=== PATIENT | male | born 1935 | race Caucasian/White ===

== ENCOUNTER 2018-02-18 14:34 | Inpatient (IN) | payer MEDICARE, MEDICAID ==
[~2018-02-18] VITALS: Ht 177.8 cm; Wt 64.0 kg
[2018-02-18] MEDS ORDERED: ARICEPT10 MG ORAL (14:36)
[2018-02-18] MEDS ORDERED: ACETAMINOPHEN325 M1 ORAL (14:39)
[2018-02-18] MEDS ORDERED: SYNTHROID50 MCG ORAL (14:39)
[2018-02-18] MEDS ORDERED: CULTURELLE1 EAC1 PO (14:39)
[2018-02-18] MEDS ORDERED: DIGOXIN250 MCG ORAL (14:39)
[2018-02-18] MEDS ORDERED: BISACODYL10 M1 RC (14:39)
[2018-02-18] MEDS ORDERED: DOCUSATE SODIU100 MG ORAL (14:39)
[2018-02-18] MEDS ORDERED: Ampicillin/Sulbactam Sod 3 GM in NS 110 ML IV SCH (14:45)
[2018-02-18] MEDS ORDERED: Vancomycin 1.5gm/D5W 250ml 250 ML IVPB ONE (14:45)
--- NOTE | 2018-02-18 14:49 | Emergency Room Report ---
History of Present Illness General Chief Complaint: Altered Level of Consciousness Source: Patient, Medical Record Present Illness HPI Patient is an 82-year-old male who presented after increased altered mental status. Patient was brought in by EMS from [facility]. The patient was noted to have increased altered mental status for approximately one hour. Patient had been noted to be warm to the touch. The patient was noted to be he isn't usual. The EMS the patient was normally somewhat confused Allergies: Coded Allergies: No Known Allergies (Unverified , 02/18/18) Patient History Reviewed Nursing Documentation: PMH: Agreed; PSxH: Agreed Nursing Documentation-PM Past Medical History: No History, Except For Hx Cardiac Problems: Yes - Atherosclerotic heart disease Hx COPD: Yes - PNA Review of Systems All Other Systems: negative except mentioned in HPI Physical Exam Vital Signs Date Time Temp Pulse Resp B/P (MAP) Pulse Ox O2 Delivery O2 Flow Rate FiO2 02/18/18 14:31 93 20 154/98 94 Nasal Cannula 2.0 Sp02 EP Interpretation: reviewed, normal General Appearance: Chronically Ill Head: atraumatic ENT: dry mucus membranes Neck: no bony tend, limited range of motion Respiratory: no retraction, rales Cardiovascular #1: regular rate, rhythm, no edema Gastrointestinal: normal inspection, normal bowel sounds, non tender, soft, no guarding, no hernia Genitourinary: no CVA tenderness Musculoskeletal: normal inspection, back normal, normal range of motion Neurologic: responsive, motor weakness Psychiatric: normal inspection, depressed affect Skin: normal inspection, normal color, no rash Procedures Critical Care Time Critical Care Time Patient had a critical medical condition which untreated could potentially result in life or limb threatening injury. Total critical care time excluding procedures approximately 45 minutes. Medical Decision Making Diagnostic Impression: Primary Impression: Altered level of consciousness Additional Impressions: Severe sepsis Myocardial injury ER Course presented for for altered mental status. Ifferential diagnosis included but was not limited to ischemic stroke, subarachnoid hemorrhage, hypoglycemia, spinal cord injury, neurodegenerative disorder, urinary tract infection, hypoxemia.Because of complexity of patient's case laboratory testing and imaging studies were ordered. Patient was noted to have EKG with normal sinus rhythm with bifascicular block T wave was noted to be somewhat inverted. Patient's initial troponin was noted to be markedly elevated consistent with myocardial injury. Urinalysis showed evidence of urinary infection. The patient was started on IV antibiotics. He was given rectal aspirin. Patient will be admitted to the hospital for further evaluation and treatment of sepsis. Patient was noted to have some improvement in his mental status after IV hydration showed improved perfusion. Patient will likely require cardiology consult. Dr. Sibley was contacted for inpatient management due to complexity of medical condition and covering physician for Dr. Sutton. The patient's repeat troponin showed no acute change.Dr. Sherwood contacted by Dr. Sibley for cardiology consult Labs Test 02/18/18 14:55 02/18/18 15:16 White Blood Count 16.2 K/UL (4.8-10.8) Red Blood Count 4.54 M/UL (4.70-6.10) Hemoglobin 13.2 G/DL (14.2-18.0) Hematocrit 41.1 % (42.0-52.0) Mean Corpuscular Volume 91 FL (80-99) Mean Corpuscular Hemoglobin 29.1 PG (27.0-31.0) Mean Corpuscular Hemoglobin Concent 32.2 G/DL (32.0-36.0) Red Cell Distribution Width 12.5 % (11.6-14.8) Platelet Count 121 K/UL (150-450) Mean Platelet Volume 7.7 FL (6.5-10.1) Neutrophils (%) (Auto) 86.5 % (45.0-75.0) Lymphocytes (%) (Auto) 5.8 % (20.0-45.0) Monocytes (%) (Auto) 5.1 % (1.0-10.0) Eosinophils (%) (Auto) 1.7 % (0.0-3.0) Basophils (%) (Auto) 1.0 % (0.0-2.0) Prothrombin Time 12.6 SEC (9.30-11.50) Prothromb Time International Ratio 1.2 (0.9-1.1) Activated Partial Thromboplast Time 29 SEC (23-33) Sodium Level 144 MMOL/L (136-145) Potassium Level 5.0 MMOL/L (3.5-5.1) Chloride Level 106 MMOL/L (98-107) Carbon Dioxide Level 30 MMOL/L (21-32) Anion Gap 8 mmol/L (5-15) Blood Urea Nitrogen 36 mg/dL (7-18) Creatinine 1.4 MG/DL (0.55-1.30) Estimat Glomerular Filtration Rate mL/min (>60) Glucose Level 112 MG/DL (74-106) Lactic Acid Level 2.00 mmol/L (0.4-2.0) Calcium Level 8.7 MG/DL (8.5-10.1) Total Bilirubin 0.5 MG/DL (0.2-1.0) Aspartate Amino Transf (AST/SGOT) 54 U/L (15-37) Alanine Aminotransferase (ALT/SGPT) 22 U/L (12-78) Alkaline Phosphatase 99 U/L (46-116) Total Creatine Kinase 179 U/L (26-308) Creatine Kinase MB 12.6 NG/ML (0.0-3.6) Creatine Kinase MB Relative Index 7.0 Troponin I 6.867 ng/mL (0.000-0.056) Pro-B-Type Natriuretic Peptide 3815 pg/mL (0-125) Total Protein 8.3 G/DL (6.4-8.2) Albumin 3.1 G/DL (3.4-5.0) Globulin 5.2 g/dL Albumin/Globulin Ratio 0.6 (1.0-2.7) Lipase 356 U/L (73-393) Urine Color Pale yellow Urine Appearance Turbid Urine pH 5 (4.5-8.0) Urine Specific [place] 1.015 (1.005-1.035) Urine Protein 4+ (NEGATIVE) Urine Glucose (UA) Negative (NEGATIVE) Urine Ketones Negative (NEGATIVE) Urine Blood 5+ (NEGATIVE) Urine Nitrite Negative (NEGATIVE) Urine Bilirubin Negative (NEGATIVE) Urine Urobilinogen Normal MG/DL (0.0-1.0) Urine Leukocyte Esterase 3+ (NEGATIVE) Urine RBC 0-2 /HPF (0 - 0) Urine WBC Tntc /HPF (0 - 0) Urine Squamous Epithelial Cells Occasional /LPF Urine Bacteria Many /HPF (NONE) EKG Diagnostic Results Rate: normal - 89 Rhythm: NSR ASA given to the pt in ED: Yes Rhythm Strip Diag. Results EP Interpretation: yes Rhythm: NSR, other - occasional pvcs Last Vital Signs Date Time Temp Pulse Resp B/P (MAP) Pulse Ox O2 Delivery O2 Flow Rate FiO2 02/18/18 14:31 93 20 154/98 94 Nasal Cannula 2.0 Status: unchanged Disposition: ADMITTED INPATIENT Condition: Serious Garry Rob MD Feb 18, 2018 14:48
[2018-02-18 15:10] VITALS: BP 123/83
[2018-02-18 15:19] LABS: HEMATOCRIT 41.1 % (42.0-52.0); HEMOGLOBIN 13.2 G/DL (14.2-18.0); MEAN CORPUSCULAR VOLUME 91 FL (80-99); PLATELET COUNT 121 K/UL (150-450); RED BLOOD COUNT 4.54 M/UL (4.70-6.10); RED CELL DISTRIBUTION WIDTH 12.5 % (11.6-14.8); WHITE BLOOD COUNT 16.2 K/UL (4.8-10.8)
[2018-02-18 15:20] LABS: EOSINOPHILS % (AUTO) 1.7 % (0.0-3.0); LYMPHOCYTES % (AUTO) 5.8 % (20.0-45.0); MONOCYTES % (AUTO) 5.1 % (1.0-10.0); NEUTROPHILS % (AUTO) 86.5 % (45.0-75.0)
[2018-02-18 15:23] LABS: INR 1.2 (0.9-1.1)
[2018-02-18 15:28] LABS: ANION GAP 8 mmol/L (5-15); BLOOD UREA NITROGEN 36 mg/dL (7-18); CALCIUM 8.7 MG/DL (8.5-10.1); CARBON DIOXIDE 30 MMOL/L (21-32); CHLORIDE 106 MMOL/L (98-107); CREATININE 1.4 MG/DL (0.55-1.30); SODIUM 144 MMOL/L (136-145)
[2018-02-18 15:31] LABS: APPEARANCE,URINE TURBID; BILIRUBIN, URINE NEGATIVE (NEGATIVE); COLOR,URINE PALE YELLOW; GLUCOSE, URINE (UA) NEGATIVE (NEGATIVE); KETONES,URINE NEGATIVE (NEGATIVE); LEUKOCYTE ESTERASE ,URINE 3+ (NEGATIVE); NITRITE,URINE NEGATIVE (NEGATIVE); PH,URINE 5 (4.5-8.0); PROTEIN,URINE 4+ (NEGATIVE); UROBILINOGEN,URINE NORMAL MG/DL (0.0-1.0)
[2018-02-18 15:41] LABS: ALANINE AMINOTRANSFERASE 22 U/L (12-78); ALBUMIN 3.1 G/DL (3.4-5.0); ALBUMIN/GLOBULIN RATIO 0.6 (1.0-2.7); ALKALINE PHOSPHATASE 99 U/L (46-116); ASPARTATE AMINO TRANSFERASE 54 U/L (15-37); BILIRUBIN,TOTAL 0.5 MG/DL (0.2-1.0); CKMB 12.6 NG/ML (0.0-3.6); CREATINE KINASE 179 U/L (26-308)
--- NOTE | 2018-02-18 16:16 | Diagnostic Imaging Report ---
Indications: Altered mental status Technique: Spiral acquisitions obtained through the brain. Angled axial and coronal 5 x 5 mm slices were reconstructed. Total dose length product 1467.58 mGycm. CTDI vol(s) 70.38 mGy. Dose reduction achieved using automated exposure control Comparison: None. Findings: There is marked age-related enlargement of the ventricles and extra axial CSF spaces. There is extensive periventricular deep white matter low-attenuation, consistent with chronic ischemic change. No acute intercranial hemorrhage or edema. No mass effect nor midline shift. 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 The sinuses are clear otherwise. Visualized orbits are unremarkable. The mastoids are clear. The calvarium is intact Impression: Extensive senescent changes, as described Negative for acute intracranial bleed or mass effect. The CT scanner at [facility] is accredited by the [employer] and the scans are performed using protocols designed to limit radiation exposure to as low as reasonably achievable to attain images of sufficient resolution adequate for diagnostic evaluation.
--- NOTE | 2018-02-18 16:23 | Diagnostic Imaging Report ---
Indication: Shortness of breath Technique: One view of the chest Comparison: none Findings: An usual linear calcified opacity parallels the left mid chest wall. Central to this are linear opacities suggestive of scarring. There a numerous calcified left hilar lymph nodes. There is some lucency at the left lung apex. There is slight blunting of the left costophrenic sulcus. No definite infiltrates. The right lung and pleural space are clear. The heart size is normal Impression: Left midlung and calcified parenchymal scarring. Numerous calcified hilar nodes suggest old granulomatous disease Left apical lucency could reflect compensatory hyperinflation or COPD changes. No definite acute process No definite acute process. Other findings as noted
--- NOTE | 2018-02-18 16:37 | NUR ---
ED Nurse Note: Patient is non-verbalizing, responding to verbal stimuli, productive coughing, mild fever, restless, crackles sound from all lobes in lungs.
--- NOTE | 2018-02-18 16:38 | NUR ---
NURSE NOTES: RECEIVED PATIENT FROM ER VIA [facility]. REPORT GIVEN BY MARCIO VIA PHONE. PATIENT IS LYING IN BED, HOOKED TO CARDIAC TO MONITOR. VITALS TAKEN AND RECORDED. ON O2 AT2L NC. ON NPO. IV ON R FA G20, PATENT AND INTACT. THOROUGH SKIN ASSESSMENT DONE. NOTED SACRAL REDNESS. SKIN CARE DONE. HEALTH TEACHINGS DONE. ORIENTED TO ROOM. CALL LIGHT WITHIN REACH. SIDE RAILS UP. BED AT LOWEST POSITION. WILL CONTINUE TO MONITOR.
[2018-02-18] MEDS ORDERED: VANCOMYCIN IVPB ONE (16:45)
[2018-02-18] MEDS ORDERED: NS IVPB SCH (16:45)
[2018-02-18] MEDS ORDERED: VANCOMYCIN IVPB SCH (16:45)
[2018-02-18] MEDS ORDERED: [UNRECOGNIZED DRUG - OTHER] IVPB ONE (16:45)
[2018-02-18] MEDS ORDERED: Miralax 17gm pkt ORAL PRN (16:45)
[2018-02-18] MEDS ORDERED: Promethazine/Codeine 5ml UD ORAL PRN (16:46)
[2018-02-18] MEDS ORDERED: Albuterol/Ipratropium 3ml neb HHN PRN (16:46)
[2018-02-18] MEDS ORDERED: Mylanta II UD 30ml ORAL PRN (16:46)
[2018-02-18] MEDS ORDERED: Nitroglycerin Subl 0.4mg tab SL PRN (16:46)
[2018-02-18 17:10] VITALS: BP 151/98
[2018-02-18] MEDS ORDERED: Cefepime HCl 1 GM in D5W 55 ML IV SCH (18:00)
--- NOTE | 2018-02-18 19:06 | NUR ---
HAND-OFF: Report given to Coco Sow RN.
--- NOTE | 2018-02-18 19:08 | NUR ---
NURSE NOTES: Received patient from JUAN FRANCISCO Dacosta. Patient is asleep on nasal cannula of 2L and saturating at 98%. NPO. Bed alarm is activated, bed on lowest position, will continue plan of care.
--- NOTE | 2018-02-18 19:29 | Cardiology Progress Note ---
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 hs of paf need to exclude cva nor a candidate for any invasive cardaic intervention at this time per report has baseline dementia unt been able to contact siter for info consider ngt echo repeat ekg and trop [id number] Objective Last 24 Hour Vital Signs Date Time Temp Pulse Resp B/P (MAP) Pulse Ox O2 Delivery O2 Flow Rate FiO2 02/18/18 18:46 99.9 79 22 144/87 100 Nasal Cannula 2.0 93 02/18/18 17:10 Nasal Cannula 2.0 02/18/18 17:10 97.0 79 22 151/98 (115) 100 02/18/18 15:10 99.9 97 30 123/83 93 Nasal Cannula 2.0 02/18/18 15:10 97 30 Nasal Cannula 2.0 93 02/18/18 14:31 93 20 154/98 94 Nasal Cannula 2.0 Laboratory Tests Test 02/18/18 14:55 02/18/18 15:16 02/18/18 16:15 White Blood Count 16.2 K/UL (4.8-10.8) H Red Blood Count 4.54 M/UL (4.70-6.10) L Hemoglobin 13.2 G/DL (14.2-18.0) L Hematocrit 41.1 % (42.0-52.0) L Mean Corpuscular Volume 91 FL (80-99) Mean Corpuscular Hemoglobin 29.1 PG (27.0-31.0) Mean Corpuscular Hemoglobin Concent 32.2 G/DL (32.0-36.0) Red Cell Distribution Width 12.5 % (11.6-14.8) Platelet Count 121 K/UL (150-450) L Mean Platelet Volume 7.7 FL (6.5-10.1) Neutrophils (%) (Auto) 86.5 % (45.0-75.0) H Lymphocytes (%) (Auto) 5.8 % (20.0-45.0) L Monocytes (%) (Auto) 5.1 % (1.0-10.0) Eosinophils (%) (Auto) 1.7 % (0.0-3.0) Basophils (%) (Auto) 1.0 % (0.0-2.0) Prothrombin Time 12.6 SEC (9.30-11.50) H Prothromb Time International Ratio 1.2 (0.9-1.1) H Activated Partial Thromboplast Time 29 SEC (23-33) Sodium Level 144 MMOL/L (136-145) Potassium Level 5.0 MMOL/L (3.5-5.1) Chloride Level 106 MMOL/L (98-107) Carbon Dioxide Level 30 MMOL/L (21-32) Anion Gap 8 mmol/L (5-15) Blood Urea Nitrogen 36 mg/dL (7-18) H Creatinine 1.4 MG/DL (0.55-1.30) H Estimat Glomerular Filtration Rate mL/min (>60) Glucose Level 112 MG/DL (74-106) H Lactic Acid Level 2.00 mmol/L (0.4-2.0) 0.90 mmol/L (0.66-2.22) Calcium Level 8.7 MG/DL (8.5-10.1) Total Bilirubin 0.5 MG/DL (0.2-1.0) Aspartate Amino Transf (AST/SGOT) 54 U/L (15-37) H Alanine Aminotransferase (ALT/SGPT) 22 U/L (12-78) Alkaline Phosphatase 99 U/L (46-116) Total Creatine Kinase 179 U/L (26-308) Creatine Kinase MB 12.6 NG/ML (0.0-3.6) H Creatine Kinase MB Relative Index 7.0 Troponin I 6.867 ng/mL (0.000-0.056) 6.731 ng/mL (0.000-0.056) Pro-B-Type Natriuretic Peptide 3815 pg/mL (0-125) H Total Protein 8.3 G/DL (6.4-8.2) H Albumin 3.1 G/DL (3.4-5.0) L Globulin 5.2 g/dL Albumin/Globulin Ratio 0.6 (1.0-2.7) L Lipase 356 U/L (73-393) Urine Color Pale yellow Urine Appearance Turbid Urine pH 5 (4.5-8.0) Urine Specific [place] 1.015 (1.005-1.035) Urine Protein 4+ (NEGATIVE) H Urine Glucose (UA) Negative (NEGATIVE) Urine Ketones Negative (NEGATIVE) Urine Blood 5+ (NEGATIVE) H Urine Nitrite Negative (NEGATIVE) Urine Bilirubin Negative (NEGATIVE) Urine Urobilinogen Normal MG/DL (0.0-1.0) Urine Leukocyte Esterase 3+ (NEGATIVE) H Urine RBC 0-2 /HPF (0 - 0) H Urine WBC Tntc /HPF (0 - 0) H Urine Squamous Epithelial Cells Occasional /LPF Urine Bacteria Many /HPF (NONE) H Microbiology Date/Time Source Procedure Growth Status 02/18/18 16:50 Nasal Nares Influenza Types A,B Antigen (RUBEN) - Final Complete Geovanny Sherwood MD Feb 18, 2018 19:29
[2018-02-18 20:00] VITALS: BP 143/74
[2018-02-18] MEDS: Heparin 5000 units/ml inj SUBQ SCH (21:14)
[2018-02-19] VITALS: BP 162/85
--- NOTE | 2018-02-19 01:30 | Consultation ---
DATE OF CONSULTATION: 02/18/2018 CARDIOLOGY CONSULTATION CONSULTING PHYSICIAN: Geovanny Sherwood M.D. REASON FOR REFERRAL: Abnormal cardiac enzymes. HISTORY OF PRESENT ILLNESS: This is an elderly gentleman who is a resident of [facility]. The patient has a history of dementia who is transferred from [facility] facility because of worsening than usual altered mental status and is not able to provide any meaningful history whatsoever. The patient apparently according to the allied health professional run sheet who transferred the patient, paramedics were summoned because of altered level of consciousness for 1 hour prior to arrival. Usually, the patient follows commands, but today is only localizing to pain. History of dementia, COPD, and AFib. The patient's vitals were normal limits. Skin was warm. Some rhonchi. They thought that he had sepsis. The patient apparently was noted to move all 4 extremities with good muscle tone and no facial droop and was transferred to the emergency room at [facility]. An electrocardiogram showed poor quality right bundle-branch conduction with secondary ST-segment changes. In the emergency room, he was admitted and was noted to have cardiac enzyme of 6 and no further information is really available from the patient. No history of chest pains or shortness of breath is available. PAST MEDICAL HISTORY: According to the chart has a history of dysphagia, chronic obstructive pulmonary disease, wheezing, essential hypertension, hypothyroidism, iron deficiency anemia, protein-calorie malnutrition, malignant neoplasm of the lung, history of dementia, encephalopathy, coronary artery disease, atrial fibrillation, chronic kidney disease, and long-term use of anticoagulation and antibiotics. ALLERGIES: He is not known to be allergic to any medications based on the data that is available from the [facility] facility. MEDICATIONS: His medications at the facility include Aricept 10 mg daily, Dulcolax suppository, Culturelle, digoxin 0.25 mg daily, Colace, Fleet Enema, iron liquid, milk of magnesia, multivitamin, Synthroid 50 mcg, Tylenol, and vitamin C is also recorded. I do not see any Coumadin although the history indicated that the patient is on anticoagulation. SOCIAL HISTORY: Really unknown. The patient is a [facility] resident. REVIEW OF SYSTEMS: Unable to be obtained. PHYSICAL EXAMINATION: GENERAL: Shows to be an elderly gentleman who is not responsive, noncommunicative. NECK: Supple. No jugular distention. LUNGS: Appear to be clear to auscultation and percussion. CARDIAC: Regular rate and rhythm. No heaves, thrills, or gallops noted. ABDOMEN: Soft and nontender. Positive bowel sounds. EXTREMITIES: There is no edema. No clubbing or cyanosis. NEUROLOGICAL: He is really not responsive at all to any stimuli through me. LABORATORY VALUES: An electrocardiogram shows what appears to be sinus rhythm with a right bundle-branch conduction defect secondary to ST-segment changes. Really, no other ST or T-wave abnormality except related to the right bundle-branch conduction defect. The patient's labs - sodium 144, potassium 5.0, chloride 106, bicarb 30, BUN 32, creatinine 1.14, and glucose 112. Lactic acid 2 and subsequently 0.9. AST and ALT within normal limits. CK of 179. Troponin 6.87 subsequent to 6.73. ProBNP was 3800. Total protein 8.3. Albumin of 3.1. Lipase of 356. INR is 1.0 and PTT of 29. Urinalysis 3+ leukocyte esterase, too numerous to count wbcs. A chest x-ray performed in the emergency room shows left mid lung calcified parenchymal scarring, numerous calcified hilar nodes suggestive of old granulomatous disease, left apical lucency, could represent compensated hyperinflation of COPD, otherwise no acute definite processes noted on the chest x-ray. He did have a CT scan of his head. The CT scan had extensive senescent changes. Negative for intracranial bleed or mass effect is noted. ASSESSMENT AND PLAN: 1. Alteration of mental status. Questionable toxic metabolic encephalopathy. 2. Acute myocardial infarction non ST-elevation. 3. Right bundle-branch block conduction defect, chronicity unknown. 4. Reported history of lung cancer. 5. Reported history of paroxysmal atrial fibrillation. 6. Reported history of coagulopathy secondary to anticoagulation. 7. History of coronary artery disease. 8. History of chronic obstructive pulmonary disease. 9. History of chronic kidney disease. 10. History of hypertension. Dr. Sibley, this patient was seen in cardiac consultation. In light of the fact that he is such a poor historian, no information is available and no electrocardiographic changes, I think he should be treated medically with aspirin and statins, possibly anticoagulants at least for the time being until more information becomes available. [facility] There is no information about him there. There is the patient's sister's phone number on the face sheet and on the senior care sheets, which I have tried, #[phone], and I am unable to contact her for further information and further direction. There was a POLST form that indicates he wants to be attempted resuscitation and full treatment and long-term artificial nutrition to be continued as well. It appears that he usually is able to take oral medications, although at this point with his mentation being so abnormal, I doubt that this could be done. He did receive rectally some aspirin prior to admission. He will have a digoxin level checked and he will have a thyroid-stimulating hormone as well as other testing done. An echocardiogram will be ordered and serial enzymes will be followed. At this time, he is not a candidate for any intervention. Geovanny Sherwood M.D. DR: TAL JOB#: [id number] CC:
[2018-02-19 04:00] VITALS: BP 162/75
[2018-02-19 05:30] LABS: EOSINOPHILS % (AUTO) 5.4 % (0.0-3.0); HEMATOCRIT 36.3 % (42.0-52.0); HEMOGLOBIN 11.6 G/DL (14.2-18.0); LYMPHOCYTES % (AUTO) 7.4 % (20.0-45.0); MEAN CORPUSCULAR VOLUME 90 FL (80-99); MONOCYTES % (AUTO) 6.3 % (1.0-10.0); NEUTROPHILS % (AUTO) 79.9 % (45.0-75.0); PLATELET COUNT 106 K/UL (150-450); RED BLOOD COUNT 4.03 M/UL (4.70-6.10); RED CELL DISTRIBUTION WIDTH 12.3 % (11.6-14.8); WHITE BLOOD COUNT 11.7 K/UL (4.8-10.8)
[2018-02-19 06:14] LABS: ALBUMIN 2.5 G/DL (3.4-5.0); ANION GAP 7 mmol/L (5-15); BLOOD UREA NITROGEN 33 mg/dL (7-18); CALCIUM 8.2 MG/DL (8.5-10.1); CARBON DIOXIDE 27 MMOL/L (21-32); CHLORIDE 110 MMOL/L (98-107); CHOLESTEROL 187 MG/DL (< 200); CREATININE 1.1 MG/DL (0.55-1.30); HDL CHOLESTEROL 47 MG/DL (40-60); PHOSPHORUS 3.9 MG/DL (2.5-4.9); POTASSIUM 4.7 MMOL/L (3.5-5.1); SODIUM 144 MMOL/L (136-145); TRIGLYCERIDES 95 MG/DL (30-150)
--- NOTE | 2018-02-19 07:01 | NUR ---
NURSE NOTES: Call Dr. Sherwood's urgent line but no answer so left a non-urgent message regarding patient's troponin levels this morning that increased from 6.731 to 7.171. Awaiting call back.
--- NOTE | 2018-02-19 07:15 | NUR ---
HAND-OFF: Report given to JUAN FRANCISCO Dacosta.
--- NOTE | 2018-02-19 07:16 | NUR ---
NURSE NOTES: RECEIVED PATIENT FROM Coco KO RN. PATIENT IS LYING IN BED, AWAKE BUT NONVERBAL. HOOKED TO CARDIAC TO MONITOR. O2 AT 2L NC. NO SIGNS OF DISTRESS. ON NPO. FOR ST EVAL TODAY. IV ON R FA G20, PATENT AND INTACT. CALL LIGHT WITHIN REACH. SIDE RAILS UP. BED AT LOWEST POSITION. WILL CONTINUE TO MONITOR.
[2018-02-19 08:00] VITALS: BP 154/79
[2018-02-19] MEDS: Heparin 5000 units/ml inj SUBQ SCH ×2 (08:10→21:00)
[2018-02-19] MEDS ORDERED: Vancomycin 500mg/D5W 110ml IVPB SCH ×2 (09:00)
--- NOTE | 2018-02-19 10:09 | History and Physical ---
History of Present Illness General Date patient seen: Feb 19, 2018 Reason for Hospitalization: Altered Level of Consciousness Present Illness HPI 82-year-old male with hx of lung cancer, CAD, atrial fibrillation on Digoxin, residential resident, unknown baseline mental status was brought to [facility] by paramedics with CC of JIMMY. Pt had low grade temperature and altered mental status for approximately one hour. The EMS the patient was normally somewhat confused. This is his first admission to [facility] and we don't have any information about him or about his DPOA. He had leucocytosis and increased troponin level, without any hx of chest pain. Pt is awake, looks comfortable but doesn't answer to any simple question. Allergies: Coded Allergies: No Known Allergies (Unverified , 02/18/18) Medication History Scheduled Bisacodyl (Bisacodyl), 10 MG RC PRN, (Reported) Digoxin* (Digoxin*), 0.25 MG ORAL DAILY, (Reported) Docusate Sodium* (Docusate Sodium*), 100 MG ORAL TWICE A DAY, (Reported) Donepezil Hcl* (Aricept*), 10 MG ORAL DAILY, (Reported) Levothyroxine Sodium (Synthroid), 50 MCG ORAL DAILY, (Reported) Scheduled PRN Acetaminophen* (Acetaminophen 325MG Tablet*), 325 MG ORAL Q6H PRN for For Pain, (Reported) Miscellaneous Medications Lactobacillus Rhamnosus Gg (Culturelle), 1 EACH PO, (Reported) Patient History Healthcare decision maker N Resuscitation status Full Code Advanced Directive on File Past Medical/Surgical History Past Medical/Surgical History: (1) Lung cancer (2) COPD (chronic obstructive pulmonary disease) (3) Paroxysmal atrial fibrillation Review of Systems All Other Systems: negative except mentioned in HPI Physical Exam General Appearance: WD/WN Lines, tubes and drains: peripheral HEENT: normocephalic, atraumatic Neck: non-tender, normal alignment Respiratory/Chest: chest wall non-tender, lungs clear Cardiovascular/Chest: normal peripheral pulses, regularly irregular Abdomen: normal bowel sounds Genitourinary/Rectal: normal genital exam Extremities: normal range of motion Last 24 Hour Vital Signs Date Time Temp Pulse Resp B/P (MAP) Pulse Ox O2 Delivery O2 Flow Rate FiO2 02/19/18 08:00 97.7 77 18 154/79 (104) 100 02/19/18 08:00 Nasal Cannula 2.0 12/20/18 07:36 77 02/19/18 04:00 97.7 71 24 162/75 (104) 97 02/19/18 04:00 Nasal Cannula 2.0 02/19/18 03:29 58 02/19/18 00:00 97.9 76 24 162/85 (110) 96 02/19/18 00:00 Nasal Cannula 2.0 02/18/18 23:27 73 02/18/18 23:22 Nasal Cannula 2.0 28 02/18/18 20:00 98.0 72 20 143/74 (97) 98 02/18/18 20:00 Nasal Cannula 2.0 02/18/18 19:11 76 02/18/18 18:46 99.9 79 22 144/87 100 Nasal Cannula 2.0 93 02/18/18 18:01 70 02/18/18 17:10 Nasal Cannula 2.0 02/18/18 17:10 97.0 79 22 151/98 (115) 100 02/18/18 15:10 99.9 97 30 123/83 93 Nasal Cannula 2.0 02/18/18 15:10 97 30 Nasal Cannula 2.0 93 02/18/18 14:31 93 20 154/98 94 Nasal Cannula 2.0 Intake and Output 02/18/18 02/19/18 19:00 07:00 Intake Total 1210 ml 55 ml Output Total 200 ml 300 ml Balance 1010 ml -245 ml Intake IV Total 1210 ml 55 ml Output Urine Total 200 ml 300 ml # Voids 1 Laboratory Tests Test 02/18/18 14:55 02/18/18 15:16 02/18/18 16:15 02/19/18 04:00 White Blood Count 16.2 K/UL (4.8-10.8) H 11.7 K/UL (4.8-10.8) H Red Blood Count 4.54 M/UL (4.70-6.10) L 4.03 M/UL (4.70-6.10) L Hemoglobin 13.2 G/DL (14.2-18.0) L 11.6 G/DL (14.2-18.0) L Hematocrit 41.1 % (42.0-52.0) L 36.3 % (42.0-52.0) L Mean Corpuscular Volume 91 FL (80-99) 90 FL (80-99) Mean Corpuscular Hemoglobin 29.1 PG (27.0-31.0) 28.8 PG (27.0-31.0) Mean Corpuscular Hemoglobin Concent 32.2 G/DL (32.0-36.0) 32.0 G/DL (32.0-36.0) Red Cell Distribution Width 12.5 % (11.6-14.8) 12.3 % (11.6-14.8) Platelet Count 121 K/UL (150-450) L 106 K/UL (150-450) L Mean Platelet Volume 7.7 FL (6.5-10.1) 8.0 FL (6.5-10.1) Neutrophils (%) (Auto) 86.5 % (45.0-75.0) H 79.9 % (45.0-75.0) H Lymphocytes (%) (Auto) 5.8 % (20.0-45.0) L 7.4 % (20.0-45.0) L Monocytes (%) (Auto) 5.1 % (1.0-10.0) 6.3 % (1.0-10.0) Eosinophils (%) (Auto) 1.7 % (0.0-3.0) 5.4 % (0.0-3.0) H Basophils (%) (Auto) 1.0 % (0.0-2.0) 1.0 % (0.0-2.0) Prothrombin Time 12.6 SEC (9.30-11.50) H Prothromb Time International Ratio 1.2 (0.9-1.1) H Activated Partial Thromboplast Time 29 SEC (23-33) Sodium Level 144 MMOL/L (136-145) 144 MMOL/L (136-145) Potassium Level 5.0 MMOL/L (3.5-5.1) 4.7 MMOL/L (3.5-5.1) Chloride Level 106 MMOL/L (98-107) 110 MMOL/L (98-107) H Carbon Dioxide Level 30 MMOL/L (21-32) 27 MMOL/L (21-32) Anion Gap 8 mmol/L (5-15) 7 mmol/L (5-15) Blood Urea Nitrogen 36 mg/dL (7-18) H 33 mg/dL (7-18) H Creatinine 1.4 MG/DL (0.55-1.30) H 1.1 MG/DL (0.55-1.30) Estimat Glomerular Filtration Rate mL/min (>60) mL/min (>60) Glucose Level 112 MG/DL (74-106) H 85 MG/DL (74-106) Lactic Acid Level 2.00 mmol/L (0.4-2.0) 0.90 mmol/L (0.66-2.22) Calcium Level 8.7 MG/DL (8.5-10.1) 8.2 MG/DL (8.5-10.1) L Total Bilirubin 0.5 MG/DL (0.2-1.0) Aspartate Amino Transf (AST/SGOT) 54 U/L (15-37) H Alanine Aminotransferase (ALT/SGPT) 22 U/L (12-78) Alkaline Phosphatase 99 U/L (46-116) Total Creatine Kinase 179 U/L (26-308) Creatine Kinase MB 12.6 NG/ML (0.0-3.6) H Creatine Kinase MB Relative Index 7.0 Troponin I 6.867 ng/mL (0.000-0.056) 6.731 ng/mL (0.000-0.056) 7.171 ng/mL (0.000-0.056) Pro-B-Type Natriuretic Peptide 3815 pg/mL (0-125) H Total Protein 8.3 G/DL (6.4-8.2) H Albumin 3.1 G/DL (3.4-5.0) L 2.5 G/DL (3.4-5.0) L Globulin 5.2 g/dL Albumin/Globulin Ratio 0.6 (1.0-2.7) L Lipase 356 U/L (73-393) Urine Color Pale yellow Urine Appearance Turbid Urine pH 5 (4.5-8.0) Urine Specific [place] 1.015 (1.005-1.035) Urine Protein 4+ (NEGATIVE) H Urine Glucose (UA) Negative (NEGATIVE) Urine Ketones Negative (NEGATIVE) Urine Blood 5+ (NEGATIVE) H Urine Nitrite Negative (NEGATIVE) Urine Bilirubin Negative (NEGATIVE) Urine Urobilinogen Normal MG/DL (0.0-1.0) Urine Leukocyte Esterase 3+ (NEGATIVE) H Urine RBC 0-2 /HPF (0 - 0) H Urine WBC Tntc /HPF (0 - 0) H Urine Squamous Epithelial Cells Occasional /LPF Urine Bacteria Many /HPF (NONE) H Phosphorus Level 3.9 MG/DL (2.5-4.9) Triglycerides Level 95 MG/DL (30-150) Cholesterol Level 187 MG/DL (< 200) LDL Cholesterol 130 mg/dL (<100) H HDL Cholesterol 47 MG/DL (40-60) Cholesterol/HDL Ratio 4.0 (3.3-4.4) Thyroid Stimulating Hormone (TSH) 3.498 uiU/mL (0.358-3.740) Digoxin Level 2.1 NG/ML (0.5-2.0) H Microbiology Date/Time Source Procedure Growth Status 02/18/18 16:50 Nasal Nares Influenza Types A,B Antigen (RUBEN) - Final Complete 02/18/18 15:16 Urine,Clean Catch Urine Culture - Preliminary Gram Negative Wild Resulted Height (Feet): 5 Height (Inches): 10.00 Weight (Pounds): 170 Medications Current Medications Medications (Trade) Dose Ordered Sig/Delvin Route PRN Reason Start Time Stop Time Status Last Admin Dose Admin Acetaminophen (Tylenol) 650 mg Q4H PRN ORAL fever 02/18/18 16:45 03/20/18 16:44 Al Hydroxide/Mg Hydroxide (Mylanta II) 30 ml Q6H PRN ORAL dyspepsia 02/18/18 16:46 03/20/18 16:45 Albuterol/ Ipratropium (Albuterol/ Ipratropium) 3 ml Q4H PRN HHN Shortness of Breath 02/18/18 16:46 02/23/18 16:45 Cefepime HCl 1 gm/ Dextrose 55 ml @ 110 mls/hr Q24H IV 02/18/18 18:00 02/25/18 17:59 02/18/18 18:45 Heparin Sodium (Porcine) (Heparin 5000 units/ml) 5,000 units EVERY 12 HOURS SUBQ 02/18/18 21:00 03/20/18 20:59 02/18/18 21:14 Nitroglycerin (Ntg) 0.4 mg Q5M PRN SL Prn Chest Pain 02/18/18 16:46 03/20/18 16:45 Ondansetron HCl (Zofran) 4 mg Q6H PRN IVP Nausea & Vomiting 02/18/18 16:46 03/20/18 16:45 Polyethylene Glycol (Miralax) 17 gm DAILYPRN PRN ORAL Constipation 02/18/18 16:45 03/20/18 16:44 Promethazine HCl/ Codeine (Phenergan with Codeine) 5 ml Q4H PRN ORAL For Cough 02/18/18 16:46 03/20/18 16:45 Temazepam (Restoril) 15 mg HSPRN PRN ORAL Insomnia 02/18/18 21:00 02/25/18 20:59 Vancomycin HCl (Vanco rx to dose) 1 ea DAILY PRN MISC Per rx protocol 02/18/18 16:30 03/20/18 16:29 Vancomycin HCl 500 mg/Dextrose 110 ml @ 110 mls/hr Q12HR IVPB 02/19/18 09:00 02/24/18 08:59 02/19/18 08:10 Vancomycin HCl 1500 mg/Sodium Chloride 275 ml @ 137.5 mls/ hr ONCE IVPB 02/18/18 16:45 02/23/18 16:44 02/18/18 17:03 Assessment/Plan Problem List: (1) Severe sepsis ICD Codes: A41.9 - Sepsis, unspecified organism; R65.20 - Severe sepsis without septic shock SNOMED: 04184476 (2) Altered level of consciousness ICD Codes: R40.4 - Transient alteration of awareness SNOMED: 0331203 (3) Myocardial injury ICD Codes: S26.90XA - Unspecified injury of heart, unspecified with or without hemopericardium, initial encounter SNOMED: 38405566 (4) Paroxysmal atrial fibrillation ICD Codes: I48.0 - Paroxysmal atrial fibrillation SNOMED: 306500095 (5) COPD (chronic obstructive pulmonary disease) ICD Codes: J44.9 - Chronic obstructive pulmonary disease, unspecified SNOMED: 07647566 (6) Lung cancer ICD Codes: C34.90 - Malignant neoplasm of unspecified part of unspecified bronchus or lung SNOMED: 707152056 Assessment/Plan RODERICK monitoring cardiology consult appreciated broad spectrum abx suero cultures f/u on WBC echo cardiogram check electrolytes director of social work to find DPOA dvt prophylaxis. Gila Sibley MD Feb 19, 2018 10:09
--- NOTE | 2018-02-19 10:25 | NUR ---
ST NOTE: BEDSIDE SWALLOW EVAL RECEIVED BEDSIDE SWALLOW EVAL ORDER CHART REVIEWED PRIOR THE EVALUATION PT IS A 82-YEAR-OLD MALE WHO WAS ADMITTED DUE TO AMS, PNA AND SEPSIS. DYSPHAGIA RISK FACTORS: H/O LUNG CA, H/O DEMENTIA, H/O DYSPHAGIA, A-FIB, COPD, HTN, PROTEIN-CALORIE MALNUTRITION PER CXR: Left midlung and calcified parenchymal scarring. Numerous calcified hilar nodes suggest old granulomatous disease Left apical lucency could reflect compensatory hyperinflation or COPD changes. No definite acute process. PLOF: PT RESIDES AT SNF. PER CHART, PT IS ON PUREE WITH THIN LIQUIDS. PER PT'S POLST: FULL TREATMENT AND OKAY FOR LONG-TERM ARTIFICIAL NUTRITION, INCLUDING FEEDING TUBES. CURRENT STATUS: PT SEEN AT BEDSIDE IN AM. REQUIRED MAX CUES TO MAINTAIN ALERTNESS. ABLE TO PRODUCE SOME VOICE BUT NOT INTELLIGIBLE, WITH NC(2L), DID NOT FOLLOW DIRECTIONS OR ANSWERED ANY SIMPLE QUESTIONS. GIVEN PO TRIALS: NECTAR THICK LIQUIDS (TSP ONLY) INITIAL IMPRESSION: PROBABLE MILD TO MODERATE OROPHARYNGEAL DYSPHAGIA INCREASED ORAL TRANSIT TIME AND OROPHARYNGEAL TRANSIT TIME, FAIR LARYNGEAL ELEVATION, QUESTIONABLE THROAT CLEARING WAS NOTED. DUE TO PT HAS H/O DEMENTIA,AND CURRENT PNA, PT HAS HIGH RISK FOR (SILENT) ASPIRATION. RECOMMENDATIONS: 1. CONSERVATIVELY, KEEP PT ON NPO UNTIL VIDEOSWALLOW STUDY OR MORE ALERT. 2, IF PO IS GIVEN FOR QUALITY, CONSIDER LIQUIFIED PUREED, LIKE NECTAR THICK SOUP CONSISTENCY WITH NECTAR THICK LIQUIDS WITH STRICT ASPIRATION PRECAUTIONS WITH 1TO1 FEEDING. 3. VIDEOSWALLOW STUDY D/W , DR. DEBORA MD APPROVED FOR VIDEOSWALLOW STUDY. D/W RAQUEL CHICAS AND IN-CHARGE NURSE, DUE TO PT'S TROPONIN IS HIGH, NOT STABLE TO GO DOWN FOR VIDEOSWALLOW STUDY AT THIS TIME. POSTED NPO SIGN.
[2018-02-19 12:00] VITALS: BP 139/75
--- NOTE | 2018-02-19 12:08 | Consultation ---
History of Present Illness General Chief Complaint: Altered Level of Consciousness Present Illness HPI The pt is an 82 yo male with history of dementia who is transferred from convalescent facility because of worsening than usual altered mental status and is not able to provide any meaningful history whatsoever. the pt has waxing and waning of consciousness and is agitated at times. the pt is unable to provide hx. Allergies: Coded Allergies: No Known Allergies (Unverified , 02/18/18) Medication History Scheduled Bisacodyl (Bisacodyl), 10 MG RC PRN, (Reported) Digoxin* (Digoxin*), 0.25 MG ORAL DAILY, (Reported) Docusate Sodium* (Docusate Sodium*), 100 MG ORAL TWICE A DAY, (Reported) Donepezil Hcl* (Aricept*), 10 MG ORAL DAILY, (Reported) Levothyroxine Sodium (Synthroid), 50 MCG ORAL DAILY, (Reported) Scheduled PRN Acetaminophen* (Acetaminophen 325MG Tablet*), 325 MG ORAL Q6H PRN for For Pain, (Reported) Miscellaneous Medications Lactobacillus Rhamnosus Gg (Culturelle), 1 EACH PO, (Reported) Patient History Limited by: medical condition History Provided By: Patient, Medical Record Healthcare decision maker N Resuscitation status Full Code Advanced Directive on File Past Medical/Surgical History Past Medical/Surgical History: (1) COPD (chronic obstructive pulmonary disease) (2) Paroxysmal atrial fibrillation (3) Lung cancer (4) Myocardial injury (5) Altered level of consciousness (6) Severe sepsis Review of Systems Psychiatric: Reports: anxiety, depressed feelings Physical Exam General Appearance: alert, confused, agitated Neurologic: depressed affect Last 24 Hour Vital Signs Date Time Temp Pulse Resp B/P (MAP) Pulse Ox O2 Delivery O2 Flow Rate FiO2 02/19/18 08:00 97.7 77 18 154/79 (104) 100 02/19/18 08:00 Nasal Cannula 2.0 02/19/18 07:36 77 02/19/18 04:00 97.7 71 24 162/75 (104) 97 02/19/18 04:00 Nasal Cannula 2.0 02/19/18 03:29 58 02/19/18 00:00 97.9 76 24 162/85 (110) 96 02/19/18 00:00 Nasal Cannula 2.0 02/18/18 23:27 73 02/18/18 23:22 Nasal Cannula 2.0 28 02/18/18 20:00 98.0 72 20 143/74 (97) 98 02/18/18 20:00 Nasal Cannula 2.0 02/18/18 19:11 76 02/18/18 18:46 99.9 79 22 144/87 100 Nasal Cannula 2.0 93 02/18/18 18:01 70 02/18/18 17:10 Nasal Cannula 2.0 02/18/18 17:10 97.0 79 22 151/98 (115) 100 02/18/18 15:10 99.9 97 30 123/83 93 Nasal Cannula 2.0 02/18/18 15:10 97 30 Nasal Cannula 2.0 93 02/18/18 14:31 93 20 154/98 94 Nasal Cannula 2.0 Intake and Output 02/18/18 02/19/18 19:00 07:00 Intake Total 1210 ml 55 ml Output Total 200 ml 300 ml Balance 1010 ml -245 ml Intake IV Total 1210 ml 55 ml Output Urine Total 200 ml 300 ml # Voids 1 Laboratory Tests Test 02/18/18 14:55 02/18/18 15:16 02/18/18 16:15 02/19/18 04:00 White Blood Count 16.2 K/UL (4.8-10.8) H 11.7 K/UL (4.8-10.8) H Red Blood Count 4.54 M/UL (4.70-6.10) L 4.03 M/UL (4.70-6.10) L Hemoglobin 13.2 G/DL (14.2-18.0) L 11.6 G/DL (14.2-18.0) L Hematocrit 41.1 % (42.0-52.0) L 36.3 % (42.0-52.0) L Mean Corpuscular Volume 91 FL (80-99) 90 FL (80-99) Mean Corpuscular Hemoglobin 29.1 PG (27.0-31.0) 28.8 PG (27.0-31.0) Mean Corpuscular Hemoglobin Concent 32.2 G/DL (32.0-36.0) 32.0 G/DL (32.0-36.0) Red Cell Distribution Width 12.5 % (11.6-14.8) 12.3 % (11.6-14.8) Platelet Count 121 K/UL (150-450) L 106 K/UL (150-450) L Mean Platelet Volume 7.7 FL (6.5-10.1) 8.0 FL (6.5-10.1) Neutrophils (%) (Auto) 86.5 % (45.0-75.0) H 79.9 % (45.0-75.0) H Lymphocytes (%) (Auto) 5.8 % (20.0-45.0) L 7.4 % (20.0-45.0) L Monocytes (%) (Auto) 5.1 % (1.0-10.0) 6.3 % (1.0-10.0) Eosinophils (%) (Auto) 1.7 % (0.0-3.0) 5.4 % (0.0-3.0) H Basophils (%) (Auto) 1.0 % (0.0-2.0) 1.0 % (0.0-2.0) Prothrombin Time 12.6 SEC (9.30-11.50) H Prothromb Time International Ratio 1.2 (0.9-1.1) H Activated Partial Thromboplast Time 29 SEC (23-33) Sodium Level 144 MMOL/L (136-145) 144 MMOL/L (136-145) Potassium Level 5.0 MMOL/L (3.5-5.1) 4.7 MMOL/L (3.5-5.1) Chloride Level 106 MMOL/L (98-107) 110 MMOL/L (98-107) H Carbon Dioxide Level 30 MMOL/L (21-32) 27 MMOL/L (21-32) Anion Gap 8 mmol/L (5-15) 7 mmol/L (5-15) Blood Urea Nitrogen 36 mg/dL (7-18) H 33 mg/dL (7-18) H Creatinine 1.4 MG/DL (0.55-1.30) H 1.1 MG/DL (0.55-1.30) Estimat Glomerular Filtration Rate mL/min (>60) mL/min (>60) Glucose Level 112 MG/DL (74-106) H 85 MG/DL (74-106) Lactic Acid Level 2.00 mmol/L (0.4-2.0) 0.90 mmol/L (0.66-2.22) Calcium Level 8.7 MG/DL (8.5-10.1) 8.2 MG/DL (8.5-10.1) L Total Bilirubin 0.5 MG/DL (0.2-1.0) Aspartate Amino Transf (AST/SGOT) 54 U/L (15-37) H Alanine Aminotransferase (ALT/SGPT) 22 U/L (12-78) Alkaline Phosphatase 99 U/L (46-116) Total Creatine Kinase 179 U/L (26-308) Creatine Kinase MB 12.6 NG/ML (0.0-3.6) H Creatine Kinase MB Relative Index 7.0 Troponin I 6.867 ng/mL (0.000-0.056) 6.731 ng/mL (0.000-0.056) 7.171 ng/mL (0.000-0.056) Pro-B-Type Natriuretic Peptide 3815 pg/mL (0-125) H Total Protein 8.3 G/DL (6.4-8.2) H Albumin 3.1 G/DL (3.4-5.0) L 2.5 G/DL (3.4-5.0) L Globulin 5.2 g/dL Albumin/Globulin Ratio 0.6 (1.0-2.7) L Lipase 356 U/L (73-393) Urine Color Pale yellow Urine Appearance Turbid Urine pH 5 (4.5-8.0) Urine Specific [place] 1.015 (1.005-1.035) Urine Protein 4+ (NEGATIVE) H Urine Glucose (UA) Negative (NEGATIVE) Urine Ketones Negative (NEGATIVE) Urine Blood 5+ (NEGATIVE) H Urine Nitrite Negative (NEGATIVE) Urine Bilirubin Negative (NEGATIVE) Urine Urobilinogen Normal MG/DL (0.0-1.0) Urine Leukocyte Esterase 3+ (NEGATIVE) H Urine RBC 0-2 /HPF (0 - 0) H Urine WBC Tntc /HPF (0 - 0) H Urine Squamous Epithelial Cells Occasional /LPF Urine Bacteria Many /HPF (NONE) H Phosphorus Level 3.9 MG/DL (2.5-4.9) Triglycerides Level 95 MG/DL (30-150) Cholesterol Level 187 MG/DL (< 200) LDL Cholesterol 130 mg/dL (<100) H HDL Cholesterol 47 MG/DL (40-60) Cholesterol/HDL Ratio 4.0 (3.3-4.4) Thyroid Stimulating Hormone (TSH) 3.498 uiU/mL (0.358-3.740) Digoxin Level 2.1 NG/ML (0.5-2.0) H Microbiology Date/Time Source Procedure Growth Status 02/18/18 16:50 Nasal Nares Influenza Types A,B Antigen (RUBEN) - Final Complete 02/18/18 15:16 Urine,Clean Catch Urine Culture - Preliminary Gram Negative Wild Resulted Height (Feet): 5 Height (Inches): 10.00 Weight (Pounds): 170 Medications Current Medications Medications (Trade) Dose Ordered Sig/Delvin Route PRN Reason Start Time Stop Time Status Last Admin Dose Admin Acetaminophen (Tylenol) 650 mg Q4H PRN ORAL fever 02/18/18 16:45 03/20/18 16:44 Al Hydroxide/Mg Hydroxide (Mylanta II) 30 ml Q6H PRN ORAL dyspepsia 02/18/18 16:46 03/20/18 16:45 Albuterol/ Ipratropium (Albuterol/ Ipratropium) 3 ml Q4H PRN HHN Shortness of Breath 02/18/18 16:46 02/23/18 16:45 Cefepime HCl 1 gm/ Dextrose 55 ml @ 110 mls/hr Q12HR IV 02/19/18 13:00 02/25/18 12:59 Heparin Sodium (Porcine) (Heparin 5000 units/ml) 5,000 units EVERY 12 HOURS SUBQ 02/18/18 21:00 03/20/18 20:59 02/18/18 21:14 Nitroglycerin (Ntg) 0.4 mg Q5M PRN SL Prn Chest Pain 02/18/18 16:46 03/20/18 16:45 Ondansetron HCl (Zofran) 4 mg Q6H PRN IVP Nausea & Vomiting 02/18/18 16:46 03/20/18 16:45 Polyethylene Glycol (Miralax) 17 gm DAILYPRN PRN ORAL Constipation 02/18/18 16:45 03/20/18 16:44 Promethazine HCl/ Codeine (Phenergan with Codeine) 5 ml Q4H PRN ORAL For Cough 02/18/18 16:46 03/20/18 16:45 Temazepam (Restoril) 15 mg HSPRN PRN ORAL Insomnia 02/18/18 21:00 02/25/18 20:59 Vancomycin HCl (Vanco rx to dose) 1 ea DAILY PRN MISC Per rx protocol 02/18/18 16:30 03/20/18 16:29 Vancomycin HCl 500 mg/Dextrose 110 ml @ 110 mls/hr Q12HR IVPB 02/19/18 09:00 02/24/18 08:59 02/19/18 08:10 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 (2) Dementia ICD Codes: F03.90 - Unspecified dementia without behavioral disturbance SNOMED: 78191029 Status: stable, progressing Assessment/Plan zyprexa prn the pt lacks capacity provided Arsen Moreno MD Feb 19, 2018 12:08
[2018-02-19] MEDS ORDERED: OLANZapine 2.5mg tab ORAL PRN (12:15)
--- NOTE | 2018-02-19 12:29 | History & Physical ---
History and Physical History & Physicial Dictated for Int Med-Dr Jc no. [id number] Ricky Baker MD Feb 19, 2018 12:29
[2018-02-19] MEDS: Cefepime HCl 1 GM in D5W 55 ML IV SCH ×2 (13:50→21:29)
--- NOTE | 2018-02-19 13:52 | Consultation ---
History of Present Illness General Date patient seen: Feb 19, 2018 Chief Complaint: Altered Level of Consciousness Present Illness HPI 82 y/o M with hx of Dementia, dysphagia, HTN, lung CA, CAD, CKD, COPD, Afib, NH resident presented to ED on 02/18 with worsening AMS. Upon admission noted to have low grade temperatures and elevated trops. Allergies: Coded Allergies: No Known Allergies (Unverified , 02/18/18) Medication History Scheduled Bisacodyl (Bisacodyl), 10 MG RC PRN, (Reported) Digoxin* (Digoxin*), 0.25 MG ORAL DAILY, (Reported) Docusate Sodium* (Docusate Sodium*), 100 MG ORAL TWICE A DAY, (Reported) Donepezil Hcl* (Aricept*), 10 MG ORAL DAILY, (Reported) Levothyroxine Sodium (Synthroid), 50 MCG ORAL DAILY, (Reported) Scheduled PRN Acetaminophen* (Acetaminophen 325MG Tablet*), 325 MG ORAL Q6H PRN for For Pain, (Reported) Miscellaneous Medications Lactobacillus Rhamnosus Gg (Culturelle), 1 EACH PO, (Reported) Patient History Healthcare decision maker N Resuscitation status Full Code Advanced Directive on File Patient History Narrative . Pmhx: as above Shx: Really unknown. The patient is a convalescent facility resident. Fhx: non contributory Review of Systems All Other Systems: negative except mentioned in HPI Physical Exam Physical Exam Narrative GENERAL: Shows to be an elderly gentleman who is not responsive, noncommunicative. NECK: Supple. No jugular distention. LUNGS: Appear to be clear to auscultation and percussion. CARDIAC: Regular rate and rhythm. No heaves, thrills, or gallops noted. ABDOMEN: Soft and nontender. Positive bowel sounds. EXTREMITIES: There is no edema. No clubbing or cyanosis. NEUROLOGICAL: He is really not responsive at all to any stimuli through me. Last 24 Hour Vital Signs Date Time Temp Pulse Resp B/P (MAP) Pulse Ox O2 Delivery O2 Flow Rate FiO2 02/19/18 08:00 97.7 77 18 154/79 (104) 100 02/19/18 08:00 Nasal Cannula 2.0 02/19/18 07:36 77 02/19/18 04:00 97.7 71 24 162/75 (104) 97 02/19/18 04:00 Nasal Cannula 2.0 02/19/18 03:29 58 02/19/18 00:00 97.9 76 24 162/85 (110) 96 02/19/18 00:00 Nasal Cannula 2.0 02/18/18 23:27 73 02/18/18 23:22 Nasal Cannula 2.0 28 02/18/18 20:00 98.0 72 20 143/74 (97) 98 02/18/18 20:00 Nasal Cannula 2.0 02/18/18 19:11 76 02/18/18 18:46 99.9 79 22 144/87 100 Nasal Cannula 2.0 93 02/18/18 18:01 70 02/18/18 17:10 Nasal Cannula 2.0 02/18/18 17:10 97.0 79 22 151/98 (115) 100 02/18/18 15:10 99.9 97 30 123/83 93 Nasal Cannula 2.0 02/18/18 15:10 97 30 Nasal Cannula 2.0 93 02/18/18 14:31 93 20 154/98 94 Nasal Cannula 2.0 Intake and Output 02/18/18 02/19/18 19:00 07:00 Intake Total 1210 ml 55 ml Output Total 200 ml 300 ml Balance 1010 ml -245 ml Intake IV Total 1210 ml 55 ml Output Urine Total 200 ml 300 ml # Voids 1 Laboratory Tests Test 02/18/18 14:55 02/18/18 15:16 02/18/18 16:15 02/19/18 04:00 White Blood Count 16.2 K/UL (4.8-10.8) H 11.7 K/UL (4.8-10.8) H Red Blood Count 4.54 M/UL (4.70-6.10) L 4.03 M/UL (4.70-6.10) L Hemoglobin 13.2 G/DL (14.2-18.0) L 11.6 G/DL (14.2-18.0) L Hematocrit 41.1 % (42.0-52.0) L 36.3 % (42.0-52.0) L Mean Corpuscular Volume 91 FL (80-99) 90 FL (80-99) Mean Corpuscular Hemoglobin 29.1 PG (27.0-31.0) 28.8 PG (27.0-31.0) Mean Corpuscular Hemoglobin Concent 32.2 G/DL (32.0-36.0) 32.0 G/DL (32.0-36.0) Red Cell Distribution Width 12.5 % (11.6-14.8) 12.3 % (11.6-14.8) Platelet Count 121 K/UL (150-450) L 106 K/UL (150-450) L Mean Platelet Volume 7.7 FL (6.5-10.1) 8.0 FL (6.5-10.1) Neutrophils (%) (Auto) 86.5 % (45.0-75.0) H 79.9 % (45.0-75.0) H Lymphocytes (%) (Auto) 5.8 % (20.0-45.0) L 7.4 % (20.0-45.0) L Monocytes (%) (Auto) 5.1 % (1.0-10.0) 6.3 % (1.0-10.0) Eosinophils (%) (Auto) 1.7 % (0.0-3.0) 5.4 % (0.0-3.0) H Basophils (%) (Auto) 1.0 % (0.0-2.0) 1.0 % (0.0-2.0) Prothrombin Time 12.6 SEC (9.30-11.50) H Prothromb Time International Ratio 1.2 (0.9-1.1) H Activated Partial Thromboplast Time 29 SEC (23-33) Sodium Level 144 MMOL/L (136-145) 144 MMOL/L (136-145) Potassium Level 5.0 MMOL/L (3.5-5.1) 4.7 MMOL/L (3.5-5.1) Chloride Level 106 MMOL/L (98-107) 110 MMOL/L (98-107) H Carbon Dioxide Level 30 MMOL/L (21-32) 27 MMOL/L (21-32) Anion Gap 8 mmol/L (5-15) 7 mmol/L (5-15) Blood Urea Nitrogen 36 mg/dL (7-18) H 33 mg/dL (7-18) H Creatinine 1.4 MG/DL (0.55-1.30) H 1.1 MG/DL (0.55-1.30) Estimat Glomerular Filtration Rate mL/min (>60) mL/min (>60) Glucose Level 112 MG/DL (74-106) H 85 MG/DL (74-106) Lactic Acid Level 2.00 mmol/L (0.4-2.0) 0.90 mmol/L (0.66-2.22) Calcium Level 8.7 MG/DL (8.5-10.1) 8.2 MG/DL (8.5-10.1) L Total Bilirubin 0.5 MG/DL (0.2-1.0) Aspartate Amino Transf (AST/SGOT) 54 U/L (15-37) H Alanine Aminotransferase (ALT/SGPT) 22 U/L (12-78) Alkaline Phosphatase 99 U/L (46-116) Total Creatine Kinase 179 U/L (26-308) Creatine Kinase MB 12.6 NG/ML (0.0-3.6) H Creatine Kinase MB Relative Index 7.0 Troponin I 6.867 ng/mL (0.000-0.056) 6.731 ng/mL (0.000-0.056) 7.171 ng/mL (0.000-0.056) Pro-B-Type Natriuretic Peptide 3815 pg/mL (0-125) H Total Protein 8.3 G/DL (6.4-8.2) H Albumin 3.1 G/DL (3.4-5.0) L 2.5 G/DL (3.4-5.0) L Globulin 5.2 g/dL Albumin/Globulin Ratio 0.6 (1.0-2.7) L Lipase 356 U/L (73-393) Urine Color Pale yellow Urine Appearance Turbid Urine pH 5 (4.5-8.0) Urine Specific [place] 1.015 (1.005-1.035) Urine Protein 4+ (NEGATIVE) H Urine Glucose (UA) Negative (NEGATIVE) Urine Ketones Negative (NEGATIVE) Urine Blood 5+ (NEGATIVE) H Urine Nitrite Negative (NEGATIVE) Urine Bilirubin Negative (NEGATIVE) Urine Urobilinogen Normal MG/DL (0.0-1.0) Urine Leukocyte Esterase 3+ (NEGATIVE) H Urine RBC 0-2 /HPF (0 - 0) H Urine WBC Tntc /HPF (0 - 0) H Urine Squamous Epithelial Cells Occasional /LPF Urine Bacteria Many /HPF (NONE) H Phosphorus Level 3.9 MG/DL (2.5-4.9) Triglycerides Level 95 MG/DL (30-150) Cholesterol Level 187 MG/DL (< 200) LDL Cholesterol 130 mg/dL (<100) H HDL Cholesterol 47 MG/DL (40-60) Cholesterol/HDL Ratio 4.0 (3.3-4.4) Thyroid Stimulating Hormone (TSH) 3.498 uiU/mL (0.358-3.740) Digoxin Level 2.1 NG/ML (0.5-2.0) H Microbiology Date/Time Source Procedure Growth Status 02/18/18 16:50 Nasal Nares Influenza Types A,B Antigen (RUBEN) - Final Complete 02/18/18 15:16 Urine,Clean Catch Urine Culture - Preliminary Gram Negative Wild Resulted Height (Feet): 5 Height (Inches): 10.00 Weight (Pounds): 170 Medications Current Medications Medications (Trade) Dose Ordered Sig/Delvin Route PRN Reason Start Time Stop Time Status Last Admin Dose Admin Acetaminophen (Tylenol) 650 mg Q4H PRN ORAL fever 02/18/18 16:45 03/20/18 16:44 Al Hydroxide/Mg Hydroxide (Mylanta II) 30 ml Q6H PRN ORAL dyspepsia 02/18/18 16:46 03/20/18 16:45 Albuterol/ Ipratropium (Albuterol/ Ipratropium) 3 ml Q4H PRN HHN Shortness of Breath 02/18/18 16:46 02/23/18 16:45 Cefepime HCl 1 gm/ Dextrose 55 ml @ 110 mls/hr Q12HR IV 02/19/18 13:00 02/25/18 12:59 Heparin Sodium (Porcine) (Heparin 5000 units/ml) 5,000 units EVERY 12 HOURS SUBQ 02/18/18 21:00 03/20/18 20:59 02/18/18 21:14 Nitroglycerin (Ntg) 0.4 mg Q5M PRN SL Prn Chest Pain 02/18/18 16:46 03/20/18 16:45 Olanzapine (ZyPREXA) 2.5 mg Q6H PRN ORAL agitation 02/19/18 12:15 03/21/18 12:14 Ondansetron HCl (Zofran) 4 mg Q6H PRN IVP Nausea & Vomiting 02/18/18 16:46 03/20/18 16:45 Polyethylene Glycol (Miralax) 17 gm DAILYPRN PRN ORAL Constipation 02/18/18 16:45 03/20/18 16:44 Promethazine HCl/ Codeine (Phenergan with Codeine) 5 ml Q4H PRN ORAL For Cough 02/18/18 16:46 03/20/18 16:45 Temazepam (Restoril) 15 mg HSPRN PRN ORAL Insomnia 02/18/18 21:00 02/25/18 20:59 Vancomycin HCl (Vanco rx to dose) 1 ea DAILY PRN MISC Per rx protocol 02/18/18 16:30 03/20/18 16:29 Vancomycin HCl 500 mg/Dextrose 110 ml @ 110 mls/hr Q12HR IVPB 02/19/18 09:00 02/24/18 08:59 02/19/18 08:10 Assessment/Plan Assessment/Plan Abx: IV Unasyn x1 02/18 IV Vancomycin 02/18- Cefepime 02/18- Assessment: Sepsis 2ry to UTI -u.a wbc tntc, nit -, leuk +3; u cx >100k GNR -CXR: Left midlung and calcified parenchymal scarring. Numerous calcified hilar nodes suggest old granulomatous disease. Left apical lucency could reflect compensatory hyperinflation or COPD changes. No definite acute process Afebrile Leukocytosis, improving Acute encephalopathy -CT head: no acute findings Dementia dysphagia HTN lung CA CAD CKD COPD Afib NH resident Plan: -Continue empiric Cefepime # 2 pending urine culture - D/c empiric IV Vancomycin #2 -f/u cx -Monitor CBC/CMP, temperatures -aspiration precautions Thank you for this consultation. Will continue to follow along with you. Discussed with Anne-Marie Couch M.D. Feb 19, 2018 13:52
--- NOTE | 2018-02-19 15:50 | NUR ---
CASE MANAGEMENT: REVIEW 82/M MARY FROM [facility] CC: ALOC SI: PNA . SEPSIS T 99.9 HR 97 RR 30 BP 154/98 SAT 93% NC/2L WBC 16.2 H/H 13.2/41.1 IS: ASA RECTAL X1 NS IVF BOLUS X1 VANCO IV X1 INTERQUAL CRITERIA MET: PATIENT ADMITTED TO STEP DOWN UNIT 02/18/2018 DCP: PATIENT IS FROM [facility]
[2018-02-19 16:00] VITALS: BP 148/76
--- NOTE | 2018-02-19 16:21 | NUR ---
NURSE NOTES: STILL ON O2 AT 2L VIA NC. NO SIGNS OF DISTRESS. KEPT PATIENT CLEAN AND DRY. WILL CONTINUE TO MONITOR.
--- NOTE | 2018-02-19 17:00 | History and Physical Report ---
DATE OF ADMISSION: 02/18/2018 CHIEF COMPLAINT: The patient is an 82-year-old white male, who presents with chief complaint of altered mental status. HISTORY OF PRESENT ILLNESS: The patient is a resident of [facility]. The patient became acutely altered yesterday. EMS was called. The patient was transferred to [facility] for evaluation. An initial chest x-ray showed left upper lobe pneumonia. The patient was admitted for left upper lobe pneumonia and altered mental status. REVIEW OF SYSTEMS: Unable to assess secondary to the patient's mental status. PAST MEDICAL HISTORY: Significant for: 1. Chronic obstructive pulmonary disease. 2. Hypertension. 3. Hypothyroidism. 4. Iron deficiency anemia. 5. History of lung cancer. 6. Coronary artery disease. 7. Alzheimer's dementia. 8. Atrial fibrillation. 9. Chronic renal failure. PAST SURGICAL HISTORY: Unknown. CURRENT MEDICATIONS: 1. Aricept 10 mg p.o. daily. 2. Digoxin 0.25 mg p.o. daily. 3. Iron sulfate 330 mg p.o. daily. 4. Multivitamin p.o. daily. 5. Synthroid 50 mcg p.o. daily. 6. Tylenol 650 mg p.o. q.4 h. p.r.n. 7. Vitamin C 500 mg p.o. daily. ALLERGIES: No known drug allergies. SOCIAL HISTORY: The patient is single and lives at [facility] as above. The patient denies tobacco or alcohol use. PHYSICAL EXAMINATION: VITAL SIGNS: Temperature 99.9, respirations 30, pulse 97, and blood pressure 123/83. Oxygen saturation is 100% on 2 L nasal cannula. GENERAL: The patient is a thin-appearing white male, in no apparent distress. HEENT: Eyes, pupils are equal and responsive to light and accommodation. Extraocular movements are intact. NECK: Supple without lymphadenopathy. CHEST: Lungs with decreased breath sounds bilateral bases with wheezes, otherwise without crackles. CARDIOVASCULAR: Regular rhythm and rate. S1, S2 normal without murmurs, rubs, or gallops. ABDOMEN: Soft, nontender, and nondistended. Positive bowel sounds. No evidence of hepatosplenomegaly. Currently, no rebound or guarding noted. EXTREMITIES: Negative for clubbing, cyanosis, or edema. RECTAL/GENITAL: Refused. NEUROLOGIC: Cranial nerves II through XII are grossly intact without focal deficits. Motor strength is 5/5 bilaterally. Deep tendon reflexes are 2+ plantar. LABORATORY STUDIES: WBC 16.2, hemoglobin 13.2, hematocrit 41.1, and platelets 121,000. Sodium 144, potassium 5.0, chloride 106, CO2 30, BUN 36, and creatinine 1.4. Glucose 112. Troponin elevated at 6.867. BNP elevated at 3815. CT scan of the brain was reported as no acute infarct or hemorrhage. A chest x-ray revealed left upper lung opacity. ASSESSMENT: This is an 82-year-old white male with: 1. Altered mental status. 2. Left upper lobe pneumonia. 3. Elevated troponin. 4. Congestive heart failure. 5. Chronic obstructive pulmonary disease. 6. Hypertension. 7. Hypothyroidism. 8. Iron deficiency anemia. 9. History of lung cancer. 10. Coronary artery disease. 11. Atrial fibrillation. 12. Chronic renal failure. TREATMENT: 1. Altered mental status is probably secondary to pneumonia. The patient is currently receiving intravenous antibiotics. The patient is currently nonverbal. 2. Left upper lobe pneumonia. The patient has been started empirically on intravenous cefepime and vancomycin. An Infectious Disease consultation has been obtained with Dr. Carranza. We will follow recommendations of Infectious Disease. A Pulmonary consultation has been obtained with Dr. Gila Sibley. 3. Elevated troponin. Cardiology consultation has been obtained with Dr. Geovanny Sherwood. 4. Chronic obstructive pulmonary disease. As above, a Pulmonary consultation has been obtained with Dr. Gila Sibley. 5. Congestive heart failure. As above, a Cardiology consultation has been obtained with Dr. Geovanny Sherwood. 6. Hypertension. The patient is currently hypotensive. 7. Hypothyroidism. Continue Synthroid as above. 8. Iron deficiency anemia. Continue iron as above. 9. History of lung cancer. 10. Coronary artery disease. 11. Atrial fibrillation. 12. Chronic renal failure. Ricky Baker M.D. DR: NEVA JOB#: [id number] CC:
--- NOTE | 2018-02-19 18:56 | Cardiology Progress Note ---
Assessment/Plan Assessment/Plan 1. Alteration of mental status. Questionable toxic metabolic encephalopathy. 2. Acute myocardial infarction non ST-elevation. 3. Right bundle-branch block conduction defect, chronicity unknown. 4. Reported history of lung cancer. 5. Reported history of paroxysmal atrial fibrillation. 6. Reported history of coagulopathy secondary to anticoagulation. 7. History of coronary artery disease. 8. History of chronic obstructive pulmonary disease. 9. History of chronic kidney disease. 10. History of hypertension. trop still upward trending will need to have feeding mechanism for meds await echo i have nto been able to download study to review ecotrien statin when able to take pos repeat trop consider neuro evla he seems sonwaht tremulous tele reviewed ekg reviewed cxr noted need asa and statin and bb and depending on lv fucntion other meds remains at this time a poor candidate for any invasive cardiac treatment Subjective ROS Limited/Unobtainable: Yes Subjective mildly tremulous Objective Last 24 Hour Vital Signs Date Time Temp Pulse Resp B/P (MAP) Pulse Ox O2 Delivery O2 Flow Rate FiO2 02/19/18 16:00 98.6 69 20 148/76 (100) 100 02/19/18 16:00 Nasal Cannula 2.0 02/19/18 15:47 74 02/19/18 13:55 Nasal Cannula 2.0 28 02/19/18 12:00 Nasal Cannula 2.0 02/19/18 12:00 98.4 108 19 139/75 (96) 99 02/19/18 11:41 75 02/19/18 08:00 97.7 77 18 154/79 (104) 100 02/19/18 08:00 Nasal Cannula 2.0 02/19/18 07:36 77 02/19/18 04:00 97.7 71 24 162/75 (104) 97 02/19/18 04:00 Nasal Cannula 2.0 02/19/18 03:29 58 02/19/18 00:00 97.9 76 24 162/85 (110) 96 02/19/18 00:00 Nasal Cannula 2.0 02/18/18 23:27 73 02/18/18 23:22 Nasal Cannula 2.0 28 02/18/18 20:00 98.0 72 20 143/74 (97) 98 02/18/18 20:00 Nasal Cannula 2.0 02/18/18 19:11 76 General Appearance: no apparent distress Cardiovascular: normal rate, regular rhythm Respiratory/Chest: lungs clear, normal breath sounds Abdomen: normal bowel sounds, non tender, soft Extremities: no swelling Intake and Output 02/18/18 02/19/18 19:00 07:00 Intake Total 1210 ml 55 ml Output Total 200 ml 300 ml Balance 1010 ml -245 ml Intake IV Total 1210 ml 55 ml Output Urine Total 200 ml 300 ml # Voids 1 Laboratory Tests Test 02/19/18 04:00 White Blood Count 11.7 K/UL (4.8-10.8) H Red Blood Count 4.03 M/UL (4.70-6.10) L Hemoglobin 11.6 G/DL (14.2-18.0) L Hematocrit 36.3 % (42.0-52.0) L Mean Corpuscular Volume 90 FL (80-99) Mean Corpuscular Hemoglobin 28.8 PG (27.0-31.0) Mean Corpuscular Hemoglobin Concent 32.0 G/DL (32.0-36.0) Red Cell Distribution Width 12.3 % (11.6-14.8) Platelet Count 106 K/UL (150-450) L Mean Platelet Volume 8.0 FL (6.5-10.1) Neutrophils (%) (Auto) 79.9 % (45.0-75.0) H Lymphocytes (%) (Auto) 7.4 % (20.0-45.0) L Monocytes (%) (Auto) 6.3 % (1.0-10.0) Eosinophils (%) (Auto) 5.4 % (0.0-3.0) H Basophils (%) (Auto) 1.0 % (0.0-2.0) Sodium Level 144 MMOL/L (136-145) Potassium Level 4.7 MMOL/L (3.5-5.1) Chloride Level 110 MMOL/L (98-107) H Carbon Dioxide Level 27 MMOL/L (21-32) Anion Gap 7 mmol/L (5-15) Blood Urea Nitrogen 33 mg/dL (7-18) H Creatinine 1.1 MG/DL (0.55-1.30) Estimat Glomerular Filtration Rate mL/min (>60) Glucose Level 85 MG/DL (74-106) Calcium Level 8.2 MG/DL (8.5-10.1) L Phosphorus Level 3.9 MG/DL (2.5-4.9) Troponin I 7.171 ng/mL (0.000-0.056) Albumin 2.5 G/DL (3.4-5.0) L Triglycerides Level 95 MG/DL (30-150) Cholesterol Level 187 MG/DL (< 200) LDL Cholesterol 130 mg/dL (<100) H HDL Cholesterol 47 MG/DL (40-60) Cholesterol/HDL Ratio 4.0 (3.3-4.4) Thyroid Stimulating Hormone (TSH) 3.498 uiU/mL (0.358-3.740) Digoxin Level 2.1 NG/ML (0.5-2.0) H Microbiology Date/Time Source Procedure Growth Status 02/18/18 16:50 Nasal Nares Influenza Types A,B Antigen (RUBEN) - Final Complete 02/18/18 15:16 Urine,Clean Catch Urine Culture - Preliminary Gram Negative Wild Resulted Geovanny Sherwood MD Feb 19, 2018 18:56
--- NOTE | 2018-02-19 19:12 | NUR ---
HAND-OFF: Report given to Karen Strong RN. aware of Troponin level.
--- NOTE | 2018-02-19 19:13 | NUR ---
NURSE NOTES: Report received from JUAN FRANCISCO Dacosta. Pt able to open eyes, non-verbal. air sampling and monitoring shows SR. Pt currently on 2L NC. Shows no signs of cardiac or respiratory distress. Pt currently NPO until video swallow test tomorrow. Condom catheter in place and draining well. Some saccral redness is present. Covered in optifoam. Pt has a RFA [address]s aware of elevated troponin. Bed in lowest position, call light within reach. Bed alarms have been placed. Will continue to monitor and with patients plan of care
[2018-02-19 20:00] VITALS: BP 150/88
[2018-02-20] VITALS: BP 153/90
[2018-02-20 04:00] VITALS: BP 164/80
[2018-02-20 05:47] LABS: BASOPHILS % (AUTO) 1.1 % (0.0-2.0); EOSINOPHILS % (AUTO) 6.5 % (0.0-3.0); HEMATOCRIT 36.2 % (42.0-52.0); HEMOGLOBIN 11.7 G/DL (14.2-18.0); LYMPHOCYTES % (AUTO) 7.2 % (20.0-45.0); MEAN CORPUSCULAR VOLUME 90 FL (80-99); MONOCYTES % (AUTO) 6.5 % (1.0-10.0); NEUTROPHILS % (AUTO) 78.7 % (45.0-75.0); PLATELET COUNT 115 K/UL (150-450); RED BLOOD COUNT 4.02 M/UL (4.70-6.10); RED CELL DISTRIBUTION WIDTH 12.6 % (11.6-14.8); WHITE BLOOD COUNT 10.4 K/UL (4.8-10.8)
[2018-02-20 06:37] LABS: ANION GAP 7 mmol/L (5-15); BLOOD UREA NITROGEN 28 mg/dL (7-18); CALCIUM 8.7 MG/DL (8.5-10.1); CARBON DIOXIDE 27 MMOL/L (21-32); CHLORIDE 111 MMOL/L (98-107); CREATININE 1.2 MG/DL (0.55-1.30); POTASSIUM 4.7 MMOL/L (3.5-5.1); SODIUM 145 MMOL/L (136-145)
--- NOTE | 2018-02-20 07:15 | NUR ---
NURSE NOTES: Report received from JUAN FRANCISCO Desai. Patient seen in bed, alert, responsive to verbal and tactile stimuli, mumbles at time. Patient is on Oxygen 2L/min via N/C with no acute respiratory distress noted at this time. Denies any pain/ discomfort at this time. IV site is to Right FA 20G, site is intact. Condom cath present, urine flowing well. Bed is at lowest position, call light is within easy reach. will continue to monitor.
[2018-02-20] MEDS: D5 1/2NS 1,000 ML IV SCH ×2 (07:53→20:31)
[2018-02-20] MEDS: Cefepime HCl 1 GM in D5W 55 ML IV SCH (07:55)
[2018-02-20 08:00] VITALS: BP 143/76
[2018-02-20] MEDS: Heparin 5000 units/ml inj SUBQ SCH ×2 (08:13→20:31)
--- NOTE | 2018-02-20 08:30 | NUR ---
NURSE NOTES: Blood sugar re checked ans it was 85. D5 1/2 at 78ml/Hr started. Will continue to monitor.
[2018-02-20 12:00] VITALS: BP 151/84
--- NOTE | 2018-02-20 13:24 | NUR ---
NOTE: VIDEOSWALLOW STUDY COMPLETED VIDEOSWALLOW STUDY FULL REPORT WILL FOLLOW AFTER REVIEWED IMAGES IN CARE ACTIVITY. PT AWAKE, MUMBLING, WITH NC(2L), DID NOT FOLLOW DIRECTIONS EVEN GIVEN MAX CUES. OXYGEN LEVEL:94-98. PT TENDED TO TURN HEAD TO L-SIDED. GIVEN PO TRIALS: THIN(TSPX2/MED CUP/STRAW-SEQUENTIAL). NECTAR THICK(TSP.MED CUP/STRAW-SEQUENTIAL) HONEY THICK(TSP) PUDDING(TSP) IMPRESSION: PT PRESENTS WITH MODERATELY SEVERE OROPHARYNGEAL DYSPHAGIA CHARACTERIZED BY INCREASED ORAL TRANSIT TIME, ESPECIALLY WITH PUREED(PT WAS CHEWING PUREED) AND OROPHARYNGEAL TRANSIT TIME DUE TO ORAL APRAXIA AND SENSORIMOTOR DEFICITS. DEEP TRACE SILENT PENETRATION WITH THIN(ENTER THE AIRWAY/CONTACTED THE VOCAL FOLDS/NOT EJECTED), THIN AND NECTAR THICK(ENTER THE AIRWAY/ABOVE THE VOCAL FOLDS/NOT EJECTED) DURING THE SWALLOW DUE TO DELAYED SWALLOW, REDUCED LARYNGEAL ELEVATION AND REDUCED LARYNGEAL VESTIBULE CLOSURE. TRACE SILENT ASPIRATION WAS NOTED DUE TO RESIDUE ENTERED THE AIRWAY AND DID NOT EJECT, PROBABLE THIN AND/OR NECTAR THICK LIQUIDS(CUP/STRAW). MILD TO MODERATE TONGUE BASE AND VALLECULAR RESIDUE DUE TO REDUCED TONGUE BASE RETRACTION. MILD TO MODERATE PHARYNGEAL RESIDUE DUE TO REDUCED LARYNGEAL ELEVATION AND ESOPHAGEAL RETENTION WITH RETROGRADE FLOW THROUGH PHARYNGO-ESOPHAGEAL SEGMENT(PES). MILD ESOPHAGEAL DYSPHAGIA CHARACTERIZED BY ESOPHAGEAL RETENTION WITH RETROGRADE FLOW THROUGH PES WAS NOTE(LATERAL VIEW ONLY). NO ASPIRATION WITH NECTAR THICK(TSP), HONEY AND PUDDING. HOWEVER, PT IS AT HIGH RISK FOR CHRONIC TRACE SILENT ASPIRATION. LIMITED SWALLOW TECHNIQUES WERE ABLE TO USE DUE TO PT IS COGNITIVELY IMPAIRED. PT BENEFITS FROM SWALLOW X 2 TO 3 TIMES ALLOW TIME. PT ALSO TENDED TO TURN HIS HEAD TO LEFT SIDE. RECOMMENDATIONS: 1. CONSERVATIVELY, CLINICAL DIETITIAN NONORAL FEEDING MEANS IS RECOMMENDED PT IS AT HIGH RISK FOR CHRONIC TRACE SILENT ASPIRATION. (PER PT'S POLST, AGREES WITH LONG-TERM NONORAL FEEDING IF NEEDED). 2. IF PT'S FAMILY REFUSES INTERMEDIATE NONORAL FEEDING MEANS, PO SHOULD BE GIVEN FOR QUALITY OF LIFE(COMFORT FEEDING), DIET IS RECOMMENDED LIQUIFIED PUREED, LIKE NECTAR THICK SOUP CONSISTENCY WITH NECTAR THICK LIQUIDS AT 1/2 TSP LEVEL. 3. CONSIDER COMFORT MEASURE IF PO IS GIVEN. 4. CONTINUE NPO FOR NOW AND CONSIDER NGT IF NEEDED. D/W JUAN FRANCISCO, BÁRBARA. Addendum: 02/20/18 at 1335 [address] SP[address]OW IN[address] DEBORA MARTINEZ.
--- NOTE | 2018-02-20 13:35 | Pulmonology Progress Note ---
Assessment/Plan Assessment/Plan Pulmonary Progress Note HPI Patient is an 82-year-old male with hx of lung cancer, CAD, atrial fibrillation on Digoxin, shelter resident, unknown baseline mental status was brought [place] [facility] [place] [facility] [place] with [facility] of [facility]. Pt had low grade temperature and altered mental status for approximately one hour. The EMS the patient was normally somewhat confused. This is his first admission to [facility] [place] and we don't have any information about him or about his DPOA. He had leucocytosis and increased troponin level, without any hx of chest pain. Pt is awake, looks comfortable but doesn't answer to any simple question. Allergies: Coded Allergies: No Known Allergies (Unverified , 02/18/18) Medication History Scheduled Bisacodyl (Bisacodyl), 10 MG RC PRN, (Reported) Digoxin* (Digoxin*), 0.25 MG ORAL DAILY, (Reported) Docusate Sodium* (Docusate Sodium*), 100 MG ORAL TWICE A DAY, (Reported) Donepezil Hcl* (Aricept*), 10 MG ORAL DAILY, (Reported) Levothyroxine Sodium (Synthroid), 50 MCG ORAL DAILY, (Reported) Scheduled PRN Acetaminophen* (Acetaminophen 325MG Tablet*), 325 MG ORAL Q6H PRN for For Pain, (Reported) Miscellaneous Medications Lactobacillus Rhamnosus Gg (Culturelle), 1 EACH PO, (Reported) Patient History Healthcare decision maker N Resuscitation status Full Code Advanced Directive on File Past Medical/Surgical History Past Medical/Surgical History: (1) Lung cancer (2) COPD (chronic obstructive pulmonary disease) (3) Paroxysmal atrial fibrillation Review of Systems All Other Systems: negative except mentioned in HPI Physical Exam General Appearance: WD/WN Lines, tubes and drains: peripheral HEENT: normocephalic, atraumatic Neck: non-tender, normal alignment Respiratory/Chest: chest wall non-tender, lungs clear Cardiovascular/Chest: normal peripheral pulses, regularly irregular Abdomen: normal bowel sounds Genitourinary/Rectal: normal genital exam Extremities: normal range of motion Vital Signs Noted Laboratory Tests Test 02/18/18 14:55 02/18/18 15:16 02/18/18 16:15 02/19/18 04:00 White Blood Count 16.2 K/UL (4.8-10.8) H 11.7 K/UL (4.8-10.8) H Red Blood Count 4.54 M/UL (4.70-6.10) L 4.03 M/UL (4.70-6.10) L Hemoglobin 13.2 G/DL (14.2-18.0) L 11.6 G/DL (14.2-18.0) L Hematocrit 41.1 % (42.0-52.0) L 36.3 % (42.0-52.0) L Mean Corpuscular Volume 91 FL (80-99) 90 FL (80-99) Mean Corpuscular Hemoglobin 29.1 PG (27.0-31.0) 28.8 PG (27.0-31.0) Mean Corpuscular Hemoglobin Concent 32.2 G/DL (32.0-36.0) 32.0 G/DL (32.0-36.0) Red Cell Distribution Width 12.5 % (11.6-14.8) 12.3 % (11.6-14.8) Platelet Count 121 K/UL (150-450) L 106 K/UL (150-450) L Mean Platelet Volume 7.7 FL (6.5-10.1) 8.0 FL (6.5-10.1) Neutrophils (%) (Auto) 86.5 % (45.0-75.0) H 79.9 % (45.0-75.0) H Lymphocytes (%) (Auto) 5.8 % (20.0-45.0) L 7.4 % (20.0-45.0) L Monocytes (%) (Auto) 5.1 % (1.0-10.0) 6.3 % (1.0-10.0) Eosinophils (%) (Auto) 1.7 % (0.0-3.0) 5.4 % (0.0-3.0) H Basophils (%) (Auto) 1.0 % (0.0-2.0) 1.0 % (0.0-2.0) Prothrombin Time 12.6 SEC (9.30-11.50) H Prothromb Time International Ratio 1.2 (0.9-1.1) H Activated Partial Thromboplast Time 29 SEC (23-33) Sodium Level 144 MMOL/L (136-145) 144 MMOL/L (136-145) Potassium Level 5.0 MMOL/L (3.5-5.1) 4.7 MMOL/L (3.5-5.1) Chloride Level 106 MMOL/L (98-107) 110 MMOL/L (98-107) H Carbon Dioxide Level 30 MMOL/L (21-32) 27 MMOL/L (21-32) Anion Gap 8 mmol/L (5-15) 7 mmol/L (5-15) Blood Urea Nitrogen 36 mg/dL (7-18) H 33 mg/dL (7-18) H Creatinine 1.4 MG/DL (0.55-1.30) H 1.1 MG/DL (0.55-1.30) Estimat Glomerular Filtration Rate mL/min (>60) mL/min (>60) Glucose Level 112 MG/DL (74-106) H 85 MG/DL (74-106) Lactic Acid Level 2.00 mmol/L (0.4-2.0) 0.90 mmol/L (0.66-2.22) Calcium Level 8.7 MG/DL (8.5-10.1) 8.2 MG/DL (8.5-10.1) L Total Bilirubin 0.5 MG/DL (0.2-1.0) Aspartate Amino Transf (AST/SGOT) 54 U/L (15-37) H Alanine Aminotransferase (ALT/SGPT) 22 U/L (12-78) Alkaline Phosphatase 99 U/L (46-116) Total Creatine Kinase 179 U/L (26-308) Creatine Kinase MB 12.6 NG/ML (0.0-3.6) H Creatine Kinase MB Relative Index 7.0 Troponin I 6.867 ng/mL (0.000-0.056) 6.731 ng/mL (0.000-0.056) 7.171 ng/mL (0.000-0.056) Pro-B-Type Natriuretic Peptide 3815 pg/mL (0-125) H Total Protein 8.3 G/DL (6.4-8.2) H Albumin 3.1 G/DL (3.4-5.0) L 2.5 G/DL (3.4-5.0) L Globulin 5.2 g/dL Albumin/Globulin Ratio 0.6 (1.0-2.7) L Lipase 356 U/L (73-393) Urine Color Pale yellow Urine Appearance Turbid Urine pH 5 (4.5-8.0) Urine Specific [place] 1.015 (1.005-1.035) Urine Protein 4+ (NEGATIVE) H Urine Glucose (UA) Negative (NEGATIVE) Urine Ketones Negative (NEGATIVE) Urine Blood 5+ (NEGATIVE) H Urine Nitrite Negative (NEGATIVE) Urine Bilirubin Negative (NEGATIVE) Urine Urobilinogen Normal MG/DL (0.0-1.0) Urine Leukocyte Esterase 3+ (NEGATIVE) H Urine RBC 0-2 /HPF (0 - 0) H Urine WBC Tntc /HPF (0 - 0) H Urine Squamous Epithelial Cells Occasional /LPF Urine Bacteria Many /HPF (NONE) H Phosphorus Level 3.9 MG/DL (2.5-4.9) Triglycerides Level 95 MG/DL (30-150) Cholesterol Level 187 MG/DL (< 200) LDL Cholesterol 130 mg/dL (<100) H HDL Cholesterol 47 MG/DL (40-60) Cholesterol/HDL Ratio 4.0 (3.3-4.4) Thyroid Stimulating Hormone (TSH) 3.498 uiU/mL (0.358-3.740) Digoxin Level 2.1 NG/ML (0.5-2.0) H Microbiology Date/Time Source Procedure Growth Status 02/18/18 16:50 Nasal Nares Influenza Types A,B Antigen (RUBEN) - Final Complete 02/18/18 15:16 Urine,Clean Catch Urine Culture - Preliminary Gram Negative Wild Resulted Height (Feet): 5 Height (Inches): 10.00 Weight (Pounds): 170 Medications Current Medications Medications (Trade) Dose Ordered Sig/Delvin Route PRN Reason Start Time Stop Time Status Last Admin Dose Admin Acetaminophen (Tylenol) 650 mg Q4H PRN ORAL fever 02/18/18 16:45 03/20/18 16:44 Al Hydroxide/Mg Hydroxide (Mylanta II) 30 ml Q6H PRN ORAL dyspepsia 02/18/18 16:46 03/20/18 16:45 Albuterol/ Ipratropium (Albuterol/ Ipratropium) 3 ml Q4H PRN HHN Shortness of Breath 02/18/18 16:46 02/23/18 16:45 Cefepime HCl 1 gm/ Dextrose 55 ml @ 110 mls/hr Q24H IV 02/18/18 18:00 02/25/18 17:59 02/18/18 18:45 Heparin Sodium (Porcine) (Heparin 5000 units/ml) 5,000 units EVERY 12 HOURS SUBQ 02/18/18 21:00 03/20/18 20:59 02/18/18 21:14 Nitroglycerin (Ntg) 0.4 mg Q5M PRN SL Prn Chest Pain 02/18/18 16:46 03/20/18 16:45 Ondansetron HCl (Zofran) 4 mg Q6H PRN IVP Nausea & Vomiting 02/18/18 16:46 03/20/18 16:45 Polyethylene Glycol (Miralax) 17 gm DAILYPRN PRN ORAL Constipation 02/18/18 16:45 03/20/18 16:44 Promethazine HCl/ Codeine (Phenergan with Codeine) 5 ml Q4H PRN ORAL For Cough 02/18/18 16:46 03/20/18 16:45 Temazepam (Restoril) 15 mg HSPRN PRN ORAL Insomnia 02/18/18 21:00 02/25/18 20:59 Vancomycin HCl (Vanco rx to dose) 1 ea DAILY PRN MISC Per rx protocol 02/18/18 16:30 03/20/18 16:29 Vancomycin HCl 500 mg/Dextrose 110 ml @ 110 mls/hr Q12HR IVPB 02/19/18 09:00 02/24/18 08:59 02/19/18 08:10 Vancomycin HCl 1500 mg/Sodium Chloride 275 ml @ 137.5 mls/ hr ONCE IVPB 02/18/18 16:45 02/23/18 16:44 02/18/18 17:03 Assessment/Plan Problem List: (1) Severe sepsis ICD Codes: A41.9 - Sepsis, unspecified organism; R65.20 - Severe sepsis without septic shock SNOMED: 53853166 (2) Altered level of consciousness ICD Codes: R40.4 - Transient alteration of awareness SNOMED: 8566936 (3) Myocardial injury ICD Codes: S26.90XA - Unspecified injury of heart, unspecified with or without hemopericardium, initial encounter SNOMED: 08925941 (4) Paroxysmal atrial fibrillation ICD Codes: I48.0 - Paroxysmal atrial fibrillation SNOMED: 773289396 (5) COPD (chronic obstructive pulmonary disease) ICD Codes: J44.9 - Chronic obstructive pulmonary disease, unspecified SNOMED: 20931460 (6) Lung cancer ICD Codes: C34.90 - Malignant neoplasm of unspecified part of unspecified bronchus or lung SNOMED: 857287520 Assessment/Plan RODERICK monitoring cardiology consult appreciated broad spectrum abx suero cultures f/u on WBC echo cardiogram check electrolytes vp digital marketing social media and crm to find DPOA dvt prophylaxis. Subjective ROS Limited/Unobtainable: No Allergies: Coded Allergies: No Known Allergies (Unverified , 02/18/18) Objective Last 24 Hour Vital Signs Date Time Temp Pulse Resp B/P (MAP) Pulse Ox O2 Delivery O2 Flow Rate FiO2 02/20/18 12:00 Nasal Cannula 2.0 02/20/18 12:00 97.7 68 22 151/84 (106) 95 02/20/18 10:17 Nasal Cannula 2.0 28 02/20/18 08:00 Nasal Cannula 2.0 02/20/18 08:00 75 02/20/18 08:00 97.7 78 26 143/76 (98) 100 02/20/18 04:00 97.7 75 22 164/80 (108) 100 02/20/18 04:00 72 02/20/18 04:00 Nasal Cannula 2.0 02/20/18 04:00 Nasal Cannula 2.0 02/20/18 00:00 Nasal Cannula 2.0 02/20/18 00:00 97.7 87 18 153/90 (111) 98 02/20/18 00:00 72 02/19/18 21:51 Nasal Cannula 2.0 28 02/19/18 20:00 98.1 79 18 150/88 (108) 98 02/19/18 20:00 77 02/19/18 20:00 Nasal Cannula 2.0 02/19/18 16:00 98.6 69 20 148/76 (100) 100 02/19/18 16:00 Nasal Cannula 2.0 02/19/18 15:47 74 02/19/18 13:55 Nasal Cannula 2.0 28 Intake and Output 02/19/18 02/20/18 19:00 07:00 Intake Total 220 ml 55 ml Output Total 400 ml 300 ml Balance -180 ml -245 ml Intake IV Total 220 ml 55 ml Output Urine Total 400 ml 300 ml Microbiology Date/Time Source Procedure Growth Status 02/18/18 15:15 Blood Blood Culture - Preliminary NO GROWTH AFTER 24 HOURS Resulted 02/18/18 15:00 Blood Blood Culture - Preliminary NO GROWTH AFTER 24 HOURS Resulted 02/19/18 00:07 Sputum Gram Stain Pending Resulted 02/19/18 00:07 Sputum Sputum Culture - Preliminary NORMAL UPPER RESPIRATORY FABIAN AT 24 ... Resulted 02/18/18 16:50 Nasal Nares Influenza Types A,B Antigen (RUBEN) - Final Complete 02/18/18 16:30 Nasal Nares MRSA Culture - Final NO METHICILLIN RESISTANT STAPH AUREUS... Complete 02/18/18 15:16 Urine,Clean Catch Urine Culture - Final Escherichia Coli - Esbl Complete 02/18/18 16:30 Rectum - Final NO CARBAPENEM-RESISTANT ENTEROBACTERI... Complete 02/18/18 16:30 Rectum VRE Culture - Final NO VANCOMYCIN RESISTANT ENTEROCOCCUS ... Complete Laboratory Tests 02/20/18 04:00: White Blood Count 10.4, Red Blood Count 4.02L, Hemoglobin 11.7L, Hematocrit 36.2L, Mean Corpuscular Volume 90, Mean Corpuscular Hemoglobin 29.0, Mean Corpuscular Hemoglobin Concent 32.2, Red Cell Distribution Width 12.6, Platelet Count 115L, Mean Platelet Volume 8.0, Neutrophils (%) (Auto) 78.7H, Lymphocytes (%) (Auto) 7.2L, Monocytes (%) (Auto) 6.5, Eosinophils (%) (Auto) 6.5H, Basophils (%) (Auto) 1.1, Sodium Level 145, Potassium Level 4.7, Chloride Level 111H, Carbon Dioxide Level 27, Anion Gap 7, Blood Urea Nitrogen 28H, Creatinine 1.2, Estimat Glomerular Filtration Rate , Glucose Level 76, Calcium Level 8.7, Troponin I 4.754H, Pro-B-Type Natriuretic Peptide 4366H, Digoxin Level 1.5 Current Medications Medications (Trade) Dose Ordered Sig/Delvin Route PRN Reason Start Time Stop Time Status Last Admin Dose Admin Acetaminophen (Tylenol) 650 mg Q4H PRN ORAL fever 02/18/18 16:45 03/20/18 16:44 Al Hydroxide/Mg Hydroxide (Mylanta II) 30 ml Q6H PRN ORAL dyspepsia 02/18/18 16:46 03/20/18 16:45 Albuterol/ Ipratropium (Albuterol/ Ipratropium) 3 ml Q4H PRN HHN Shortness of Breath 02/18/18 16:46 02/23/18 16:45 Cefepime HCl 1 gm/ Dextrose 55 ml @ 110 mls/hr Q12HR IV 02/19/18 13:00 02/25/18 12:59 02/20/18 07:55 Dextrose/Sodium Chloride 1,000 ml @ 75 mls/hr [id number] IV 02/20/18 07:15 03/22/18 07:14 02/20/18 07:53 Heparin Sodium (Porcine) (Heparin 5000 units/ml) 5,000 units EVERY 12 HOURS SUBQ 02/18/18 21:00 03/20/18 20:59 02/20/18 08:13 Nitroglycerin (Ntg) 0.4 mg Q5M PRN SL Prn Chest Pain 02/18/18 16:46 03/20/18 16:45 Olanzapine (ZyPREXA) 2.5 mg Q6H PRN ORAL agitation 02/19/18 12:15 03/21/18 12:14 Ondansetron HCl (Zofran) 4 mg Q6H PRN IVP Nausea & Vomiting 02/18/18 16:46 03/20/18 16:45 Polyethylene Glycol (Miralax) 17 gm DAILYPRN PRN ORAL Constipation 02/18/18 16:45 03/20/18 16:44 Promethazine HCl/ Codeine (Phenergan with Codeine) 5 ml Q4H PRN ORAL For Cough 02/18/18 16:46 03/20/18 16:45 Temazepam (Restoril) 15 mg HSPRN PRN ORAL Insomnia 02/18/18 21:00 02/25/18 20:59 Chris Samuel MD Feb 20, 2018 13:35
--- NOTE | 2018-02-20 14:28 | Internal Med Progress Note ---
Subjective Date of Service: Feb 20, 2018 Physician Name Ricky Baker Attending Physician Gila Sibley MD Current Medications Medications (Trade) Dose Ordered Sig/Delvin Route PRN Reason Start Time Stop Time Status Last Admin Dose Admin Acetaminophen (Tylenol) 650 mg Q4H PRN ORAL fever 02/18/18 16:45 03/20/18 16:44 Al Hydroxide/Mg Hydroxide (Mylanta II) 30 ml Q6H PRN ORAL dyspepsia 02/18/18 16:46 03/20/18 16:45 Albuterol/ Ipratropium (Albuterol/ Ipratropium) 3 ml Q4H PRN HHN Shortness of Breath 02/18/18 16:46 02/23/18 16:45 Cefepime HCl 1 gm/ Dextrose 55 ml @ 110 mls/hr Q12HR IV 02/19/18 13:00 02/25/18 12:59 02/20/18 07:55 Dextrose/Sodium Chloride 1,000 ml @ 75 mls/hr [id number] IV 02/20/18 07:15 03/22/18 07:14 02/20/18 07:53 Heparin Sodium (Porcine) (Heparin 5000 units/ml) 5,000 units EVERY 12 HOURS SUBQ 02/18/18 21:00 03/20/18 20:59 02/20/18 08:13 Nitroglycerin (Ntg) 0.4 mg Q5M PRN SL Prn Chest Pain 02/18/18 16:46 03/20/18 16:45 Olanzapine (ZyPREXA) 2.5 mg Q6H PRN ORAL agitation 02/19/18 12:15 03/21/18 12:14 Ondansetron HCl (Zofran) 4 mg Q6H PRN IVP Nausea & Vomiting 02/18/18 16:46 03/20/18 16:45 Polyethylene Glycol (Miralax) 17 gm DAILYPRN PRN ORAL Constipation 02/18/18 16:45 03/20/18 16:44 Promethazine HCl/ Codeine (Phenergan with Codeine) 5 ml Q4H PRN ORAL For Cough 02/18/18 16:46 03/20/18 16:45 Temazepam (Restoril) 15 mg HSPRN PRN ORAL Insomnia 02/18/18 21:00 02/25/18 20:59 Allergies: Coded Allergies: No Known Allergies (Unverified , 02/18/18) ROS Limited/Unobtainable: No Constitutional: Reports: no symptoms HEENT: Reports: no symptoms Cardiovascular: Reports: no symptoms Respiratory: Reports: no symptoms Gastrointestinal/Abdominal: Reports: no symptoms Genitourinary: Reports: no symptoms Neurologic/Psychiatric: Reports: no symptoms Subjective 82 YO M admitted with altered mental status. Now pneumonia and elevated troponin. Cover for Int Med-Dr Jc. RODERICK. Tolerating nasal canula Objective Last Vital Signs Date Time Temp Pulse Resp B/P (MAP) Pulse Ox O2 Delivery O2 Flow Rate FiO2 02/20/18 12:00 Nasal Cannula 2.0 02/20/18 12:00 97.7 68 22 151/84 (106) 95 02/20/18 10:17 28 General Appearance: WD/WN, no apparent distress, alert, thin EENT: PERRL/EOMI, normal ENT inspection Neck: non-tender, normal alignment, supple, normal inspection Cardiovascular: normal peripheral pulses, normal rate, regular rhythm, no gallop/murmur, no JVD Respiratory/Chest: respiratory distress, decreased breath sounds, crackles/ rales, rhonchi - bilaterally, expiratory wheezing Abdomen: normal bowel sounds, non tender, soft, no organomegaly, no mass Extremities: normal range of motion, non-tender Neurologic: waste collector II-XII grossly normal, no motor/sensory deficits Skin: normal pigmentation, warm/dry Laboratory Tests Test 02/20/18 04:00 White Blood Count 10.4 K/UL (4.8-10.8) Red Blood Count 4.02 M/UL (4.70-6.10) L Hemoglobin 11.7 G/DL (14.2-18.0) L Hematocrit 36.2 % (42.0-52.0) L Mean Corpuscular Volume 90 FL (80-99) Mean Corpuscular Hemoglobin 29.0 PG (27.0-31.0) Mean Corpuscular Hemoglobin Concent 32.2 G/DL (32.0-36.0) Red Cell Distribution Width 12.6 % (11.6-14.8) Platelet Count 115 K/UL (150-450) L Mean Platelet Volume 8.0 FL (6.5-10.1) Neutrophils (%) (Auto) 78.7 % (45.0-75.0) H Lymphocytes (%) (Auto) 7.2 % (20.0-45.0) L Monocytes (%) (Auto) 6.5 % (1.0-10.0) Eosinophils (%) (Auto) 6.5 % (0.0-3.0) H Basophils (%) (Auto) 1.1 % (0.0-2.0) Sodium Level 145 MMOL/L (136-145) Potassium Level 4.7 MMOL/L (3.5-5.1) Chloride Level 111 MMOL/L (98-107) H Carbon Dioxide Level 27 MMOL/L (21-32) Anion Gap 7 mmol/L (5-15) Blood Urea Nitrogen 28 mg/dL (7-18) H Creatinine 1.2 MG/DL (0.55-1.30) Estimat Glomerular Filtration Rate mL/min (>60) Glucose Level 76 MG/DL (74-106) Calcium Level 8.7 MG/DL (8.5-10.1) Troponin I 4.754 ng/mL (0.000-0.056) Pro-B-Type Natriuretic Peptide 4366 pg/mL (0-125) H Digoxin Level 1.5 NG/ML (0.5-2.0) Microbiology Date/Time Source Procedure Growth Status 02/18/18 15:15 Blood Blood Culture - Preliminary NO GROWTH AFTER 24 HOURS Resulted 02/18/18 15:00 Blood Blood Culture - Preliminary NO GROWTH AFTER 24 HOURS Resulted 02/19/18 00:07 Sputum Gram Stain Pending Resulted 02/19/18 00:07 Sputum Sputum Culture - Preliminary NORMAL UPPER RESPIRATORY FABIAN AT 24 ... Resulted 02/18/18 16:50 Nasal Nares Influenza Types A,B Antigen (RUBEN) - Final Complete 02/18/18 16:30 Nasal Nares MRSA Culture - Final NO METHICILLIN RESISTANT STAPH AUREUS... Complete 02/18/18 15:16 Urine,Clean Catch Urine Culture - Final Escherichia Coli - Esbl Complete 02/18/18 16:30 Rectum - Final NO CARBAPENEM-RESISTANT ENTEROBACTERI... Complete 02/18/18 16:30 Rectum VRE Culture - Final NO VANCOMYCIN RESISTANT ENTEROCOCCUS ... Complete Intake and Output 12/20/18 12/21/18 19:00 07:00 Intake Total 220 ml 55 ml Output Total 400 ml 300 ml Balance -180 ml -245 ml Intake IV Total 220 ml 55 ml Output Urine Total 400 ml 300 ml Assessment/Plan Problem List: (1) Pneumonia Assessment & Plan: See pulmonary note. Add IV solumedrol-H/O COPD. Duoneb routine for 24 hrs (2) Elevated troponin Assessment & Plan: Trending down. See cardiology note. (3) CHF (congestive heart failure) (4) HTN (hypertension) (5) Hypothyroidism (6) Anemia, iron deficiency (7) CAD (coronary artery disease) (8) Renal failure, chronic (9) COPD (chronic obstructive pulmonary disease) Assessment & Plan: Add IV solumedrol and scheduled nebs. See pulmonary note. (10) Paroxysmal atrial fibrillation (11) Altered level of consciousness Assessment & Plan: CT brain negt. Neuro, Dr Arroyo out until 02/25/18 (12) Lung cancer (13) UTI (urinary tract infection) Assessment & Plan: E. Coli MDR. D/C cefepime (resist). Antibiotics per ID (14) E coli infection Status: not improved Ricky Baker MD Feb 20, 2018 14:28
--- NOTE | 2018-02-20 15:00 | Infectious Diseases Prog Note ---
Assessment/Plan Assessment/Plan Assessment: Sepsis, SP- 2ry to UTI -u.a wbc tntc, nit -, leuk +3; u cx >100k ESBL E.coli -CXR: Left midlung and calcified parenchymal scarring. Numerous calcified hilar nodes suggest old granulomatous disease. Left apical lucency could reflect compensatory hyperinflation or COPD changes. No definite acute process Afebrile Leukocytosis, improving Acute encephalopathy -CT head: no acute findings Dementia dysphagia HTN lung CA CAD CKD COPD Afib [facility] resident Plan: -Switch empiric Cefepime # 3 to PO Bactrim for ESBL UTI (patient improved on Cefepime) -if worsening sepsis, switch Bactrim to Ertapenem -monitor Cr and K - 02/19 SP IV Vancomycin #2 - 02/18 SP Unasyn x1 -f/u cx -Monitor CBC/CMP, temperatures -aspiration precautions Thank you for this consultation. Will continue to follow along with you. Discussed with RN Subjective Allergies: Coded Allergies: No Known Allergies (Unverified , 02/18/18) Subjective afebrile leukocytosis resolved ucx ESBL Objective Vital Signs Last 24 Hour Vital Signs Date Time Temp Pulse Resp B/P (MAP) Pulse Ox O2 Delivery O2 Flow Rate FiO2 02/20/18 12:00 Nasal Cannula 2.0 02/20/18 12:00 97.7 68 22 151/84 (106) 95 02/20/18 10:17 Nasal Cannula 2.0 28 02/20/18 08:00 Nasal Cannula 2.0 02/20/18 08:00 75 02/20/18 08:00 97.7 78 26 143/76 (98) 100 02/20/18 04:00 97.7 75 22 164/80 (108) 100 02/20/18 04:00 72 02/20/18 04:00 Nasal Cannula 2.0 02/20/18 04:00 Nasal Cannula 2.0 02/20/18 00:00 Nasal Cannula 2.0 02/20/18 00:00 97.7 87 18 153/90 (111) 98 02/20/18 00:00 72 02/19/18 21:51 Nasal Cannula 2.0 28 02/19/18 20:00 98.1 79 18 150/88 (108) 98 02/19/18 20:00 77 02/19/18 20:00 Nasal Cannula 2.0 02/19/18 16:00 98.6 69 20 148/76 (100) 100 02/19/18 16:00 Nasal Cannula 2.0 02/19/18 15:47 74 Height (Feet): 5 Height (Inches): 10.00 Weight (Pounds): 170 Objective GENERAL: Shows to be an elderly gentleman who is not responsive, noncommunicative. NECK: Supple. No jugular distention. LUNGS: Appear to be clear to auscultation and percussion. CARDIAC: Regular rate and rhythm. No heaves, thrills, or gallops noted. ABDOMEN: Soft and nontender. Positive bowel sounds. EXTREMITIES: There is no edema. No clubbing or cyanosis. NEUROLOGICAL: He is really not responsive at all to any stimuli through me. Microbiology Date/Time Source Procedure Growth Status 02/18/18 15:15 Blood Blood Culture - Preliminary NO GROWTH AFTER 24 HOURS Resulted 02/18/18 15:00 Blood Blood Culture - Preliminary NO GROWTH AFTER 24 HOURS Resulted 02/19/18 00:07 Sputum Gram Stain - Final Resulted 02/19/18 00:07 Sputum Sputum Culture - Preliminary NORMAL UPPER RESPIRATORY FABIAN AT 24 ... Resulted 02/18/18 16:50 Nasal Nares Influenza Types A,B Antigen (RUBEN) - Final Complete 02/18/18 16:30 Nasal Nares MRSA Culture - Final NO METHICILLIN RESISTANT STAPH AUREUS... Complete 02/18/18 15:16 Urine,Clean Catch Urine Culture - Final Escherichia Coli - Esbl Complete 02/18/18 16:30 Rectum - Final NO CARBAPENEM-RESISTANT ENTEROBACTERI... Complete 02/18/18 16:30 Rectum VRE Culture - Final NO VANCOMYCIN RESISTANT ENTEROCOCCUS ... Complete Laboratory Tests Test 02/20/18 04:00 White Blood Count 10.4 K/UL (4.8-10.8) Red Blood Count 4.02 M/UL (4.70-6.10) L Hemoglobin 11.7 G/DL (14.2-18.0) L Hematocrit 36.2 % (42.0-52.0) L Mean Corpuscular Volume 90 FL (80-99) Mean Corpuscular Hemoglobin 29.0 PG (27.0-31.0) Mean Corpuscular Hemoglobin Concent 32.2 G/DL (32.0-36.0) Red Cell Distribution Width 12.6 % (11.6-14.8) Platelet Count 115 K/UL (150-450) L Mean Platelet Volume 8.0 FL (6.5-10.1) Neutrophils (%) (Auto) 78.7 % (45.0-75.0) H Lymphocytes (%) (Auto) 7.2 % (20.0-45.0) L Monocytes (%) (Auto) 6.5 % (1.0-10.0) Eosinophils (%) (Auto) 6.5 % (0.0-3.0) H Basophils (%) (Auto) 1.1 % (0.0-2.0) Sodium Level 145 MMOL/L (136-145) Potassium Level 4.7 MMOL/L (3.5-5.1) Chloride Level 111 MMOL/L (98-107) H Carbon Dioxide Level 27 MMOL/L (21-32) Anion Gap 7 mmol/L (5-15) Blood Urea Nitrogen 28 mg/dL (7-18) H Creatinine 1.2 MG/DL (0.55-1.30) Estimat Glomerular Filtration Rate mL/min (>60) Glucose Level 76 MG/DL (74-106) Calcium Level 8.7 MG/DL (8.5-10.1) Troponin I 4.754 ng/mL (0.000-0.056) Pro-B-Type Natriuretic Peptide 4366 pg/mL (0-125) H Digoxin Level 1.5 NG/ML (0.5-2.0) Current Medications Medications (Trade) Dose Ordered Sig/Delvin Route PRN Reason Start Time Stop Time Status Last Admin Dose Admin Acetaminophen (Tylenol) 650 mg Q4H PRN ORAL fever 02/18/18 16:45 03/20/18 16:44 Al Hydroxide/Mg Hydroxide (Mylanta II) 30 ml Q6H PRN ORAL dyspepsia 02/18/18 16:46 03/20/18 16:45 Albuterol/ Ipratropium (Albuterol/ Ipratropium) 3 ml Q4HRT HHN 02/20/18 15:00 02/25/18 14:59 Cefepime HCl 1 gm/ Dextrose 55 ml @ 110 mls/hr Q12HR IV 02/19/18 13:00 02/25/18 12:59 12/21/18 07:55 Dextrose/Sodium Chloride 1,000 ml @ 75 mls/hr [id number] IV 02/20/18 07:15 03/22/18 07:14 02/20/18 07:53 Heparin Sodium (Porcine) (Heparin 5000 units/ml) 5,000 units EVERY 12 HOURS SUBQ 02/18/18 21:00 03/20/18 20:59 02/20/18 08:13 Methylprednisolone Sodium Succinate (Solu-MEDROL) 60 mg EVERY 6 HOURS IVP 02/20/18 18:00 03/22/18 17:59 Nitroglycerin (Ntg) 0.4 mg Q5M PRN SL Prn Chest Pain 02/18/18 16:46 03/20/18 16:45 Olanzapine (ZyPREXA) 2.5 mg Q6H PRN ORAL agitation 02/19/18 12:15 03/21/18 12:14 Ondansetron HCl (Zofran) 4 mg Q6H PRN IVP Nausea & Vomiting 02/18/18 16:46 03/20/18 16:45 Polyethylene Glycol (Miralax) 17 gm DAILYPRN PRN ORAL Constipation 02/18/18 16:45 03/20/18 16:44 Promethazine HCl/ Codeine (Phenergan with Codeine) 5 ml Q4H PRN ORAL For Cough 02/18/18 16:46 03/20/18 16:45 Temazepam (Restoril) 15 mg HSPRN PRN ORAL Insomnia 02/18/18 21:00 02/25/18 20:59 Anne-Marie Butler M.D. Feb 20, 2018 15:00
[2018-02-20] MEDS: Albuterol/Ipratropium 3ml neb HHN SCH ×3 (15:56→23:10)
[2018-02-20 16:00] VITALS: BP 163/77
[2018-02-20] MEDS: Solu-MEDROL 125mg Inj IVP SCH (18:32)
--- NOTE | 2018-02-20 18:38 | Cardiology Progress Note ---
Assessment/Plan Assessment/Plan 1. Alteration of mental status. Questionable toxic metabolic encephalopathy. 2. Acute myocardial infarction non ST-elevation. 3. Right bundle-branch block conduction defect, chronicity unknown. 4. Reported history of lung cancer. 5. Reported history of paroxysmal atrial fibrillation. 6. Reported history of coagulopathy secondary to anticoagulation. 7. History of coronary artery disease. 8. History of chronic obstructive pulmonary disease. 9. History of chronic kidney disease. 10. History of hypertension. tropnow downtrending await echo i have nto been able to download study to review repeat trop consider neuro evla he seems some what tremulous tele reviewed sinu ekg reviewed cxr noted need asa and statin and bb and depending on lv fucntion other meds remains at this time a poor candidate for any invasive cardiac treatment more resoponsive but nto communicative Subjective ROS Limited/Unobtainable: Yes Subjective mildly tremulous Objective Last 24 Hour Vital Signs Date Time Temp Pulse Resp B/P (MAP) Pulse Ox O2 Delivery O2 Flow Rate FiO2 02/20/18 16:17 85 20 96 Nasal Cannula 2.0 28 02/20/18 16:02 70 16 96 Nasal Cannula 2.0 28 02/20/18 16:00 Nasal Cannula 2.0 02/20/18 12:00 Nasal Cannula 2.0 02/20/18 12:00 64 02/20/18 12:00 97.7 68 22 151/84 (106) 95 02/20/18 10:17 Nasal Cannula 2.0 28 02/20/18 08:00 Nasal Cannula 2.0 02/20/18 08:00 75 02/20/18 08:00 97.7 78 26 143/76 (98) 100 02/20/18 04:00 97.7 75 22 164/80 (108) 100 02/20/18 04:00 72 02/20/18 04:00 Nasal Cannula 2.0 02/20/18 04:00 Nasal Cannula 2.0 02/20/18 00:00 Nasal Cannula 2.0 02/20/18 00:00 97.7 87 18 153/90 (111) 98 02/20/18 00:00 72 02/19/18 21:51 Nasal Cannula 2.0 28 02/19/18 20:00 98.1 79 18 150/88 (108) 98 02/19/18 20:00 77 02/19/18 20:00 Nasal Cannula 2.0 General Appearance: no apparent distress, alert Cardiovascular: normal rate Respiratory/Chest: lungs clear Abdomen: normal bowel sounds, non tender, soft Extremities: no swelling Intake and Output 02/19/18 02/20/18 19:00 07:00 Intake Total 220 ml 55 ml Output Total 400 ml 300 ml Balance -180 ml -245 ml Intake IV Total 220 ml 55 ml Output Urine Total 400 ml 300 ml Laboratory Tests Test 02/20/18 04:00 White Blood Count 10.4 K/UL (4.8-10.8) Red Blood Count 4.02 M/UL (4.70-6.10) L Hemoglobin 11.7 G/DL (14.2-18.0) L Hematocrit 36.2 % (42.0-52.0) L Mean Corpuscular Volume 90 FL (80-99) Mean Corpuscular Hemoglobin 29.0 PG (27.0-31.0) Mean Corpuscular Hemoglobin Concent 32.2 G/DL (32.0-36.0) Red Cell Distribution Width 12.6 % (11.6-14.8) Platelet Count 115 K/UL (150-450) L Mean Platelet Volume 8.0 FL (6.5-10.1) Neutrophils (%) (Auto) 78.7 % (45.0-75.0) H Lymphocytes (%) (Auto) 7.2 % (20.0-45.0) L Monocytes (%) (Auto) 6.5 % (1.0-10.0) Eosinophils (%) (Auto) 6.5 % (0.0-3.0) H Basophils (%) (Auto) 1.1 % (0.0-2.0) Sodium Level 145 MMOL/L (136-145) Potassium Level 4.7 MMOL/L (3.5-5.1) Chloride Level 111 MMOL/L (98-107) H Carbon Dioxide Level 27 MMOL/L (21-32) Anion Gap 7 mmol/L (5-15) Blood Urea Nitrogen 28 mg/dL (7-18) H Creatinine 1.2 MG/DL (0.55-1.30) Estimat Glomerular Filtration Rate mL/min (>60) Glucose Level 76 MG/DL (74-106) Calcium Level 8.7 MG/DL (8.5-10.1) Troponin I 4.754 ng/mL (0.000-0.056) Pro-B-Type Natriuretic Peptide 4366 pg/mL (0-125) H Digoxin Level 1.5 NG/ML (0.5-2.0) Microbiology Date/Time Source Procedure Growth Status 02/18/18 15:15 Blood Blood Culture - Preliminary NO GROWTH AFTER 24 HOURS Resulted 02/18/18 15:00 Blood Blood Culture - Preliminary NO GROWTH AFTER 24 HOURS Resulted 02/19/18 00:07 Sputum Gram Stain - Final Resulted 02/19/18 00:07 Sputum Sputum Culture - Preliminary NORMAL UPPER RESPIRATORY FABIAN AT 24 ... Resulted 02/18/18 16:50 Nasal Nares Influenza Types A,B Antigen (RUBEN) - Final Complete 02/18/18 16:30 Nasal Nares MRSA Culture - Final NO METHICILLIN RESISTANT STAPH AUREUS... Complete 02/18/18 15:16 Urine,Clean Catch Urine Culture - Final Escherichia Coli - Esbl Complete 02/18/18 16:30 Rectum - Final NO CARBAPENEM-RESISTANT ENTEROBACTERI... Complete 02/18/18 16:30 Rectum VRE Culture - Final NO VANCOMYCIN RESISTANT ENTEROCOCCUS ... Complete Geovanny Sherwood MD Feb 20, 2018 18:38
--- NOTE | 2018-02-20 19:09 | NUR ---
HAND-OFF: Report given to Kamran Morejon RN.
--- NOTE | 2018-02-20 19:10 | NUR ---
NURSE NOTES: Received bedside report from JUAN FRANCISCO Alcazar.Patient stable,SR on rn cardiac rehab,open eyes,tolerated 2 L/min N/C,patient on SPR mattress d/t bedbound,IV asymptomatic,intact on L f/arm 22 G running with D 5 1/2 NS @ 75 ml/hr,BS active in all quadrants,no c/o pain,no respiratory distress noted,bed secured in a low safety position,call light within a reach.Will continue to monitor and follow POC.
[2018-02-20] MEDS ORDERED: NS 275ml ONE (19:36)
[2018-02-20] MEDS ORDERED: Tubing IV Secondary IV ONE (19:36)
[2018-02-20] MEDS ORDERED: D5 1/2NS 1000ml IV ONE (19:36)
[2018-02-20 20:00] VITALS: BP 157/75
[2018-02-20] MEDS: Bactrim-DS 1 tab ORAL SCH (20:31)
[2018-02-21] VITALS: BP 143/87
[2018-02-21] MEDS: Solu-MEDROL 125mg Inj IVP SCH ×4 (00:23→17:14)
--- NOTE | 2018-02-21 01:26 | General Progress Note ---
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 (2) Dementia ICD Codes: F03.90 - Unspecified dementia without behavioral disturbance SNOMED: [id number] Status: unchanged Assessment/Plan zyprexa prn the pt lacks capacity provided ro Subjective Date patient seen: Feb 20, 2018 Neurologic/Psychiatric: Reports: anxiety Allergies: Coded Allergies: No Known Allergies (Unverified , 02/18/18) Objective Last 24 Hour Vital Signs Date Time Temp Pulse Resp B/P (MAP) Pulse Ox O2 Delivery O2 Flow Rate FiO2 02/21/18 00:00 Nasal Cannula 2.0 02/21/18 00:00 98.0 68 24 143/87 (105) 99 02/20/18 23:34 68 02/20/18 23:26 68 18 98 Nasal Cannula 2.0 28 02/20/18 23:11 64 20 96 Nasal Cannula 2.0 28 02/20/18 20:00 97.9 82 24 157/75 (102) 97 02/20/18 20:00 Nasal Cannula 2.0 02/20/18 19:47 76 02/20/18 19:20 60 18 96 Nasal Cannula 2.0 28 02/20/18 19:08 Nasal Cannula 2.0 28 02/20/18 19:07 58 18 95 Nasal Cannula 2.0 28 02/20/18 16:17 85 20 96 Nasal Cannula 2.0 28 02/20/18 16:02 70 16 96 Nasal Cannula 2.0 28 02/20/18 16:00 70 02/20/18 16:00 Nasal Cannula 2.0 02/20/18 16:00 97.7 69 22 163/77 (105) 96 02/20/18 12:00 Nasal Cannula 2.0 02/20/18 12:00 64 02/20/18 12:00 97.7 68 22 151/84 (106) 95 02/20/18 10:17 Nasal Cannula 2.0 28 02/20/18 08:00 Nasal Cannula 2.0 02/20/18 08:00 75 02/20/18 08:00 97.7 78 26 143/76 (98) 100 02/20/18 04:00 97.7 75 22 164/80 (108) 100 02/20/18 04:00 72 02/20/18 04:00 Nasal Cannula 2.0 02/20/18 04:00 Nasal Cannula 2.0 Intake and Output 02/20/18 02/21/18 19:00 07:00 Intake Total 825 ml 337.5 ml Balance 825 ml 337.5 ml Intake IV Total 825 ml 337.5 ml # Voids 3 Laboratory Tests 02/20/18 04:00: White Blood Count 10.4, Red Blood Count 4.02L, Hemoglobin 11.7L, Hematocrit 36.2L, Mean Corpuscular Volume 90, Mean Corpuscular Hemoglobin 29.0, Mean Corpuscular Hemoglobin Concent 32.2, Red Cell Distribution Width 12.6, Platelet Count 115L, Mean Platelet Volume 8.0, Neutrophils (%) (Auto) 78.7H, Lymphocytes (%) (Auto) 7.2L, Monocytes (%) (Auto) 6.5, Eosinophils (%) (Auto) 6.5H, Basophils (%) (Auto) 1.1, Sodium Level 145, Potassium Level 4.7, Chloride Level 111H, Carbon Dioxide Level 27, Anion Gap 7, Blood Urea Nitrogen 28H, Creatinine 1.2, Estimat Glomerular Filtration Rate , Glucose Level 76, Calcium Level 8.7, Troponin I 4.754H, Pro-B-Type Natriuretic Peptide 4366H, Digoxin Level 1.5 Height (Feet): 5 Height (Inches): 10.00 Weight (Pounds): 170 General Appearance: lethargic, confused, agitated Arsen Erwin MD Feb 21, 2018 01:26
[2018-02-21] MEDS: Albuterol/Ipratropium 3ml neb HHN SCH ×6 (02:23→22:37)
[2018-02-21 04:00] VITALS: BP 140/74
[2018-02-21 05:51] LABS: HEMATOCRIT 37.4 % (42.0-52.0); HEMOGLOBIN 12.2 G/DL (14.2-18.0); MEAN CORPUSCULAR VOLUME 90 FL (80-99); PLATELET COUNT 110 K/UL (150-450); RED BLOOD COUNT 4.15 M/UL (4.70-6.10); RED CELL DISTRIBUTION WIDTH 12.3 % (11.6-14.8); WHITE BLOOD COUNT 7.7 K/UL (4.8-10.8)
[2018-02-21 06:21] LABS: ANION GAP 12 mmol/L (5-15); BLOOD UREA NITROGEN 28 mg/dL (7-18); CALCIUM 8.8 MG/DL (8.5-10.1); CARBON DIOXIDE 27 MMOL/L (21-32); CHLORIDE 108 MMOL/L (98-107); CREATININE 1.4 MG/DL (0.55-1.30); POTASSIUM 4.8 MMOL/L (3.5-5.1); SODIUM 147 MMOL/L (136-145)
--- NOTE | 2018-02-21 07:18 | NUR ---
HAND-OFF: Report given to JUAN FRANCISCO Alva.Patient stable.
--- NOTE | 2018-02-21 07:33 | NUR ---
NURSE NOTES: Report received from JUAN FRANCISCO Barba. Observed patient eating breakfast. ACAD[employer] SERVICES PROFESSIONAL assisted the patient with feeding. No s/s of pain at this time. Receiving 2L of oxygen via N/C with no distress noted. IVF running at prescribed rate. Bed in lowest position. Call light within reach. Will continue to monitor.
[2018-02-21 08:00] VITALS: BP 153/74
[2018-02-21] MEDS: Heparin 5000 units/ml inj SUBQ SCH ×2 (08:11→21:00)
[2018-02-21] MEDS: Bactrim-DS 1 tab ORAL SCH ×2 (08:16→21:44)
[2018-02-21] MEDS: D5 1/2NS 1,000 ML IV SCH (10:26)
--- NOTE | 2018-02-21 10:34 | Infectious Diseases Prog Note ---
Assessment/Plan Assessment/Plan Assessment: Sepsis, SP- 2ry to UTI -u.a wbc tntc, nit -, leuk +3; u cx >100k ESBL E.coli -CXR: Left midlung and calcified parenchymal scarring. Numerous calcified hilar nodes suggest old granulomatous disease. Left apical lucency could reflect compensatory hyperinflation or COPD changes. No definite acute process Afebrile Leukocytosis, SP Acute encephalopathy -CT head: no acute findings Dementia dysphagia HTN lung CA CAD CKD COPD Afib [facility] resident Plan: -Continue PO Bactrim #2/5-7 for ESBL UTI (patient improved on Cefepime) -if worsening sepsis, switch Bactrim to Ertapenem -monitor Cr and K - 02/20 SP Cefepime # 3 - 02/19 SP IV Vancomycin #2 - 02/18 SP Unasyn x1 -f/u cx -Monitor CBC/CMP, temperatures -aspiration precautions Thank you for this consultation. Will continue to follow along with you. Discussed with RN Subjective Allergies: Coded Allergies: No Known Allergies (Unverified , 02/18/18) Subjective afebrile no leukocytosis ucx ESBL Bcx NTD Objective Vital Signs Last 24 Hour Vital Signs Date Time Temp Pulse Resp B/P (MAP) Pulse Ox O2 Delivery O2 Flow Rate FiO2 02/21/18 08:00 98.8 85 19 153/74 (100) 98 02/21/18 08:00 82 02/21/18 08:00 Nasal Cannula 2.0 02/21/18 07:20 73 18 98 Nasal Cannula 2.0 28 02/21/18 07:14 68 20 98 Nasal Cannula 2.0 28 02/21/18 07:14 Nasal Cannula 2.0 28 02/21/18 04:00 98.5 68 24 140/74 (96) 99 02/21/18 04:00 Nasal Cannula 2.0 02/21/18 03:39 70 02/21/18 02:27 71 18 98 Nasal Cannula 2.0 28 02/21/18 02:20 65 20 97 Nasal Cannula 2.0 28 02/21/18 00:00 Nasal Cannula 2.0 02/21/18 00:00 98.0 68 24 143/87 (105) 99 02/20/18 23:34 68 02/20/18 23:26 68 18 98 Nasal Cannula 2.0 28 02/20/18 23:11 64 20 96 Nasal Cannula 2.0 28 02/20/18 20:00 97.9 82 24 157/75 (102) 97 02/20/18 20:00 Nasal Cannula 2.0 02/20/18 19:47 76 02/20/18 19:20 60 18 96 Nasal Cannula 2.0 28 02/20/18 19:08 Nasal Cannula 2.0 28 02/20/18 19:07 58 18 95 Nasal Cannula 2.0 28 02/20/18 16:17 85 20 96 Nasal Cannula 2.0 28 02/20/18 16:02 70 16 96 Nasal Cannula 2.0 28 02/20/18 16:00 70 02/20/18 16:00 Nasal Cannula 2.0 02/20/18 16:00 97.7 69 22 163/77 (105) 96 02/20/18 12:00 Nasal Cannula 2.0 02/20/18 12:00 64 02/20/18 12:00 97.7 68 22 151/84 (106) 95 Height (Feet): 5 Height (Inches): 10.00 Weight (Pounds): 170 Objective GENERAL: Shows to be an elderly gentleman who is not responsive, noncommunicative. NECK: Supple. No jugular distention. LUNGS: Appear to be clear to auscultation and percussion. CARDIAC: Regular rate and rhythm. No heaves, thrills, or gallops noted. ABDOMEN: Soft and nontender. Positive bowel sounds. EXTREMITIES: There is no edema. No clubbing or cyanosis. NEUROLOGICAL: He is really not responsive at all to any stimuli through me. Microbiology Date/Time Source Procedure Growth Status 02/18/18 15:15 Blood Blood Culture - Preliminary NO GROWTH AFTER 48 HOURS Resulted 02/18/18 15:00 Blood Blood Culture - Preliminary NO GROWTH AFTER 48 HOURS Resulted 02/19/18 00:07 Sputum Gram Stain - Final Complete 02/19/18 00:07 Sputum Sputum Culture - Final NORMAL UPPER RESPIRATORY FABIAN AT 48 ... Complete 02/18/18 16:50 Nasal Nares Influenza Types A,B Antigen (RUBEN) - Final Complete 02/18/18 16:30 Nasal Nares MRSA Culture - Final NO METHICILLIN RESISTANT STAPH AUREUS... Complete 02/18/18 15:16 Urine,Clean Catch Urine Culture - Final Escherichia Coli - Esbl Complete 02/18/18 16:30 Rectum - Final NO CARBAPENEM-RESISTANT ENTEROBACTERI... Complete 02/18/18 16:30 Rectum VRE Culture - Final NO VANCOMYCIN RESISTANT ENTEROCOCCUS ... Complete Laboratory Tests Test 02/21/18 04:06 White Blood Count 7.7 K/UL (4.8-10.8) Red Blood Count 4.15 M/UL (4.70-6.10) L Hemoglobin 12.2 G/DL (14.2-18.0) L Hematocrit 37.4 % (42.0-52.0) L Mean Corpuscular Volume 90 FL (80-99) Mean Corpuscular Hemoglobin 29.4 PG (27.0-31.0) Mean Corpuscular Hemoglobin Concent 32.7 G/DL (32.0-36.0) Red Cell Distribution Width 12.3 % (11.6-14.8) Platelet Count 110 K/UL (150-450) L Mean Platelet Volume 8.6 FL (6.5-10.1) Neutrophils (%) (Auto) % (45.0-75.0) Lymphocytes (%) (Auto) % (20.0-45.0) Monocytes (%) (Auto) % (1.0-10.0) Eosinophils (%) (Auto) % (0.0-3.0) Basophils (%) (Auto) % (0.0-2.0) Differential Total Cells Counted 100 Neutrophils % (Manual) 97 % (45-75) H Lymphocytes % (Manual) 1 % (20-45) L Monocytes % (Manual) 0 % (1-10) L Eosinophils % (Manual) 0 % (0-3) Basophils % (Manual) 0 % (0-2) Band Neutrophils 2 % (0-8) Platelet Estimate Decreased L Platelet Morphology Normal Red Blood Cell Morphology Normal Sodium Level 147 MMOL/L (136-145) H Potassium Level 4.8 MMOL/L (3.5-5.1) Chloride Level 108 MMOL/L (98-107) H Carbon Dioxide Level 27 MMOL/L (21-32) Anion Gap 12 mmol/L (5-15) Blood Urea Nitrogen 28 mg/dL (7-18) H Creatinine 1.4 MG/DL (0.55-1.30) H Estimat Glomerular Filtration Rate mL/min (>60) Glucose Level 204 MG/DL (74-106) #H Calcium Level 8.8 MG/DL (8.5-10.1) Troponin I 2.728 ng/mL (0.000-0.056) Pro-B-Type Natriuretic Peptide 6873 pg/mL (0-125) H Current Medications Medications (Trade) Dose Ordered Sig/Delvin Route PRN Reason Start Time Stop Time Status Last Admin Dose Admin Acetaminophen (Tylenol) 650 mg Q4H PRN ORAL fever 02/18/18 16:45 03/20/18 16:44 Al Hydroxide/Mg Hydroxide (Mylanta II) 30 ml Q6H PRN ORAL dyspepsia 02/18/18 16:46 03/20/18 16:45 Albuterol/ Ipratropium (Albuterol/ Ipratropium) 3 ml Q4HRT HHN 02/20/18 15:00 02/25/18 14:59 02/21/18 07:14 Dextrose/Sodium Chloride 1,000 ml @ 75 mls/hr [id number] IV 02/20/18 07:15 03/22/18 07:14 02/21/18 10:26 Heparin Sodium (Porcine) (Heparin 5000 units/ml) 5,000 units EVERY 12 HOURS SUBQ 02/18/18 21:00 03/20/18 20:59 02/20/18 08:13 Methylprednisolone Sodium Succinate (Solu-MEDROL) 60 mg EVERY 6 HOURS IVP 02/20/18 18:00 03/22/18 17:59 02/21/18 05:29 Nitroglycerin (Ntg) 0.4 mg Q5M PRN SL Prn Chest Pain 02/18/18 16:46 03/20/18 16:45 Olanzapine (ZyPREXA) 2.5 mg Q6H PRN ORAL agitation 02/19/18 12:15 03/21/18 12:14 Ondansetron HCl (Zofran) 4 mg Q6H PRN IVP Nausea & Vomiting 02/18/18 16:46 03/20/18 16:45 Polyethylene Glycol (Miralax) 17 gm DAILYPRN PRN ORAL Constipation 02/18/18 16:45 03/20/18 16:44 Promethazine HCl/ Codeine (Phenergan with Codeine) 5 ml Q4H PRN ORAL For Cough 02/18/18 16:46 03/20/18 16:45 Temazepam (Restoril) 15 mg HSPRN PRN ORAL Insomnia 02/18/18 21:00 02/25/18 20:59 Trimethoprim/ Sulfamethoxazole (Bactrim-DS) 1 tab Q12HR ORAL 02/20/18 21:00 02/27/18 20:59 02/21/18 08:16 Anne-Marie Butler M.D. Feb 21, 2018 10:34
--- NOTE | 2018-02-21 11:24 | Cardiology Progress Note ---
Assessment/Plan Assessment/Plan 1. Alteration of mental status. Questionable toxic metabolic encephalopathy. 2. Acute myocardial infarction non ST-elevation. 3. Right bundle-branch block conduction defect, chronicity unknown. 4. Reported history of lung cancer. 5. Reported history of paroxysmal atrial fibrillation. 6. Reported history of coagulopathy secondary to anticoagulation. 7. History of coronary artery disease. 8. History of chronic obstructive pulmonary disease. 9. History of chronic kidney disease. 10. History of hypertension. tropnow downtrending await echo i have nto been able to download study to review repeat trop down trending he seems some what tremulous tele reviewed sinus need asa and statin and bb and depending on lv fucntion other meds remains at this time a poor candidate for any invasive cardiac treatment more resoponsive but nto communicative Subjective ROS Limited/Unobtainable: Yes Subjective mildly tremulous Objective Last 24 Hour Vital Signs Date Time Temp Pulse Resp B/P (MAP) Pulse Ox O2 Delivery O2 Flow Rate FiO2 02/21/18 11:18 71 20 98 Nasal Cannula 2.0 28 02/21/18 08:00 98.8 85 19 153/74 (100) 98 02/21/18 08:00 82 02/21/18 08:00 Nasal Cannula 2.0 02/21/18 07:20 73 18 98 Nasal Cannula 2.0 28 02/21/18 07:14 68 20 98 Nasal Cannula 2.0 28 02/21/18 07:14 Nasal Cannula 2.0 28 02/21/18 04:00 98.5 68 24 140/74 (96) 99 02/21/18 04:00 Nasal Cannula 2.0 02/21/18 03:39 70 02/21/18 02:27 71 18 98 Nasal Cannula 2.0 28 02/21/18 02:20 65 20 97 Nasal Cannula 2.0 28 02/21/18 00:00 Nasal Cannula 2.0 02/21/18 00:00 98.0 68 24 143/87 (105) 99 02/20/18 23:34 68 02/20/18 23:26 68 18 98 Nasal Cannula 2.0 28 02/20/18 23:11 64 20 96 Nasal Cannula 2.0 28 02/20/18 20:00 97.9 82 24 157/75 (102) 97 02/20/18 20:00 Nasal Cannula 2.0 02/20/18 19:47 76 02/20/18 19:20 60 18 96 Nasal Cannula 2.0 28 02/20/18 19:08 Nasal Cannula 2.0 28 02/20/18 19:07 58 18 95 Nasal Cannula 2.0 28 02/20/18 16:17 85 20 96 Nasal Cannula 2.0 28 02/20/18 16:02 70 16 96 Nasal Cannula 2.0 28 02/20/18 16:00 70 02/20/18 16:00 Nasal Cannula 2.0 02/20/18 16:00 97.7 69 22 163/77 (105) 96 02/20/18 12:00 Nasal Cannula 2.0 02/20/18 12:00 64 02/20/18 12:00 97.7 68 22 151/84 (106) 95 General Appearance: patient on isolation, other - awake rnot follwo commands Neck: supple Cardiovascular: normal rate, regular rhythm Respiratory/Chest: lungs clear, normal breath sounds Abdomen: normal bowel sounds, non tender, soft Extremities: no swelling Intake and Output 02/20/18 02/21/18 19:00 07:00 Intake Total 825 ml 862.5 ml Output Total 350 ml Balance 825 ml 512.5 ml Intake IV Total 825 ml 862.5 ml Output Urine Total 350 ml # Voids 3 Laboratory Tests Test 02/21/18 04:06 White Blood Count 7.7 K/UL (4.8-10.8) Red Blood Count 4.15 M/UL (4.70-6.10) L Hemoglobin 12.2 G/DL (14.2-18.0) L Hematocrit 37.4 % (42.0-52.0) L Mean Corpuscular Volume 90 FL (80-99) Mean Corpuscular Hemoglobin 29.4 PG (27.0-31.0) Mean Corpuscular Hemoglobin Concent 32.7 G/DL (32.0-36.0) Red Cell Distribution Width 12.3 % (11.6-14.8) Platelet Count 110 K/UL (150-450) L Mean Platelet Volume 8.6 FL (6.5-10.1) Neutrophils (%) (Auto) % (45.0-75.0) Lymphocytes (%) (Auto) % (20.0-45.0) Monocytes (%) (Auto) % (1.0-10.0) Eosinophils (%) (Auto) % (0.0-3.0) Basophils (%) (Auto) % (0.0-2.0) Differential Total Cells Counted 100 Neutrophils % (Manual) 97 % (45-75) H Lymphocytes % (Manual) 1 % (20-45) L Monocytes % (Manual) 0 % (1-10) L Eosinophils % (Manual) 0 % (0-3) Basophils % (Manual) 0 % (0-2) Band Neutrophils 2 % (0-8) Platelet Estimate Decreased L Platelet Morphology Normal Red Blood Cell Morphology Normal Sodium Level 147 MMOL/L (136-145) H Potassium Level 4.8 MMOL/L (3.5-5.1) Chloride Level 108 MMOL/L (98-107) H Carbon Dioxide Level 27 MMOL/L (21-32) Anion Gap 12 mmol/L (5-15) Blood Urea Nitrogen 28 mg/dL (7-18) H Creatinine 1.4 MG/DL (0.55-1.30) H Estimat Glomerular Filtration Rate mL/min (>60) Glucose Level 204 MG/DL (74-106) #H Calcium Level 8.8 MG/DL (8.5-10.1) Troponin I 2.728 ng/mL (0.000-0.056) Pro-B-Type Natriuretic Peptide 6873 pg/mL (0-125) H Microbiology Date/Time Source Procedure Growth Status 02/18/18 15:15 Blood Blood Culture - Preliminary NO GROWTH AFTER 48 HOURS Resulted 02/18/18 15:00 Blood Blood Culture - Preliminary NO GROWTH AFTER 48 HOURS Resulted 02/19/18 00:07 Sputum Gram Stain - Final Complete 02/19/18 00:07 Sputum Sputum Culture - Final NORMAL UPPER RESPIRATORY FABIAN AT 48 ... Complete 02/18/18 16:50 Nasal Nares Influenza Types A,B Antigen (RUBEN) - Final Complete 02/18/18 16:30 Nasal Nares MRSA Culture - Final NO METHICILLIN RESISTANT STAPH AUREUS... Complete 02/18/18 15:16 Urine,Clean Catch Urine Culture - Final Escherichia Coli - Esbl Complete 02/18/18 16:30 Rectum - Final NO CARBAPENEM-RESISTANT ENTEROBACTERI... Complete 02/18/18 16:30 Rectum VRE Culture - Final NO VANCOMYCIN RESISTANT ENTEROCOCCUS ... Complete Geovanny Sherwood MD Feb 21, 2018 11:24
[2018-02-21 12:00] VITALS: BP 143/86
[2018-02-21 16:00] VITALS: BP 146/57
[2018-02-21] MEDS ORDERED: D5 1/2NS 1000ml IV ONE (16:32)
--- NOTE | 2018-02-21 17:55 | Internal Med Progress Note ---
Subjective Date of Service: Feb 21, 2018 Physician Name Ricky Baker Attending Physician Gila Sibley MD Current Medications Medications (Trade) Dose Ordered Sig/Delvin Route PRN Reason Start Time Stop Time Status Last Admin Dose Admin Acetaminophen (Tylenol) 650 mg Q4H PRN ORAL fever 02/18/18 16:45 03/20/18 16:44 Al Hydroxide/Mg Hydroxide (Mylanta II) 30 ml Q6H PRN ORAL dyspepsia 02/18/18 16:46 03/20/18 16:45 Albuterol/ Ipratropium (Albuterol/ Ipratropium) 3 ml Q4HRT HHN 02/20/18 15:00 02/25/18 14:59 02/21/18 14:49 Dextrose/Sodium Chloride 1,000 ml @ 75 mls/hr [id number] IV 02/20/18 07:15 03/22/18 07:14 02/21/18 10:26 Heparin Sodium (Porcine) (Heparin 5000 units/ml) 5,000 units EVERY 12 HOURS SUBQ 02/18/18 21:00 03/20/18 20:59 02/20/18 08:13 Methylprednisolone Sodium Succinate (Solu-MEDROL) 60 mg EVERY 6 HOURS IVP 02/20/18 18:00 03/22/18 17:59 02/21/18 17:14 Nitroglycerin (Ntg) 0.4 mg Q5M PRN SL Prn Chest Pain 02/18/18 16:46 03/20/18 16:45 Olanzapine (ZyPREXA) 2.5 mg Q6H PRN ORAL agitation 02/19/18 12:15 03/21/18 12:14 Ondansetron HCl (Zofran) 4 mg Q6H PRN IVP Nausea & Vomiting 02/18/18 16:46 03/20/18 16:45 Polyethylene Glycol (Miralax) 17 gm DAILYPRN PRN ORAL Constipation 02/18/18 16:45 03/20/18 16:44 Promethazine HCl/ Codeine (Phenergan with Codeine) 5 ml Q4H PRN ORAL For Cough 02/18/18 16:46 03/20/18 16:45 Temazepam (Restoril) 15 mg HSPRN PRN ORAL Insomnia 02/18/18 21:00 02/25/18 20:59 Trimethoprim/ Sulfamethoxazole (Bactrim-DS) 1 tab Q12HR ORAL 02/20/18 21:00 02/27/18 20:59 02/21/18 08:16 Allergies: Coded Allergies: No Known Allergies (Unverified , 02/18/18) Subjective 82 YO M admitted with altered mental status. Now pneumonia and elevated troponin. Cover for Int Oli-Dr Jc. RODERICK. Tolerating nasal canula Objective Last Vital Signs Date Time Temp Pulse Resp B/P (MAP) Pulse Ox O2 Delivery O2 Flow Rate FiO2 02/21/18 16:00 98.0 71 17 146/57 (86) 98 02/21/18 16:00 Nasal Cannula 2.0 02/21/18 14:57 28 Laboratory Tests Test 02/21/18 04:06 White Blood Count 7.7 K/UL (4.8-10.8) Red Blood Count 4.15 M/UL (4.70-6.10) L Hemoglobin 12.2 G/DL (14.2-18.0) L Hematocrit 37.4 % (42.0-52.0) L Mean Corpuscular Volume 90 FL (80-99) Mean Corpuscular Hemoglobin 29.4 PG (27.0-31.0) Mean Corpuscular Hemoglobin Concent 32.7 G/DL (32.0-36.0) Red Cell Distribution Width 12.3 % (11.6-14.8) Platelet Count 110 K/UL (150-450) L Mean Platelet Volume 8.6 FL (6.5-10.1) Neutrophils (%) (Auto) % (45.0-75.0) Lymphocytes (%) (Auto) % (20.0-45.0) Monocytes (%) (Auto) % (1.0-10.0) Eosinophils (%) (Auto) % (0.0-3.0) Basophils (%) (Auto) % (0.0-2.0) Differential Total Cells Counted 100 Neutrophils % (Manual) 97 % (45-75) H Lymphocytes % (Manual) 1 % (20-45) L Monocytes % (Manual) 0 % (1-10) L Eosinophils % (Manual) 0 % (0-3) Basophils % (Manual) 0 % (0-2) Band Neutrophils 2 % (0-8) Platelet Estimate Decreased L Platelet Morphology Normal Red Blood Cell Morphology Normal Sodium Level 147 MMOL/L (136-145) H Potassium Level 4.8 MMOL/L (3.5-5.1) Chloride Level 108 MMOL/L (98-107) H Carbon Dioxide Level 27 MMOL/L (21-32) Anion Gap 12 mmol/L (5-15) Blood Urea Nitrogen 28 mg/dL (7-18) H Creatinine 1.4 MG/DL (0.55-1.30) H Estimat Glomerular Filtration Rate mL/min (>60) Glucose Level 204 MG/DL (74-106) #H Calcium Level 8.8 MG/DL (8.5-10.1) Troponin I 2.728 ng/mL (0.000-0.056) Pro-B-Type Natriuretic Peptide 6873 pg/mL (0-125) H Microbiology Date/Time Source Procedure Growth Status 02/19/18 00:07 Sputum Gram Stain - Final Complete 02/19/18 00:07 Sputum Sputum Culture - Final NORMAL UPPER RESPIRATORY FABIAN AT 48 ... Complete Intake and Output 02/20/18 02/21/18 19:00 07:00 Intake Total 825 ml 862.5 ml Output Total 350 ml Balance 825 ml 512.5 ml IV Total 825 ml 862.5 ml Output Urine Total 350 ml # Voids 3 Objective General Appearance: WD/WN, no apparent distress, alert, thin EENT: PERRL/EOMI, normal ENT inspection Neck: non-tender, normal alignment, supple, normal inspection Cardiovascular: normal peripheral pulses, normal rate, regular rhythm, no gallop/murmur, no JVD Respiratory/Chest: respiratory distress, decreased breath sounds, crackles/ rales, rhonchi - bilaterally, expiratory wheezing Abdomen: normal bowel sounds, non tender, soft, no organomegaly, no mass Extremities: normal range of motion, non-tender 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 Add IV solumedrol-H/O COPD. Duoneb routine for 24 hrs (2) Elevated troponin Assessment & Plan: Trending down. See cardiology note. (3) CHF (congestive heart failure) (4) HTN (hypertension) (5) Hypothyroidism (6) Anemia, iron deficiency (7) CAD (coronary artery disease) (8) Renal failure, chronic (9) COPD (chronic obstructive pulmonary disease) Assessment & Plan: Add IV solumedrol and scheduled nebs. See pulmonary note. (10) Paroxysmal atrial fibrillation (11) Altered level of consciousness Assessment & Plan: CT brain negt. Neuro, Dr Arroyo out until 02/25/18 (12) Lung cancer (13) UTI (urinary tract infection) Assessment & Plan: E. Coli MDR. D/C cefepime (resist). Antibiotics per ID (14) E coli infection Status: not improved Ricky Baker MD Feb 21, 2018 17:55
--- NOTE | 2018-02-21 18:58 | NUR ---
HAND-OFF: Report given to JUAN FRANCISCO Talavera. Stable condition.
--- NOTE | 2018-02-21 19:30 | NUR ---
NURSE NOTES: Report received from JUAN FRANCISCO Alva. Observed patient laying on bed, awake, open eyes, non-verbal. No signs of pain noted at this time. Receiving 2L of oxygen via N/C with no distress noted. Condom catheter intact and draining well, IV site on L H 22G, intact and patent, Bed in lowest position. Call light within reach. Will continue to monitor.
[2018-02-21 20:00] VITALS: BP 147/100
--- NOTE | 2018-02-21 21:41 | General Progress Note ---
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 (2) Dementia ICD Codes: F03.90 - Unspecified dementia without behavioral disturbance SNOMED: [id number] Assessment/Plan zyprexa prn the pt lacks capacity provided ro Subjective Neurologic/Psychiatric: Reports: anxiety, depressed Allergies: Coded Allergies: No Known Allergies (Unverified , 02/18/18) Objective Last 24 Hour Vital Signs Date Time Temp Pulse Resp B/P (MAP) Pulse Ox O2 Delivery O2 Flow Rate FiO2 02/21/18 19:00 Nasal Cannula 2.0 28 02/21/18 19:00 70 20 98 Nasal Cannula 2.0 28 02/21/18 18:54 71 20 97 Nasal Cannula 2.0 28 02/21/18 16:00 98.0 71 17 146/57 (86) 98 02/21/18 16:00 Nasal Cannula 2.0 02/21/18 15:46 74 02/21/18 14:57 72 18 98 Nasal Cannula 2.0 28 02/21/18 14:49 69 20 98 Nasal Cannula 2.0 28 02/21/18 12:00 Nasal Cannula 2.0 02/21/18 12:00 97.9 69 18 143/86 (105) 94 02/21/18 11:44 68 02/21/18 11:23 68 18 98 Nasal Cannula 2.0 28 02/21/18 11:18 71 20 98 Nasal Cannula 2.0 28 02/21/18 08:00 98.8 85 19 153/74 (100) 98 02/21/18 08:00 82 02/21/18 08:00 Nasal Cannula 2.0 02/21/18 07:20 73 18 98 Nasal Cannula 2.0 28 02/21/18 07:14 68 20 98 Nasal Cannula 2.0 28 02/21/18 07:14 Nasal Cannula 2.0 28 02/21/18 04:00 98.5 68 24 140/74 (96) 99 02/21/18 04:00 Nasal Cannula 2.0 02/21/18 03:39 70 02/21/18 02:27 71 18 98 Nasal Cannula 2.0 28 02/21/18 02:20 65 20 97 Nasal Cannula 2.0 28 02/21/18 00:00 Nasal Cannula 2.0 02/21/18 00:00 98.0 68 24 143/87 (105) 99 02/20/18 23:34 68 02/20/18 23:26 68 18 98 Nasal Cannula 2.0 28 02/20/18 23:11 64 20 96 Nasal Cannula 2.0 28 Intake and Output 02/20/18 02/21/18 19:00 07:00 Intake Total 825 ml 862.5 ml Output Total 350 ml Balance 825 ml 512.5 ml IV Total 825 ml 862.5 ml Output Urine Total 350 ml # Voids 3 Laboratory Tests 02/21/18 04:06: White Blood Count 7.7, Red Blood Count 4.15L, Hemoglobin 12.2L, Hematocrit 37.4L , Mean Corpuscular Volume 90, Mean Corpuscular Hemoglobin 29.4, Mean Corpuscular Hemoglobin Concent 32.7, Red Cell Distribution Width 12.3, Platelet Count 110L, Mean Platelet Volume 8.6, Neutrophils (%) (Auto) , Lymphocytes (%) ( Auto) , Monocytes (%) (Auto) , Eosinophils (%) (Auto) , Basophils (%) (Auto) , Differential Total Cells Counted 100, Neutrophils % (Manual) 97H, Lymphocytes % (Manual) 1L, Monocytes % (Manual) 0L, Eosinophils % (Manual) 0, Basophils % ( Manual) 0, Band Neutrophils 2, Platelet Estimate DecreasedL, Platelet Morphology Normal, Red Blood Cell Morphology Normal, Sodium Level 147H, Potassium Level 4.8, Chloride Level 108H, Carbon Dioxide Level 27, Anion Gap 12 , Blood Urea Nitrogen 28H, Creatinine 1.4H, Estimat Glomerular Filtration Rate , Glucose Level 204#H, Calcium Level 8.8, Troponin I 2.728H, Pro-B-Type Natriuretic Peptide 6873H Height (Feet): 5 Height (Inches): 10.00 Weight (Pounds): 170 General Appearance: alert, lethargic, confused, moderate distress, agitated Arsen Erwin MD Feb 21, 2018 21:41
[2018-02-22] VITALS: BP 144/76
--- NOTE | 2018-02-22 | NUR ---
NURSE NOTES: Observed pt sleeping on the bed. No acute distress noted. Turing patient is done. bed in the lowest position. Call light within reach. Will continue to monitor.
[2018-02-22] MEDS: Solu-MEDROL 125mg Inj IVP SCH ×4 (00:04→21:24)
[2018-02-22] MEDS: D5 1/2NS 1,000 ML IV SCH ×2 (00:04→12:20)
[2018-02-22] MEDS: Albuterol/Ipratropium 3ml neb HHN SCH ×6 (02:53→23:18)
[2018-02-22 04:00] VITALS: BP 149/64
[2018-02-22 04:29] LABS: HEMATOCRIT 32.1 % (42.0-52.0); HEMOGLOBIN 10.7 G/DL (14.2-18.0); MEAN CORPUSCULAR VOLUME 89 FL (80-99); PLATELET COUNT 105 K/UL (150-450); RED BLOOD COUNT 3.61 M/UL (4.70-6.10); RED CELL DISTRIBUTION WIDTH 12.3 % (11.6-14.8); WHITE BLOOD COUNT 20.1 K/UL (4.8-10.8)
[2018-02-22 04:42] LABS: ANION GAP 8 mmol/L (5-15); BLOOD UREA NITROGEN 33 mg/dL (7-18); CALCIUM 8.3 MG/DL (8.5-10.1); CARBON DIOXIDE 27 MMOL/L (21-32); CHLORIDE 107 MMOL/L (98-107); CREATININE 1.7 MG/DL (0.55-1.30); POTASSIUM 4.7 MMOL/L (3.5-5.1); SODIUM 142 MMOL/L (136-145)
--- NOTE | 2018-02-22 05:33 | NUR ---
NURSE NOTES: Left a message to regarding pt WBC 20.1 and awaiting call back.
--- NOTE | 2018-02-22 07:15 | NUR ---
HAND-OFF: Report given to JUAN FRANCISCO Talavera. Addendum: 02/22/18 at 1938 by GONSALO MONCADA RN Report given 1914, not 2160
--- NOTE | 2018-02-22 07:45 | NUR ---
HAND-OFF: Report given to JUAN FRANCISCO Wright. No acute distress noted.
--- NOTE | 2018-02-22 07:46 | NUR ---
NURSE NOTES: Received report from JUAN FRANCISCO Aguilera. Patient is awake in bed. No s/s of acute distress noted. Sinus rhythm on cardiac sonographer. On 2L O2 via nasal cannula and saturating well. Condom catheter intact and draining well. Left hand 22g IV intact and patent, running D5 1/2 NS at 75 cc/hr. Bed locked in lowest position with side rails up x3. Call light left within reach. Will continue to monitor.
[2018-02-22 08:00] VITALS: BP 145/72
--- NOTE | 2018-02-22 08:14 | NUR ---
NURSE NOTES: Dr. Carrie MD made aware of WBC 20.1. New orders received and carried out. Will continue to monitor.
[2018-02-22] MEDS: Heparin 5000 units/ml inj SUBQ SCH ×2 (09:00→21:00)
[2018-02-22] MEDS: Bactrim-DS 1 tab ORAL SCH (09:31)
[2018-02-22 12:00] VITALS: BP 144/84
--- NOTE | 2018-02-22 12:25 | Diagnostic Imaging Report ---
EXAM: XR Chest, 1 View CLINICAL HISTORY: INFECT TECHNIQUE: Frontal view of the chest. COMPARISON: Chest x-ray dated 02/18/18 FINDINGS: Lungs: Mild sub-segmental atelectasis in the medial lung bases. No significant change in the scarring versus linear atelectasis at the periphery of the left midlung, with possible underlying pleural calcifications. Pleural space: Unremarkable. The costophrenic angles are sharp. No visible pneumothorax. Heart: Unremarkable. No cardiomegaly. Mediastinum: Unremarkable. Bones/joints: Unremarkable. Vasculature: Atherosclerotic calcifications are noted within the aortic arch. Lymph nodes: Scattered calcified hilar lymph nodes, unchanged. Tubes, lines and devices: EKG leads overlie the thorax. IMPRESSION: 1. Mild sub-segmental atelectasis in the medial lung bases. 2. No significant change in the scarring versus linear atelectasis at the periphery of the left midlung, with possible underlying pleural calcifications. 3. Scattered calcified hilar lymph nodes, unchanged.
--- NOTE | 2018-02-22 12:44 | NUR ---
RD ASSESSMENT & RECOMMENDATIONS SEE CARE ACTIVITY FOR COMPLETE ASSESSMENT DAILY ESTIMATED NEEDS: Needs based on Mild wasting, pulmonary 63kg 27-32 kcals/kg 3714-2214 total kcals 1-1.5 g protein/kg 63-95 g total protein 25-30 mL/kg 3002-9265 total fluid mLs NUTRITION DIAGNOSIS: Swallowing difficulty r/t dysphagia as evidenced by s/p MANAGER ASSURANCE eval, pt on liquify puree, soup like NTL diet. CURRENT DIET: Regular Liquify puree / NTL PO DIET RECOMMENDATIONS: Regular diet (texture per MANAGER ASSURANCE) ADDITIONAL RECOMMENDATIONS: 1) Glucerna TID w/ all meals 2) CALIBRATED BED SCALE WT-> pt does not appear to be 170# per EMR 3) Monitor BG on solumedrol, need for SSI 4) Wound care: add ROSEANN BID (f/up w/ eval)
[2018-02-22 12:52] LABS: APPEARANCE,URINE CLEAR; BILIRUBIN, URINE NEGATIVE (NEGATIVE); GLUCOSE, URINE (UA) 1+ (NEGATIVE); KETONES,URINE NEGATIVE (NEGATIVE); LEUKOCYTE ESTERASE ,URINE 1+ (NEGATIVE); NITRITE,URINE NEGATIVE (NEGATIVE); PH,URINE 5 (4.5-8.0); PROTEIN,URINE 4+ (NEGATIVE); UROBILINOGEN,URINE NORMAL MG/DL (0.0-1.0)
--- NOTE | 2018-02-22 13:02 | Cardiology Progress Note ---
Assessment/Plan Assessment/Plan 1. Alteration of mental status. Questionable toxic metabolic encephalopathy. 2. Acute myocardial infarction non ST-elevation. 3. Right bundle-branch block conduction defect, chronicity unknown. 4. Reported history of lung cancer. 5. Reported history of paroxysmal atrial fibrillation. 6. Reported history of coagulopathy secondary to anticoagulation. 7. History of coronary artery disease. 8. History of chronic obstructive pulmonary disease. 9. History of chronic kidney disease. 10. History of hypertension. trop downtrending await echo i have nto been able to download study to review he seems some what tremulous tele reviewed sinus need asa and statin depending on lv fucntion other meds remains at this time a poor candidate for any invasive cardiac treatment more resoponsive but nto communicative Subjective ROS Limited/Unobtainable: Yes Subjective mildly tremulous , more awaek Objective Last 24 Hour Vital Signs Date Time Temp Pulse Resp B/P (MAP) Pulse Ox O2 Delivery O2 Flow Rate FiO2 02/22/18 11:22 75 22 100 Nasal Cannula 2.0 28 02/22/18 11:12 81 20 97 Nasal Cannula 2.0 28 02/22/18 08:05 75 02/22/18 08:00 98.2 79 20 145/72 (96) 94 02/22/18 08:00 Nasal Cannula 2.0 02/22/18 07:58 69 20 95 Nasal Cannula 2.0 28 02/22/18 07:48 69 20 94 Nasal Cannula 2.0 28 02/22/18 07:47 Nasal Cannula 2.0 28 02/22/18 07:46 94 Nasal Cannula 2.0 28 02/22/18 04:00 Nasal Cannula 2.0 02/22/18 04:00 79 02/22/18 04:00 97.2 96 20 149/64 (92) 96 02/22/18 03:03 73 16 98 Nasal Cannula 2.0 28 02/22/18 02:53 70 20 97 Nasal Cannula 2.0 28 02/22/18 00:00 98.1 98 20 144/76 (98) 96 02/22/18 00:00 Nasal Cannula 2.0 02/22/18 00:00 94 02/21/18 22:36 72 18 98 Nasal Cannula 2.0 28 02/21/18 22:30 67 18 97 Nasal Cannula 2.0 28 02/21/18 20:00 86 02/21/18 20:00 Nasal Cannula 2.0 02/21/18 20:00 97.9 95 20 147/100 (116) 94 02/21/18 19:00 Nasal Cannula 2.0 28 02/21/18 19:00 70 20 98 Nasal Cannula 2.0 28 02/21/18 18:54 71 20 97 Nasal Cannula 2.0 28 02/21/18 16:00 98.0 71 17 146/57 (86) 98 02/21/18 16:00 Nasal Cannula 2.0 02/21/18 15:46 74 02/21/18 14:57 72 18 98 Nasal Cannula 2.0 28 02/21/18 14:49 69 20 98 Nasal Cannula 2.0 28 General Appearance: no apparent distress, alert Cardiovascular: normal rate, regular rhythm Respiratory/Chest: lungs clear Abdomen: normal bowel sounds, non tender, soft Extremities: no swelling Intake and Output 02/21/18 02/22/18 18:59 06:59 Intake Total 1170 ml 475 ml Output Total 300 ml 350 ml Balance 870 ml 125 ml Intake Oral 270 ml 100 ml IV Total 900 ml 375 ml Output Urine Total 300 ml 350 ml # Voids 2 Laboratory Tests Test 02/22/18 04:00 02/22/18 11:45 White Blood Count 20.1 K/UL (4.8-10.8) #H Red Blood Count 3.61 M/UL (4.70-6.10) L Hemoglobin 10.7 G/DL (14.2-18.0) L Hematocrit 32.1 % (42.0-52.0) L Mean Corpuscular Volume 89 FL (80-99) Mean Corpuscular Hemoglobin 29.6 PG (27.0-31.0) Mean Corpuscular Hemoglobin Concent 33.3 G/DL (32.0-36.0) Red Cell Distribution Width 12.3 % (11.6-14.8) Platelet Count 105 K/UL (150-450) L Mean Platelet Volume 9.9 FL (6.5-10.1) Neutrophils (%) (Auto) % (45.0-75.0) Lymphocytes (%) (Auto) % (20.0-45.0) Monocytes (%) (Auto) % (1.0-10.0) Eosinophils (%) (Auto) % (0.0-3.0) Basophils (%) (Auto) % (0.0-2.0) Differential Total Cells Counted 100 Neutrophils % (Manual) 92 % (45-75) H Lymphocytes % (Manual) 2 % (20-45) L Monocytes % (Manual) 1 % (1-10) Eosinophils % (Manual) 0 % (0-3) Basophils % (Manual) 0 % (0-2) Band Neutrophils 5 % (0-8) Platelet Estimate Decreased L Platelet Morphology Normal Hypochromasia 1+ Sodium Level 142 MMOL/L (136-145) Potassium Level 4.7 MMOL/L (3.5-5.1) Chloride Level 107 MMOL/L (98-107) Carbon Dioxide Level 27 MMOL/L (21-32) Anion Gap 8 mmol/L (5-15) Blood Urea Nitrogen 33 mg/dL (7-18) H Creatinine 1.7 MG/DL (0.55-1.30) H Estimat Glomerular Filtration Rate mL/min (>60) Glucose Level 168 MG/DL (74-106) H Calcium Level 8.3 MG/DL (8.5-10.1) L Urine Color Pending Urine Appearance Pending Urine pH Pending Urine Specific [place] Pending Urine Protein Pending Urine Glucose (UA) Pending Urine Ketones Pending Urine Blood Pending Urine Nitrite Pending Urine Bilirubin Pending Urine Urobilinogen Pending Urine Leukocyte Esterase Pending Geovanny Sherwood MD Feb 22, 2018 13:02
[2018-02-22 13:03] LABS: COLOR,URINE YELLOW
[2018-02-22] MEDS: Aspirin EC 81mg tab ORAL SCH (13:34)
--- NOTE | 2018-02-22 14:23 | Internal Med Progress Note ---
Subjective Physician Name HoseaMarquez Attending Physician Gila Sibley MD Current Medications Medications (Trade) Dose Ordered Sig/Delvin Route PRN Reason Start Time Stop Time Status Last Admin Dose Admin Acetaminophen (Tylenol) 650 mg Q4H PRN ORAL fever 02/18/18 16:45 03/20/18 16:44 Al Hydroxide/Mg Hydroxide (Mylanta II) 30 ml Q6H PRN ORAL dyspepsia 02/18/18 16:46 03/20/18 16:45 Albuterol/ Ipratropium (Albuterol/ Ipratropium) 3 ml Q4HRT HHN 02/20/18 15:00 02/25/18 14:59 02/22/18 11:12 Aspirin (Ecotrin) 81 mg DAILY ORAL 02/22/18 13:15 03/24/18 13:14 02/22/18 13:34 Atorvastatin Calcium (Lipitor) 10 mg BEDTIME ORAL 02/22/18 21:00 03/24/18 20:59 Dextrose/Sodium Chloride 1,000 ml @ 75 mls/hr [id number] IV 02/20/18 07:15 03/22/18 07:14 02/22/18 12:20 Ertapenem 0.5 gm/ Sodium Chloride 55 ml @ 110 mls/hr Q24H IVPB 02/22/18 15:00 02/27/18 14:59 Heparin Sodium (Porcine) (Heparin 5000 units/ml) 5,000 units EVERY 12 HOURS SUBQ 02/18/18 21:00 03/20/18 20:59 02/20/18 08:13 Methylprednisolone Sodium Succinate (Solu-MEDROL) 60 mg EVERY 6 HOURS IVP 02/20/18 18:00 03/22/18 17:59 02/22/18 12:20 Nitroglycerin (Ntg) 0.4 mg Q5M PRN SL Prn Chest Pain 02/18/18 16:46 03/20/18 16:45 Olanzapine (ZyPREXA) 2.5 mg Q6H PRN ORAL agitation 02/19/18 12:15 03/21/18 12:14 Ondansetron HCl (Zofran) 4 mg Q6H PRN IVP Nausea & Vomiting 02/18/18 16:46 03/20/18 16:45 Polyethylene Glycol (Miralax) 17 gm DAILYPRN PRN ORAL Constipation 02/18/18 16:45 03/20/18 16:44 Promethazine HCl/ Codeine (Phenergan with Codeine) 5 ml Q4H PRN ORAL For Cough 02/18/18 16:46 03/20/18 16:45 Temazepam (Restoril) 15 mg HSPRN PRN ORAL Insomnia 02/18/18 21:00 02/25/18 20:59 Allergies: Coded Allergies: No Known Allergies (Unverified , 02/18/18) Subjective awake, open eyes, not verbal, NAD, WBC: 20.1, worsening renal function. Objective Last Vital Signs Date Time Temp Pulse Resp B/P (MAP) Pulse Ox O2 Delivery O2 Flow Rate FiO2 02/22/18 12:00 98.3 88 23 144/84 (104) 100 02/22/18 12:00 Nasal Cannula 2.0 02/22/18 11:22 28 Laboratory Tests Test 02/22/18 04:00 02/22/18 11:45 White Blood Count 20.1 K/UL (4.8-10.8) #H Red Blood Count 3.61 M/UL (4.70-6.10) L Hemoglobin 10.7 G/DL (14.2-18.0) L Hematocrit 32.1 % (42.0-52.0) L Mean Corpuscular Volume 89 FL (80-99) Mean Corpuscular Hemoglobin 29.6 PG (27.0-31.0) Mean Corpuscular Hemoglobin Concent 33.3 G/DL (32.0-36.0) Red Cell Distribution Width 12.3 % (11.6-14.8) Platelet Count 105 K/UL (150-450) L Mean Platelet Volume 9.9 FL (6.5-10.1) Neutrophils (%) (Auto) % (45.0-75.0) Lymphocytes (%) (Auto) % (20.0-45.0) Monocytes (%) (Auto) % (1.0-10.0) Eosinophils (%) (Auto) % (0.0-3.0) Basophils (%) (Auto) % (0.0-2.0) Differential Total Cells Counted 100 Neutrophils % (Manual) 92 % (45-75) H Lymphocytes % (Manual) 2 % (20-45) L Monocytes % (Manual) 1 % (1-10) Eosinophils % (Manual) 0 % (0-3) Basophils % (Manual) 0 % (0-2) Band Neutrophils 5 % (0-8) Platelet Estimate Decreased L Platelet Morphology Normal Hypochromasia 1+ Sodium Level 142 MMOL/L (136-145) Potassium Level 4.7 MMOL/L (3.5-5.1) Chloride Level 107 MMOL/L (98-107) Carbon Dioxide Level 27 MMOL/L (21-32) Anion Gap 8 mmol/L (5-15) Blood Urea Nitrogen 33 mg/dL (7-18) H Creatinine 1.7 MG/DL (0.55-1.30) H Estimat Glomerular Filtration Rate mL/min (>60) Glucose Level 168 MG/DL (74-106) H Calcium Level 8.3 MG/DL (8.5-10.1) L Urine Color Yellow Urine Appearance Clear Urine pH 5 (4.5-8.0) Urine Specific [place] 1.020 (1.005-1.035) Urine Protein 4+ (NEGATIVE) H Urine Glucose (UA) 1+ (NEGATIVE) H Urine Ketones Negative (NEGATIVE) Urine Blood 5+ (NEGATIVE) H Urine Nitrite Negative (NEGATIVE) Urine Bilirubin Negative (NEGATIVE) Urine Urobilinogen Normal MG/DL (0.0-1.0) Urine Leukocyte Esterase 1+ (NEGATIVE) H Urine RBC 5-10 /HPF (0 - 0) H Urine WBC 5-10 /HPF (0 - 0) H Urine Squamous Epithelial Cells Occasional /LPF Urine Bacteria Few /HPF (NONE) Intake and Output 02/21/18 02/22/18 19:00 07:00 Intake Total 1095 ml 475 ml Output Total 300 ml 350 ml Balance 795 ml 125 ml Intake Oral 270 ml 100 ml IV Total 825 ml 375 ml Output Urine Total 300 ml 350 ml # Voids 2 Objective General: No acute distress, awake and Not verbal, HEENT: NCAT, sclera anicteric, PERRL, EOMI. Neck: Supple, no significant jugular venous distention, Lungs: Fair inspiratory effort, Decrease air at bases, no Wheeze or Rales. Heart: Regular rate and rhythm, normal S1/S2, no murmurs. Abdomen: soft, nontender, nondistended. Normoactive bowel sounds. Extremities: No Cyanosis , clubbing or edema. Neuro: limited due to patient status, Unable to move extremities, Skin: warm, no rash Assessment/Plan Assessment/Plan Assessment/Plan Problem List: (1) Pneumonia (2) Elevated troponin (3) CHF (congestive heart failure) (4) HTN (hypertension) (5) Hypothyroidism (6) Anemia, iron deficiency (7) CAD (coronary artery disease) (8) PATO on CKD (9) COPD (chronic obstructive pulmonary disease) (10) Paroxysmal atrial fibrillation (11) Altered level of consciousness most likely due to Toxic Metabolic encephalopathy, (12) Lung cancer (13) UTI (urinary tract infection) (14) E coli infection Plan: in DOY, Heparin SQ Full code Abx: Meropenem switch Solumedral IV Q8 start IVF @ 75 cc/hr F/U with Labs and cultures, Marquez Jc MD Feb 22, 2018 14:23
[2018-02-22] MEDS ORDERED: Ertapenem 0.5 GM in NS 55 ML IVPB SCH (15:00)
[2018-02-22 16:00] VITALS: BP 156/87
--- NOTE | 2018-02-22 19:17 | Pulmonology Progress Note ---
Assessment/Plan Assessment/Plan Pulmonary Progress Note HPI Patient is an 82-year-old male with hx of lung cancer, CAD, atrial fibrillation on Digoxin, [facility]pc resident, unknown baseline mental status was brought to [facility] [place] paramedics with CC of [facility]. Pt had low grade temperature and altered mental status for approximately one hour. The EMS the patient was normally somewhat confused. This is his first admission to [facility] and we don't have any information about him or about his DPOA. He had leucocytosis and increased troponin level, without any hx of chest pain. Pt is awake, looks comfortable but doesn't answer to any simple question. Allergies: Coded Allergies: No Known Allergies (Unverified , 02/18/18) Medication History Scheduled Bisacodyl (Bisacodyl), 10 MG RC PRN, (Reported) Digoxin* (Digoxin*), 0.25 MG ORAL DAILY, (Reported) Docusate Sodium* (Docusate Sodium*), 100 MG ORAL TWICE A DAY, (Reported) Donepezil Hcl* (Aricept*), 10 MG ORAL DAILY, (Reported) Levothyroxine Sodium (Synthroid), 50 MCG ORAL DAILY, (Reported) Scheduled PRN Acetaminophen* (Acetaminophen 325MG Tablet*), 325 MG ORAL Q6H PRN for For Pain, (Reported) Miscellaneous Medications Lactobacillus Rhamnosus Gg (Culturelle), 1 EACH PO, (Reported) Patient History Healthcare decision maker N Resuscitation status Full Code Advanced Directive on File Past Medical/Surgical History Past Medical/Surgical History: (1) Lung cancer (2) COPD (chronic obstructive pulmonary disease) (3) Paroxysmal atrial fibrillation Review of Systems All Other Systems: negative except mentioned in HPI Physical Exam General Appearance: WD/WN Lines, tubes and drains: peripheral HEENT: normocephalic, atraumatic Neck: non-tender, normal alignment Respiratory/Chest: chest wall non-tender, lungs clear Cardiovascular/Chest: normal peripheral pulses, regularly irregular Abdomen: normal bowel sounds Genitourinary/Rectal: normal genital exam Extremities: normal range of motion Vital Signs Noted Laboratory Tests Test 02/18/18 14:55 02/18/18 15:16 02/18/18 16:15 02/19/18 04:00 White Blood Count 16.2 K/UL (4.8-10.8) H 11.7 K/UL (4.8-10.8) H Red Blood Count 4.54 M/UL (4.70-6.10) L 4.03 M/UL (4.70-6.10) L Hemoglobin 13.2 G/DL (14.2-18.0) L 11.6 G/DL (14.2-18.0) L Hematocrit 41.1 % (42.0-52.0) L 36.3 % (42.0-52.0) L Mean Corpuscular Volume 91 FL (80-99) 90 FL (80-99) Mean Corpuscular Hemoglobin 29.1 PG (27.0-31.0) 28.8 PG (27.0-31.0) Mean Corpuscular Hemoglobin Concent 32.2 G/DL (32.0-36.0) 32.0 G/DL (32.0-36.0) Red Cell Distribution Width 12.5 % (11.6-14.8) 12.3 % (11.6-14.8) Platelet Count 121 K/UL (150-450) L 106 K/UL (150-450) L Mean Platelet Volume 7.7 FL (6.5-10.1) 8.0 FL (6.5-10.1) Neutrophils (%) (Auto) 86.5 % (45.0-75.0) H 79.9 % (45.0-75.0) H Lymphocytes (%) (Auto) 5.8 % (20.0-45.0) L 7.4 % (20.0-45.0) L Monocytes (%) (Auto) 5.1 % (1.0-10.0) 6.3 % (1.0-10.0) Eosinophils (%) (Auto) 1.7 % (0.0-3.0) 5.4 % (0.0-3.0) H Basophils (%) (Auto) 1.0 % (0.0-2.0) 1.0 % (0.0-2.0) Prothrombin Time 12.6 SEC (9.30-11.50) H Prothromb Time International Ratio 1.2 (0.9-1.1) H Activated Partial Thromboplast Time 29 SEC (23-33) Sodium Level 144 MMOL/L (136-145) 144 MMOL/L (136-145) Potassium Level 5.0 MMOL/L (3.5-5.1) 4.7 MMOL/L (3.5-5.1) Chloride Level 106 MMOL/L (98-107) 110 MMOL/L (98-107) H Carbon Dioxide Level 30 MMOL/L (21-32) 27 MMOL/L (21-32) Anion Gap 8 mmol/L (5-15) 7 mmol/L (5-15) Blood Urea Nitrogen 36 mg/dL (7-18) H 33 mg/dL (7-18) H Creatinine 1.4 MG/DL (0.55-1.30) H 1.1 MG/DL (0.55-1.30) Estimat Glomerular Filtration Rate mL/min (>60) mL/min (>60) Glucose Level 112 MG/DL (74-106) H 85 MG/DL (74-106) Lactic Acid Level 2.00 mmol/L (0.4-2.0) 0.90 mmol/L (0.66-2.22) Calcium Level 8.7 MG/DL (8.5-10.1) 8.2 MG/DL (8.5-10.1) L Total Bilirubin 0.5 MG/DL (0.2-1.0) Aspartate Amino Transf (AST/SGOT) 54 U/L (15-37) H Alanine Aminotransferase (ALT/SGPT) 22 U/L (12-78) Alkaline Phosphatase 99 U/L (46-116) Total Creatine Kinase 179 U/L (26-308) Creatine Kinase MB 12.6 NG/ML (0.0-3.6) H Creatine Kinase MB Relative Index 7.0 Troponin I 6.867 ng/mL (0.000-0.056) 6.731 ng/mL (0.000-0.056) 7.171 ng/mL (0.000-0.056) Pro-B-Type Natriuretic Peptide 3815 pg/mL (0-125) H Total Protein 8.3 G/DL (6.4-8.2) H Albumin 3.1 G/DL (3.4-5.0) L 2.5 G/DL (3.4-5.0) L Globulin 5.2 g/dL Albumin/Globulin Ratio 0.6 (1.0-2.7) L Lipase 356 U/L (73-393) Urine Color Pale yellow Urine Appearance Turbid Urine pH 5 (4.5-8.0) Urine Specific [place] 1.015 (1.005-1.035) Urine Protein 4+ (NEGATIVE) H Urine Glucose (UA) Negative (NEGATIVE) Urine Ketones Negative (NEGATIVE) Urine Blood 5+ (NEGATIVE) H Urine Nitrite Negative (NEGATIVE) Urine Bilirubin Negative (NEGATIVE) Urine Urobilinogen Normal MG/DL (0.0-1.0) Urine Leukocyte Esterase 3+ (NEGATIVE) H Urine RBC 0-2 /HPF (0 - 0) H Urine WBC Tntc /HPF (0 - 0) H Urine Squamous Epithelial Cells Occasional /LPF Urine Bacteria Many /HPF (NONE) H Phosphorus Level 3.9 MG/DL (2.5-4.9) Triglycerides Level 95 MG/DL (30-150) Cholesterol Level 187 MG/DL (< 200) LDL Cholesterol 130 mg/dL (<100) H HDL Cholesterol 47 MG/DL (40-60) Cholesterol/HDL Ratio 4.0 (3.3-4.4) Thyroid Stimulating Hormone (TSH) 3.498 uiU/mL (0.358-3.740) Digoxin Level 2.1 NG/ML (0.5-2.0) H Microbiology Date/Time Source Procedure Growth Status 02/18/18 16:50 Nasal Nares Influenza Types A,B Antigen (RUBEN) - Final Complete 02/18/18 15:16 Urine,Clean Catch Urine Culture - Preliminary Gram Negative Wild Resulted Height (Feet): 5 Height (Inches): 10.00 Weight (Pounds): 170 Medications Current Medications Medications (Trade) Dose Ordered Sig/Delvin Route PRN Reason Start Time Stop Time Status Last Admin Dose Admin Acetaminophen (Tylenol) 650 mg Q4H PRN ORAL fever 02/18/18 16:45 03/20/18 16:44 Al Hydroxide/Mg Hydroxide (Mylanta II) 30 ml Q6H PRN ORAL dyspepsia 02/18/18 16:46 03/20/18 16:45 Albuterol/ Ipratropium (Albuterol/ Ipratropium) 3 ml Q4H PRN HHN Shortness of Breath 02/18/18 16:46 02/23/18 16:45 Cefepime HCl 1 gm/ Dextrose 55 ml @ 110 mls/hr Q24H IV 02/18/18 18:00 02/25/18 17:59 02/18/18 18:45 Heparin Sodium (Porcine) (Heparin 5000 units/ml) 5,000 units EVERY 12 HOURS SUBQ 02/18/18 21:00 03/20/18 20:59 02/18/18 21:14 Nitroglycerin (Ntg) 0.4 mg Q5M PRN SL Prn Chest Pain 02/18/18 16:46 03/20/18 16:45 Ondansetron HCl (Zofran) 4 mg Q6H PRN IVP Nausea & Vomiting 02/18/18 16:46 03/20/18 16:45 Polyethylene Glycol (Miralax) 17 gm DAILYPRN PRN ORAL Constipation 02/18/18 16:45 03/20/18 16:44 Promethazine HCl/ Codeine (Phenergan with Codeine) 5 ml Q4H PRN ORAL For Cough 02/18/18 16:46 03/20/18 16:45 Temazepam (Restoril) 15 mg HSPRN PRN ORAL Insomnia 02/18/18 21:00 02/25/18 20:59 Vancomycin HCl (Vanco rx to dose) 1 ea DAILY PRN MISC Per rx protocol 02/18/18 16:30 03/20/18 16:29 Vancomycin HCl 500 mg/Dextrose 110 ml @ 110 mls/hr Q12HR IVPB 02/19/18 09:00 02/24/18 08:59 02/19/18 08:10 Vancomycin HCl 1500 mg/Sodium Chloride 275 ml @ 137.5 mls/ hr ONCE IVPB 02/18/18 16:45 02/23/18 16:44 02/18/18 17:03 Assessment/Plan Problem List: (1) Severe sepsis ICD Codes: A41.9 - Sepsis, unspecified organism; R65.20 - Severe sepsis without septic shock SNOMED: 95889343 (2) Altered level of consciousness ICD Codes: R40.4 - Transient alteration of awareness SNOMED: 9225096 (3) Myocardial injury ICD Codes: S26.90XA - Unspecified injury of heart, unspecified with or without hemopericardium, initial encounter SNOMED: 42314344 (4) Paroxysmal atrial fibrillation ICD Codes: I48.0 - Paroxysmal atrial fibrillation SNOMED: 399102053 (5) COPD (chronic obstructive pulmonary disease) ICD Codes: J44.9 - Chronic obstructive pulmonary disease, unspecified SNOMED: 45518337 (6) Lung cancer ICD Codes: C34.90 - Malignant neoplasm of unspecified part of unspecified bronchus or lung SNOMED: 894389548 Assessment/Plan RODERICK monitoring cardiology consult appreciated broad spectrum abx suero cultures f/u on WBC echo cardiogram check electrolytes social media analyst to find DPOA dvt prophylaxis. Subjective ROS Limited/Unobtainable: No Allergies: Coded Allergies: No Known Allergies (Unverified , 02/18/18) Objective Last 24 Hour Vital Signs Date Time Temp Pulse Resp B/P (MAP) Pulse Ox O2 Delivery O2 Flow Rate FiO2 02/22/18 19:08 95 Nasal Cannula 2.0 28 02/22/18 19:02 Nasal Cannula 2.0 28 02/22/18 19:02 92 18 95 Nasal Cannula 2.0 28 02/22/18 16:53 89 02/22/18 16:00 98.4 91 22 156/87 (110) 100 02/22/18 16:00 Nasal Cannula 2.0 02/22/18 15:43 86 20 100 Nasal Cannula 2.0 28 02/22/18 15:33 91 18 96 Nasal Cannula 2.0 28 02/22/18 12:00 98.3 88 23 144/84 (104) 100 02/22/18 12:00 Nasal Cannula 2.0 02/22/18 12:00 94 02/22/18 11:22 75 22 100 Nasal Cannula 2.0 28 02/22/18 11:12 81 20 97 Nasal Cannula 2.0 28 02/22/18 08:05 75 02/22/18 08:00 98.2 79 20 145/72 (96) 94 02/22/18 08:00 Nasal Cannula 2.0 02/22/18 07:58 69 20 95 Nasal Cannula 2.0 28 02/22/18 07:48 69 20 94 Nasal Cannula 2.0 28 02/22/18 07:47 Nasal Cannula 2.0 28 02/22/18 07:46 94 Nasal Cannula 2.0 28 02/22/18 04:00 Nasal Cannula 2.0 02/22/18 04:00 79 02/22/18 04:00 97.2 96 20 149/64 (92) 96 02/22/18 03:03 73 16 98 Nasal Cannula 2.0 28 02/22/18 02:53 70 20 97 Nasal Cannula 2.0 28 02/22/18 00:00 98.1 98 20 144/76 (98) 96 02/22/18 00:00 Nasal Cannula 2.0 02/22/18 00:00 94 02/21/18 22:36 72 18 98 Nasal Cannula 2.0 28 02/21/18 22:30 67 18 97 Nasal Cannula 2.0 28 02/21/18 20:00 86 02/21/18 20:00 Nasal Cannula 2.0 02/21/18 20:00 97.9 95 20 147/100 (116) 94 Intake and Output 02/21/18 02/22/18 19:00 07:00 Intake Total 1095 ml 475 ml Output Total 300 ml 350 ml Balance 795 ml 125 ml Intake Oral 270 ml 100 ml IV Total 825 ml 375 ml Output Urine Total 300 ml 350 ml # Voids 2 Laboratory Tests 02/22/18 04:00: White Blood Count 20.1#H, Red Blood Count 3.61L, Hemoglobin 10.7L, Hematocrit 32.1L, Mean Corpuscular Volume 89, Mean Corpuscular Hemoglobin 29.6, Mean Corpuscular Hemoglobin Concent 33.3, Red Cell Distribution Width 12.3, Platelet Count 105L, Mean Platelet Volume 9.9, Neutrophils (%) (Auto) , Lymphocytes (%) ( Auto) , Monocytes (%) (Auto) , Eosinophils (%) (Auto) , Basophils (%) (Auto) , Differential Total Cells Counted 100, Neutrophils % (Manual) 92H, Lymphocytes % (Manual) 2L, Monocytes % (Manual) 1, Eosinophils % (Manual) 0, Basophils % ( Manual) 0, Band Neutrophils 5, Platelet Estimate DecreasedL, Platelet Morphology Normal, Hypochromasia 1+, Sodium Level 142, Potassium Level 4.7, Chloride Level 107, Carbon Dioxide Level 27, Anion Gap 8, Blood Urea Nitrogen 33H, Creatinine 1.7H, Estimat Glomerular Filtration Rate , Glucose Level 168H, Calcium Level 8.3L 02/22/18 11:00: Heparin-PF4 Antibody Screen [Pending] 02/22/18 11:45: Urine Color Yellow, Urine Appearance Clear, Urine pH 5, Urine Specific [place] 1.020, Urine Protein 4+H, Urine Glucose (UA) 1+H, Urine Ketones Negative, Urine Blood 5+H, Urine Nitrite Negative, Urine Bilirubin Negative, Urine Urobilinogen Normal, Urine Leukocyte Esterase 1+H, Urine RBC 5-10H, Urine WBC 5-10H, Urine Squamous Epithelial Cells Occasional, Urine Bacteria Few Current Medications Medications (Trade) Dose Ordered Sig/Delvin Route PRN Reason Start Time Stop Time Status Last Admin Dose Admin Acetaminophen (Tylenol) 650 mg Q4H PRN ORAL fever 02/18/18 16:45 03/20/18 16:44 Al Hydroxide/Mg Hydroxide (Mylanta II) 30 ml Q6H PRN ORAL dyspepsia 02/18/18 16:46 03/20/18 16:45 Albuterol/ Ipratropium (Albuterol/ Ipratropium) 3 ml Q4HRT HHN 02/20/18 15:00 02/25/18 14:59 02/22/18 19:06 Aspirin (Ecotrin) 81 mg DAILY ORAL 02/22/18 13:15 03/24/18 13:14 02/22/18 13:34 Atorvastatin Calcium (Lipitor) 10 mg BEDTIME ORAL 02/22/18 21:00 03/24/18 20:59 Dextrose/Sodium Chloride 1,000 ml @ 75 mls/hr [id number] IV 02/20/18 07:15 03/22/18 07:14 02/22/18 12:20 Ertapenem 0.5 gm/ Sodium Chloride 55 ml @ 110 mls/hr Q24H IVPB 02/22/18 15:00 02/27/18 14:59 02/22/18 15:22 Heparin Sodium (Porcine) (Heparin 5000 units/ml) 5,000 units EVERY 12 HOURS SUBQ 02/18/18 21:00 03/20/18 20:59 02/20/18 08:13 Methylprednisolone Sodium Succinate (Solu-MEDROL) 60 mg Q8HR IVP 02/22/18 22:00 03/22/18 17:59 Nitroglycerin (Ntg) 0.4 mg Q5M PRN SL Prn Chest Pain 02/18/18 16:46 03/20/18 16:45 Olanzapine (ZyPREXA) 2.5 mg Q6H PRN ORAL agitation 02/19/18 12:15 03/21/18 12:14 Ondansetron HCl (Zofran) 4 mg Q6H PRN IVP Nausea & Vomiting 02/18/18 16:46 03/20/18 16:45 Polyethylene Glycol (Miralax) 17 gm DAILYPRN PRN ORAL Constipation 02/18/18 16:45 03/20/18 16:44 Promethazine HCl/ Codeine (Phenergan with Codeine) 5 ml Q4H PRN ORAL For Cough 02/18/18 16:46 03/20/18 16:45 Sodium Chloride 1,000 ml @ 75 mls/hr [id number] IV 02/22/18 14:15 03/24/18 14:14 02/22/18 14:48 Temazepam (Restoril) 15 mg HSPRN PRN ORAL Insomnia 02/18/18 21:00 02/25/18 20:59 Chris Samuel MD Feb 22, 2018 19:17
--- NOTE | 2018-02-22 19:20 | NUR ---
NURSE NOTES: Report received from JUAN FRANCISCO Wright. Observed pt lying on bed, awake but non-verbal. A/O x 0. No signs of pain noted. RT doing breathing treatment. No signs of SOB. pt has condom cath, intact and draining well. IV site on L H 22G running 1/2 NS at 75cc. Bed in the lowest position. Side rails up x 3. Call light within reach. Will continue to monitor.
[2018-02-22 20:00] VITALS: BP 144/78
--- NOTE | 2018-02-22 22:44 | General Progress Note ---
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 (2) Dementia ICD Codes: F03.90 - Unspecified dementia without behavioral disturbance SNOMED: 59565941 Status: stable Assessment/Plan zyprexa prn the pt lacks capacity provided ro Subjective Neurologic/Psychiatric: Reports: anxiety Allergies: Coded Allergies: No Known Allergies (Unverified , 02/18/18) Objective Last 24 Hour Vital Signs Date Time Temp Pulse Resp B/P (MAP) Pulse Ox O2 Delivery O2 Flow Rate FiO2 02/22/18 20:00 98.0 88 24 144/78 (100) 95 02/22/18 20:00 Nasal Cannula 2.0 02/22/18 19:12 87 16 100 Nasal Cannula 2.0 28 02/22/18 19:08 95 Nasal Cannula 2.0 28 02/22/18 19:02 Nasal Cannula 2.0 28 02/22/18 19:02 92 18 95 Nasal Cannula 2.0 28 02/22/18 16:53 89 02/22/18 16:00 98.4 91 22 156/87 (110) 100 02/22/18 16:00 Nasal Cannula 2.0 02/22/18 15:43 86 20 100 Nasal Cannula 2.0 28 02/22/18 15:33 91 18 96 Nasal Cannula 2.0 28 02/22/18 12:00 98.3 88 23 144/84 (104) 100 02/22/18 12:00 Nasal Cannula 2.0 02/22/18 12:00 94 02/22/18 11:22 75 22 100 Nasal Cannula 2.0 28 02/22/18 11:12 81 20 97 Nasal Cannula 2.0 28 02/22/18 08:05 75 02/22/18 08:00 98.2 79 20 145/72 (96) 94 02/22/18 08:00 Nasal Cannula 2.0 02/22/18 07:58 69 20 95 Nasal Cannula 2.0 28 02/22/18 07:48 69 20 94 Nasal Cannula 2.0 28 02/22/18 07:47 Nasal Cannula 2.0 28 02/22/18 07:46 94 Nasal Cannula 2.0 28 02/22/18 04:00 Nasal Cannula 2.0 02/22/18 04:00 79 02/22/18 04:00 97.2 96 20 149/64 (92) 96 02/22/18 03:03 73 16 98 Nasal Cannula 2.0 28 02/22/18 02:53 70 20 97 Nasal Cannula 2.0 28 02/22/18 00:00 98.1 98 20 144/76 (98) 96 02/22/18 00:00 Nasal Cannula 2.0 02/22/18 00:00 94 Intake and Output 02/21/18 02/22/18 19:00 07:00 Intake Total 1095 ml 475 ml Output Total 300 ml 350 ml Balance 795 ml 125 ml Intake Oral 270 ml 100 ml IV Total 825 ml 375 ml Output Urine Total 300 ml 350 ml # Voids 2 Laboratory Tests 02/22/18 04:00: White Blood Count 20.1#H, Red Blood Count 3.61L, Hemoglobin 10.7L, Hematocrit 32.1L, Mean Corpuscular Volume 89, Mean Corpuscular Hemoglobin 29.6, Mean Corpuscular Hemoglobin Concent 33.3, Red Cell Distribution Width 12.3, Platelet Count 105L, Mean Platelet Volume 9.9, Neutrophils (%) (Auto) , Lymphocytes (%) ( Auto) , Monocytes (%) (Auto) , Eosinophils (%) (Auto) , Basophils (%) (Auto) , Differential Total Cells Counted 100, Neutrophils % (Manual) 92H, Lymphocytes % (Manual) 2L, Monocytes % (Manual) 1, Eosinophils % (Manual) 0, Basophils % ( Manual) 0, Band Neutrophils 5, Platelet Estimate DecreasedL, Platelet Morphology Normal, Hypochromasia 1+, Sodium Level 142, Potassium Level 4.7, Chloride Level 107, Carbon Dioxide Level 27, Anion Gap 8, Blood Urea Nitrogen 33H, Creatinine 1.7H, Estimat Glomerular Filtration Rate , Glucose Level 168H, Calcium Level 8.3L 02/22/18 11:00: Heparin-PF4 Antibody Screen [Pending] 02/22/18 11:45: Urine Color Yellow, Urine Appearance Clear, Urine pH 5, Urine Specific [place] 1.020, Urine Protein 4+H, Urine Glucose (UA) 1+H, Urine Ketones Negative, Urine Blood 5+H, Urine Nitrite Negative, Urine Bilirubin Negative, Urine Urobilinogen Normal, Urine Leukocyte Esterase 1+H, Urine RBC 5-10H, Urine WBC 5-10H, Urine Squamous Epithelial Cells Occasional, Urine Bacteria Few Height (Feet): 5 Height (Inches): 10.00 Weight (Pounds): 170 General Appearance: alert, confused, agitated Arsen Erwin MD Feb 22, 2018 22:44
[2018-02-23] VITALS: BP 142/74
--- NOTE | 2018-02-23 | NUR ---
NURSE NOTES: Observed pt lying on bed, awake and non-verbal. No sings of pain at this time. Changed position. Will continue to monitor.
[2018-02-23] MEDS: Albuterol/Ipratropium 3ml neb HHN SCH ×6 (02:13→23:39)
[2018-02-23 04:00] VITALS: BP 149/80
[2018-02-23] MEDS: Solu-MEDROL 125mg Inj IVP SCH ×3 (06:02→21:37)
[2018-02-23 06:23] LABS: HEMATOCRIT 33.9 % (42.0-52.0); HEMOGLOBIN 11.2 G/DL (14.2-18.0); MEAN CORPUSCULAR VOLUME 88 FL (80-99); PHOSPHORUS 3.3 MG/DL (2.5-4.9); PLATELET COUNT 78 K/UL (150-450); RED BLOOD COUNT 3.83 M/UL (4.70-6.10); RED CELL DISTRIBUTION WIDTH 12.3 % (11.6-14.8)
[2018-02-23 06:25] LABS: WHITE BLOOD COUNT 23.4 K/UL (4.8-10.8)
--- NOTE | 2018-02-23 06:46 | NUR ---
NURSE NOTES: Left a message to regarding WBC 23.4, no fever, temperature 97.8. Awaiting call back.
[2018-02-23 06:52] LABS: ALANINE AMINOTRANSFERASE 29 U/L (12-78); ALBUMIN 2.6 G/DL (3.4-5.0); ALBUMIN/GLOBULIN RATIO 0.6 (1.0-2.7); ALKALINE PHOSPHATASE 81 U/L (46-116); ANION GAP 11 mmol/L (5-15); ASPARTATE AMINO TRANSFERASE 98 U/L (15-37); BILIRUBIN,TOTAL 0.4 MG/DL (0.2-1.0); BLOOD UREA NITROGEN 35 mg/dL (7-18); CALCIUM 8.2 MG/DL (8.5-10.1); CARBON DIOXIDE 21 MMOL/L (21-32); CHLORIDE 106 MMOL/L (98-107); CREATININE 1.5 MG/DL (0.55-1.30); POTASSIUM 5.1 MMOL/L (3.5-5.1); SODIUM 138 MMOL/L (136-145)
--- NOTE | 2018-02-23 07:06 | NUR ---
HAND-OFF: Report given to JUAN FRANCISCO Wright. Observed pt sleeping on the bed. No acute distress noted at this time.
--- NOTE | 2018-02-23 07:07 | NUR ---
NURSE NOTES: Received report from Leticia Rodriguez RN. Patient is asleep in bed with noo s/s of acute distress noted. Sinus rhythm on site monitor. On 2L O2 via nasal cannula and saturating well. Condom catheter intact and draining well. Left hand 22g IV intact and patent, running 1/2 NS at 75 cc/hr. Bed locked in lowest position with side rails up x3. Call light left within reach. Will continue to monitor.
--- NOTE | 2018-02-23 07:25 | NUR ---
NURSE NOTES: Dr. Presley MD made aware of Troponin level 12.424. New order received and carried out. Patient remains asymptomatic. Will continue to monitor.
[2018-02-23 08:00] VITALS: BP 151/81
--- NOTE | 2018-02-23 08:29 | Cardiology Report ---
APPROVED REPORT EXAM: Two-dimensional and M-mode echocardiogram with Doppler and color Doppler. INDICATION Coronary artery disease M-Mode DIMENSIONS IVSd1.0 (0.7-1.1cm)Left Atrium (MM)3.3 (1.6-4.0cm) LVDd4.5 (3.5-5.6cm)Aortic Root3.2 (2.0-3.7cm) PWd1.0 (0.7-1.1cm)Aortic Cusp Exc.1.8 (1.5-2.0cm) LVDs1.5 (2.5-4.0cm) PWs2.0 cm Technically difficult study due to poor acoustic windows. Study quality precludes accurate assessment of regional wall motion. Normal left ventricular chamber size, systolic function and wall motion. Left ventricular ejection fraction estimated to be 60 %. No evidence of left ventricular hypertrophy. Anterior Echo-free space, may be due to pericardial fat or effusion. All other cardiac chamber sizes are within normal limits. Mild focal aortic valve sclerosis with adequate cusp excursion. Mildly thickened mitral valve leaflets with normal excursion. Mild mitral annulus and aortic root calcification. Normal pulmonic valve structure. Normal tricuspid valve structure. IVC is normal in size with physiological collapse. A color flow and spectral Doppler study was performed and revealed: Mild aortic insufficiency. No mitral regurgitation. Mitral diastolic velocities suggest mild left ventricular diastolic dysfunction (Grade I). Mild tricuspid regurgitation. Tricuspid systolic velocities suggests peak right ventricular systolic pressure of 51 mmHg, consistent with moderate pulmonary hypertension. Moderate pulmonic regurgitation present.
[2018-02-23] MEDS: Aspirin EC 81mg tab ORAL SCH (08:45)
[2018-02-23] MEDS: Heparin 5000 units/ml inj SUBQ SCH ×2 (08:46→20:50)
--- NOTE | 2018-02-23 09:12 | Infectious Diseases Prog Note ---
Assessment/Plan Assessment/Plan Assessment: Sepsis, SP- 2ry to UTI -u.a wbc tntc, nit -, leuk +3; u cx >100k ESBL E.coli; 02/22 u/a wbc 5-10, nit neg, luek +1; ucx p -CXR: Left midlung and calcified parenchymal scarring. Numerous calcified hilar nodes suggest old granulomatous disease. Left apical lucency could reflect compensatory hyperinflation or COPD changes. No definite acute process Afebrile Leukocytosis, recurrent increased to 20s- r/o abscess, bacteremia; no diarrhea -02/22 Bcx p CXR: Mild sub-segmental atelectasis in the medial lung bases. No significant change in the scarring versus linear atelectasis at the periphery of the left midlung, with possible underlying pleural calcifications. Scattered calcified hilar lymph nodes, unchanged. Acute encephalopathy -CT head: no acute findings Dementia dysphagia HTN lung CA CAD CKD COPD [facility] resident Plan: -Continue Ertapenem #2 (abx d #06/10) for ESBL UTI given increased WBC and Cr - 02/22 SP Bactrim #3 - 02/20 SP Cefepime # 3 - 02/19 SP IV Vancomycin #2 - 02/18 SP Unasyn x1 -f/u cx -Monitor CBC/CMP, temperatures -aspiration precautions Thank you for this consultation. Will continue to follow along with you. Discussed with RN Subjective Allergies: Coded Allergies: No Known Allergies (Unverified , 02/18/18) Subjective afebrile leukocytosis increased to 23 repeat u./a improved CXR no PNA Bcx p no diarrhea Objective Vital Signs Last 24 Hour Vital Signs Date Time Temp Pulse Resp B/P (MAP) Pulse Ox O2 Delivery O2 Flow Rate FiO2 02/23/18 07:30 75 22 100 Nasal Cannula 2.0 28 02/23/18 07:24 96 Nasal Cannula 2.0 28 02/23/18 07:24 Nasal Cannula 2.0 28 02/23/18 07:24 81 20 96 Nasal Cannula 2.0 28 02/23/18 04:00 98.0 85 20 149/80 (103) 94 02/23/18 04:00 Nasal Cannula 2.0 02/23/18 04:00 91 02/23/18 02:24 81 18 94 Nasal Cannula 2.0 28 02/23/18 02:13 84 20 93 Nasal Cannula 2.0 28 02/23/18 00:00 91 02/23/18 00:00 97.9 93 24 142/74 (96) 92 02/23/18 00:00 Nasal Cannula 2.0 02/22/18 23:24 79 18 96 Nasal Cannula 2.0 28 02/22/18 23:15 86 20 92 Nasal Cannula 2.0 28 02/22/18 20:00 98.0 88 24 144/78 (100) 95 02/22/18 20:00 86 02/22/18 20:00 Nasal Cannula 2.0 02/22/18 19:12 87 16 100 Nasal Cannula 2.0 28 02/22/18 19:08 95 Nasal Cannula 2.0 28 02/22/18 19:02 Nasal Cannula 2.0 28 02/22/18 19:02 92 18 95 Nasal Cannula 2.0 28 02/22/18 16:53 89 02/22/18 16:00 98.4 91 22 156/87 (110) 100 02/22/18 16:00 Nasal Cannula 2.0 02/22/18 15:43 86 20 100 Nasal Cannula 2.0 28 02/22/18 15:33 91 18 96 Nasal Cannula 2.0 28 02/22/18 12:00 98.3 88 23 144/84 (104) 100 02/22/18 12:00 Nasal Cannula 2.0 02/22/18 12:00 94 02/22/18 11:22 75 22 100 Nasal Cannula 2.0 28 02/22/18 11:12 81 20 97 Nasal Cannula 2.0 28 Height (Feet): 5 Height (Inches): 10.00 Weight (Pounds): 170 Objective GENERAL: Shows to be an elderly gentleman who is not responsive, noncommunicative. NECK: Supple. No jugular distention. LUNGS: Appear to be clear to auscultation and percussion. CARDIAC: Regular rate and rhythm. No heaves, thrills, or gallops noted. ABDOMEN: Soft and nontender. Positive bowel sounds. EXTREMITIES: There is no edema. No clubbing or cyanosis. NEUROLOGICAL: He is really not responsive at all to any stimuli through me. Laboratory Tests Test 02/22/18 11:00 02/22/18 11:45 02/23/18 04:20 Heparin-PF4 Antibody Screen Pending Urine Color Yellow Urine Appearance Clear Urine pH 5 (4.5-8.0) Urine Specific [place] 1.020 (1.005-1.035) Urine Protein 4+ (NEGATIVE) H Urine Glucose (UA) 1+ (NEGATIVE) H Urine Ketones Negative (NEGATIVE) Urine Blood 5+ (NEGATIVE) H Urine Nitrite Negative (NEGATIVE) Urine Bilirubin Negative (NEGATIVE) Urine Urobilinogen Normal MG/DL (0.0-1.0) Urine Leukocyte Esterase 1+ (NEGATIVE) H Urine RBC 5-10 /HPF (0 - 0) H Urine WBC 5-10 /HPF (0 - 0) H Urine Squamous Epithelial Cells Occasional /LPF Urine Bacteria Few /HPF (NONE) White Blood Count 23.4 K/UL (4.8-10.8) *H Red Blood Count 3.83 M/UL (4.70-6.10) L Hemoglobin 11.2 G/DL (14.2-18.0) L Hematocrit 33.9 % (42.0-52.0) L Mean Corpuscular Volume 88 FL (80-99) Mean Corpuscular Hemoglobin 29.2 PG (27.0-31.0) Mean Corpuscular Hemoglobin Concent 33.0 G/DL (32.0-36.0) Red Cell Distribution Width 12.3 % (11.6-14.8) Platelet Count 78 K/UL (150-450) L Mean Platelet Volume 10.4 FL (6.5-10.1) H Neutrophils (%) (Auto) % (45.0-75.0) Lymphocytes (%) (Auto) % (20.0-45.0) Monocytes (%) (Auto) % (1.0-10.0) Eosinophils (%) (Auto) % (0.0-3.0) Basophils (%) (Auto) % (0.0-2.0) Differential Total Cells Counted 100 Neutrophils % (Manual) 91 % (45-75) H Lymphocytes % (Manual) 5 % (20-45) L Monocytes % (Manual) 4 % (1-10) Eosinophils % (Manual) 0 % (0-3) Basophils % (Manual) 0 % (0-2) Band Neutrophils 0 % (0-8) Platelet Estimate Decreased L Platelet Morphology Normal Hypochromasia 1+ Sodium Level 138 MMOL/L (136-145) Potassium Level 5.1 MMOL/L (3.5-5.1) Chloride Level 106 MMOL/L (98-107) Carbon Dioxide Level 21 MMOL/L (21-32) Anion Gap 11 mmol/L (5-15) Blood Urea Nitrogen 35 mg/dL (7-18) H Creatinine 1.5 MG/DL (0.55-1.30) H Estimat Glomerular Filtration Rate mL/min (>60) Glucose Level 113 MG/DL (74-106) H Calcium Level 8.2 MG/DL (8.5-10.1) L Phosphorus Level 3.3 MG/DL (2.5-4.9) Magnesium Level 2.1 MG/DL (1.8-2.4) Total Bilirubin 0.4 MG/DL (0.2-1.0) Aspartate Amino Transf (AST/SGOT) 98 U/L (15-37) H Alanine Aminotransferase (ALT/SGPT) 29 U/L (12-78) Alkaline Phosphatase 81 U/L (46-116) Troponin I 12.424 ng/mL (0.000-0.056) Total Protein 6.8 G/DL (6.4-8.2) Albumin 2.6 G/DL (3.4-5.0) L Globulin 4.2 g/dL Albumin/Globulin Ratio 0.6 (1.0-2.7) L Current Medications Medications (Trade) Dose Ordered Sig/Delvin Route PRN Reason Start Time Stop Time Status Last Admin Dose Admin Acetaminophen (Tylenol) 650 mg Q4H PRN ORAL fever 02/18/18 16:45 03/20/18 16:44 Al Hydroxide/Mg Hydroxide (Mylanta II) 30 ml Q6H PRN ORAL dyspepsia 02/18/18 16:46 03/20/18 16:45 Albuterol/ Ipratropium (Albuterol/ Ipratropium) 3 ml Q4HRT HHN 02/20/18 15:00 02/25/18 14:59 02/23/18 07:23 Aspirin (Ecotrin) 81 mg DAILY ORAL 02/22/18 13:15 03/24/18 13:14 02/23/18 08:45 Atorvastatin Calcium (Lipitor) 10 mg BEDTIME ORAL 02/22/18 21:00 03/24/18 20:59 02/22/18 21:24 Ertapenem 0.5 gm/ Sodium Chloride 55 ml @ 110 mls/hr Q24H IVPB 02/22/18 15:00 02/27/18 14:59 02/22/18 15:22 Heparin Sodium (Porcine) (Heparin 5000 units/ml) 5,000 units EVERY 12 HOURS SUBQ 02/18/18 21:00 03/20/18 20:59 02/20/18 08:13 Methylprednisolone Sodium Succinate (Solu-MEDROL) 60 mg Q8HR IVP 02/22/18 22:00 03/22/18 17:59 02/23/18 06:02 Nitroglycerin (Ntg) 0.4 mg Q5M PRN SL Prn Chest Pain 02/18/18 16:46 03/20/18 16:45 Olanzapine (ZyPREXA) 2.5 mg Q6H PRN ORAL agitation 02/19/18 12:15 03/21/18 12:14 Ondansetron HCl (Zofran) 4 mg Q6H PRN IVP Nausea & Vomiting 02/18/18 16:46 03/20/18 16:45 Polyethylene Glycol (Miralax) 17 gm DAILYPRN PRN ORAL Constipation 02/18/18 16:45 03/20/18 16:44 Promethazine HCl/ Codeine (Phenergan with Codeine) 5 ml Q4H PRN ORAL For Cough 02/18/18 16:46 03/20/18 16:45 Sodium Chloride 1,000 ml @ 75 mls/hr [id number] IV 02/22/18 14:15 03/24/18 14:14 02/23/18 04:08 Temazepam (Restoril) 15 mg HSPRN PRN ORAL Insomnia 02/18/18 21:00 02/25/18 20:59 Anne-Marie Butler M.D. Feb 23, 2018 09:12
--- NOTE | 2018-02-23 09:41 | NUR ---
CASE MANAGEMENT: REVIEW SI: PNA . SEPSIS T 98.1 HR 89 RR 18 BP 151/81 SAT 94% NC/2L WBC 23.4 H/H 11.2/33.9 TROPONIN I 8.588 IS: ERTAPENEM IV Q24HR NS IVF @75ML/HR SOLU MEDROL IV Q8HR STEP DOWN UNIT STATUS DCP: PATIENT IS FROM [facility]
[2018-02-23] MEDS ORDERED: D5 1/2NS 1000ml IV ONE (10:40)
[2018-02-23] MEDS ORDERED: Tubing IV Secondary IV ONE (10:40)
[2018-02-23] MEDS ORDERED: 1/2 NS 1000ml IV ONE (10:40)
[2018-02-23 12:00] VITALS: BP 151/88
--- NOTE | 2018-02-23 12:14 | Cardiology Progress Note ---
Assessment/Plan Assessment/Plan 1. Alteration of mental status. Questionable toxic metabolic encephalopathy. 2. Acute myocardial infarction non ST-elevation. 3. Right bundle-branch block conduction defect, chronicity unknown. 4. Reported history of lung cancer. 5. Reported history of paroxysmal atrial fibrillation. 6. Reported history of coagulopathy secondary to anticoagulation. 7. History of coronary artery disease. 8. History of chronic obstructive pulmonary disease. 9. History of chronic kidney disease. 10. History of hypertension. trop suddenly on an uptrend ekg reminas unchanged echo normal lv fucntion he seems some what tremulous tele reviewed sinus need asa and statin remains at this time a poor candidate for any invasive cardiac treatment more resoponsive but nto communicative ekg unchanged Subjective ROS Limited/Unobtainable: Yes Subjective mumbles not comprehensible rn trying to feed slowly some supplememnt Objective Last 24 Hour Vital Signs Date Time Temp Pulse Resp B/P (MAP) Pulse Ox O2 Delivery O2 Flow Rate FiO2 02/23/18 11:11 78 20 100 Nasal Cannula 2.0 28 02/23/18 10:58 86 20 97 Nasal Cannula 2.0 28 02/23/18 08:00 98.1 89 18 151/81 (104) 94 02/23/18 08:00 Nasal Cannula 2.0 02/23/18 07:48 87 02/23/18 07:30 75 22 100 Nasal Cannula 2.0 28 02/23/18 07:24 96 Nasal Cannula 2.0 28 02/23/18 07:24 Nasal Cannula 2.0 28 02/23/18 07:24 81 20 96 Nasal Cannula 2.0 28 02/23/18 04:00 98.0 85 20 149/80 (103) 94 02/23/18 04:00 Nasal Cannula 2.0 02/23/18 04:00 91 02/23/18 02:24 81 18 94 Nasal Cannula 2.0 28 02/23/18 02:13 84 20 93 Nasal Cannula 2.0 28 02/23/18 00:00 91 02/23/18 00:00 97.9 93 24 142/74 (96) 92 02/23/18 00:00 Nasal Cannula 2.0 02/22/18 23:24 79 18 96 Nasal Cannula 2.0 28 02/22/18 23:15 86 20 92 Nasal Cannula 2.0 28 02/22/18 20:00 98.0 88 24 144/78 (100) 95 02/22/18 20:00 86 02/22/18 20:00 Nasal Cannula 2.0 02/22/18 19:12 87 16 100 Nasal Cannula 2.0 28 02/22/18 19:08 95 Nasal Cannula 2.0 28 02/22/18 19:02 Nasal Cannula 2.0 28 02/22/18 19:02 92 18 95 Nasal Cannula 2.0 28 02/22/18 16:53 89 02/22/18 16:00 98.4 91 22 156/87 (110) 100 02/22/18 16:00 Nasal Cannula 2.0 02/22/18 15:43 86 20 100 Nasal Cannula 2.0 28 02/22/18 15:33 91 18 96 Nasal Cannula 2.0 28 General Appearance: no apparent distress, alert Cardiovascular: normal rate Abdomen: non tender, soft Extremities: non-tender, no swelling Intake and Output 02/22/18 02/23/18 18:59 06:59 Intake Total 925.00 ml 950 ml Output Total 150 ml 400 ml Balance 775.00 ml 550 ml Intake Oral 50 ml IV Total 925.00 ml 900 ml Output Urine Total 150 ml 400 ml Laboratory Tests Test 02/23/18 04:20 White Blood Count 23.4 K/UL (4.8-10.8) *H Red Blood Count 3.83 M/UL (4.70-6.10) L Hemoglobin 11.2 G/DL (14.2-18.0) L Hematocrit 33.9 % (42.0-52.0) L Mean Corpuscular Volume 88 FL (80-99) Mean Corpuscular Hemoglobin 29.2 PG (27.0-31.0) Mean Corpuscular Hemoglobin Concent 33.0 G/DL (32.0-36.0) Red Cell Distribution Width 12.3 % (11.6-14.8) Platelet Count 78 K/UL (150-450) L Mean Platelet Volume 10.4 FL (6.5-10.1) H Neutrophils (%) (Auto) % (45.0-75.0) Lymphocytes (%) (Auto) % (20.0-45.0) Monocytes (%) (Auto) % (1.0-10.0) Eosinophils (%) (Auto) % (0.0-3.0) Basophils (%) (Auto) % (0.0-2.0) Differential Total Cells Counted 100 Neutrophils % (Manual) 91 % (45-75) H Lymphocytes % (Manual) 5 % (20-45) L Monocytes % (Manual) 4 % (1-10) Eosinophils % (Manual) 0 % (0-3) Basophils % (Manual) 0 % (0-2) Band Neutrophils 0 % (0-8) Platelet Estimate Decreased L Platelet Morphology Normal Hypochromasia 1+ Sodium Level 138 MMOL/L (136-145) Potassium Level 5.1 MMOL/L (3.5-5.1) Chloride Level 106 MMOL/L (98-107) Carbon Dioxide Level 21 MMOL/L (21-32) Anion Gap 11 mmol/L (5-15) Blood Urea Nitrogen 35 mg/dL (7-18) H Creatinine 1.5 MG/DL (0.55-1.30) H Estimat Glomerular Filtration Rate mL/min (>60) Glucose Level 113 MG/DL (74-106) H Calcium Level 8.2 MG/DL (8.5-10.1) L Phosphorus Level 3.3 MG/DL (2.5-4.9) Magnesium Level 2.1 MG/DL (1.8-2.4) Total Bilirubin 0.4 MG/DL (0.2-1.0) Aspartate Amino Transf (AST/SGOT) 98 U/L (15-37) H Alanine Aminotransferase (ALT/SGPT) 29 U/L (12-78) Alkaline Phosphatase 81 U/L (46-116) Troponin I 12.424 ng/mL (0.000-0.056) Total Protein 6.8 G/DL (6.4-8.2) Albumin 2.6 G/DL (3.4-5.0) L Globulin 4.2 g/dL Albumin/Globulin Ratio 0.6 (1.0-2.7) L Geovanny Sherwood MD Feb 23, 2018 12:14
--- NOTE | 2018-02-23 14:20 | Cardiology Report ---
APPROVED REPORT EKG Measurement Heart [id number] Normal sinus rhythm Right bundle branch block Cannot rule out Inferior infarct, age undetermined Abnormal ECG
--- NOTE | 2018-02-23 14:21 | Cardiology Report ---
APPROVED REPORT EKG Measurement Heart [id number] Normal sinus rhythm Right bundle branch block Left posterior fascicular block Bifascicular block Possible Inferior infarct, age undetermined Marked ST abnormality, possible anteroseptal subendocardial injury Abnormal ECG
--- NOTE | 2018-02-23 15:18 | Pulmonology Progress Note ---
Assessment/Plan Assessment/Plan Pulmonary Progress Note HPI Patient is an 82-year-old male with hx of lung cancer, CAD, atrial fibrillation on Digoxin, [facility] resident, unknown baseline mental status was brought to [facility] by paramedics with CC of [facility]. Pt had low grade temperature and altered mental status for approximately one hour. The EMS the patient was normally somewhat confused. This is his first admission to [facility] and we don't have any information about him or about his DPOA. He had leucocytosis and increased troponin level, without any hx of chest pain. Pt is awake, looks comfortable but doesn't answer to any simple question. Sudden increase in Troponin today - Cardiology aware Allergies: Coded Allergies: No Known Allergies (Unverified , 02/18/18) Medication History Scheduled Bisacodyl (Bisacodyl), 10 MG RC PRN, (Reported) Digoxin* (Digoxin*), 0.25 MG ORAL DAILY, (Reported) Docusate Sodium* (Docusate Sodium*), 100 MG ORAL TWICE A DAY, (Reported) Donepezil Hcl* (Aricept*), 10 MG ORAL DAILY, (Reported) Levothyroxine Sodium (Synthroid), 50 MCG ORAL DAILY, (Reported) Scheduled PRN Acetaminophen* (Acetaminophen 325MG Tablet*), 325 MG ORAL Q6H PRN for For Pain, (Reported) Miscellaneous Medications Lactobacillus Rhamnosus Gg (Culturelle), 1 EACH PO, (Reported) Patient History Healthcare decision maker N Resuscitation status Full Code Advanced Directive on File Past Medical/Surgical History Past Medical/Surgical History: (1) Lung cancer (2) COPD (chronic obstructive pulmonary disease) (3) Paroxysmal atrial fibrillation Review of Systems All Other Systems: negative except mentioned in HPI Physical Exam General Appearance: WD/WN Lines, tubes and drains: peripheral HEENT: normocephalic, atraumatic Neck: non-tender, normal alignment Respiratory/Chest: chest wall non-tender, lungs clear Cardiovascular/Chest: normal peripheral pulses, regularly irregular Abdomen: normal bowel sounds Genitourinary/Rectal: normal genital exam Extremities: normal range of motion Vital Signs Noted Laboratory Tests Test 02/18/18 14:55 02/18/18 15:16 02/18/18 16:15 02/19/18 04:00 White Blood Count 16.2 K/UL (4.8-10.8) H 11.7 K/UL (4.8-10.8) H Red Blood Count 4.54 M/UL (4.70-6.10) L 4.03 M/UL (4.70-6.10) L Hemoglobin 13.2 G/DL (14.2-18.0) L 11.6 G/DL (14.2-18.0) L Hematocrit 41.1 % (42.0-52.0) L 36.3 % (42.0-52.0) L Mean Corpuscular Volume 91 FL (80-99) 90 FL (80-99) Mean Corpuscular Hemoglobin 29.1 PG (27.0-31.0) 28.8 PG (27.0-31.0) Mean Corpuscular Hemoglobin Concent 32.2 G/DL (32.0-36.0) 32.0 G/DL (32.0-36.0) Red Cell Distribution Width 12.5 % (11.6-14.8) 12.3 % (11.6-14.8) Platelet Count 121 K/UL (150-450) L 106 K/UL (150-450) L Mean Platelet Volume 7.7 FL (6.5-10.1) 8.0 FL (6.5-10.1) Neutrophils (%) (Auto) 86.5 % (45.0-75.0) H 79.9 % (45.0-75.0) H Lymphocytes (%) (Auto) 5.8 % (20.0-45.0) L 7.4 % (20.0-45.0) L Monocytes (%) (Auto) 5.1 % (1.0-10.0) 6.3 % (1.0-10.0) Eosinophils (%) (Auto) 1.7 % (0.0-3.0) 5.4 % (0.0-3.0) H Basophils (%) (Auto) 1.0 % (0.0-2.0) 1.0 % (0.0-2.0) Prothrombin Time 12.6 SEC (9.30-11.50) H Prothromb Time International Ratio 1.2 (0.9-1.1) H Activated Partial Thromboplast Time 29 SEC (23-33) Sodium Level 144 MMOL/L (136-145) 144 MMOL/L (136-145) Potassium Level 5.0 MMOL/L (3.5-5.1) 4.7 MMOL/L (3.5-5.1) Chloride Level 106 MMOL/L (98-107) 110 MMOL/L (98-107) H Carbon Dioxide Level 30 MMOL/L (21-32) 27 MMOL/L (21-32) Anion Gap 8 mmol/L (5-15) 7 mmol/L (5-15) Blood Urea Nitrogen 36 mg/dL (7-18) H 33 mg/dL (7-18) H Creatinine 1.4 MG/DL (0.55-1.30) H 1.1 MG/DL (0.55-1.30) Estimat Glomerular Filtration Rate mL/min (>60) mL/min (>60) Glucose Level 112 MG/DL (74-106) H 85 MG/DL (74-106) Lactic Acid Level 2.00 mmol/L (0.4-2.0) 0.90 mmol/L (0.66-2.22) Calcium Level 8.7 MG/DL (8.5-10.1) 8.2 MG/DL (8.5-10.1) L Total Bilirubin 0.5 MG/DL (0.2-1.0) Aspartate Amino Transf (AST/SGOT) 54 U/L (15-37) H Alanine Aminotransferase (ALT/SGPT) 22 U/L (12-78) Alkaline Phosphatase 99 U/L (46-116) Total Creatine Kinase 179 U/L (26-308) Creatine Kinase MB 12.6 NG/ML (0.0-3.6) H Creatine Kinase MB Relative Index 7.0 Troponin I 6.867 ng/mL (0.000-0.056) 6.731 ng/mL (0.000-0.056) 7.171 ng/mL (0.000-0.056) Pro-B-Type Natriuretic Peptide 3815 pg/mL (0-125) H Total Protein 8.3 G/DL (6.4-8.2) H Albumin 3.1 G/DL (3.4-5.0) L 2.5 G/DL (3.4-5.0) L Globulin 5.2 g/dL Albumin/Globulin Ratio 0.6 (1.0-2.7) L Lipase 356 U/L (73-393) Urine Color Pale yellow Urine Appearance Turbid Urine pH 5 (4.5-8.0) Urine Specific [place] 1.015 (1.005-1.035) Urine Protein 4+ (NEGATIVE) H Urine Glucose (UA) Negative (NEGATIVE) Urine Ketones Negative (NEGATIVE) Urine Blood 5+ (NEGATIVE) H Urine Nitrite Negative (NEGATIVE) Urine Bilirubin Negative (NEGATIVE) Urine Urobilinogen Normal MG/DL (0.0-1.0) Urine Leukocyte Esterase 3+ (NEGATIVE) H Urine RBC 0-2 /HPF (0 - 0) H Urine WBC Tntc /HPF (0 - 0) H Urine Squamous Epithelial Cells Occasional /LPF Urine Bacteria Many /HPF (NONE) H Phosphorus Level 3.9 MG/DL (2.5-4.9) Triglycerides Level 95 MG/DL (30-150) Cholesterol Level 187 MG/DL (< 200) LDL Cholesterol 130 mg/dL (<100) H HDL Cholesterol 47 MG/DL (40-60) Cholesterol/HDL Ratio 4.0 (3.3-4.4) Thyroid Stimulating Hormone (TSH) 3.498 uiU/mL (0.358-3.740) Digoxin Level 2.1 NG/ML (0.5-2.0) H Microbiology Date/Time Source Procedure Growth Status 02/18/18 16:50 Nasal Nares Influenza Types A,B Antigen (RUBEN) - Final Complete 02/18/18 15:16 Urine,Clean Catch Urine Culture - Preliminary Gram Negative Wild Resulted Height (Feet): 5 Height (Inches): 10.00 Weight (Pounds): 170 Medications Current Medications Medications (Trade) Dose Ordered Sig/Delvin Route PRN Reason Start Time Stop Time Status Last Admin Dose Admin Acetaminophen (Tylenol) 650 mg Q4H PRN ORAL fever 02/18/18 16:45 03/20/18 16:44 Al Hydroxide/Mg Hydroxide (Mylanta II) 30 ml Q6H PRN ORAL dyspepsia 02/18/18 16:46 03/20/18 16:45 Albuterol/ Ipratropium (Albuterol/ Ipratropium) 3 ml Q4H PRN HHN Shortness of Breath 02/18/18 16:46 02/23/18 16:45 Cefepime HCl 1 gm/ Dextrose 55 ml @ 110 mls/hr Q24H IV 02/18/18 18:00 02/25/18 17:59 02/18/18 18:45 Heparin Sodium (Porcine) (Heparin 5000 units/ml) 5,000 units EVERY 12 HOURS SUBQ 02/18/18 21:00 03/20/18 20:59 02/18/18 21:14 Nitroglycerin (Ntg) 0.4 mg Q5M PRN SL Prn Chest Pain 02/18/18 16:46 03/20/18 16:45 Ondansetron HCl (Zofran) 4 mg Q6H PRN IVP Nausea & Vomiting 02/18/18 16:46 03/20/18 16:45 Polyethylene Glycol (Miralax) 17 gm DAILYPRN PRN ORAL Constipation 02/18/18 16:45 03/20/18 16:44 Promethazine HCl/ Codeine (Phenergan with Codeine) 5 ml Q4H PRN ORAL For Cough 02/18/18 16:46 03/20/18 16:45 Temazepam (Restoril) 15 mg HSPRN PRN ORAL Insomnia 02/18/18 21:00 02/25/18 20:59 Vancomycin HCl (Vanco rx to dose) 1 ea DAILY PRN MISC Per rx protocol 02/18/18 16:30 03/20/18 16:29 Vancomycin HCl 500 mg/Dextrose 110 ml @ 110 mls/hr Q12HR IVPB 02/19/18 09:00 02/24/18 08:59 02/19/18 08:10 Vancomycin HCl 1500 mg/Sodium Chloride 275 ml @ 137.5 mls/ hr ONCE IVPB 02/18/18 16:45 02/23/18 16:44 02/18/18 17:03 Assessment/Plan Problem List: (1) Severe sepsis ICD Codes: A41.9 - Sepsis, unspecified organism; R65.20 - Severe sepsis without septic shock SNOMED: 78383741 (2) Altered level of consciousness ICD Codes: R40.4 - Transient alteration of awareness SNOMED: 4800384 (3) Myocardial injury ICD Codes: S26.90XA - Unspecified injury of heart, unspecified with or without hemopericardium, initial encounter SNOMED: 95529126 (4) Paroxysmal atrial fibrillation ICD Codes: I48.0 - Paroxysmal atrial fibrillation SNOMED: 986667388 (5) COPD (chronic obstructive pulmonary disease) ICD Codes: J44.9 - Chronic obstructive pulmonary disease, unspecified SNOMED: 21858018 (6) Lung cancer ICD Codes: C34.90 - Malignant neoplasm of unspecified part of unspecified bronchus or lung SNOMED: 569791510 Assessment/Plan RODERICK monitoring cardiology consult appreciated broad spectrum abx suero cultures f/u on WBC echo cardiogram check electrolytes psychiatric social worker supervisor to find DPOA dvt prophylaxis. Subjective ROS Limited/Unobtainable: No Allergies: Coded Allergies: No Known Allergies (Unverified , 02/18/18) Objective Last 24 Hour Vital Signs Date Time Temp Pulse Resp B/P (MAP) Pulse Ox O2 Delivery O2 Flow Rate FiO2 02/23/18 14:55 Nasal Cannula 02/23/18 14:55 Nasal Cannula 02/23/18 12:00 97.8 79 20 151/88 (109) 97 02/23/18 11:46 89 02/23/18 11:11 78 20 100 Nasal Cannula 2.0 28 02/23/18 10:58 86 20 97 Nasal Cannula 2.0 28 02/23/18 08:00 98.1 89 18 151/81 (104) 94 02/23/18 08:00 Nasal Cannula 2.0 02/23/18 07:48 87 02/23/18 07:30 75 22 100 Nasal Cannula 2.0 28 02/23/18 07:24 96 Nasal Cannula 2.0 28 02/23/18 07:24 Nasal Cannula 2.0 28 02/23/18 07:24 81 20 96 Nasal Cannula 2.0 28 02/23/18 04:00 98.0 85 20 149/80 (103) 94 02/23/18 04:00 Nasal Cannula 2.0 02/23/18 04:00 91 02/23/18 02:24 81 18 94 Nasal Cannula 2.0 28 02/23/18 02:13 84 20 93 Nasal Cannula 2.0 28 02/23/18 00:00 91 02/23/18 00:00 97.9 93 24 142/74 (96) 92 02/23/18 00:00 Nasal Cannula 2.0 12/23/18 23:24 79 18 96 Nasal Cannula 2.0 28 02/22/18 23:15 86 20 92 Nasal Cannula 2.0 28 02/22/18 20:00 98.0 88 24 144/78 (100) 95 02/22/18 20:00 86 02/22/18 20:00 Nasal Cannula 2.0 02/22/18 19:12 87 16 100 Nasal Cannula 2.0 28 02/22/18 19:08 95 Nasal Cannula 2.0 28 02/22/18 19:02 Nasal Cannula 2.0 28 02/22/18 19:02 92 18 95 Nasal Cannula 2.0 28 02/22/18 16:53 89 02/22/18 16:00 98.4 91 22 156/87 (110) 100 02/22/18 16:00 Nasal Cannula 2.0 02/22/18 15:43 86 20 100 Nasal Cannula 2.0 28 02/22/18 15:33 91 18 96 Nasal Cannula 2.0 28 Intake and Output 02/22/18 02/23/18 18:59 06:59 Intake Total 925.00 ml 950 ml Output Total 150 ml 400 ml Balance 775.00 ml 550 ml Intake Oral 50 ml IV Total 925.00 ml 900 ml Output Urine Total 150 ml 400 ml Laboratory Tests 02/23/18 04:20: White Blood Count 23.4*H, Red Blood Count 3.83L, Hemoglobin 11.2L, Hematocrit 33.9L, Mean Corpuscular Volume 88, Mean Corpuscular Hemoglobin 29.2, Mean Corpuscular Hemoglobin Concent 33.0, Red Cell Distribution Width 12.3, Platelet Count 78L, Mean Platelet Volume 10.4H, Neutrophils (%) (Auto) , Lymphocytes (%) (Auto) , Monocytes (%) (Auto) , Eosinophils (%) (Auto) , Basophils (%) (Auto) , Differential Total Cells Counted 100, Neutrophils % (Manual) 91H, Lymphocytes % (Manual) 5L, Monocytes % (Manual) 4, Eosinophils % (Manual) 0, Basophils % ( Manual) 0, Band Neutrophils 0, Platelet Estimate DecreasedL, Platelet Morphology Normal, Hypochromasia 1+, Sodium Level 138, Potassium Level 5.1, Chloride Level 106, Carbon Dioxide Level 21, Anion Gap 11, Blood Urea Nitrogen 35H, Creatinine 1.5H, Estimat Glomerular Filtration Rate , Glucose Level 113H, Calcium Level 8.2L, Phosphorus Level 3.3, Magnesium Level 2.1, Total Bilirubin 0.4, Aspartate Amino Transf (AST/SGOT) 98H, Alanine Aminotransferase (ALT/SGPT) 29, Alkaline Phosphatase 81, Troponin I 12.424H, Total Protein 6.8, Albumin 2.6L , Globulin 4.2, Albumin/Globulin Ratio 0.6L Current Medications Medications (Trade) Dose Ordered Sig/Delvin Route PRN Reason Start Time Stop Time Status Last Admin Dose Admin Acetaminophen (Tylenol) 650 mg Q4H PRN ORAL fever 02/18/18 16:45 03/20/18 16:44 Al Hydroxide/Mg Hydroxide (Mylanta II) 30 ml Q6H PRN ORAL dyspepsia 02/18/18 16:46 03/20/18 16:45 Albuterol/ Ipratropium (Albuterol/ Ipratropium) 3 ml Q4HRT HHN 02/20/18 15:00 02/25/18 14:59 02/23/18 10:58 Aspirin (Ecotrin) 81 mg DAILY ORAL 02/22/18 13:15 03/24/18 13:14 02/23/18 08:45 Atorvastatin Calcium (Lipitor) 10 mg BEDTIME ORAL 02/22/18 21:00 03/24/18 20:59 02/22/18 21:24 Barium Sulfate (Readi-Cat 2) 450 ml NOW PRN ORAL Radiology Procedure 02/23/18 09:15 02/25/18 09:08 Ertapenem 1 gm/ Sodium Chloride 55 ml @ 110 mls/hr Q24H IVPB 02/23/18 15:00 02/28/18 14:59 Heparin Sodium (Porcine) (Heparin 5000 units/ml) 5,000 units EVERY 12 HOURS SUBQ 02/18/18 21:00 03/20/18 20:59 02/20/18 08:13 Methylprednisolone Sodium Succinate (Solu-MEDROL) 60 mg Q8HR IVP 02/22/18 22:00 03/22/18 17:59 02/23/18 13:32 Nitroglycerin (Ntg) 0.4 mg Q5M PRN SL Prn Chest Pain 02/18/18 16:46 03/20/18 16:45 Olanzapine (ZyPREXA) 2.5 mg Q6H PRN ORAL agitation 02/19/18 12:15 03/21/18 12:14 Ondansetron HCl (Zofran) 4 mg Q6H PRN IVP Nausea & Vomiting 02/18/18 16:46 03/20/18 16:45 Polyethylene Glycol (Miralax) 17 gm DAILYPRN PRN ORAL Constipation 02/18/18 16:45 03/20/18 16:44 Promethazine HCl/ Codeine (Phenergan with Codeine) 5 ml Q4H PRN ORAL For Cough 02/18/18 16:46 03/20/18 16:45 Sodium Chloride 1,000 ml @ 75 mls/hr [id number] IV 02/22/18 14:15 03/24/18 14:14 02/23/18 04:08 Temazepam (Restoril) 15 mg HSPRN PRN ORAL Insomnia 02/18/18 21:00 02/25/18 20:59 Chris Samuel MD Feb 23, 2018 15:18
--- NOTE | 2018-02-23 15:29 | Diagnostic Imaging Report ---
Indication: Abdominal pain Technique: Spiral acquisitions obtained through the abdomen and pelvis. Patient ingested enteric contrast No IV contrast utilized, per referring physician request.. Multiplanar reconstructions were generated. Total dose length product 608.15 mGycm. CTDIvol(s) 12.1 mGy. Dose reduction achieved using automated exposure control Comparison: None Findings: There is dense contrast in the colon, presumably from video swallowing study of 02/20/2018. There is colonic diverticulosis. No evidence of diverticulitis. The appendix is not definitely demonstrated, but no findings to suggest acute appendicitis are evident. The distal esophagus demonstrates marked wall thickening. There is mucosal thickening or masslike opacity suggested in the gastric cardia. No small bowel distention or small bowel wall thickening. No free or loculated intraperitoneal gas or fluid. Lack of IV contrast limits assessment of the solid organs. The liver demonstrates multiple calcifications. The gallbladder, bile ducts, pancreas are unremarkable. The spleen demonstrates numerous calcifications. The adrenals are unremarkable. The kidneys demonstrate multiple cysts bilaterally, somewhat large. No renal or ureteral calculi, hydronephrosis, or hydroureter. No retroperitoneal or mesenteric mass or adenopathy. No pelvic mass or adenopathy. The bladder is distended. The prostate is only mildly prominent. There is edema of the lumbar region subcutaneous fat. There is also edema of the bilateral lower flanks, buttock and hip regions The included lung bases demonstrate bilateral pleural effusions as well as bilateral atelectatic changes. Impression: Wall thickening of the distal esophagus and gastric cardia. Esophageal findings are suspicious for esophagitis. Findings in the stomach could be an artifact of redundant mucosa secondary to incomplete distention, but raise concern for neoplasm or gastritis. Correlate with clinical findings and consider endoscopy as clinically indicated Colonic diverticulosis. No evidence of acute diverticulitis Evidence old granulomatous disease, with multiple calcifications in the liver and spleen Distended bladder Edema of the lumbar region subcutaneous fat and of the bilateral lower flanks, buttock and hip regions Bilateral pleural effusions and basilar pulmonary atelectatic changes The CT scanner at [facility] is accredited by the [employer] and the scans are performed using protocols designed to limit radiation exposure to as low as reasonably achievable to attain images of sufficient resolution adequate for diagnostic evaluation.
[2018-02-23] MEDS: Ertapenem 1 GM in NS 55 ML IVPB SCH (15:32)
[2018-02-23 16:00] VITALS: BP 160/80
--- NOTE | 2018-02-23 17:29 | Internal Med Progress Note ---
Subjective Physician Name HoseaMarquez Attending Physician Gila Sibley MD Current Medications Medications (Trade) Dose Ordered Sig/Dlevin Route PRN Reason Start Time Stop Time Status Last Admin Dose Admin Acetaminophen (Tylenol) 650 mg Q4H PRN ORAL fever 02/18/18 16:45 03/20/18 16:44 Al Hydroxide/Mg Hydroxide (Mylanta II) 30 ml Q6H PRN ORAL dyspepsia 02/18/18 16:46 03/20/18 16:45 Albuterol/ Ipratropium (Albuterol/ Ipratropium) 3 ml Q4HRT HHN 02/20/18 15:00 02/25/18 14:59 02/23/18 10:58 Aspirin (Ecotrin) 81 mg DAILY ORAL 02/22/18 13:15 03/24/18 13:14 02/23/18 08:45 Atorvastatin Calcium (Lipitor) 10 mg BEDTIME ORAL 02/22/18 21:00 03/24/18 20:59 02/22/18 21:24 Barium Sulfate (Readi-Cat 2) 450 ml NOW PRN ORAL Radiology Procedure 02/23/18 09:15 02/25/18 09:08 Ertapenem 1 gm/ Sodium Chloride 55 ml @ 110 mls/hr Q24H IVPB 02/23/18 15:00 02/28/18 14:59 02/23/18 15:32 Heparin Sodium (Porcine) (Heparin 5000 units/ml) 5,000 units EVERY 12 HOURS SUBQ 02/18/18 21:00 03/20/18 20:59 02/20/18 08:13 Methylprednisolone Sodium Succinate (Solu-MEDROL) 60 mg Q8HR IVP 02/22/18 22:00 03/22/18 17:59 02/23/18 13:32 Nitroglycerin (Ntg) 0.4 mg Q5M PRN SL Prn Chest Pain 02/18/18 16:46 03/20/18 16:45 Olanzapine (ZyPREXA) 2.5 mg Q6H PRN ORAL agitation 02/19/18 12:15 03/21/18 12:14 Ondansetron HCl (Zofran) 4 mg Q6H PRN IVP Nausea & Vomiting 02/18/18 16:46 03/20/18 16:45 Polyethylene Glycol (Miralax) 17 gm DAILYPRN PRN ORAL Constipation 02/18/18 16:45 03/20/18 16:44 Promethazine HCl/ Codeine (Phenergan with Codeine) 5 ml Q4H PRN ORAL For Cough 02/18/18 16:46 03/20/18 16:45 Sodium Chloride 1,000 ml @ 75 mls/hr [id number] IV 02/22/18 14:15 03/24/18 14:14 02/23/18 16:57 Temazepam (Restoril) 15 mg HSPRN PRN ORAL Insomnia 02/18/18 21:00 02/25/18 20:59 Allergies: Coded Allergies: No Known Allergies (Unverified , 02/18/18) Subjective awake, open eyes, more responsive NAD, WBC: 23,4 Objective Last Vital Signs Date Time Temp Pulse Resp B/P (MAP) Pulse Ox O2 Delivery O2 Flow Rate FiO2 02/23/18 15:44 77 02/23/18 14:55 Nasal Cannula 02/23/18 12:00 2.0 02/23/18 12:00 97.8 20 151/88 (109) 97 02/23/18 11:11 28 Laboratory Tests Test 02/23/18 04:20 White Blood Count 23.4 K/UL (4.8-10.8) *H Red Blood Count 3.83 M/UL (4.70-6.10) L Hemoglobin 11.2 G/DL (14.2-18.0) L Hematocrit 33.9 % (42.0-52.0) L Mean Corpuscular Volume 88 FL (80-99) Mean Corpuscular Hemoglobin 29.2 PG (27.0-31.0) Mean Corpuscular Hemoglobin Concent 33.0 G/DL (32.0-36.0) Red Cell Distribution Width 12.3 % (11.6-14.8) Platelet Count 78 K/UL (150-450) L Mean Platelet Volume 10.4 FL (6.5-10.1) H Neutrophils (%) (Auto) % (45.0-75.0) Lymphocytes (%) (Auto) % (20.0-45.0) Monocytes (%) (Auto) % (1.0-10.0) Eosinophils (%) (Auto) % (0.0-3.0) Basophils (%) (Auto) % (0.0-2.0) Differential Total Cells Counted 100 Neutrophils % (Manual) 91 % (45-75) H Lymphocytes % (Manual) 5 % (20-45) L Monocytes % (Manual) 4 % (1-10) Eosinophils % (Manual) 0 % (0-3) Basophils % (Manual) 0 % (0-2) Band Neutrophils 0 % (0-8) Platelet Estimate Decreased L Platelet Morphology Normal Hypochromasia 1+ Sodium Level 138 MMOL/L (136-145) Potassium Level 5.1 MMOL/L (3.5-5.1) Chloride Level 106 MMOL/L (98-107) Carbon Dioxide Level 21 MMOL/L (21-32) Anion Gap 11 mmol/L (5-15) Blood Urea Nitrogen 35 mg/dL (7-18) H Creatinine 1.5 MG/DL (0.55-1.30) H Estimat Glomerular Filtration Rate mL/min (>60) Glucose Level 113 MG/DL (74-106) H Calcium Level 8.2 MG/DL (8.5-10.1) L Phosphorus Level 3.3 MG/DL (2.5-4.9) Magnesium Level 2.1 MG/DL (1.8-2.4) Total Bilirubin 0.4 MG/DL (0.2-1.0) Aspartate Amino Transf (AST/SGOT) 98 U/L (15-37) H Alanine Aminotransferase (ALT/SGPT) 29 U/L (12-78) Alkaline Phosphatase 81 U/L (46-116) Troponin I 12.424 ng/mL (0.000-0.056) Total Protein 6.8 G/DL (6.4-8.2) Albumin 2.6 G/DL (3.4-5.0) L Globulin 4.2 g/dL Albumin/Globulin Ratio 0.6 (1.0-2.7) L Intake and Output 02/22/18 02/23/18 19:00 07:00 Intake Total 1000.00 ml 950 ml Output Total 150 ml 400 ml Balance 850.00 ml 550 ml Intake Oral 50 ml IV Total 1000.00 ml 900 ml Output Urine Total 150 ml 400 ml Objective General: No acute distress, awake and Not verbal, HEENT: NCAT, sclera anicteric, PERRL, EOMI. Neck: Supple, no significant jugular venous distention, Lungs: Fair inspiratory effort, Decrease air at bases, no Wheeze or Rales. Heart: Regular rate and rhythm, normal S1/S2, no murmurs. Abdomen: soft, nontender, nondistended. Normoactive bowel sounds. Extremities: No Cyanosis , clubbing or edema. Neuro: limited due to patient status, Unable to move extremities, Skin: warm, no rash Assessment/Plan Assessment/Plan Assessment/Plan Problem List: (1) Pneumonia (2) Acute myocardial infarction non ST-elevation. (3) CHF (congestive heart failure) (4) HTN (hypertension) (5) Hypothyroidism (6) Anemia, iron deficiency (7) CAD (coronary artery disease) (8) PATO on CKD (9) COPD (chronic obstructive pulmonary disease) (10) Paroxysmal atrial fibrillation (11) Altered level of consciousness most likely due to Toxic Metabolic encephalopathy, (12) Lung cancer (13) UTI (urinary tract infection) (14) E coli infection Plan: in RODERICK, Heparin SQ Full code Abx: Meropenem on Solumedral IV Q8 IVF @ 75 cc/hr F/U with Labs and cultures, Marquez Jc MD Feb 23, 2018 17:29
--- NOTE | 2018-02-23 17:45 | NUR ---
NURSE NOTES: Dr. Jimmie MD made aware of patient hemoptysis. New orders received and carried out. Will continue to monitor.
--- NOTE | 2018-02-23 18:18 | General Progress Note ---
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 (2) Dementia ICD Codes: F03.90 - Unspecified dementia without behavioral disturbance SNOMED: [id number] Status: unchanged Assessment/Plan zyprexa prn the pt lacks capacity provided ro Subjective Allergies: Coded Allergies: No Known Allergies (Unverified , 02/18/18) Subjective the pt was agitated and disorganized the pt was unable to be engaged Objective Last 24 Hour Vital Signs Date Time Temp Pulse Resp B/P (MAP) Pulse Ox O2 Delivery O2 Flow Rate FiO2 02/23/18 15:44 77 02/23/18 14:55 Nasal Cannula 02/23/18 14:55 Nasal Cannula 02/23/18 12:00 Nasal Cannula 2.0 02/23/18 12:00 97.8 79 20 151/88 (109) 97 02/23/18 11:46 89 02/23/18 11:11 78 20 100 Nasal Cannula 2.0 28 02/23/18 10:58 86 20 97 Nasal Cannula 2.0 28 02/23/18 08:00 98.1 89 18 151/81 (104) 94 02/23/18 08:00 Nasal Cannula 2.0 02/23/18 07:48 87 02/23/18 07:30 75 22 100 Nasal Cannula 2.0 28 02/23/18 07:24 96 Nasal Cannula 2.0 28 02/23/18 07:24 Nasal Cannula 2.0 28 02/23/18 07:24 81 20 96 Nasal Cannula 2.0 28 02/23/18 04:00 98.0 85 20 149/80 (103) 94 02/23/18 04:00 Nasal Cannula 2.0 02/23/18 04:00 91 02/23/18 02:24 81 18 94 Nasal Cannula 2.0 28 02/23/18 02:13 84 20 93 Nasal Cannula 2.0 28 02/23/18 00:00 91 02/23/18 00:00 97.9 93 24 142/74 (96) 92 02/23/18 00:00 Nasal Cannula 2.0 02/22/18 23:24 79 18 96 Nasal Cannula 2.0 28 02/22/18 23:15 86 20 92 Nasal Cannula 2.0 28 02/22/18 20:00 98.0 88 24 144/78 (100) 95 02/22/18 20:00 86 12/23/18 20:00 Nasal Cannula 2.0 02/22/18 19:12 87 16 100 Nasal Cannula 2.0 28 02/22/18 19:08 95 Nasal Cannula 2.0 28 02/22/18 19:02 Nasal Cannula 2.0 28 02/22/18 19:02 92 18 95 Nasal Cannula 2.0 28 Intake and Output 02/22/18 02/23/18 19:00 07:00 Intake Total 1000.00 ml 950 ml Output Total 150 ml 400 ml Balance 850.00 ml 550 ml Intake Oral 50 ml IV Total 1000.00 ml 900 ml Output Urine Total 150 ml 400 ml Laboratory Tests 02/23/18 04:20: White Blood Count 23.4*H, Red Blood Count 3.83L, Hemoglobin 11.2L, Hematocrit 33.9L, Mean Corpuscular Volume 88, Mean Corpuscular Hemoglobin 29.2, Mean Corpuscular Hemoglobin Concent 33.0, Red Cell Distribution Width 12.3, Platelet Count 78L, Mean Platelet Volume 10.4H, Neutrophils (%) (Auto) , Lymphocytes (%) (Auto) , Monocytes (%) (Auto) , Eosinophils (%) (Auto) , Basophils (%) (Auto) , Differential Total Cells Counted 100, Neutrophils % (Manual) 91H, Lymphocytes % (Manual) 5L, Monocytes % (Manual) 4, Eosinophils % (Manual) 0, Basophils % ( Manual) 0, Band Neutrophils 0, Platelet Estimate DecreasedL, Platelet Morphology Normal, Hypochromasia 1+, Sodium Level 138, Potassium Level 5.1, Chloride Level 106, Carbon Dioxide Level 21, Anion Gap 11, Blood Urea Nitrogen 35H, Creatinine 1.5H, Estimat Glomerular Filtration Rate , Glucose Level 113H, Calcium Level 8.2L, Phosphorus Level 3.3, Magnesium Level 2.1, Total Bilirubin 0.4, Aspartate Amino Transf (AST/SGOT) 98H, Alanine Aminotransferase (ALT/SGPT) 29, Alkaline Phosphatase 81, Troponin I 12.424H, Total Protein 6.8, Albumin 2.6L , Globulin 4.2, Albumin/Globulin Ratio 0.6L Height (Feet): 5 Height (Inches): 10.00 Weight (Pounds): 170 General Appearance: alert, confused, agitated Arsen Erwin MD Feb 23, 2018 18:18
--- NOTE | 2018-02-23 18:35 | NUR ---
NURSE NOTES: Dr. Presley MD made aware of patient vtach for 6 minutes. New orders received and carried out. Will continue to monitor.
[2018-02-23] MEDS: Docusate 100mg cap ORAL SCH (18:54)
--- NOTE | 2018-02-23 19:05 | NUR ---
HAND-OFF: Report given to Nathan Robledo RN.
--- NOTE | 2018-02-23 19:34 | Diagnostic Imaging Report ---
EXAM: XR Chest, 1 View CLINICAL HISTORY: COUGH TECHNIQUE: Frontal view of the chest. COMPARISON: 02/22/2018 FINDINGS: Lungs: Mildly increased patchy, subtle airspace attenuation right midlung could be incidental, or could represent developing infection or pulmonary edema in the proper clinical context. Pleural space: Similar-appearing small left base pneumothorax without tension component. Similar small left pleural fluid collection. Unchanged left lung lateral pleural thickening. Heart: Unremarkable. No cardiomegaly. Mediastinum: Unremarkable. Bones/joints: Unremarkable. IMPRESSION: 1. Mildly increased patchy, subtle airspace attenuation right midlung could be incidental, or could represent developing infection or pulmonary edema in the proper clinical context. 2. Similar-appearing small left base pneumothorax without tension component. 3. Similar small left pleural fluid collection. 4. Unchanged left lung lateral pleural thickening.
--- NOTE | 2018-02-23 19:56 | NUR ---
NURSE NOTES: Received report from Felisha Spencer RN. Patient sleeping in bed comfortably. Opens eyes to name and traces. Hooked to hall monitor. On 2L NC. No apparent respiratory distress. NPO at moment. Condom catheter in place,dry, and draining well. Skin intact. SPR mattress in place. IV on Left hand 22G running 1/2NS @ 75 cc/hr. Bed in lowest position. Bed alarm on. Side rails up. Will continue to monitor.
[2018-02-23 20:00] VITALS: BP 154/85
[2018-02-23] MEDS: Metoprolol Tartrate 12.5mg TAB ORAL SCH (20:50)
[2018-02-23] MEDS: Lactulose 10gm/15ml UDC ORAL SCH (23:57)
[2018-02-24] VITALS: BP 135/79
[2018-02-24] MEDS: Albuterol/Ipratropium 3ml neb HHN SCH ×6 (03:00→22:56)
[2018-02-24 04:00] VITALS: BP 140/62
[2018-02-24 05:13] LABS: HEMATOCRIT 33.4 % (42.0-52.0); HEMOGLOBIN 11.2 G/DL (14.2-18.0); MEAN CORPUSCULAR VOLUME 89 FL (80-99); PLATELET COUNT 56 K/UL (150-450); RED BLOOD COUNT 3.77 M/UL (4.70-6.10); RED CELL DISTRIBUTION WIDTH 13.3 % (11.6-14.8); WHITE BLOOD COUNT 21.9 K/UL (4.8-10.8)
[2018-02-24] MEDS: Lactulose 10gm/15ml UDC ORAL SCH ×3 (05:28→18:00)
[2018-02-24] MEDS: Solu-MEDROL 125mg Inj IVP SCH ×2 (05:29→21:14)
[2018-02-24 05:47] LABS: ALANINE AMINOTRANSFERASE 35 U/L (12-78); ALBUMIN 2.6 G/DL (3.4-5.0); ALBUMIN/GLOBULIN RATIO 0.7 (1.0-2.7); ALKALINE PHOSPHATASE 78 U/L (46-116); ANION GAP 11 mmol/L (5-15); ASPARTATE AMINO TRANSFERASE 61 U/L (15-37); BILIRUBIN,TOTAL 0.3 MG/DL (0.2-1.0); BLOOD UREA NITROGEN 37 mg/dL (7-18); CALCIUM 7.9 MG/DL (8.5-10.1); CARBON DIOXIDE 22 MMOL/L (21-32); CHLORIDE 105 MMOL/L (98-107); CREATININE 1.3 MG/DL (0.55-1.30); POTASSIUM 4.4 MMOL/L (3.5-5.1); SODIUM 138 MMOL/L (136-145)
--- NOTE | 2018-02-24 07:46 | NUR ---
HAND-OFF: Report given to Sana Brannon RN. Patient resting in bed, stable.
[2018-02-24 08:00] VITALS: BP 151/85
[2018-02-24] MEDS: Docusate 100mg cap ORAL SCH ×2 (08:29→18:00)
[2018-02-24] MEDS: Aspirin EC 81mg tab ORAL SCH (08:29)
[2018-02-24] MEDS: Metoprolol Tartrate 12.5mg TAB ORAL SCH (08:29)
[2018-02-24] MEDS: Heparin 5000 units/ml inj SUBQ SCH ×2 (08:33→21:00)
--- NOTE | 2018-02-24 08:40 | NUR ---
NURSE NOTES: received pt in the bed, awake, confused, nonverbal, vital signs stable, no co pain, no SOB, no bleeding noted, skin warm and dry to touch, pt NPO, 1/2 NS at 75cc, bed in low position, HOB elevated.
--- NOTE | 2018-02-24 10:07 | Infectious Diseases Prog Note ---
Assessment/Plan Assessment/Plan Assessment: Hemoptysis ( after nasal suctioning< noted pt was placed in A.Isolation per Pul) Sepsis, SP- 2ry to UTI -u.a wbc tntc, nit -, leuk +3; u cx >100k ESBL E.coli; 02/22 u/a wbc 5-10, nit neg, luek +1; ucx p -CXR: Left midlung and calcified parenchymal scarring. Numerous calcified hilar nodes suggest old granulomatous disease. Left apical lucency could reflect compensatory hyperinflation or COPD changes. No definite acute process Afebrile Leukocytosis, recurrent improving (on steroids)- r/o abscess, bacteremia; no diarrhea -02/22 Bcx p CXR: Mild sub-segmental atelectasis in the medial lung bases. No significant change in the scarring versus linear atelectasis at the periphery of the left midlung, with possible underlying pleural calcifications. Scattered calcified hilar lymph nodes, unchanged. Acute encephalopathy -CT head: no acute findings Dementia dysphagia HTN lung CA CAD CKD COPD Afib [facility] resident Plan: -Continue Ertapenem # 3 (abx d #06/10) for ESBL UTI given increased WBC and Cr - 02/22 SP Bactrim #3 - 02/20 SP Cefepime # 3 - 02/19 SP IV Vancomycin #2 - 02/18 SP Unasyn x1 -f/u cx -Monitor CBC/CMP, temperatures -aspiration precautions -AFBx 3 : P Subjective Allergies: Coded Allergies: No Known Allergies (Unverified , 02/18/18) Subjective some blood in sputum, after nasal suctioning Objective Vital Signs Last 24 Hour Vital Signs Date Time Temp Pulse Resp B/P (MAP) Pulse Ox O2 Delivery O2 Flow Rate FiO2 02/24/18 08:29 94 151/85 02/24/18 08:00 98.4 94 24 151/85 (107) 99 02/24/18 08:00 Nasal Cannula 2.0 02/24/18 07:26 Nasal Cannula 2.0 28 02/24/18 07:25 96 Nasal Cannula 2.0 28 02/24/18 07:25 91 20 97 Nasal Cannula 2.0 28 02/24/18 07:10 89 18 93 Nasal Cannula 2.0 28 02/24/18 04:00 97.1 84 22 140/62 (88) 97 02/24/18 04:00 Nasal Cannula 2.0 02/24/18 04:00 68 02/24/18 00:00 97.9 76 25 135/79 (97) 92 02/24/18 00:00 Nasal Cannula 2.0 02/24/18 00:00 65 02/23/18 23:49 64 20 100 Nasal Cannula 2.0 28 02/23/18 23:39 89 18 94 Nasal Cannula 2.0 28 02/23/18 20:50 80 154/85 02/23/18 20:30 82 20 96 Nasal Cannula 2.0 28 02/23/18 20:17 95 20 92 Room Air 2.0 21 02/23/18 20:17 92 Room Air 21 02/23/18 20:17 Room Air 21 02/23/18 20:00 81 02/23/18 20:00 97.7 80 24 154/85 (108) 94 02/23/18 20:00 Nasal Cannula 2.0 02/23/18 16:00 98.7 74 18 160/80 (106) 95 02/23/18 16:00 Nasal Cannula 2.0 02/23/18 15:44 77 02/23/18 14:55 Nasal Cannula 02/23/18 14:55 Nasal Cannula 02/23/18 12:00 Nasal Cannula 2.0 02/23/18 12:00 97.8 79 20 151/88 (109) 97 02/23/18 11:46 89 02/23/18 11:11 78 20 100 Nasal Cannula 2.0 28 02/23/18 10:58 86 20 97 Nasal Cannula 2.0 28 Height (Feet): 5 Height (Inches): 10.00 Weight (Pounds): 170 HEENT: mucous membranes moist Respiratory/Chest: no respiratory distress Cardiovascular: regularly irregular Abdomen: soft, non tender Microbiology Date/Time Source Procedure Growth Status 02/22/18 11:15 Blood Blood Culture - Preliminary NO GROWTH AFTER 24 HOURS Resulted 02/22/18 11:00 Blood Blood Culture - Preliminary NO GROWTH AFTER 24 HOURS Resulted Laboratory Tests Test 02/23/18 18:35 02/24/18 03:50 Troponin I 8.588 ng/mL (0.000-0.056) 7.271 ng/mL (0.000-0.056) White Blood Count 21.9 K/UL (4.8-10.8) H Red Blood Count 3.77 M/UL (4.70-6.10) L Hemoglobin 11.2 G/DL (14.2-18.0) L Hematocrit 33.4 % (42.0-52.0) L Mean Corpuscular Volume 89 FL (80-99) Mean Corpuscular Hemoglobin 29.7 PG (27.0-31.0) Mean Corpuscular Hemoglobin Concent 33.5 G/DL (32.0-36.0) Red Cell Distribution Width 13.3 % (11.6-14.8) Platelet Count 56 K/UL (150-450) L Mean Platelet Volume 8.6 FL (6.5-10.1) Neutrophils (%) (Auto) % (45.0-75.0) Lymphocytes (%) (Auto) % (20.0-45.0) Monocytes (%) (Auto) % (1.0-10.0) Eosinophils (%) (Auto) % (0.0-3.0) Basophils (%) (Auto) % (0.0-2.0) Differential Total Cells Counted 100 Neutrophils % (Manual) 92 % (45-75) H Lymphocytes % (Manual) 3 % (20-45) L Monocytes % (Manual) 2 % (1-10) Eosinophils % (Manual) 0 % (0-3) Basophils % (Manual) 0 % (0-2) Band Neutrophils 3 % (0-8) Platelet Estimate Decreased L Platelet Morphology Normal Red Blood Cell Morphology Normal Sodium Level 138 MMOL/L (136-145) Potassium Level 4.4 MMOL/L (3.5-5.1) Chloride Level 105 MMOL/L (98-107) Carbon Dioxide Level 22 MMOL/L (21-32) Anion Gap 11 mmol/L (5-15) Blood Urea Nitrogen 37 mg/dL (7-18) H Creatinine 1.3 MG/DL (0.55-1.30) Estimat Glomerular Filtration Rate mL/min (>60) Glucose Level 107 MG/DL (74-106) H Calcium Level 7.9 MG/DL (8.5-10.1) L Total Bilirubin 0.3 MG/DL (0.2-1.0) Aspartate Amino Transf (AST/SGOT) 61 U/L (15-37) H Alanine Aminotransferase (ALT/SGPT) 35 U/L (12-78) Alkaline Phosphatase 78 U/L (46-116) Total Protein 6.2 G/DL (6.4-8.2) L Albumin 2.6 G/DL (3.4-5.0) L Globulin 3.6 g/dL Albumin/Globulin Ratio 0.7 (1.0-2.7) L Current Medications Medications (Trade) Dose Ordered Sig/Delvin Route PRN Reason Start Time Stop Time Status Last Admin Dose Admin Acetaminophen (Tylenol) 650 mg Q4H PRN ORAL fever 02/18/18 16:45 03/20/18 16:44 Al Hydroxide/Mg Hydroxide (Mylanta II) 30 ml Q6H PRN ORAL dyspepsia 02/18/18 16:46 03/20/18 16:45 Albuterol/ Ipratropium (Albuterol/ Ipratropium) 3 ml Q4HRT HHN 02/20/18 15:00 02/25/18 14:59 02/24/18 07:10 Aspirin (Ecotrin) 81 mg DAILY ORAL 02/22/18 13:15 03/24/18 13:14 02/24/18 08:29 Atorvastatin Calcium (Lipitor) 10 mg BEDTIME ORAL 02/22/18 21:00 03/24/18 20:59 02/23/18 20:49 Barium Sulfate (Readi-Cat 2) 450 ml NOW PRN ORAL Radiology Procedure 02/23/18 09:15 02/25/18 09:08 Docusate Sodium (Colace) 100 mg TWICE A DAY ORAL 02/23/18 18:00 03/25/18 17:59 02/24/18 08:29 Ertapenem 1 gm/ Sodium Chloride 55 ml @ 110 mls/hr Q24H IVPB 02/23/18 15:00 02/28/18 14:59 02/23/18 15:32 Heparin Sodium (Porcine) (Heparin 5000 units/ml) 5,000 units EVERY 12 HOURS SUBQ 02/18/18 21:00 03/20/18 20:59 02/20/18 08:13 Lactulose (Cephulac) 10 gm EVERY 6 HOURS ORAL 02/24/18 00:00 03/26/18 00:00 02/24/18 05:28 Methylprednisolone Sodium Succinate (Solu-MEDROL) 60 mg Q8HR IVP 02/22/18 22:00 03/22/18 17:59 02/24/18 05:29 Metoprolol Tartrate (Lopressor) 12.5 mg Q12HR ORAL 02/23/18 21:00 03/25/18 20:59 02/24/18 08:29 Nitroglycerin (Ntg) 0.4 mg Q5M PRN SL Prn Chest Pain 02/18/18 16:46 03/20/18 16:45 Olanzapine (ZyPREXA) 2.5 mg Q6H PRN ORAL agitation 02/19/18 12:15 03/21/18 12:14 Ondansetron HCl (Zofran) 4 mg Q6H PRN IVP Nausea & Vomiting 02/18/18 16:46 03/20/18 16:45 Polyethylene Glycol (Miralax) 17 gm DAILYPRN PRN ORAL Constipation 02/18/18 16:45 03/20/18 16:44 Promethazine HCl/ Codeine (Phenergan with Codeine) 5 ml Q4H PRN ORAL For Cough 02/18/18 16:46 03/20/18 16:45 Sodium Chloride 1,000 ml @ 75 mls/hr [id number] IV 02/22/18 14:15 03/24/18 14:14 02/24/18 05:29 Temazepam (Restoril) 15 mg HSPRN PRN ORAL Insomnia 02/18/18 21:00 02/25/18 20:59 Matthew Carranza MD Feb 24, 2018 10:07
--- NOTE | 2018-02-24 11:50 | Cardiology Progress Note ---
Assessment/Plan Assessment/Plan 1. Alteration of mental status. Questionable toxic metabolic encephalopathy. 2. Acute myocardial infarction non ST-elevation. 3. Right bundle-branch block conduction defect, chronicity unknown. 4. Reported history of lung cancer. 5. Reported history of paroxysmal atrial fibrillation. 6. Reported history of coagulopathy secondary to anticoagulation. 7. History of coronary artery disease. 8. History of chronic obstructive pulmonary disease. 9. History of chronic kidney disease. 10. History of hypertension. 11. wide compelx tachy likely atrial tachy with abbarency 12. thormbocytopenia trop trednign down agtin i was called regarding vt for 6 min but may actually be atrial tachy with aberrancy will repaet echo the prior echo normal lv fucntion he seems some what tremulous tele reviewed sinus need asa and statin but sicn plt are qutei low i will dc ecotrin for now remains at this time a poor candidate for any invasive cardiac treatment poor resoponsive but nto communicative bb increased ekg unchanged Subjective ROS Limited/Unobtainable: Yes Subjective altered agin in isolation room for tb Objective Last 24 Hour Vital Signs Date Time Temp Pulse Resp B/P (MAP) Pulse Ox O2 Delivery O2 Flow Rate FiO2 02/24/18 10:51 91 22 97 Nasal Cannula 2.0 28 02/24/18 10:40 83 22 93 Nasal Cannula 2.0 28 02/24/18 08:29 94 151/85 02/24/18 08:00 93 02/24/18 08:00 98.4 94 24 151/85 (107) 99 02/24/18 08:00 Nasal Cannula 2.0 02/24/18 07:26 Nasal Cannula 2.0 28 02/24/18 07:25 96 Nasal Cannula 2.0 28 02/24/18 07:25 91 20 97 Nasal Cannula 2.0 28 02/24/18 07:10 89 18 93 Nasal Cannula 2.0 28 02/24/18 04:00 97.1 84 22 140/62 (88) 97 02/24/18 04:00 Nasal Cannula 2.0 02/24/18 04:00 68 02/24/18 00:00 97.9 76 25 135/79 (97) 92 02/24/18 00:00 Nasal Cannula 2.0 02/24/18 00:00 65 02/23/18 23:49 64 20 100 Nasal Cannula 2.0 28 02/23/18 23:39 89 18 94 Nasal Cannula 2.0 28 02/23/18 20:50 80 154/85 02/23/18 20:30 82 20 96 Nasal Cannula 2.0 28 02/23/18 20:17 95 20 92 Room Air 2.0 21 02/23/18 20:17 92 Room Air 21 02/23/18 20:17 Room Air 21 02/23/18 20:00 81 02/23/18 20:00 97.7 80 24 154/85 (108) 94 02/23/18 20:00 Nasal Cannula 2.0 02/23/18 16:00 98.7 74 18 160/80 (106) 95 02/23/18 16:00 Nasal Cannula 2.0 02/23/18 15:44 77 02/23/18 14:55 Nasal Cannula 02/23/18 14:55 Nasal Cannula 02/23/18 12:00 Nasal Cannula 2.0 02/23/18 12:00 97.8 79 20 151/88 (109) 97 General Appearance: no apparent distress Neck: supple Cardiovascular: normal rate Respiratory/Chest: lungs clear Abdomen: non tender, soft Extremities: no swelling Intake and Output 02/23/18 02/24/18 19:00 07:00 Intake Total 801.25 ml 75 ml Output Total 350 ml 200 ml Balance 451.25 ml -125 ml Intake Oral 0 ml IV Total 801.25 ml 75 ml Output Urine Total 350 ml 200 ml Laboratory Tests Test 02/23/18 18:35 02/24/18 03:50 Troponin I 8.588 ng/mL (0.000-0.056) 7.271 ng/mL (0.000-0.056) White Blood Count 21.9 K/UL (4.8-10.8) H Red Blood Count 3.77 M/UL (4.70-6.10) L Hemoglobin 11.2 G/DL (14.2-18.0) L Hematocrit 33.4 % (42.0-52.0) L Mean Corpuscular Volume 89 FL (80-99) Mean Corpuscular Hemoglobin 29.7 PG (27.0-31.0) Mean Corpuscular Hemoglobin Concent 33.5 G/DL (32.0-36.0) Red Cell Distribution Width 13.3 % (11.6-14.8) Platelet Count 56 K/UL (150-450) L Mean Platelet Volume 8.6 FL (6.5-10.1) Neutrophils (%) (Auto) % (45.0-75.0) Lymphocytes (%) (Auto) % (20.0-45.0) Monocytes (%) (Auto) % (1.0-10.0) Eosinophils (%) (Auto) % (0.0-3.0) Basophils (%) (Auto) % (0.0-2.0) Differential Total Cells Counted 100 Neutrophils % (Manual) 92 % (45-75) H Lymphocytes % (Manual) 3 % (20-45) L Monocytes % (Manual) 2 % (1-10) Eosinophils % (Manual) 0 % (0-3) Basophils % (Manual) 0 % (0-2) Band Neutrophils 3 % (0-8) Platelet Estimate Decreased L Platelet Morphology Normal Red Blood Cell Morphology Normal Sodium Level 138 MMOL/L (136-145) Potassium Level 4.4 MMOL/L (3.5-5.1) Chloride Level 105 MMOL/L (98-107) Carbon Dioxide Level 22 MMOL/L (21-32) Anion Gap 11 mmol/L (5-15) Blood Urea Nitrogen 37 mg/dL (7-18) H Creatinine 1.3 MG/DL (0.55-1.30) Estimat Glomerular Filtration Rate mL/min (>60) Glucose Level 107 MG/DL (74-106) H Calcium Level 7.9 MG/DL (8.5-10.1) L Total Bilirubin 0.3 MG/DL (0.2-1.0) Aspartate Amino Transf (AST/SGOT) 61 U/L (15-37) H Alanine Aminotransferase (ALT/SGPT) 35 U/L (12-78) Alkaline Phosphatase 78 U/L (46-116) Total Protein 6.2 G/DL (6.4-8.2) L Albumin 2.6 G/DL (3.4-5.0) L Globulin 3.6 g/dL Albumin/Globulin Ratio 0.7 (1.0-2.7) L Microbiology Date/Time Source Procedure Growth Status 02/22/18 11:15 Blood Blood Culture - Preliminary NO GROWTH AFTER 24 HOURS Resulted 02/22/18 11:00 Blood Blood Culture - Preliminary NO GROWTH AFTER 24 HOURS Resulted Geovanny Sherwood MD Feb 24, 2018 11:50
[2018-02-24 12:00] VITALS: BP 146/90
--- NOTE | 2018-02-24 12:10 | Cardiology Report ---
APPROVED REPORT EXAM: Two-dimensional and M-mode echocardiogram with Doppler and color Doppler. M-Mode DIMENSIONS IVSd1.2 (0.7-1.1cm)Left Atrium (MM)2.1 (1.6-4.0cm) LVDd3.5 (3.5-5.6cm)Aortic Root3.9 (2.0-3.7cm) PWd1.2 (0.7-1.1cm)Aortic Cusp Exc.1.5 (1.5-2.0cm) IVSs1.5 cm LVDs2.1 (2.5-4.0cm) PWs1.1 cm Technically difficult study due to pts position . Normal left ventricular chamber size, systolic function and wall motion to extent visualized. Left ventricular ejection fraction estimated to be 55 -60 %. No evidence of left ventricular hypertrophy. Anterior Echo-free space, may be due to pericardial fat or effusion. All other cardiac chamber sizes are within normal limits. Focal aortic valve sclerosis with adequate cusp excursion. Thickened mitral valve leaflets with normal excursion. Mitral annulus and aortic root calcification. Pulmonic valve not well visualized. Normal tricuspid valve structure. IVC at normal size with physiologic collapse. A color flow and spectral Doppler study was performed and revealed: Mild aortic insufficiency . Trace mitral regurgitation. Mitral diastolic velocities suggest reduced left ventricular relaxation c/w mild LV diastolic dysfunction (Grade I ). Mild tricuspid regurgitation. Tricuspid systolic velocities suggests peak right ventricular systolic pressure of 56 mmHg, consistent with moderate pulmonary hypertension . Mild pulmonic regurgitation present .
--- NOTE | 2018-02-24 12:51 | Internal Med Progress Note ---
Subjective Physician Name HoseaaMrquez Attending Physician Gila Sibley MD Current Medications Medications (Trade) Dose Ordered Sig/Delvin Route PRN Reason Start Time Stop Time Status Last Admin Dose Admin Acetaminophen (Tylenol) 650 mg Q4H PRN ORAL fever 02/18/18 16:45 03/20/18 16:44 Al Hydroxide/Mg Hydroxide (Mylanta II) 30 ml Q6H PRN ORAL dyspepsia 02/18/18 16:46 03/20/18 16:45 Albuterol/ Ipratropium (Albuterol/ Ipratropium) 3 ml Q4HRT HHN 02/20/18 15:00 02/25/18 14:59 02/24/18 10:40 Atorvastatin Calcium (Lipitor) 10 mg BEDTIME ORAL 02/22/18 21:00 03/24/18 20:59 02/23/18 20:49 Barium Sulfate (Readi-Cat 2) 450 ml NOW PRN ORAL Radiology Procedure 02/23/18 09:15 02/25/18 09:08 Docusate Sodium (Colace) 100 mg TWICE A DAY ORAL 02/23/18 18:00 03/25/18 17:59 02/24/18 08:29 Ertapenem 1 gm/ Sodium Chloride 55 ml @ 110 mls/hr Q24H IVPB 02/23/18 15:00 02/28/18 14:59 02/23/18 15:32 Heparin Sodium (Porcine) (Heparin 5000 units/ml) 5,000 units EVERY 12 HOURS SUBQ 02/18/18 21:00 03/20/18 20:59 02/20/18 08:13 Lactulose (Cephulac) 10 gm EVERY 6 HOURS ORAL 02/24/18 00:00 03/26/18 00:00 02/24/18 05:28 Methylprednisolone Sodium Succinate (Solu-MEDROL) 60 mg Q8HR IVP 02/22/18 22:00 03/22/18 17:59 02/24/18 05:29 Metoprolol Tartrate (Lopressor) 25 mg Q12HR ORAL 02/24/18 21:00 03/26/18 20:59 Nitroglycerin (Ntg) 0.4 mg Q5M PRN SL Prn Chest Pain 02/18/18 16:46 03/20/18 16:45 Olanzapine (ZyPREXA) 2.5 mg Q6H PRN ORAL agitation 02/19/18 12:15 03/21/18 12:14 Ondansetron HCl (Zofran) 4 mg Q6H PRN IVP Nausea & Vomiting 02/18/18 16:46 03/20/18 16:45 Polyethylene Glycol (Miralax) 17 gm DAILYPRN PRN ORAL Constipation 02/18/18 16:45 03/20/18 16:44 Promethazine HCl/ Codeine (Phenergan with Codeine) 5 ml Q4H PRN ORAL For Cough 02/18/18 16:46 03/20/18 16:45 Sodium Chloride 1,000 ml @ 75 mls/hr [id number] IV 02/22/18 14:15 03/24/18 14:14 02/24/18 05:29 Temazepam (Restoril) 15 mg HSPRN PRN ORAL Insomnia 02/18/18 21:00 02/25/18 20:59 Allergies: Coded Allergies: No Known Allergies (Unverified , 02/18/18) Subjective awake, open eyes, more responsive NAD, Objective Last Vital Signs Date Time Temp Pulse Resp B/P (MAP) Pulse Ox O2 Delivery O2 Flow Rate FiO2 02/24/18 10:51 91 22 97 Nasal Cannula 2.0 28 02/24/18 08:29 151/85 02/24/18 08:00 98.4 Laboratory Tests Test 02/23/18 18:35 02/24/18 03:50 Troponin I 8.588 ng/mL (0.000-0.056) 7.271 ng/mL (0.000-0.056) White Blood Count 21.9 K/UL (4.8-10.8) H Red Blood Count 3.77 M/UL (4.70-6.10) L Hemoglobin 11.2 G/DL (14.2-18.0) L Hematocrit 33.4 % (42.0-52.0) L Mean Corpuscular Volume 89 FL (80-99) Mean Corpuscular Hemoglobin 29.7 PG (27.0-31.0) Mean Corpuscular Hemoglobin Concent 33.5 G/DL (32.0-36.0) Red Cell Distribution Width 13.3 % (11.6-14.8) Platelet Count 56 K/UL (150-450) L Mean Platelet Volume 8.6 FL (6.5-10.1) Neutrophils (%) (Auto) % (45.0-75.0) Lymphocytes (%) (Auto) % (20.0-45.0) Monocytes (%) (Auto) % (1.0-10.0) Eosinophils (%) (Auto) % (0.0-3.0) Basophils (%) (Auto) % (0.0-2.0) Differential Total Cells Counted 100 Neutrophils % (Manual) 92 % (45-75) H Lymphocytes % (Manual) 3 % (20-45) L Monocytes % (Manual) 2 % (1-10) Eosinophils % (Manual) 0 % (0-3) Basophils % (Manual) 0 % (0-2) Band Neutrophils 3 % (0-8) Platelet Estimate Decreased L Platelet Morphology Normal Red Blood Cell Morphology Normal Sodium Level 138 MMOL/L (136-145) Potassium Level 4.4 MMOL/L (3.5-5.1) Chloride Level 105 MMOL/L (98-107) Carbon Dioxide Level 22 MMOL/L (21-32) Anion Gap 11 mmol/L (5-15) Blood Urea Nitrogen 37 mg/dL (7-18) H Creatinine 1.3 MG/DL (0.55-1.30) Estimat Glomerular Filtration Rate mL/min (>60) Glucose Level 107 MG/DL (74-106) H Calcium Level 7.9 MG/DL (8.5-10.1) L Total Bilirubin 0.3 MG/DL (0.2-1.0) Aspartate Amino Transf (AST/SGOT) 61 U/L (15-37) H Alanine Aminotransferase (ALT/SGPT) 35 U/L (12-78) Alkaline Phosphatase 78 U/L (46-116) Total Protein 6.2 G/DL (6.4-8.2) L Albumin 2.6 G/DL (3.4-5.0) L Globulin 3.6 g/dL Albumin/Globulin Ratio 0.7 (1.0-2.7) L Microbiology Date/Time Source Procedure Growth Status 02/22/18 11:15 Blood Blood Culture - Preliminary NO GROWTH AFTER 24 HOURS Resulted 02/22/18 11:00 Blood Blood Culture - Preliminary NO GROWTH AFTER 24 HOURS Resulted Intake and Output 02/23/18 02/24/18 19:00 07:00 Intake Total 801.25 ml 75 ml Output Total 350 ml 200 ml Balance 451.25 ml -125 ml Intake Oral 0 ml IV Total 801.25 ml 75 ml Output Urine Total 350 ml 200 ml Objective General: No acute distress, awake and Not verbal, HEENT: NCAT, sclera anicteric, PERRL, EOMI. Neck: Supple, no significant jugular venous distention, Lungs: Fair inspiratory effort, Decrease air at bases, no Wheeze or Rales. Heart: Regular rate and rhythm, normal S1/S2, no murmurs. Abdomen: soft, nontender, nondistended. Normoactive bowel sounds. Extremities: No Cyanosis , clubbing or edema. Neuro: limited due to patient status, Unable to move extremities, Skin: warm, no rash Assessment/Plan Assessment/Plan Assessment/Plan Problem List: (1) Pneumonia (2) Acute myocardial infarction non ST-elevation. (3) CHF (congestive heart failure) (4) HTN (hypertension) (5) Hypothyroidism (6) Anemia, iron deficiency (7) CAD (coronary artery disease) (8) PATO on CKD (9) COPD (chronic obstructive pulmonary disease) (10) Paroxysmal atrial fibrillation (11) Altered level of consciousness most likely due to Toxic Metabolic encephalopathy, (12) Lung cancer (13) E coli ESBL UTI Plan: in [facility], Heparin SQ Full code Abx: Meropenem change Solumedral IV Q12 IVF @ 75 cc/hr F/U with Labs and cultures, Marquez Jc MD Feb 24, 2018 12:51
[2018-02-24] MEDS ORDERED: 1/2 NS 1000ml IV ONE (13:25)
[2018-02-24] MEDS ORDERED: Tubing IV Secondary IV ONE (13:25)
--- NOTE | 2018-02-24 14:32 | NUR ---
NURSE NOTES: vital signs stable, no co pain, pt vomited with coffee ground, co monitoring.
--- NOTE | 2018-02-24 15:32 | Pulmonology Progress Note ---
Assessment/Plan Assessment/Plan Pulmonary Progress Note HPI Patient is an 82-year-old male with hx of lung cancer, CAD, atrial fibrillation on Digoxin, [facility] resident, unknown baseline mental status was brought to [facility] by paramedics with CC of [facility]. Pt had low grade temperature and altered mental status for approximately one hour. The EMS the patient was normally somewhat confused. This is his first admission to [facility] and we don't have any information about him or about his DPOA. He had leucocytosis and increased troponin level, without any hx of chest pain. Pt is awake, looks comfortable but doesn't answer to any simple question. Sudden increase in Troponin today - Cardiology aware Allergies: Coded Allergies: No Known Allergies (Unverified , 02/18/18) Medication History Scheduled Bisacodyl (Bisacodyl), 10 MG RC PRN, (Reported) Digoxin* (Digoxin*), 0.25 MG ORAL DAILY, (Reported) Docusate Sodium* (Docusate Sodium*), 100 MG ORAL TWICE A DAY, (Reported) Donepezil Hcl* (Aricept*), 10 MG ORAL DAILY, (Reported) Levothyroxine Sodium (Synthroid), 50 MCG ORAL DAILY, (Reported) Scheduled PRN Acetaminophen* (Acetaminophen 325MG Tablet*), 325 MG ORAL Q6H PRN for For Pain, (Reported) Miscellaneous Medications Lactobacillus Rhamnosus Gg (Culturelle), 1 EACH PO, (Reported) Patient History Healthcare decision maker N Resuscitation status Full Code Advanced Directive on File Past Medical/Surgical History Past Medical/Surgical History: (1) Lung cancer (2) COPD (chronic obstructive pulmonary disease) (3) Paroxysmal atrial fibrillation Review of Systems All Other Systems: negative except mentioned in HPI Physical Exam General Appearance: WD/WN Lines, tubes and drains: peripheral HEENT: normocephalic, atraumatic Neck: non-tender, normal alignment Respiratory/Chest: chest wall non-tender, lungs clear Cardiovascular/Chest: normal peripheral pulses, regularly irregular Abdomen: normal bowel sounds Genitourinary/Rectal: normal genital exam Extremities: normal range of motion Vital Signs Noted TECHNIQUE: Frontal view of the chest. COMPARISON: 02/22/2018 FINDINGS: Lungs: Mildly increased patchy, subtle airspace attenuation right midlung could be incidental, or could represent developing infection or pulmonary edema in the proper clinical context. Pleural space: Similar-appearing small left base pneumothorax without tension component. Similar small left pleural fluid collection. Unchanged left lung lateral pleural thickening. Heart: Unremarkable. No cardiomegaly. Mediastinum: Unremarkable. Bones/joints: Unremarkable. IMPRESSION: 1. Mildly increased patchy, subtle airspace attenuation right midlung could be incidental, or could represent developing infection or pulmonary edema in the proper clinical context. 2. Similar-appearing small left base pneumothorax without tension component. 3. Similar small left pleural fluid collection. 4. Unchanged left lung lateral pleural thickening. Laboratory Tests Test 02/18/18 14:55 02/18/18 15:16 02/18/18 16:15 02/19/18 04:00 White Blood Count 16.2 K/UL (4.8-10.8) H 11.7 K/UL (4.8-10.8) H Red Blood Count 4.54 M/UL (4.70-6.10) L 4.03 M/UL (4.70-6.10) L Hemoglobin 13.2 G/DL (14.2-18.0) L 11.6 G/DL (14.2-18.0) L Hematocrit 41.1 % (42.0-52.0) L 36.3 % (42.0-52.0) L Mean Corpuscular Volume 91 FL (80-99) 90 FL (80-99) Mean Corpuscular Hemoglobin 29.1 PG (27.0-31.0) 28.8 PG (27.0-31.0) Mean Corpuscular Hemoglobin Concent 32.2 G/DL (32.0-36.0) 32.0 G/DL (32.0-36.0) Red Cell Distribution Width 12.5 % (11.6-14.8) 12.3 % (11.6-14.8) Platelet Count 121 K/UL (150-450) L 106 K/UL (150-450) L Mean Platelet Volume 7.7 FL (6.5-10.1) 8.0 FL (6.5-10.1) Neutrophils (%) (Auto) 86.5 % (45.0-75.0) H 79.9 % (45.0-75.0) H Lymphocytes (%) (Auto) 5.8 % (20.0-45.0) L 7.4 % (20.0-45.0) L Monocytes (%) (Auto) 5.1 % (1.0-10.0) 6.3 % (1.0-10.0) Eosinophils (%) (Auto) 1.7 % (0.0-3.0) 5.4 % (0.0-3.0) H Basophils (%) (Auto) 1.0 % (0.0-2.0) 1.0 % (0.0-2.0) Prothrombin Time 12.6 SEC (9.30-11.50) H Prothromb Time International Ratio 1.2 (0.9-1.1) H Activated Partial Thromboplast Time 29 SEC (23-33) Sodium Level 144 MMOL/L (136-145) 144 MMOL/L (136-145) Potassium Level 5.0 MMOL/L (3.5-5.1) 4.7 MMOL/L (3.5-5.1) Chloride Level 106 MMOL/L (98-107) 110 MMOL/L (98-107) H Carbon Dioxide Level 30 MMOL/L (21-32) 27 MMOL/L (21-32) Anion Gap 8 mmol/L (5-15) 7 mmol/L (5-15) Blood Urea Nitrogen 36 mg/dL (7-18) H 33 mg/dL (7-18) H Creatinine 1.4 MG/DL (0.55-1.30) H 1.1 MG/DL (0.55-1.30) Estimat Glomerular Filtration Rate mL/min (>60) mL/min (>60) Glucose Level 112 MG/DL (74-106) H 85 MG/DL (74-106) Lactic Acid Level 2.00 mmol/L (0.4-2.0) 0.90 mmol/L (0.66-2.22) Calcium Level 8.7 MG/DL (8.5-10.1) 8.2 MG/DL (8.5-10.1) L Total Bilirubin 0.5 MG/DL (0.2-1.0) Aspartate Amino Transf (AST/SGOT) 54 U/L (15-37) H Alanine Aminotransferase (ALT/SGPT) 22 U/L (12-78) Alkaline Phosphatase 99 U/L (46-116) Total Creatine Kinase 179 U/L (26-308) Creatine Kinase MB 12.6 NG/ML (0.0-3.6) H Creatine Kinase MB Relative Index 7.0 Troponin I 6.867 ng/mL (0.000-0.056) 6.731 ng/mL (0.000-0.056) 7.171 ng/mL (0.000-0.056) Pro-B-Type Natriuretic Peptide 3815 pg/mL (0-125) H Total Protein 8.3 G/DL (6.4-8.2) H Albumin 3.1 G/DL (3.4-5.0) L 2.5 G/DL (3.4-5.0) L Globulin 5.2 g/dL Albumin/Globulin Ratio 0.6 (1.0-2.7) L Lipase 356 U/L (73-393) Urine Color Pale yellow Urine Appearance Turbid Urine pH 5 (4.5-8.0) Urine Specific [place] 1.015 (1.005-1.035) Urine Protein 4+ (NEGATIVE) H Urine Glucose (UA) Negative (NEGATIVE) Urine Ketones Negative (NEGATIVE) Urine Blood 5+ (NEGATIVE) H Urine Nitrite Negative (NEGATIVE) Urine Bilirubin Negative (NEGATIVE) Urine Urobilinogen Normal MG/DL (0.0-1.0) Urine Leukocyte Esterase 3+ (NEGATIVE) H Urine RBC 0-2 /HPF (0 - 0) H Urine WBC Tntc /HPF (0 - 0) H Urine Squamous Epithelial Cells Occasional /LPF Urine Bacteria Many /HPF (NONE) H Phosphorus Level 3.9 MG/DL (2.5-4.9) Triglycerides Level 95 MG/DL (30-150) Cholesterol Level 187 MG/DL (< 200) LDL Cholesterol 130 mg/dL (<100) H HDL Cholesterol 47 MG/DL (40-60) Cholesterol/HDL Ratio 4.0 (3.3-4.4) Thyroid Stimulating Hormone (TSH) 3.498 uiU/mL (0.358-3.740) Digoxin Level 2.1 NG/ML (0.5-2.0) H Microbiology Date/Time Source Procedure Growth Status 02/18/18 16:50 Nasal Nares Influenza Types A,B Antigen (RUBEN) - Final Complete 02/18/18 15:16 Urine,Clean Catch Urine Culture - Preliminary Gram Negative Wild Resulted Height (Feet): 5 Height (Inches): 10.00 Weight (Pounds): 170 Medications Current Medications Medications (Trade) Dose Ordered Sig/Delvin Route PRN Reason Start Time Stop Time Status Last Admin Dose Admin Acetaminophen (Tylenol) 650 mg Q4H PRN ORAL fever 02/18/18 16:45 03/20/18 16:44 Al Hydroxide/Mg Hydroxide (Mylanta II) 30 ml Q6H PRN ORAL dyspepsia 02/18/18 16:46 03/20/18 16:45 Albuterol/ Ipratropium (Albuterol/ Ipratropium) 3 ml Q4H PRN HHN Shortness of Breath 02/18/18 16:46 02/23/18 16:45 Cefepime HCl 1 gm/ Dextrose 55 ml @ 110 mls/hr Q24H IV 02/18/18 18:00 02/25/18 17:59 02/18/18 18:45 Heparin Sodium (Porcine) (Heparin 5000 units/ml) 5,000 units EVERY 12 HOURS SUBQ 02/18/18 21:00 03/20/18 20:59 02/18/18 21:14 Nitroglycerin (Ntg) 0.4 mg Q5M PRN SL Prn Chest Pain 02/18/18 16:46 03/20/18 16:45 Ondansetron HCl (Zofran) 4 mg Q6H PRN IVP Nausea & Vomiting 02/18/18 16:46 03/20/18 16:45 Polyethylene Glycol (Miralax) 17 gm DAILYPRN PRN ORAL Constipation 02/18/18 16:45 03/20/18 16:44 Promethazine HCl/ Codeine (Phenergan with Codeine) 5 ml Q4H PRN ORAL For Cough 02/18/18 16:46 03/20/18 16:45 Temazepam (Restoril) 15 mg HSPRN PRN ORAL Insomnia 02/18/18 21:00 02/25/18 20:59 Vancomycin HCl (Vanco rx to dose) 1 ea DAILY PRN MISC Per rx protocol 02/18/18 16:30 03/20/18 16:29 Vancomycin HCl 500 mg/Dextrose 110 ml @ 110 mls/hr Q12HR IVPB 02/19/18 09:00 02/24/18 08:59 02/19/18 08:10 Vancomycin HCl 1500 mg/Sodium Chloride 275 ml @ 137.5 mls/ hr ONCE IVPB 02/18/18 16:45 02/23/18 16:44 02/18/18 17:03 Assessment/Plan Problem List: (1) Severe sepsis ICD Codes: A41.9 - Sepsis, unspecified organism; R65.20 - Severe sepsis without septic shock SNOMED: 05397476 (2) Altered level of consciousness ICD Codes: R40.4 - Transient alteration of awareness SNOMED: 3776003 (3) Myocardial injury ICD Codes: S26.90XA - Unspecified injury of heart, unspecified with or without hemopericardium, initial encounter SNOMED: 89603707 (4) Paroxysmal atrial fibrillation ICD Codes: I48.0 - Paroxysmal atrial fibrillation SNOMED: 532106779 (5) COPD (chronic obstructive pulmonary disease) ICD Codes: J44.9 - Chronic obstructive pulmonary disease, unspecified SNOMED: 97119925 (6) Lung cancer ICD Codes: C34.90 - Malignant neoplasm of unspecified part of unspecified bronchus or lung SNOMED: 146813899 Assessment/Plan RODERICK monitoring cardiology consult appreciated broad spectrum abx suero cultures f/u on WBC echo cardiogram check electrolytes group social worker to find DPOA dvt prophylaxis. Subjective ROS Limited/Unobtainable: No Allergies: Coded Allergies: No Known Allergies (Unverified , 02/18/18) Objective Last 24 Hour Vital Signs Date Time Temp Pulse Resp B/P (MAP) Pulse Ox O2 Delivery O2 Flow Rate FiO2 02/24/18 15:17 81 22 100 Nasal Cannula 2.0 28 02/24/18 15:06 80 22 96 Nasal Cannula 3.0 32 02/24/18 13:37 83 02/24/18 12:00 97.7 95 20 146/90 (108) 98 02/24/18 12:00 Nasal Cannula 2.0 02/24/18 10:51 91 22 97 Nasal Cannula 2.0 28 02/24/18 10:40 83 22 93 Nasal Cannula 2.0 28 02/24/18 08:29 94 151/85 02/24/18 08:00 93 02/24/18 08:00 98.4 94 24 151/85 (107) 99 02/24/18 08:00 Nasal Cannula 2.0 02/24/18 07:26 Nasal Cannula 2.0 28 02/24/18 07:25 96 Nasal Cannula 2.0 28 02/24/18 07:25 91 20 97 Nasal Cannula 2.0 28 02/24/18 07:10 89 18 93 Nasal Cannula 2.0 28 02/24/18 04:00 97.1 84 22 140/62 (88) 97 02/24/18 04:00 Nasal Cannula 2.0 02/24/18 04:00 68 02/24/18 00:00 97.9 76 25 135/79 (97) 92 02/24/18 00:00 Nasal Cannula 2.0 02/24/18 00:00 65 02/23/18 23:49 64 20 100 Nasal Cannula 2.0 28 02/23/18 23:39 89 18 94 Nasal Cannula 2.0 28 02/23/18 20:50 80 154/85 02/23/18 20:30 82 20 96 Nasal Cannula 2.0 28 02/23/18 20:17 95 20 92 Room Air 2.0 21 02/23/18 20:17 92 Room Air 21 02/23/18 20:17 Room Air 21 02/23/18 20:00 81 02/23/18 20:00 97.7 80 24 154/85 (108) 94 02/23/18 20:00 Nasal Cannula 2.0 02/23/18 16:00 98.7 74 18 160/80 (106) 95 02/23/18 16:00 Nasal Cannula 2.0 02/23/18 15:44 77 Intake and Output 02/23/18 02/24/18 18:59 06:59 Intake Total 876.25 ml 0 ml Output Total 350 ml 200 ml Balance 526.25 ml -200 ml Intake Oral 0 ml IV Total 876.25 ml Output Urine Total 350 ml 200 ml Microbiology Date/Time Source Procedure Growth Status 02/22/18 11:15 Blood Blood Culture - Preliminary NO GROWTH AFTER 24 HOURS Resulted 02/22/18 11:00 Blood Blood Culture - Preliminary NO GROWTH AFTER 24 HOURS Resulted Laboratory Tests 02/23/18 18:35: Troponin I 8.588H 02/24/18 03:50: Troponin I 7.271H, White Blood Count 21.9H, Red Blood Count 3.77L, Hemoglobin 11.2L, Hematocrit 33.4L, Mean Corpuscular Volume 89, Mean Corpuscular Hemoglobin 29.7, Mean Corpuscular Hemoglobin Concent 33.5, Red Cell Distribution Width 13.3, Platelet Count 56L, Mean Platelet Volume 8.6, Neutrophils (%) (Auto) , Lymphocytes (%) (Auto) , Monocytes (%) (Auto) , Eosinophils (%) (Auto) , Basophils (%) (Auto) , Differential Total Cells Counted 100, Neutrophils % (Manual) 92H, Lymphocytes % (Manual) 3L, Monocytes % (Manual) 2, Eosinophils % (Manual) 0, Basophils % (Manual) 0, Band Neutrophils 3 , Platelet Estimate DecreasedL, Platelet Morphology Normal, Red Blood Cell Morphology Normal, Sodium Level 138, Potassium Level 4.4, Chloride Level 105, Carbon Dioxide Level 22, Anion Gap 11, Blood Urea Nitrogen 37H, Creatinine 1.3, Estimat Glomerular Filtration Rate , Glucose Level 107H, Calcium Level 7.9L, Total Bilirubin 0.3, Aspartate Amino Transf (AST/SGOT) 61H, Alanine Aminotransferase (ALT/SGPT) 35, Alkaline Phosphatase 78, Total Protein 6.2L, Albumin 2.6L, Globulin 3.6, Albumin/Globulin Ratio 0.7L Current Medications Medications (Trade) Dose Ordered Sig/Delvin Route PRN Reason Start Time Stop Time Status Last Admin Dose Admin Acetaminophen (Tylenol) 650 mg Q4H PRN ORAL fever 02/18/18 16:45 03/20/18 16:44 Al Hydroxide/Mg Hydroxide (Mylanta II) 30 ml Q6H PRN ORAL dyspepsia 02/18/18 16:46 03/20/18 16:45 Albuterol/ Ipratropium (Albuterol/ Ipratropium) 3 ml Q4HRT HHN 02/20/18 15:00 02/25/18 14:59 02/24/18 15:05 Atorvastatin Calcium (Lipitor) 10 mg BEDTIME ORAL 02/22/18 21:00 03/24/18 20:59 02/23/18 20:49 Barium Sulfate (Readi-Cat 2) 450 ml NOW PRN ORAL Radiology Procedure 02/23/18 09:15 02/25/18 09:08 Docusate Sodium (Colace) 100 mg TWICE A DAY ORAL 02/23/18 18:00 03/25/18 17:59 02/24/18 08:29 Ertapenem 1 gm/ Sodium Chloride 55 ml @ 110 mls/hr Q24H IVPB 02/23/18 15:00 02/28/18 14:59 02/23/18 15:32 Heparin Sodium (Porcine) (Heparin 5000 units/ml) 5,000 units EVERY 12 HOURS SUBQ 02/18/18 21:00 03/20/18 20:59 02/20/18 08:13 Lactulose (Cephulac) 10 gm EVERY 6 HOURS ORAL 02/24/18 00:00 03/26/18 00:00 02/24/18 05:28 Methylprednisolone Sodium Succinate (Solu-MEDROL) 60 mg Q12HR IVP 02/24/18 21:00 03/22/18 17:59 Metoprolol Tartrate (Lopressor) 25 mg Q12HR ORAL 02/24/18 21:00 03/26/18 20:59 Nitroglycerin (Ntg) 0.4 mg Q5M PRN SL Prn Chest Pain 02/18/18 16:46 03/20/18 16:45 Olanzapine (ZyPREXA) 2.5 mg Q6H PRN ORAL agitation 02/19/18 12:15 03/21/18 12:14 Ondansetron HCl (Zofran) 4 mg Q6H PRN IVP Nausea & Vomiting 02/18/18 16:46 03/20/18 16:45 Polyethylene Glycol (Miralax) 17 gm DAILYPRN PRN ORAL Constipation 02/18/18 16:45 03/20/18 16:44 Promethazine HCl/ Codeine (Phenergan with Codeine) 5 ml Q4H PRN ORAL For Cough 02/18/18 16:46 03/20/18 16:45 Sodium Chloride 1,000 ml @ 75 mls/hr [id number] IV 02/22/18 14:15 03/24/18 14:14 02/24/18 05:29 Temazepam (Restoril) 15 mg HSPRN PRN ORAL Insomnia 02/18/18 21:00 02/25/18 20:59 Chris Samuel MD Feb 24, 2018 15:32
[2018-02-24] MEDS: Ertapenem 1 GM in NS 55 ML IVPB SCH (15:46)
[2018-02-24 16:00] VITALS: BP 152/88
--- NOTE | 2018-02-24 19:10 | NUR ---
HAND-OFF: Report given to ELO CHICAS.
--- NOTE | 2018-02-24 19:11 | NUR ---
NURSE NOTES: Report received from JUAN FRANCISCO Brannon. Pt opens eyes spontaneously, non-verbal. school lunch monitor shows SR. Pt on 2 liters NC. Shows no signs of cardiac or respiratory distress. Pt currently NPO, on TB precautions. Pt has a condom catheter in place and draining well. Skin intact, SPR mattress in place. Pt has a left hand 22 gauge, with 1/2 NS running @ 75 ml/hr. Sputum for AFB #2 needed tomorrow in AM. Bed in lowest position, bed alarms placed. Will continue to monitor and with patients plan of care.
[2018-02-24 20:00] VITALS: BP 139/95
--- NOTE | 2018-02-24 20:40 | NUR ---
NURSE NOTES: Received Pt from JUAN FRANCISCO Camp. Pt is resting on the bed and obtunded. IV site intact and no sign of infiltration noted. On Tele monitor with SR. On O2 3L via nasal cannula and SaO2 95% noted. On NPO. On condom cath and in placed. Given oral suction. Still noted slight blood secretion during oral suction. Provided oral care. On proper airborne precaution. Changed position. Placed fall precaution. Will continue to care plan.
--- NOTE | 2018-02-24 21:30 | NUR ---
NURSE NOTES: Collected AFB smear specimen. Will continue to monitor any change of condition.
[2018-02-24] MEDS: Metoprolol 25mg tab ORAL SCH (21:54)
[2018-02-25] VITALS: BP 137/64
[2018-02-25] MEDS: Lactulose 10gm/15ml UDC ORAL SCH ×6 (00:29→23:30)
[2018-02-25] MEDS: Albuterol/Ipratropium 3ml neb HHN SCH ×3 (03:00→10:41)
[2018-02-25 04:00] VITALS: BP 150/80
--- NOTE | 2018-02-25 07:20 | NUR ---
HAND-OFF: Report given to JUAN FRANCISCO Kaur. Pt is resting on the bed and no sign of acute distress noted.
[2018-02-25 07:26] LABS: HEMATOCRIT 36.1 % (42.0-52.0); HEMOGLOBIN 12.1 G/DL (14.2-18.0); MEAN CORPUSCULAR VOLUME 89 FL (80-99); PLATELET COUNT 45 K/UL (150-450); RED BLOOD COUNT 4.07 M/UL (4.70-6.10); RED CELL DISTRIBUTION WIDTH 13.4 % (11.6-14.8)
[2018-02-25 07:29] LABS: WHITE BLOOD COUNT 22.3 K/UL (4.8-10.8)
[2018-02-25 07:50] LABS: ANION GAP 10 mmol/L (5-15); BLOOD UREA NITROGEN 43 mg/dL (7-18); CARBON DIOXIDE 25 MMOL/L (21-32); CHLORIDE 105 MMOL/L (98-107); CREATININE 1.4 MG/DL (0.55-1.30); PHOSPHORUS 3.5 MG/DL (2.5-4.9); POTASSIUM 4.7 MMOL/L (3.5-5.1); SODIUM 140 MMOL/L (136-145)
[2018-02-25 08:00] VITALS: BP 153/96
--- NOTE | 2018-02-25 08:15 | NUR ---
NURSE NOTES: received pt in the bed, awake, confused, vital signs stable, no co pain, no SOB, skin warm and dry to touch, NPO, condom catheter with yellow urine, bed in low position, HOB elevated.
[2018-02-25] MEDS: Heparin 5000 units/ml inj SUBQ SCH ×2 (08:32→20:35)
--- NOTE | 2018-02-25 09:03 | NUR ---
RADIOLOGY DEPT CHEST X-RAY DONE.-P.DYE
[2018-02-25] MEDS: Docusate 100mg cap ORAL SCH ×2 (09:30→18:00)
[2018-02-25] MEDS: Solu-MEDROL 125mg Inj IVP SCH (09:30)
[2018-02-25] MEDS: Metoprolol 25mg tab ORAL SCH ×2 (09:30→20:35)
--- NOTE | 2018-02-25 09:34 | NUR ---
CASE MANAGEMENT: REVIEW SI: LUNG CA . COPD . 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
--- NOTE | 2018-02-25 10:25 | NUR ---
RD ASSESSMENT & RECOMMENDATIONS SEE CARE ACTIVITY FOR COMPLETE ASSESSMENT DAILY ESTIMATED NEEDS: Needs based on Mild wasting, pulmonary 63kg 27-32 kcals/kg 9380-4737 total kcals 1-1.5 g protein/kg 63-95 g total protein 25-30 mL/kg 2625-2469 total fluid mLs NUTRITION DIAGNOSIS: Swallowing difficulty r/t dysphagia as evidenced by s/p SHELTER DIRECTOR eval, pt on liquify puree, souplike NTL diet. CURRENT DIET: Regular Liquify puree / NTL -> now NPO PO DIET RECOMMENDATIONS: LIBERAL/ REGULAR diet (texture per SHELTER DIRECTOR) ADDITIONAL RECOMMENDATIONS: 1) Glucerna TID w/ all meals 2) CALIBRATED BED SCALE WT-> pt does not appear to be 170# per EMR 3) Monitor BG on solumedrol, need for SSI 4) Wound care: add ROSEANN BID (f/up w/ eval)
[2018-02-25 12:00] VITALS: BP 131/80
--- NOTE | 2018-02-25 12:08 | Diagnostic Imaging Report ---
Indication: Shortness of breath Technique: XRAY Chest 1v Comparison: 02/23/2018 Findings: Heart size and mediastinal contours are stable. Again noted are multiple pleural-based calcifications on the left. There is subtle lucency in the periphery of the left lung which may represent a loculated pneumothorax. This is unchanged. No pneumothorax. There are increasing right-sided airspace opacities. No radiopaque foreign body. Impression: Slight increased patchy right-sided airspace opacities concerning for pneumonia or alveolar edema. Clinical correlation/follow-up recommended. Pleural-based calcifications of the left with volume loss in pleural thickening at the left costophrenic sulcus. Subtle lucency at the periphery of the left midlung may represent loculated pneumothorax or artifact.
--- NOTE | 2018-02-25 12:30 | NUR ---
NURSE NOTES: o2 sat drop to 77%, RT put pt on non rebr mask, o2 sat up to 99%, ABG done, continue monitoring.
--- NOTE | 2018-02-25 12:56 | Infectious Diseases Prog Note ---
Assessment/Plan Assessment/Plan Assessment: Hemoptysis ( after nasal suctioning< noted pt was placed in A.Isolation per Pul) -02/25 CXR: Slight increased patchy right-sided airspace opacities concerning for pneumonia or\alveolar edema. Clinical correlation/follow-up recommended. Pleural-based calcifications of the left with volume loss in pleural thickening at the left costophrenic sulcus. Subtle lucency at the periphery of the left midlung may represent loculated pneumothorax or artifact. Sepsis, SP- 2ry to UTI -u.a wbc tntc, nit -, leuk +3; u cx >100k ESBL E.coli; 02/22 u/a wbc 5-10, nit neg, luek +1; ucx p -CXR: Left midlung and calcified parenchymal scarring. Numerous calcified hilar nodes suggest old granulomatous disease. Left apical lucency could reflect compensatory hyperinflation or COPD changes. No definite acute process Afebrile Leukocytosis, increased (on high dose steroids)- -02/23 CT abd/p: Wall thickening of the distal esophagus and gastric cardia. Esophageal findings are suspicious for esophagitis. Findings in the stomach could be an artifact of redundant mucosa secondary to incomplete distention, but raise concern for neoplasm or gastritis. Colonic diverticulosis. No evidence of acute diverticulitis. Evidence old granulomatous disease, with multiple calcifications in the liver and spleen. Distended bladder. Edema of the lumbar region subcutaneous fat and of the bilateral lower flanks, buttock and hip regions. Bilateral pleural effusions and basilar pulmonary atelectatic changes -02/22 Bcx NTD CXR: Mild sub-segmental atelectasis in the medial lung bases. No significant change in the scarring versus linear atelectasis at the periphery of the left midlung, with possible underlying pleural calcifications. Scattered calcified hilar lymph nodes, unchanged. Acute encephalopathy -CT head: no acute findings Dementia dysphagia HTN lung CA CAD CKD COPD Af[facility] resident Plan: -Continue Ertapenem # 4 (abx d #07/10) for ESBL UTI and add IV Vancomycin for PNA - 02/22 SP Bactrim #3 - 02/20 SP Cefepime # 3 - 02/19 SP IV Vancomycin #2 - 02/18 SP Unasyn x1 -CT chest -Sp cx -f/u cx -Monitor CBC/CMP, temperatures -aspiration precautions -AFBx 3 : P Subjective Allergies: Coded Allergies: No Known Allergies (Unverified , 02/18/18) Subjective afebrile leukocytosis on high dose steroids now on airborne isolation Objective Vital Signs Last 24 Hour Vital Signs Date Time Temp Pulse Resp B/P (MAP) Pulse Ox O2 Delivery O2 Flow Rate FiO2 02/25/18 12:00 Non-Rebreather 15.0 02/25/18 12:00 98.2 83 30 131/80 (97) 99 02/25/18 10:41 78 20 94 Nasal Cannula 2.0 28 02/25/18 10:40 98 26 99 Nasal Cannula 3.0 28 02/25/18 09:30 87 153/96 02/25/18 08:19 87 02/25/18 08:00 Nasal Cannula 3.0 02/25/18 08:00 97.9 90 25 153/96 (115) 99 02/25/18 07:24 80 24 100 Nasal Cannula 3.0 28 02/25/18 07:16 98 Nasal Cannula 3.0 32 02/25/18 07:16 Nasal Cannula 3.0 32 02/25/18 07:14 94 20 98 Nasal Cannula 2.0 28 02/25/18 04:00 Nasal Cannula 3.0 02/25/18 04:00 98.2 72 20 150/80 (103) 97 02/25/18 04:00 84 02/25/18 03:07 77 20 98 Nasal Cannula 2.0 28 02/25/18 03:00 81 21 95 Nasal Cannula 2.0 28 02/25/18 00:00 79 02/25/18 00:00 Nasal Cannula 3.0 02/25/18 00:00 98.4 71 20 137/64 (88) 97 02/24/18 23:05 94 24 99 Nasal Cannula 2.0 28 02/24/18 22:57 91 25 96 Nasal Cannula 2.0 28 02/24/18 21:54 99 139/95 02/24/18 20:00 98.2 99 20 139/95 (110) 95 02/24/18 20:00 Nasal Cannula 3.0 02/24/18 20:00 122 02/24/18 19:05 89 22 99 Nasal Cannula 2.0 28 02/24/18 18:58 Nasal Cannula 3.0 32 02/24/18 18:58 95 Nasal Cannula 3.0 32 02/24/18 18:57 83 24 95 Nasal Cannula 3.0 32 02/24/18 16:00 86 02/24/18 16:00 Nasal Cannula 2.0 02/24/18 16:00 98.9 93 20 152/88 (109) 95 02/24/18 15:17 81 22 100 Nasal Cannula 2.0 28 02/24/18 15:06 80 22 96 Nasal Cannula 3.0 32 02/24/18 13:37 83 Height (Feet): 5 Height (Inches): 10.00 Weight (Pounds): 170 Objective GENERAL: Shows to be an elderly gentleman who is not responsive, noncommunicative. NECK: Supple. No jugular distention. LUNGS: Appear to be clear to auscultation and percussion. CARDIAC: Regular rate and rhythm. No heaves, thrills, or gallops noted. ABDOMEN: Soft and nontender. Positive bowel sounds. EXTREMITIES: There is no edema. No clubbing or cyanosis. NEUROLOGICAL: He is really not responsive at all to any stimuli through me. Laboratory Tests Test 02/25/18 07:00 02/25/18 12:11 White Blood Count 22.3 K/UL (4.8-10.8) *H Red Blood Count 4.07 M/UL (4.70-6.10) L Hemoglobin 12.1 G/DL (14.2-18.0) L Hematocrit 36.1 % (42.0-52.0) L Mean Corpuscular Volume 89 FL (80-99) Mean Corpuscular Hemoglobin 29.7 PG (27.0-31.0) Mean Corpuscular Hemoglobin Concent 33.5 G/DL (32.0-36.0) Red Cell Distribution Width 13.4 % (11.6-14.8) Platelet Count 45 K/UL (150-450) L Mean Platelet Volume 9.2 FL (6.5-10.1) Neutrophils (%) (Auto) % (45.0-75.0) Lymphocytes (%) (Auto) % (20.0-45.0) Monocytes (%) (Auto) % (1.0-10.0) Eosinophils (%) (Auto) % (0.0-3.0) Basophils (%) (Auto) % (0.0-2.0) Differential Total Cells Counted 100 Neutrophils % (Manual) 95 % (45-75) H Lymphocytes % (Manual) 1 % (20-45) L Monocytes % (Manual) 2 % (1-10) Eosinophils % (Manual) 2 % (0-3) Basophils % (Manual) 0 % (0-2) Band Neutrophils 0 % (0-8) Platelet Estimate Decreased L Platelet Morphology Normal Ovalocytes 1+ Sodium Level 140 MMOL/L (136-145) Potassium Level 4.7 MMOL/L (3.5-5.1) Chloride Level 105 MMOL/L (98-107) Carbon Dioxide Level 25 MMOL/L (21-32) Anion Gap 10 mmol/L (5-15) Blood Urea Nitrogen 43 mg/dL (7-18) H Creatinine 1.4 MG/DL (0.55-1.30) H Estimat Glomerular Filtration Rate mL/min (>60) Glucose Level 103 MG/DL (74-106) Calcium Level 8.0 MG/DL (8.5-10.1) L Phosphorus Level 3.5 MG/DL (2.5-4.9) Magnesium Level 2.2 MG/DL (1.8-2.4) Arterial Blood pH 7.380 (7.350-7.450) Arterial Blood Partial Pressure CO2 36.2 mmHg (35.0-45.0) Arterial Blood Partial Pressure O2 228.3 mmHg (75.0-100.0) H Arterial Blood HCO3 21.4 mmol/L (22.0-26.0) L Arterial Blood Oxygen Saturation 98.9 % (95-100) Arterial Blood Base Excess -3.1 (-2-2) L Tha Test Positive Current Medications Medications (Trade) Dose Ordered Sig/Delvin Route PRN Reason Start Time Stop Time Status Last Admin Dose Admin Acetaminophen (Tylenol) 650 mg Q4H PRN ORAL fever 02/18/18 16:45 03/20/18 16:44 Al Hydroxide/Mg Hydroxide (Mylanta II) 30 ml Q6H PRN ORAL dyspepsia 02/18/18 16:46 03/20/18 16:45 Albuterol/ Ipratropium (Albuterol/ Ipratropium) 3 ml Q4HRT HHN 02/20/18 15:00 02/25/18 14:59 02/25/18 10:41 Atorvastatin Calcium (Lipitor) 10 mg BEDTIME ORAL 02/22/18 21:00 03/24/18 20:59 02/24/18 21:53 Docusate Sodium (Colace) 100 mg TWICE A DAY ORAL 02/23/18 18:00 03/25/18 17:59 02/25/18 09:30 Ertapenem 1 gm/ Sodium Chloride 55 ml @ 110 mls/hr Q24H IVPB 02/23/18 15:00 02/28/18 14:59 02/24/18 15:46 Heparin Sodium (Porcine) (Heparin 5000 units/ml) 5,000 units EVERY 12 HOURS SUBQ 02/18/18 21:00 03/20/18 20:59 02/20/18 08:13 Lactulose (Cephulac) 10 gm EVERY 6 HOURS ORAL 02/24/18 00:00 03/26/18 00:00 02/25/18 05:51 Methylprednisolone Sodium Succinate (Solu-MEDROL) 60 mg Q12HR IVP 02/24/18 21:00 03/22/18 17:59 02/25/18 09:30 Metoprolol Tartrate (Lopressor) 25 mg Q12HR ORAL 02/24/18 21:00 03/26/18 20:59 02/25/18 09:30 Nitroglycerin (Ntg) 0.4 mg Q5M PRN SL Prn Chest Pain 02/18/18 16:46 03/20/18 16:45 Olanzapine (ZyPREXA) 2.5 mg Q6H PRN ORAL agitation 02/19/18 12:15 03/21/18 12:14 Ondansetron HCl (Zofran) 4 mg Q6H PRN IVP Nausea & Vomiting 02/18/18 16:46 03/20/18 16:45 Polyethylene Glycol (Miralax) 17 gm DAILYPRN PRN ORAL Constipation 02/18/18 16:45 03/20/18 16:44 Promethazine HCl/ Codeine (Phenergan with Codeine) 5 ml Q4H PRN ORAL For Cough 02/18/18 16:46 03/20/18 16:45 Sodium Chloride 1,000 ml @ 75 mls/hr [id number] IV 02/22/18 14:15 03/24/18 14:14 02/25/18 09:29 Temazepam (Restoril) 15 mg HSPRN PRN ORAL Insomnia 02/18/18 21:00 02/25/18 20:59 Anne-Marie Butler M.D. Feb 25, 2018 12:56
[2018-02-25] MEDS: Ertapenem 1 GM in NS 55 ML IVPB SCH (13:53)
[2018-02-25] MEDS ORDERED: Vancomycin 1.5 GM/D5W 250ML IVPB ONE (14:30)
[2018-02-25] MEDS ORDERED: NS Irrig 1000ml ONE (14:39)
[2018-02-25] MEDS ORDERED: 1/2 NS 1000ml IV ONE (14:39)
--- NOTE | 2018-02-25 15:16 | Internal Med Progress Note ---
Subjective Physician Name HoseaMarquez Attending Physician Gila Sibley MD Current Medications Medications (Trade) Dose Ordered Sig/Delvin Route PRN Reason Start Time Stop Time Status Last Admin Dose Admin Acetaminophen (Tylenol) 650 mg Q4H PRN ORAL fever 02/18/18 16:45 03/20/18 16:44 Al Hydroxide/Mg Hydroxide (Mylanta II) 30 ml Q6H PRN ORAL dyspepsia 02/18/18 16:46 03/20/18 16:45 Atorvastatin Calcium (Lipitor) 10 mg BEDTIME ORAL 02/22/18 21:00 03/24/18 20:59 02/24/18 21:53 Docusate Sodium (Colace) 100 mg TWICE A DAY ORAL 02/23/18 18:00 03/25/18 17:59 02/25/18 09:30 Ertapenem 1 gm/ Sodium Chloride 55 ml @ 110 mls/hr Q24H IVPB 02/23/18 15:00 02/28/18 14:59 02/25/18 13:53 Heparin Sodium (Porcine) (Heparin 5000 units/ml) 5,000 units EVERY 12 HOURS SUBQ 02/18/18 21:00 03/20/18 20:59 02/20/18 08:13 Lactulose (Cephulac) 10 gm EVERY 6 HOURS ORAL 02/24/18 00:00 03/26/18 00:00 02/25/18 12:54 Methylprednisolone Sodium Succinate (Solu-MEDROL) 60 mg Q12HR IVP 02/24/18 21:00 03/22/18 17:59 02/25/18 09:30 Metoprolol Tartrate (Lopressor) 25 mg Q12HR ORAL 02/24/18 21:00 03/26/18 20:59 02/25/18 09:30 Nitroglycerin (Ntg) 0.4 mg Q5M PRN SL Prn Chest Pain 02/18/18 16:46 03/20/18 16:45 Olanzapine (ZyPREXA) 2.5 mg Q6H PRN ORAL agitation 02/19/18 12:15 03/21/18 12:14 Ondansetron HCl (Zofran) 4 mg Q6H PRN IVP Nausea & Vomiting 02/18/18 16:46 03/20/18 16:45 Polyethylene Glycol (Miralax) 17 gm DAILYPRN PRN ORAL Constipation 02/18/18 16:45 03/20/18 16:44 Promethazine HCl/ Codeine (Phenergan with Codeine) 5 ml Q4H PRN ORAL For Cough 02/18/18 16:46 03/20/18 16:45 Temazepam (Restoril) 15 mg HSPRN PRN ORAL Insomnia 02/18/18 21:00 02/25/18 20:59 Vancomycin HCl (Vanco rx to dose) 1 ea DAILY PRN MISC Per rx protocol 02/25/18 13:00 03/27/18 12:59 Vancomycin HCl/ Dextrose 250 ml @ 125 mls/hr ONCE ONCE IVPB 02/25/18 14:30 02/25/18 16:29 02/25/18 14:56 Vancomycin/Sodium Chloride 250 ml @ 166.667 mls/hr Q24H IVPB 02/26/18 15:30 03/03/18 15:29 Allergies: Coded Allergies: No Known Allergies (Unverified , 02/18/18) Subjective awake, open eyes, responsive bur not verbal, NAD, Objective Last Vital Signs Date Time Temp Pulse Resp B/P (MAP) Pulse Ox O2 Delivery O2 Flow Rate FiO2 02/25/18 13:04 82 02/25/18 12:00 Non-Rebreather 15.0 02/25/18 12:00 98.2 30 131/80 (97) 99 02/25/18 10:41 28 Laboratory Tests Test 02/25/18 07:00 02/25/18 12:11 White Blood Count 22.3 K/UL (4.8-10.8) *H Red Blood Count 4.07 M/UL (4.70-6.10) L Hemoglobin 12.1 G/DL (14.2-18.0) L Hematocrit 36.1 % (42.0-52.0) L Mean Corpuscular Volume 89 FL (80-99) Mean Corpuscular Hemoglobin 29.7 PG (27.0-31.0) Mean Corpuscular Hemoglobin Concent 33.5 G/DL (32.0-36.0) Red Cell Distribution Width 13.4 % (11.6-14.8) Platelet Count 45 K/UL (150-450) L Mean Platelet Volume 9.2 FL (6.5-10.1) Neutrophils (%) (Auto) % (45.0-75.0) Lymphocytes (%) (Auto) % (20.0-45.0) Monocytes (%) (Auto) % (1.0-10.0) Eosinophils (%) (Auto) % (0.0-3.0) Basophils (%) (Auto) % (0.0-2.0) Differential Total Cells Counted 100 Neutrophils % (Manual) 95 % (45-75) H Lymphocytes % (Manual) 1 % (20-45) L Monocytes % (Manual) 2 % (1-10) Eosinophils % (Manual) 2 % (0-3) Basophils % (Manual) 0 % (0-2) Band Neutrophils 0 % (0-8) Platelet Estimate Decreased L Platelet Morphology Normal Ovalocytes 1+ Sodium Level 140 MMOL/L (136-145) Potassium Level 4.7 MMOL/L (3.5-5.1) Chloride Level 105 MMOL/L (98-107) Carbon Dioxide Level 25 MMOL/L (21-32) Anion Gap 10 mmol/L (5-15) Blood Urea Nitrogen 43 mg/dL (7-18) H Creatinine 1.4 MG/DL (0.55-1.30) H Estimat Glomerular Filtration Rate mL/min (>60) Glucose Level 103 MG/DL (74-106) Calcium Level 8.0 MG/DL (8.5-10.1) L Phosphorus Level 3.5 MG/DL (2.5-4.9) Magnesium Level 2.2 MG/DL (1.8-2.4) Arterial Blood pH 7.380 (7.350-7.450) Arterial Blood Partial Pressure CO2 36.2 mmHg (35.0-45.0) Arterial Blood Partial Pressure O2 228.3 mmHg (75.0-100.0) H Arterial Blood HCO3 21.4 mmol/L (22.0-26.0) L Arterial Blood Oxygen Saturation 98.9 % (95-100) Arterial Blood Base Excess -3.1 (-2-2) L Tha Test Positive Intake and Output 02/24/18 02/25/18 19:00 07:00 Intake Total 830 ml 796 ml Output Total 450 ml Balance 830 ml 346 ml IV Total 830 ml 796 ml Output Urine Total 450 ml # Voids 1 Objective General: No acute distress, awake and Not verbal, HEENT: NCAT, sclera anicteric, PERRL, Neck: Supple, no significant jugular venous distention, Lungs: Fair inspiratory effort, Decrease air at bases, no Wheeze or Rales. Heart: Regular rate and rhythm, normal S1/S2, no murmurs. Abdomen: soft, nontender, nondistended. Normoactive bowel sounds. Extremities: No Cyanosis , clubbing or edema. Neuro: limited due to patient status, Unable to move extremities, Skin: warm, no rash Assessment/Plan Assessment/Plan Assessment/Plan Problem List: (1) Pneumonia (2) Acute myocardial infarction non ST-elevation. (3) CHF (congestive heart failure) (4) HTN (hypertension) (5) Hypothyroidism (6) Anemia, iron deficiency (7) CAD (coronary artery disease) (8) PATO on CKD (9) COPD (chronic obstructive pulmonary disease) (10) Paroxysmal atrial fibrillation (11) Altered level of consciousness most likely due to Toxic Metabolic encephalopathy, (12) Lung cancer (13) E coli ESBL UTI Plan: in [facility], Heparin SQ Full code Abx: Meropenem, Vanco IV change Solumedral 40mg IV Q12 IVF @ 75 cc/hr F/U with Labs and cultures, GI consult for pEG placement Start Protonix IV NPO Marquez Jc MD Feb 25, 2018 15:16
[2018-02-25] MEDS: Pantoprazole Inj IVP SCH (15:48)
[2018-02-25 16:00] VITALS: BP 154/78
--- NOTE | 2018-02-25 16:14 | Pulmonology Progress Note ---
Assessment/Plan Assessment/Plan Pulmonary Progress Note HPI Patient is an 82-year-old male with hx of lung cancer, CAD, atrial fibrillation on Digoxin, residential resident, unknown baseline mental status [place] [facility] [place] with CC of JIMMY. Pt had low grade temperature and altered mental status for approximately one hour. The EMS the patient was normally somewhat confused. This is his [place] [facility] we don't have any information about him or about his DPOA. He had leucocytosis and increased troponin level, without any hx of chest pain. Pt is awake, looks comfortable but doesn't answer to any simple question. CXR worsening right sided infiltrates, IVF reduced, awaiting considefration for possible G tube Antibiotics per ID O2 PRN, BiPAP PRN Sudden increase in Troponin today - Cardiology aware Allergies: Coded Allergies: No Known Allergies (Unverified , 02/18/18) Medication History Scheduled Bisacodyl (Bisacodyl), 10 MG RC PRN, (Reported) Digoxin* (Digoxin*), 0.25 MG ORAL DAILY, (Reported) Docusate Sodium* (Docusate Sodium*), 100 MG ORAL TWICE A DAY, (Reported) Donepezil Hcl* (Aricept*), 10 MG ORAL DAILY, (Reported) Levothyroxine Sodium (Synthroid), 50 MCG ORAL DAILY, (Reported) Scheduled PRN Acetaminophen* (Acetaminophen 325MG Tablet*), 325 MG ORAL Q6H PRN for For Pain, (Reported) Miscellaneous Medications Lactobacillus Rhamnosus Gg (Culturelle), 1 EACH PO, (Reported) Patient History Healthcare decision maker N Resuscitation status Full Code Advanced Directive on File Past Medical/Surgical History Past Medical/Surgical History: (1) Lung cancer (2) COPD (chronic obstructive pulmonary disease) (3) Paroxysmal atrial fibrillation Review of Systems All Other Systems: negative except mentioned in HPI Physical Exam General Appearance: WD/WN Lines, tubes and drains: peripheral HEENT: normocephalic, atraumatic Neck: non-tender, normal alignment Respiratory/Chest: chest wall non-tender, lungs clear Cardiovascular/Chest: normal peripheral pulses, regularly irregular Abdomen: normal bowel sounds Genitourinary/Rectal: normal genital exam Extremities: normal range of motion Vital Signs Noted TECHNIQUE: Frontal view of the chest. COMPARISON: 02/22/2018 FINDINGS: Lungs: Mildly increased patchy, subtle airspace attenuation right midlung could be incidental, or could represent developing infection or pulmonary edema in the proper clinical context. Pleural space: Similar-appearing small left base pneumothorax without tension component. Similar small left pleural fluid collection. Unchanged left lung lateral pleural thickening. Heart: Unremarkable. No cardiomegaly. Mediastinum: Unremarkable. Bones/joints: Unremarkable. IMPRESSION: 1. Mildly increased patchy, subtle airspace attenuation right midlung could be incidental, or could represent developing infection or pulmonary edema in the proper clinical context. 2. Similar-appearing small left base pneumothorax without tension component. 3. Similar small left pleural fluid collection. 4. Unchanged left lung lateral pleural thickening. Laboratory Tests Test 02/18/18 14:55 02/18/18 15:16 02/18/18 16:15 02/19/18 04:00 White Blood Count 16.2 K/UL (4.8-10.8) H 11.7 K/UL (4.8-10.8) H Red Blood Count 4.54 M/UL (4.70-6.10) L 4.03 M/UL (4.70-6.10) L Hemoglobin 13.2 G/DL (14.2-18.0) L 11.6 G/DL (14.2-18.0) L Hematocrit 41.1 % (42.0-52.0) L 36.3 % (42.0-52.0) L Mean Corpuscular Volume 91 FL (80-99) 90 FL (80-99) Mean Corpuscular Hemoglobin 29.1 PG (27.0-31.0) 28.8 PG (27.0-31.0) Mean Corpuscular Hemoglobin Concent 32.2 G/DL (32.0-36.0) 32.0 G/DL (32.0-36.0) Red Cell Distribution Width 12.5 % (11.6-14.8) 12.3 % (11.6-14.8) Platelet Count 121 K/UL (150-450) L 106 K/UL (150-450) L Mean Platelet Volume 7.7 FL (6.5-10.1) 8.0 FL (6.5-10.1) Neutrophils (%) (Auto) 86.5 % (45.0-75.0) H 79.9 % (45.0-75.0) H Lymphocytes (%) (Auto) 5.8 % (20.0-45.0) L 7.4 % (20.0-45.0) L Monocytes (%) (Auto) 5.1 % (1.0-10.0) 6.3 % (1.0-10.0) Eosinophils (%) (Auto) 1.7 % (0.0-3.0) 5.4 % (0.0-3.0) H Basophils (%) (Auto) 1.0 % (0.0-2.0) 1.0 % (0.0-2.0) Prothrombin Time 12.6 SEC (9.30-11.50) H Prothromb Time International Ratio 1.2 (0.9-1.1) H Activated Partial Thromboplast Time 29 SEC (23-33) Sodium Level 144 MMOL/L (136-145) 144 MMOL/L (136-145) Potassium Level 5.0 MMOL/L (3.5-5.1) 4.7 MMOL/L (3.5-5.1) Chloride Level 106 MMOL/L (98-107) 110 MMOL/L (98-107) H Carbon Dioxide Level 30 MMOL/L (21-32) 27 MMOL/L (21-32) Anion Gap 8 mmol/L (5-15) 7 mmol/L (5-15) Blood Urea Nitrogen 36 mg/dL (7-18) H 33 mg/dL (7-18) H Creatinine 1.4 MG/DL (0.55-1.30) H 1.1 MG/DL (0.55-1.30) Estimat Glomerular Filtration Rate mL/min (>60) mL/min (>60) Glucose Level 112 MG/DL (74-106) H 85 MG/DL (74-106) Lactic Acid Level 2.00 mmol/L (0.4-2.0) 0.90 mmol/L (0.66-2.22) Calcium Level 8.7 MG/DL (8.5-10.1) 8.2 MG/DL (8.5-10.1) L Total Bilirubin 0.5 MG/DL (0.2-1.0) Aspartate Amino Transf (AST/SGOT) 54 U/L (15-37) H Alanine Aminotransferase (ALT/SGPT) 22 U/L (12-78) Alkaline Phosphatase 99 U/L (46-116) Total Creatine Kinase 179 U/L (26-308) Creatine Kinase MB 12.6 NG/ML (0.0-3.6) H Creatine Kinase MB Relative Index 7.0 Troponin I 6.867 ng/mL (0.000-0.056) 6.731 ng/mL (0.000-0.056) 7.171 ng/mL (0.000-0.056) Pro-B-Type Natriuretic Peptide 3815 pg/mL (0-125) H Total Protein 8.3 G/DL (6.4-8.2) H Albumin 3.1 G/DL (3.4-5.0) L 2.5 G/DL (3.4-5.0) L Globulin 5.2 g/dL Albumin/Globulin Ratio 0.6 (1.0-2.7) L Lipase 356 U/L (73-393) Urine Color Pale yellow Urine Appearance Turbid Urine pH 5 (4.5-8.0) Urine Specific [place] 1.015 (1.005-1.035) Urine Protein 4+ (NEGATIVE) H Urine Glucose (UA) Negative (NEGATIVE) Urine Ketones Negative (NEGATIVE) Urine Blood 5+ (NEGATIVE) H Urine Nitrite Negative (NEGATIVE) Urine Bilirubin Negative (NEGATIVE) Urine Urobilinogen Normal MG/DL (0.0-1.0) Urine Leukocyte Esterase 3+ (NEGATIVE) H Urine RBC 0-2 /HPF (0 - 0) H Urine WBC Tntc /HPF (0 - 0) H Urine Squamous Epithelial Cells Occasional /LPF Urine Bacteria Many /HPF (NONE) H Phosphorus Level 3.9 MG/DL (2.5-4.9) Triglycerides Level 95 MG/DL (30-150) Cholesterol Level 187 MG/DL (< 200) LDL Cholesterol 130 mg/dL (<100) H HDL Cholesterol 47 MG/DL (40-60) Cholesterol/HDL Ratio 4.0 (3.3-4.4) Thyroid Stimulating Hormone (TSH) 3.498 uiU/mL (0.358-3.740) Digoxin Level 2.1 NG/ML (0.5-2.0) H Microbiology Date/Time Source Procedure Growth Status 02/18/18 16:50 Nasal Nares Influenza Types A,B Antigen (RUBEN) - Final Complete 02/18/18 15:16 Urine,Clean Catch Urine Culture - Preliminary Gram Negative Wild Resulted Height (Feet): 5 Height (Inches): 10.00 Weight (Pounds): 170 Medications Current Medications Medications (Trade) Dose Ordered Sig/Delvin Route PRN Reason Start Time Stop Time Status Last Admin Dose Admin Acetaminophen (Tylenol) 650 mg Q4H PRN ORAL fever 02/18/18 16:45 03/20/18 16:44 Al Hydroxide/Mg Hydroxide (Mylanta II) 30 ml Q6H PRN ORAL dyspepsia 02/18/18 16:46 03/20/18 16:45 Albuterol/ Ipratropium (Albuterol/ Ipratropium) 3 ml Q4H PRN HHN Shortness of Breath 02/18/18 16:46 02/23/18 16:45 Cefepime HCl 1 gm/ Dextrose 55 ml @ 110 mls/hr Q24H IV 02/18/18 18:00 02/25/18 17:59 02/18/18 18:45 Heparin Sodium (Porcine) (Heparin 5000 units/ml) 5,000 units EVERY 12 HOURS SUBQ 02/18/18 21:00 03/20/18 20:59 02/18/18 21:14 Nitroglycerin (Ntg) 0.4 mg Q5M PRN SL Prn Chest Pain 02/18/18 16:46 03/20/18 16:45 Ondansetron HCl (Zofran) 4 mg Q6H PRN IVP Nausea & Vomiting 02/18/18 16:46 03/20/18 16:45 Polyethylene Glycol (Miralax) 17 gm DAILYPRN PRN ORAL Constipation 02/18/18 16:45 03/20/18 16:44 Promethazine HCl/ Codeine (Phenergan with Codeine) 5 ml Q4H PRN ORAL For Cough 02/18/18 16:46 03/20/18 16:45 Temazepam (Restoril) 15 mg HSPRN PRN ORAL Insomnia 02/18/18 21:00 02/25/18 20:59 Vancomycin HCl (Vanco rx to dose) 1 ea DAILY PRN MISC Per rx protocol 02/18/18 16:30 03/20/18 16:29 Vancomycin HCl 500 mg/Dextrose 110 ml @ 110 mls/hr Q12HR IVPB 02/19/18 09:00 02/24/18 08:59 02/19/18 08:10 Vancomycin HCl 1500 mg/Sodium Chloride 275 ml @ 137.5 mls/ hr ONCE IVPB 02/18/18 16:45 02/23/18 16:44 02/18/18 17:03 Assessment/Plan Problem List: (1) Severe sepsis ICD Codes: A41.9 - Sepsis, unspecified organism; R65.20 - Severe sepsis without septic shock SNOMED: 12978785 (2) Altered level of consciousness ICD Codes: R40.4 - Transient alteration of awareness SNOMED: 0980565 (3) Myocardial injury ICD Codes: S26.90XA - Unspecified injury of heart, unspecified with or without hemopericardium, initial encounter SNOMED: 60299838 (4) Paroxysmal atrial fibrillation ICD Codes: I48.0 - Paroxysmal atrial fibrillation SNOMED: 409003487 (5) COPD (chronic obstructive pulmonary disease) ICD Codes: J44.9 - Chronic obstructive pulmonary disease, unspecified SNOMED: 10175056 (6) Lung cancer ICD Codes: C34.90 - Malignant neoplasm of unspecified part of unspecified bronchus or lung SNOMED: 376803945 Assessment/Plan RODERICK monitoring cardiology consult appreciated broad spectrum abx suero cultures f/u on WBC echo cardiogram check electrolytes social welfare administrator to find DPOA dvt prophylaxis Antibiotics per ID O2 PRN, BiPAP PRN Subjective ROS Limited/Unobtainable: No Respiratory: Reports: shortness of breath Allergies: Coded Allergies: No Known Allergies (Unverified , 02/18/18) Objective Last 24 Hour Vital Signs Date Time Temp Pulse Resp B/P (MAP) Pulse Ox O2 Delivery O2 Flow Rate FiO2 02/25/18 13:04 82 02/25/18 12:00 Non-Rebreather 15.0 02/25/18 12:00 98.2 83 30 131/80 (97) 99 02/25/18 10:41 78 20 94 Nasal Cannula 2.0 28 02/25/18 10:40 98 26 99 Nasal Cannula 3.0 28 02/25/18 09:30 87 153/96 02/25/18 08:19 87 02/25/18 08:00 Nasal Cannula 3.0 02/25/18 08:00 97.9 90 25 153/96 (115) 99 02/25/18 07:24 80 24 100 Nasal Cannula 3.0 28 02/25/18 07:16 98 Nasal Cannula 3.0 32 02/25/18 07:16 Nasal Cannula 3.0 32 02/25/18 07:14 94 20 98 Nasal Cannula 2.0 28 02/25/18 04:00 Nasal Cannula 3.0 02/25/18 04:00 98.2 72 20 150/80 (103) 97 02/25/18 04:00 84 02/25/18 03:07 77 20 98 Nasal Cannula 2.0 28 02/25/18 03:00 81 21 95 Nasal Cannula 2.0 28 02/25/18 00:00 79 02/25/18 00:00 Nasal Cannula 3.0 02/25/18 00:00 98.4 71 20 137/64 (88) 97 02/24/18 23:05 94 24 99 Nasal Cannula 2.0 28 02/24/18 22:57 91 25 96 Nasal Cannula 2.0 28 02/24/18 21:54 99 139/95 02/24/18 20:00 98.2 99 20 139/95 (110) 95 02/24/18 20:00 Nasal Cannula 3.0 02/24/18 20:00 122 02/24/18 19:05 89 22 99 Nasal Cannula 2.0 28 02/24/18 18:58 Nasal Cannula 3.0 32 02/24/18 18:58 95 Nasal Cannula 3.0 32 02/24/18 18:57 83 24 95 Nasal Cannula 3.0 32 Intake and Output 02/24/18 02/25/18 18:59 06:59 Intake Total 905 ml 721 ml Output Total 450 ml Balance 905 ml 271 ml IV Total 905 ml 721 ml Output Urine Total 450 ml # Voids 1 Laboratory Tests 02/25/18 07:00: White Blood Count 22.3*H, Red Blood Count 4.07L, Hemoglobin 12.1L, Hematocrit 36.1L, Mean Corpuscular Volume 89, Mean Corpuscular Hemoglobin 29.7, Mean Corpuscular Hemoglobin Concent 33.5, Red Cell Distribution Width 13.4, Platelet Count 45L, Mean Platelet Volume 9.2, Neutrophils (%) (Auto) , Lymphocytes (%) ( Auto) , Monocytes (%) (Auto) , Eosinophils (%) (Auto) , Basophils (%) (Auto) , Differential Total Cells Counted 100, Neutrophils % (Manual) 95H, Lymphocytes % (Manual) 1L, Monocytes % (Manual) 2, Eosinophils % (Manual) 2, Basophils % ( Manual) 0, Band Neutrophils 0, Platelet Estimate DecreasedL, Platelet Morphology Normal, Ovalocytes 1+, Sodium Level 140, Potassium Level 4.7, Chloride Level 105, Carbon Dioxide Level 25, Anion Gap 10, Blood Urea Nitrogen 43H, Creatinine 1.4H, Estimat Glomerular Filtration Rate , Glucose Level 103, Calcium Level 8.0L, Phosphorus Level 3.5, Magnesium Level 2.2 02/25/18 12:11: Arterial Blood pH 7.380, Arterial Blood Partial Pressure CO2 36.2, Arterial Blood Partial Pressure O2 228.3H, Arterial Blood HCO3 21.4L, Arterial Blood Oxygen Saturation 98.9, Arterial Blood Base Excess -3.1L, Tha Test Positive Current Medications Medications (Trade) Dose Ordered Sig/Delvin Route PRN Reason Start Time Stop Time Status Last Admin Dose Admin Acetaminophen (Tylenol) 650 mg Q4H PRN ORAL fever 02/18/18 16:45 03/20/18 16:44 Al Hydroxide/Mg Hydroxide (Mylanta II) 30 ml Q6H PRN ORAL dyspepsia 02/18/18 16:46 03/20/18 16:45 Atorvastatin Calcium (Lipitor) 10 mg BEDTIME ORAL 02/22/18 21:00 03/24/18 20:59 02/24/18 21:53 Docusate Sodium (Colace) 100 mg TWICE A DAY ORAL 02/23/18 18:00 03/25/18 17:59 02/25/18 09:30 Ertapenem 1 gm/ Sodium Chloride 55 ml @ 110 mls/hr Q24H IVPB 02/23/18 15:00 02/28/18 14:59 02/25/18 13:53 Heparin Sodium (Porcine) (Heparin 5000 units/ml) 5,000 units EVERY 12 HOURS SUBQ 02/18/18 21:00 03/20/18 20:59 02/20/18 08:13 Lactulose (Cephulac) 10 gm EVERY 6 HOURS ORAL 02/24/18 00:00 03/26/18 00:00 02/25/18 12:54 Methylprednisolone Sodium Succinate (Solu-MEDROL) 40 mg Q12HR IVP 02/25/18 21:00 03/22/18 17:59 Metoprolol Tartrate (Lopressor) 25 mg Q12HR ORAL 02/24/18 21:00 03/26/18 20:59 02/25/18 09:30 Nitroglycerin (Ntg) 0.4 mg Q5M PRN SL Prn Chest Pain 02/18/18 16:46 03/20/18 16:45 Olanzapine (ZyPREXA) 2.5 mg Q6H PRN ORAL agitation 02/19/18 12:15 03/21/18 12:14 Ondansetron HCl (Zofran) 4 mg Q6H PRN IVP Nausea & Vomiting 02/18/18 16:46 03/20/18 16:45 Pantoprazole (Protonix) 40 mg DAILY IVP 02/25/18 15:15 03/27/18 15:14 02/25/18 15:48 Polyethylene Glycol (Miralax) 17 gm DAILYPRN PRN ORAL Constipation 02/18/18 16:45 03/20/18 16:44 Promethazine HCl/ Codeine (Phenergan with Codeine) 5 ml Q4H PRN ORAL For Cough 02/18/18 16:46 03/20/18 16:45 Temazepam (Restoril) 15 mg HSPRN PRN ORAL Insomnia 02/18/18 21:00 02/25/18 20:59 Vancomycin HCl (Vanco rx to dose) 1 ea DAILY PRN MISC Per rx protocol 02/25/18 13:00 03/27/18 12:59 Vancomycin HCl/ Dextrose 250 ml @ 125 mls/hr ONCE ONCE IVPB 02/25/18 14:30 02/25/18 16:29 02/25/18 14:56 Vancomycin/Sodium Chloride 250 ml @ 166.667 mls/hr Q24H IVPB 02/26/18 15:30 03/03/18 15:29 Chris Samuel MD Feb 25, 2018 16:14
--- NOTE | 2018-02-25 16:51 | NUR ---
NURSE NOTES: dr. Samuel ordered PICC line, but DR. Jc said no PICC line.
--- NOTE | 2018-02-25 19:00 | NUR ---
HAND-OFF: Report given to NARCISA CHICAS.
--- NOTE | 2018-02-25 19:27 | NUR ---
NURSE NOTES: Received patient from Sana Brannon RN. Patient resting in bed, open eyes to name and can trace. Hooked to air sampling and monitoring. On Venturi mask FiO2 40% and satting at 96%. NPO at moment. Condom cath in place, dry, and draining well. IV on Left hand 22G TKO and on Right forearm saline lock. Bed in lowest position. Bed alarm on. Side rails up. Will continue to monitor.
[2018-02-25 20:00] VITALS: BP 157/82
--- NOTE | 2018-02-25 20:09 | General Progress Note ---
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 (2) Dementia ICD Codes: F03.90 - Unspecified dementia without behavioral disturbance SNOMED: 20324626 Assessment/Plan zyprexa prn the pt lacks capacity provided ro Subjective Allergies: Coded Allergies: No Known Allergies (Unverified , 02/18/18) Subjective the pt was less agitated and disorganized Objective Last 24 Hour Vital Signs Date Time Temp Pulse Resp B/P (MAP) Pulse Ox O2 Delivery O2 Flow Rate FiO2 02/25/18 16:52 82 02/25/18 16:00 97.8 75 27 154/78 (103) 98 02/25/18 16:00 Venturi Mask 02/25/18 13:04 82 02/25/18 12:00 Non-Rebreather 15.0 02/25/18 12:00 98.2 83 30 131/80 (97) 99 02/25/18 10:41 78 20 94 Nasal Cannula 2.0 28 02/25/18 10:40 98 26 99 Nasal Cannula 3.0 28 02/25/18 09:30 87 153/96 02/25/18 08:19 87 02/25/18 08:00 Nasal Cannula 3.0 02/25/18 08:00 97.9 90 25 153/96 (115) 99 02/25/18 07:24 80 24 100 Nasal Cannula 3.0 28 02/25/18 07:16 98 Nasal Cannula 3.0 32 02/25/18 07:16 Nasal Cannula 3.0 32 02/25/18 07:14 94 20 98 Nasal Cannula 2.0 28 02/25/18 04:00 Nasal Cannula 3.0 02/25/18 04:00 98.2 72 20 150/80 (103) 97 02/25/18 04:00 84 02/25/18 03:07 77 20 98 Nasal Cannula 2.0 28 02/25/18 03:00 81 21 95 Nasal Cannula 2.0 28 02/25/18 00:00 79 02/25/18 00:00 Nasal Cannula 3.0 02/25/18 00:00 98.4 71 20 137/64 (88) 97 02/24/18 23:05 94 24 99 Nasal Cannula 2.0 28 02/24/18 22:57 91 25 96 Nasal Cannula 2.0 28 02/24/18 21:54 99 139/95 Intake and Output 02/24/18 02/25/18 18:59 06:59 Intake Total 905 ml 721 ml Output Total 450 ml Balance 905 ml 271 ml IV Total 905 ml 721 ml Output Urine Total 450 ml # Voids 1 Laboratory Tests 02/25/18 07:00: White Blood Count 22.3*H, Red Blood Count 4.07L, Hemoglobin 12.1L, Hematocrit 36.1L, Mean Corpuscular Volume 89, Mean Corpuscular Hemoglobin 29.7, Mean Corpuscular Hemoglobin Concent 33.5, Red Cell Distribution Width 13.4, Platelet Count 45L, Mean Platelet Volume 9.2, Neutrophils (%) (Auto) , Lymphocytes (%) ( Auto) , Monocytes (%) (Auto) , Eosinophils (%) (Auto) , Basophils (%) (Auto) , Differential Total Cells Counted 100, Neutrophils % (Manual) 95H, Lymphocytes % (Manual) 1L, Monocytes % (Manual) 2, Eosinophils % (Manual) 2, Basophils % ( Manual) 0, Band Neutrophils 0, Platelet Estimate DecreasedL, Platelet Morphology Normal, Ovalocytes 1+, Sodium Level 140, Potassium Level 4.7, Chloride Level 105, Carbon Dioxide Level 25, Anion Gap 10, Blood Urea Nitrogen 43H, Creatinine 1.4H, Estimat Glomerular Filtration Rate , Glucose Level 103, Calcium Level 8.0L, Phosphorus Level 3.5, Magnesium Level 2.2 02/25/18 12:11: Arterial Blood pH 7.380, Arterial Blood Partial Pressure CO2 36.2, Arterial Blood Partial Pressure O2 228.3H, Arterial Blood HCO3 21.4L, Arterial Blood Oxygen Saturation 98.9, Arterial Blood Base Excess -3.1L, Tha Test Positive 02/25/18 15:50: M. tuberculosis Complex DNA (PCR) [Pending] Height (Feet): 5 Height (Inches): 10.00 Weight (Pounds): 170 General Appearance: alert, confused, agitated Arsen Erwin MD Feb 25, 2018 20:08
[2018-02-25] MEDS: Solu-MEDROL 40mg Inj IVP SCH (20:35)
[2018-02-25] MEDS: D5 1/2NS 1,000 ML IV SCH (23:30)
[2018-02-26] VITALS: BP 146/78
[2018-02-26 04:00] VITALS: BP 133/71
[2018-02-26 05:20] LABS: HEMATOCRIT 33.1 % (42.0-52.0); HEMOGLOBIN 11.2 G/DL (14.2-18.0); MEAN CORPUSCULAR VOLUME 89 FL (80-99); PLATELET COUNT 44 K/UL (150-450); RED BLOOD COUNT 3.72 M/UL (4.70-6.10); RED CELL DISTRIBUTION WIDTH 13.4 % (11.6-14.8)
[2018-02-26 05:48] LABS: ANION GAP 8 mmol/L (5-15); BLOOD UREA NITROGEN 43 mg/dL (7-18); CALCIUM 7.6 MG/DL (8.5-10.1); CARBON DIOXIDE 23 MMOL/L (21-32); CHLORIDE 106 MMOL/L (98-107); CREATININE 1.4 MG/DL (0.55-1.30); PHOSPHORUS 3.6 MG/DL (2.5-4.9); POTASSIUM 4.9 MMOL/L (3.5-5.1); SODIUM 137 MMOL/L (136-145)
[2018-02-26 05:53] LABS: WHITE BLOOD COUNT 22.5 K/UL (4.8-10.8)
[2018-02-26] MEDS: Lactulose 10gm/15ml UDC ORAL SCH ×3 (06:30→18:00)
--- NOTE | 2018-02-26 07:19 | NUR ---
HAND-OFF: Report given to Sana Brannon RN.
[2018-02-26 08:02] VITALS: BP 144/71
--- NOTE | 2018-02-26 08:15 | NUR ---
NURSE NOTES: received pt in the bed, nonverbal, vital signs stable, no co pain, no SOB, pt on venturi mask, NPO, skin warm and dry to touch, condom catheter with yellow urine, D5 1/2NS at 40cc, bed in low position, HOB elevated, call light within reach.
[2018-02-26] MEDS: Heparin 5000 units/ml inj SUBQ SCH ×2 (08:45→20:17)
[2018-02-26] MEDS: Metoprolol 25mg tab ORAL SCH ×2 (08:55→20:19)
[2018-02-26] MEDS: Pantoprazole Inj IVP SCH (08:55)
[2018-02-26] MEDS: Solu-MEDROL 40mg Inj IVP SCH (08:55)
[2018-02-26] MEDS: Docusate 100mg cap ORAL SCH ×2 (08:55→18:00)
--- NOTE | 2018-02-26 10:19 | NUR ---
ST NOTE: SWALLOW STATUS AND WEEKLY SUMMARY: FOLLOWED UP PT'S CONDITIONS. REVIEWED THE VIDEOSWALLOW STUDY. PT IS AT HIGH RISK FOR CHRONIC TRACE SILENT ASPIRATION. PT IS ON VENTURI MASK(8L). O2 SAT: 94%, AND ON AIRBORNE ISOLATION. PT IS NPO. LONG-TERM NONORAL FEEDING MEANS IS RECOMMENDED. CONSIDER NGT FOR NOW TO MEET NUTRITION AND HYDRATION NEEDS. D/W RN, LORA AND D/W NKwadwo, VAISHALI RE:PT'S CONDITIONS AND RECOMMENDATIONS. ST WEEKLY: PT SEEN FOR 3 TIMES. PT DID NOT MEET GOALS. NURSING STAFF MET ASPIRATION PRECAUTIONS GOALS. CONTINUE SKILLED ST SERVICE.
--- NOTE | 2018-02-26 11:12 | GI Initial Consult Note ---
History of Present Illness General Date patient seen: Feb 26, 2018 Time patient seen: 11:43 Reason for Hospitalization: Altered Level of Consciousness Referring physician: LACI LORA Reason for Consultation: PEG EVALUATION Present Illness HPI Patient is an 82-year-old male who presented after increased altered mental status. Patient was brought in by EMS from [facility]. The patient was noted to have increased altered mental status for approximately one hour. Patient had been noted to be warm to the touch. The patient was noted to be he isn't usual. The EMS the patient was normally somewhat confused GI consulted for PEG evaluation. ROS limited, the patient was seen in the airborne isolation to rule out TB, alert awake but nonverbal at this time. No apparent distress. No active signs or symptoms of nausea or vomiting. Labs reviewed; patient presents today with leukocytosis over 20,000, anemia, elevated troponin levels and renal insufficiency. Unknown history of endoscopic or colonoscopy at this time. Speech therapist consultation noted, unable to be performed due to the patient's altered mental status. Home Meds Reported Medications Acetaminophen* (ACETAMINOPHEN 325MG TABLET*) 325 Mg Tablet, 325 MG ORAL Q6H PRN for For Pain, TAB 02/18/18 Levothyroxine Sodium (Synthroid) 50 Mcg Tablet, 50 MCG ORAL DAILY, TAB Take in the morning on an empty stomach, at least 30 minutes beforefood. 02/18/18 Docusate Sodium* (DOCUSATE SODIUM*) 100 Mg Capsule, 100 MG ORAL TWICE A DAY, CAP 02/18/18 Digoxin* (DIGOXIN*) 250 Mcg Tablet, 0.25 MG ORAL DAILY, TAB 02/18/18 Lactobacillus Rhamnosus Gg (CULTURELLE) 1 Each Cap.sprink, 1 EACH PO, CAP 02/18/18 Bisacodyl (BISACODYL) 10 Mg Supp.rect, 10 MG RC PRN, SUPP 02/18/18 Donepezil Hcl* (ARICEPT*) 10 Mg Tablet, 10 MG ORAL DAILY, TAB 02/18/18 Med list reviewed/reconciled: Yes Allergies: Coded Allergies: No Known Allergies (Unverified , 02/18/18) Patient History Limited by: medical condition History Provided By: Medical Record PMH Narrative Past Medical History: No History, Except For Hx Cardiac Problems: Yes - Atherosclerotic heart disease Hx COPD: Yes - PNA Social History: Denies: smoking, alcohol use, drug use, other Review of Systems All Other Systems: limited Physical Exam Vital Signs Date Time Temp Pulse Resp B/P (MAP) Pulse Ox O2 Delivery O2 Flow Rate FiO2 02/22/18 07:46 94 Nasal Cannula 2.0 28 02/22/18 07:48 69 20 02/22/18 08:00 98.2 145/72 (96) Sp02 EP Interpretation: reviewed Labs Laboratory Tests Test 02/25/18 12:11 02/25/18 15:50 02/26/18 03:50 Arterial Blood pH 7.380 (7.350-7.450) Arterial Blood Partial Pressure CO2 36.2 mmHg (35.0-45.0) Arterial Blood Partial Pressure O2 228.3 mmHg (75.0-100.0) H Arterial Blood HCO3 21.4 mmol/L (22.0-26.0) L Arterial Blood Oxygen Saturation 98.9 % (95-100) Arterial Blood Base Excess -3.1 (-2-2) L Tha 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 Complex DNA (PCR) Pending White Blood Count 22.5 K/UL (4.8-10.8) *H Red Blood Count 3.72 M/UL (4.70-6.10) L Hemoglobin 11.2 G/DL (14.2-18.0) L Hematocrit 33.1 % (42.0-52.0) L Mean Corpuscular Volume 89 FL (80-99) Mean Corpuscular Hemoglobin 30.1 PG (27.0-31.0) Mean Corpuscular Hemoglobin Concent 33.8 G/DL (32.0-36.0) Red Cell Distribution Width 13.4 % (11.6-14.8) Platelet Count 44 K/UL (150-450) L Mean Platelet Volume 9.8 FL (6.5-10.1) Neutrophils (%) (Auto) % (45.0-75.0) Lymphocytes (%) (Auto) % (20.0-45.0) Monocytes (%) (Auto) % (1.0-10.0) Eosinophils (%) (Auto) % (0.0-3.0) Basophils (%) (Auto) % (0.0-2.0) Differential Total Cells Counted 100 Neutrophils % (Manual) 94 % (45-75) H Lymphocytes % (Manual) 3 % (20-45) L Monocytes % (Manual) 3 % (1-10) Eosinophils % (Manual) 0 % (0-3) Basophils % (Manual) 0 % (0-2) Band Neutrophils 0 % (0-8) Platelet Estimate Decreased L Platelet Morphology Normal Hypochromasia 1+ Sodium Level 137 MMOL/L (136-145) Potassium Level 4.9 MMOL/L (3.5-5.1) Chloride Level 106 MMOL/L (98-107) Carbon Dioxide Level 23 MMOL/L (21-32) Anion Gap 8 mmol/L (5-15) Blood Urea Nitrogen 43 mg/dL (7-18) H Creatinine 1.4 MG/DL (0.55-1.30) H Estimat Glomerular Filtration Rate mL/min (>60) Glucose Level 134 MG/DL (74-106) H Calcium Level 7.6 MG/DL (8.5-10.1) L Phosphorus Level 3.6 MG/DL (2.5-4.9) Magnesium Level 2.1 MG/DL (1.8-2.4) General Appearance: no apparent distress, alert Head: normocephalic EENT: normal ENT inspection Neck: supple Respiratory: other - Venturi mask Cardiovascular: normal rate Gastrointestinal: soft Rectal: deferred Skin: normal inspection, normal color, no rash Lymphatic: normal inspection, no adenopathy Current Medications Current Medications Medications (Trade) Dose Ordered Sig/Delvin Route PRN Reason Start Time Stop Time Status Last Admin Dose Admin Acetaminophen (Tylenol) 650 mg Q4H PRN ORAL fever 02/18/18 16:45 03/20/18 16:44 Al Hydroxide/Mg Hydroxide (Mylanta II) 30 ml Q6H PRN ORAL dyspepsia 02/18/18 16:46 03/20/18 16:45 Atorvastatin Calcium (Lipitor) 10 mg BEDTIME ORAL 02/22/18 21:00 03/24/18 20:59 02/25/18 20:35 Dextrose/Sodium Chloride 1,000 ml @ 40 mls/hr Q24H IV 02/26/18 00:00 03/28/18 00:00 02/25/18 23:30 Docusate Sodium (Colace) 100 mg TWICE A DAY ORAL 02/23/18 18:00 03/25/18 17:59 02/25/18 09:30 Ertapenem 1 gm/ Sodium Chloride 55 ml @ 110 mls/hr Q24H IVPB 02/23/18 15:00 02/28/18 14:59 02/25/18 13:53 Heparin Sodium (Porcine) (Heparin 5000 units/ml) 5,000 units EVERY 12 HOURS SUBQ 02/18/18 21:00 03/20/18 20:59 02/20/18 08:13 Lactulose (Cephulac) 10 gm EVERY 6 HOURS ORAL 02/24/18 00:00 03/26/18 00:00 02/26/18 06:30 Methylprednisolone Sodium Succinate (Solu-MEDROL) 40 mg Q12HR IVP 02/25/18 21:00 03/22/18 17:59 02/26/18 08:55 Metoprolol Tartrate (Lopressor) 25 mg Q12HR ORAL 02/24/18 21:00 03/26/18 20:59 02/26/18 08:55 Nitroglycerin (Ntg) 0.4 mg Q5M PRN SL Prn Chest Pain 02/18/18 16:46 03/20/18 16:45 Olanzapine (ZyPREXA) 2.5 mg Q6H PRN ORAL agitation 02/19/18 12:15 03/21/18 12:14 Ondansetron HCl (Zofran) 4 mg Q6H PRN IVP Nausea & Vomiting 02/18/18 16:46 03/20/18 16:45 Pantoprazole (Protonix) 40 mg DAILY IVP 02/25/18 15:15 03/27/18 15:14 02/26/18 08:55 Polyethylene Glycol (Miralax) 17 gm DAILYPRN PRN ORAL Constipation 02/18/18 16:45 03/20/18 16:44 Promethazine HCl/ Codeine (Phenergan with Codeine) 5 ml Q4H PRN ORAL For Cough 02/18/18 16:46 03/20/18 16:45 Vancomycin HCl (Vanco rx to dose) 1 ea DAILY PRN MISC Per rx protocol 02/25/18 13:00 03/27/18 12:59 Vancomycin/Sodium Chloride 250 ml @ 166.667 mls/hr Q24H IVPB 02/26/18 15:30 03/03/18 15:29 GI: Plan Problems: (1) Encounter for PEG (percutaneous endoscopic gastrostomy) (2) Dehydration (3) Severe malnutrition (4) Anemia, iron deficiency (5) encephalopathy due to metabolic factor (6) Severe sepsis (7) Altered level of consciousness Plan Airborne precautions to rule out TB Patient not stable for PEG at this time given elevated troponin levels, will require cardiac clearance. pharmacy services director to find the DPOA Maintain n.p.o. plus IV fluids at this time, will consider Dobbhoff placement As needed transfusions PPI Antibiotics Follow-up labs, iron panel Discussed with Dr. Powell. Thank you for this patient referral, we will follow. The patient was seen and examined at bedside and all new and available data was reviewed in the patients chart. I agree with the above findings, impression and plan. (Patient seen earlier today. Signature stamp does not reflect patient encounter time.). - MD Marlena GómezTuc[facility] POWER DISTRIBUTION ENGINEER Feb 26, 2018 11:12
[2018-02-26 12:00] VITALS: BP 142/60
--- NOTE | 2018-02-26 12:00 | NUR ---
NURSE NOTES:Pt's skin assessed along with nurse on unit.Sacral area pink and easily blanching. Both heels assessed and are blanchable .NO skin concerns noted. All preventive measures in place.
[2018-02-26] MEDS ORDERED: Vancomycin 750mg/NS 250ml IVPB SCH ×2 (13:15→15:00)
--- NOTE | 2018-02-26 14:07 | NUR ---
CASE MANAGEMENT: REVIEW SI: LUNG CA . COPD . A-FIB . 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
[2018-02-26] MEDS: Ertapenem 1 GM in NS 55 ML IVPB SCH (14:32)
--- NOTE | 2018-02-26 14:45 | NUR ---
NURSE NOTES: pt still on venturi mask, vital signs stable, continue monitoring.
--- NOTE | 2018-02-26 15:20 | Internal Med Progress Note ---
Subjective Physician Name HoseaMarquez Attending Physician Gila Sibley MD Current Medications Medications (Trade) Dose Ordered Sig/Delvin Route PRN Reason Start Time Stop Time Status Last Admin Dose Admin Acetaminophen (Tylenol) 650 mg Q4H PRN ORAL fever 02/18/18 16:45 03/20/18 16:44 Al Hydroxide/Mg Hydroxide (Mylanta II) 30 ml Q6H PRN ORAL dyspepsia 02/18/18 16:46 03/20/18 16:45 Atorvastatin Calcium (Lipitor) 10 mg BEDTIME ORAL 02/22/18 21:00 03/24/18 20:59 02/25/18 20:35 Dextrose/Sodium Chloride 1,000 ml @ 40 mls/hr Q24H IV 02/26/18 00:00 03/28/18 00:00 02/25/18 23:30 Docusate Sodium (Colace) 100 mg TWICE A DAY ORAL 02/23/18 18:00 03/25/18 17:59 02/25/18 09:30 Ertapenem 1 gm/ Sodium Chloride 55 ml @ 110 mls/hr Q24H IVPB 02/23/18 15:00 02/28/18 14:59 02/26/18 14:32 Heparin Sodium (Porcine) (Heparin 5000 units/ml) 5,000 units EVERY 12 HOURS SUBQ 02/18/18 21:00 03/20/18 20:59 02/20/18 08:13 Lactulose (Cephulac) 10 gm EVERY 6 HOURS ORAL 02/24/18 00:00 03/26/18 00:00 02/26/18 06:30 Methylprednisolone Sodium Succinate (Solu-MEDROL) 40 mg Q12HR IVP 02/25/18 21:00 03/22/18 17:59 02/26/18 08:55 Metoprolol Tartrate (Lopressor) 25 mg Q12HR ORAL 02/24/18 21:00 03/26/18 20:59 02/26/18 08:55 Nitroglycerin (Ntg) 0.4 mg Q5M PRN SL Prn Chest Pain 02/18/18 16:46 03/20/18 16:45 Olanzapine (ZyPREXA) 2.5 mg Q6H PRN ORAL agitation 02/19/18 12:15 03/21/18 12:14 Ondansetron HCl (Zofran) 4 mg Q6H PRN IVP Nausea & Vomiting 02/18/18 16:46 03/20/18 16:45 Pantoprazole (Protonix) 40 mg DAILY IVP 02/25/18 15:15 03/27/18 15:14 02/26/18 08:55 Polyethylene Glycol (Miralax) 17 gm DAILYPRN PRN ORAL Constipation 02/18/18 16:45 03/20/18 16:44 Promethazine HCl/ Codeine (Phenergan with Codeine) 5 ml Q4H PRN ORAL For Cough 02/18/18 16:46 03/20/18 16:45 Vancomycin HCl (Vanco rx to dose) 1 ea DAILY PRN MISC Per rx protocol 02/25/18 13:00 03/27/18 12:59 Vancomycin/Sodium Chloride 250 ml @ 166.667 mls/hr Q24H IVPB 02/26/18 15:30 03/03/18 15:29 Allergies: Coded Allergies: No Known Allergies (Unverified , 02/18/18) Subjective awake,responsive with open eyes with stimulation, not verbal, NAD, Objective Last Vital Signs Date Time Temp Pulse Resp B/P (MAP) Pulse Ox O2 Delivery O2 Flow Rate FiO2 02/26/18 12:00 97.8 69 27 142/60 (87) 91 02/26/18 12:00 Venturi Mask 02/26/18 07:41 8.0 40 Laboratory Tests Test 02/25/18 15:50 02/26/18 03:50 M. tuberculosis Complex DNA (PCR) Pending White Blood Count 22.5 K/UL (4.8-10.8) *H Red Blood Count 3.72 M/UL (4.70-6.10) L Hemoglobin 11.2 G/DL (14.2-18.0) L Hematocrit 33.1 % (42.0-52.0) L Mean Corpuscular Volume 89 FL (80-99) Mean Corpuscular Hemoglobin 30.1 PG (27.0-31.0) Mean Corpuscular Hemoglobin Concent 33.8 G/DL (32.0-36.0) Red Cell Distribution Width 13.4 % (11.6-14.8) Platelet Count 44 K/UL (150-450) L Mean Platelet Volume 9.8 FL (6.5-10.1) Neutrophils (%) (Auto) % (45.0-75.0) Lymphocytes (%) (Auto) % (20.0-45.0) Monocytes (%) (Auto) % (1.0-10.0) Eosinophils (%) (Auto) % (0.0-3.0) Basophils (%) (Auto) % (0.0-2.0) Differential Total Cells Counted 100 Neutrophils % (Manual) 94 % (45-75) H Lymphocytes % (Manual) 3 % (20-45) L Monocytes % (Manual) 3 % (1-10) Eosinophils % (Manual) 0 % (0-3) Basophils % (Manual) 0 % (0-2) Band Neutrophils 0 % (0-8) Platelet Estimate Decreased L Platelet Morphology Normal Hypochromasia 1+ Sodium Level 137 MMOL/L (136-145) Potassium Level 4.9 MMOL/L (3.5-5.1) Chloride Level 106 MMOL/L (98-107) Carbon Dioxide Level 23 MMOL/L (21-32) Anion Gap 8 mmol/L (5-15) Blood Urea Nitrogen 43 mg/dL (7-18) H Creatinine 1.4 MG/DL (0.55-1.30) H Estimat Glomerular Filtration Rate mL/min (>60) Glucose Level 134 MG/DL (74-106) H Calcium Level 7.6 MG/DL (8.5-10.1) L Phosphorus Level 3.6 MG/DL (2.5-4.9) Magnesium Level 2.1 MG/DL (1.8-2.4) Microbiology Date/Time Source Procedure Growth Status 02/25/18 15:50 Sputum Induced Gram Stain - Final Resulted 02/25/18 15:50 Sputum Induced Sputum Culture Pending Resulted 02/25/18 05:49 Sputum AFB Specimen Processing Tissue - Final Resulted 02/25/18 05:49 Sputum Acid Fast Bacilli Smear - Final Resulted 02/25/18 05:49 Sputum Acid Fast Bacilli Culture Pending Resulted 02/24/18 15:50 Sputum AFB Specimen Processing Tissue - Final Resulted 02/24/18 15:50 Sputum Acid Fast Bacilli Smear - Final Resulted 02/24/18 15:50 Sputum Acid Fast Bacilli Culture Pending Resulted Intake and Output 02/25/18 02/26/18 19:00 07:00 Intake Total 355 ml 280 ml Output Total 100 ml 300 ml Balance 255 ml -20 ml IV Total 355 ml 280 ml Output Urine Total 100 ml 300 ml # Voids 1 Objective General: No acute distress, awake and Not verbal, HEENT: NCAT, sclera anicteric, PERRL, Neck: Supple, no significant jugular venous distention, Lungs: Fair inspiratory effort, Decrease air at bases, no Wheeze or Rales. Heart: Regular rate and rhythm, normal S1/S2, no murmurs. Abdomen: soft, nontender, nondistended. Normoactive bowel sounds. Extremities: No Cyanosis , clubbing or edema. Neuro: limited due to patient status, Unable to move extremities, Skin: warm, no rash Assessment/Plan Assessment/Plan Assessment/Plan Problem List: (1) Pneumonia (2) Acute myocardial infarction non ST-elevation. (3) CHF (congestive heart failure) (4) HTN (hypertension) (5) Hypothyroidism (6) Anemia, iron deficiency (7) CAD (coronary artery disease) (8) PATO on CKD (9) COPD (chronic obstructive pulmonary disease) (10) Paroxysmal atrial fibrillation (11) Altered level of consciousness most likely due to Toxic Metabolic encephalopathy, (12) Lung cancer (13) E coli ESBL UTI Plan: in [facility], Heparin SQ Full code Abx: Meropenem, Vanco IV change Solumedral 40mg IV Daily. IVF @ 75 cc/hr F/U with Labs and cultures, GI consult for pEG placement Protonix IV NPO Marquez Jc MD Feb 26, 2018 15:20
--- NOTE | 2018-02-26 15:35 | Infectious Diseases Prog Note ---
Assessment/Plan Assessment/Plan Assessment: Hemoptysis ( after nasal suctioning< noted pt was placed in A.Isolation per Pul) -AFB smear neg x2, MTB PCR p -sp cx p -02/25 CXR: Slight increased patchy right-sided airspace opacities concerning for pneumonia or\alveolar edema. Clinical correlation/follow-up recommended. Pleural-based calcifications of the left with volume loss in pleural thickening at the left costophrenic sulcus. Subtle lucency at the periphery of the left midlung may represent loculated pneumothorax or artifact. Sepsis, SP- 2ry to UTI -u.a wbc tntc, nit -, leuk +3; u cx >100k ESBL E.coli; 02/22 u/a wbc 5-10, nit neg, luek +1; ucx p -CXR: Left midlung and calcified parenchymal scarring. Numerous calcified hilar nodes suggest old granulomatous disease. Left apical lucency could reflect compensatory hyperinflation or COPD changes. No definite acute process Afebrile Leukocytosis, increased (on high dose steroids)- -02/23 CT abd/p: Wall thickening of the distal esophagus and gastric cardia. Esophageal findings are suspicious for esophagitis. Findings in the stomach could be an artifact of redundant mucosa secondary to incomplete distention, but raise concern for neoplasm or gastritis. Colonic diverticulosis. No evidence of acute diverticulitis. Evidence old granulomatous disease, with multiple calcifications in the liver and spleen. Distended bladder. Edema of the lumbar region subcutaneous fat and of the bilateral lower flanks, buttock and hip regions. Bilateral pleural effusions and basilar pulmonary atelectatic changes -02/22 Bcx NTD CXR: Mild sub-segmental atelectasis in the medial lung bases. No significant change in the scarring versus linear atelectasis at the periphery of the left midlung, with possible underlying pleural calcifications. Scattered calcified hilar lymph nodes, unchanged. Acute encephalopathy -CT head: no acute findings Dementia dysphagia HTN lung CA CAD CKD COPD Afib [place] resident Plan: -Switch Ertapenem # 5 (abx d #08/10) for ESBL UTI and in the setting fo PNA -Continue empiric IV Vancomycin #2 for PNA pending cultures - 02/22 SP Bactrim #3 - 02/20 SP Cefepime # 3 - 02/19 SP IV Vancomycin #2 - 02/18 SP Unasyn x1 - f/u CT chest -Sp cx -f/u cx -Monitor CBC/CMP, temperatures -aspiration precautions -AFBx 1, MTB PCR P Subjective Allergies: Coded Allergies: No Known Allergies (Unverified , 02/18/18) Subjective afebrile leukocytosis on high dose steroids now on airborne isolation Objective Vital Signs Last 24 Hour Vital Signs Date Time Temp Pulse Resp B/P (MAP) Pulse Ox O2 Delivery O2 Flow Rate FiO2 02/26/18 12:00 97.8 69 27 142/60 (87) 91 02/26/18 12:00 Venturi Mask 02/26/18 12:00 61 02/26/18 08:55 80 144/71 02/26/18 08:02 97.7 80 24 144/71 (95) 94 02/26/18 08:00 72 02/26/18 08:00 Venturi Mask 02/26/18 07:41 Venturi Mask 8.0 40 02/26/18 07:41 92 Venturi Mask 8.0 40 02/26/18 07:41 82 30 Venturi Mask 8.0 40 02/26/18 04:00 82 02/26/18 04:00 Venturi Mask 02/26/18 04:00 97.9 82 29 133/71 (91) 100 02/26/18 00:00 76 02/26/18 00:00 Venturi Mask 02/26/18 00:00 98.2 84 27 146/78 (100) 98 02/25/18 21:50 Venturi Mask 8.0 40 02/25/18 21:50 61 25 Venturi Mask 8.0 40 02/25/18 21:50 99 Venturi Mask 8.0 40 02/25/18 20:35 77 157/82 02/25/18 20:00 Venturi Mask 02/25/18 20:00 97.9 77 26 157/82 (107) 95 02/25/18 20:00 75 02/25/18 16:52 82 02/25/18 16:00 97.8 75 27 154/78 (103) 98 02/25/18 16:00 Venturi Mask Height (Feet): 5 Height (Inches): 10.00 Weight (Pounds): 141 Objective GENERAL: Shows to be an elderly gentleman who is not responsive, noncommunicative. NECK: Supple. No jugular distention. LUNGS: Appear to be clear to auscultation and percussion. CARDIAC: Regular rate and rhythm. No heaves, thrills, or gallops noted. ABDOMEN: Soft and nontender. Positive bowel sounds. EXTREMITIES: There is no edema. No clubbing or cyanosis. NEUROLOGICAL: He is really not responsive at all to any stimuli through me. Microbiology Date/Time Source Procedure Growth Status 02/25/18 15:50 Sputum Induced Gram Stain - Final Resulted 02/25/18 15:50 Sputum Induced Sputum Culture Pending Resulted 02/25/18 05:49 Sputum AFB Specimen Processing Tissue - Final Resulted 02/25/18 05:49 Sputum Acid Fast Bacilli Smear - Final Resulted 02/25/18 05:49 Sputum Acid Fast Bacilli Culture Pending Resulted 02/24/18 15:50 Sputum AFB Specimen Processing Tissue - Final Resulted 02/24/18 15:50 Sputum Acid Fast Bacilli Smear - Final Resulted 02/24/18 15:50 Sputum Acid Fast Bacilli Culture Pending Resulted Laboratory Tests Test 02/25/18 15:50 02/26/18 03:50 M. tuberculosis Complex DNA (PCR) Pending White Blood Count 22.5 K/UL (4.8-10.8) *H Red Blood Count 3.72 M/UL (4.70-6.10) L Hemoglobin 11.2 G/DL (14.2-18.0) L Hematocrit 33.1 % (42.0-52.0) L Mean Corpuscular Volume 89 FL (80-99) Mean Corpuscular Hemoglobin 30.1 PG (27.0-31.0) Mean Corpuscular Hemoglobin Concent 33.8 G/DL (32.0-36.0) Red Cell Distribution Width 13.4 % (11.6-14.8) Platelet Count 44 K/UL (150-450) L Mean Platelet Volume 9.8 FL (6.5-10.1) Neutrophils (%) (Auto) % (45.0-75.0) Lymphocytes (%) (Auto) % (20.0-45.0) Monocytes (%) (Auto) % (1.0-10.0) Eosinophils (%) (Auto) % (0.0-3.0) Basophils (%) (Auto) % (0.0-2.0) Differential Total Cells Counted 100 Neutrophils % (Manual) 94 % (45-75) H Lymphocytes % (Manual) 3 % (20-45) L Monocytes % (Manual) 3 % (1-10) Eosinophils % (Manual) 0 % (0-3) Basophils % (Manual) 0 % (0-2) Band Neutrophils 0 % (0-8) Platelet Estimate Decreased L Platelet Morphology Normal Hypochromasia 1+ Sodium Level 137 MMOL/L (136-145) Potassium Level 4.9 MMOL/L (3.5-5.1) Chloride Level 106 MMOL/L (98-107) Carbon Dioxide Level 23 MMOL/L (21-32) Anion Gap 8 mmol/L (5-15) Blood Urea Nitrogen 43 mg/dL (7-18) H Creatinine 1.4 MG/DL (0.55-1.30) H Estimat Glomerular Filtration Rate mL/min (>60) Glucose Level 134 MG/DL (74-106) H Calcium Level 7.6 MG/DL (8.5-10.1) L Phosphorus Level 3.6 MG/DL (2.5-4.9) Magnesium Level 2.1 MG/DL (1.8-2.4) Current Medications Medications (Trade) Dose Ordered Sig/Delvin Route PRN Reason Start Time Stop Time Status Last Admin Dose Admin Acetaminophen (Tylenol) 650 mg Q4H PRN ORAL fever 02/18/18 16:45 03/20/18 16:44 Al Hydroxide/Mg Hydroxide (Mylanta II) 30 ml Q6H PRN ORAL dyspepsia 02/18/18 16:46 03/20/18 16:45 Atorvastatin Calcium (Lipitor) 10 mg BEDTIME ORAL 02/22/18 21:00 03/24/18 20:59 02/25/18 20:35 Dextrose/Sodium Chloride 1,000 ml @ 40 mls/hr Q24H IV 02/26/18 00:00 03/28/18 00:00 02/25/18 23:30 Docusate Sodium (Colace) 100 mg TWICE A DAY ORAL 02/23/18 18:00 03/25/18 17:59 02/25/18 09:30 Ertapenem 1 gm/ Sodium Chloride 55 ml @ 110 mls/hr Q24H IVPB 02/23/18 15:00 02/28/18 14:59 02/26/18 14:32 Heparin Sodium (Porcine) (Heparin 5000 units/ml) 5,000 units EVERY 12 HOURS SUBQ 02/18/18 21:00 03/20/18 20:59 02/20/18 08:13 Lactulose (Cephulac) 10 gm EVERY 6 HOURS ORAL 02/24/18 00:00 03/26/18 00:00 02/26/18 06:30 Methylprednisolone Sodium Succinate (Solu-MEDROL) 40 mg DAILY IVP 02/27/18 09:00 03/22/18 17:59 Metoprolol Tartrate (Lopressor) 25 mg Q12HR ORAL 02/24/18 21:00 03/26/18 20:59 02/26/18 08:55 Nitroglycerin (Ntg) 0.4 mg Q5M PRN SL Prn Chest Pain 02/18/18 16:46 03/20/18 16:45 Olanzapine (ZyPREXA) 2.5 mg Q6H PRN ORAL agitation 02/19/18 12:15 03/21/18 12:14 Ondansetron HCl (Zofran) 4 mg Q6H PRN IVP Nausea & Vomiting 02/18/18 16:46 03/20/18 16:45 Pantoprazole (Protonix) 40 mg DAILY IVP 02/25/18 15:15 03/27/18 15:14 02/26/18 08:55 Polyethylene Glycol (Miralax) 17 gm DAILYPRN PRN ORAL Constipation 02/18/18 16:45 03/20/18 16:44 Promethazine HCl/ Codeine (Phenergan with Codeine) 5 ml Q4H PRN ORAL For Cough 02/18/18 16:46 03/20/18 16:45 Vancomycin HCl (Vanco rx to dose) 1 ea DAILY PRN MISC Per rx protocol 02/25/18 13:00 03/27/18 12:59 Vancomycin/Sodium Chloride 250 ml @ 166.667 mls/hr Q24H IVPB 02/26/18 15:30 03/03/18 15:29 Anne-Marie Butler M.D. Feb 26, 2018 15:35
[2018-02-26 16:00] VITALS: BP 126/58
[2018-02-26] MEDS ORDERED: Tubing IV Secondary IV ONE (16:10)
[2018-02-26] MEDS ORDERED: 1/2 NS 1000ml IV ONE (16:10)
[2018-02-26] MEDS ORDERED: D5 1/2NS 1000ml IV ONE (16:10)
[2018-02-26] MEDS: Vancomycin 750mg/NS 250ml IVPB SCH (16:35)
--- NOTE | 2018-02-26 16:50 | NUR ---
NURSE NOTES: pt on o2 4L via nasal canula desaturated again, not stable to go for CT.
--- NOTE | 2018-02-26 17:01 | Pulmonology Progress Note ---
Assessment/Plan Assessment/Plan Pulmonary Progress Note HPI Patient is an 82-year-old male with hx of lung cancer, CAD, atrial fibrillation on Digoxin, custodial resident, unknown baseline mental status was brought to [facility] by paramedics with CC of JIMMY. Pt had low grade temperature and altered mental status for approximately one hour. The EMS the patient was normally somewhat confused. This is his first admission to [facility] and we don't have any information about him or about his DPOA. He had leucocytosis and increased troponin level, without any hx of chest pain. Pt is awake, looks comfortable but doesn't answer to any simple question. CXR worsening right sided infiltrates, IVF reduced, awaiting considefration for possible G tube Antibiotics per ID O2 PRN, BiPAP PRN Sudden increase in Troponin today - Cardiology aware Allergies: Coded Allergies: No Known Allergies (Unverified , 02/18/18) Medication History Scheduled Bisacodyl (Bisacodyl), 10 MG RC PRN, (Reported) Digoxin* (Digoxin*), 0.25 MG ORAL DAILY, (Reported) Docusate Sodium* (Docusate Sodium*), 100 MG ORAL TWICE A DAY, (Reported) Donepezil Hcl* (Aricept*), 10 MG ORAL DAILY, (Reported) Levothyroxine Sodium (Synthroid), 50 MCG ORAL DAILY, (Reported) Scheduled PRN Acetaminophen* (Acetaminophen 325MG Tablet*), 325 MG ORAL Q6H PRN for For Pain, (Reported) Miscellaneous Medications Lactobacillus Rhamnosus Gg (Culturelle), 1 EACH PO, (Reported) Patient History Healthcare decision maker N Resuscitation status Full Code Advanced Directive on File Past Medical/Surgical History Past Medical/Surgical History: (1) Lung cancer (2) COPD (chronic obstructive pulmonary disease) (3) Paroxysmal atrial fibrillation Review of Systems All Other Systems: negative except mentioned in HPI Physical Exam General Appearance: WD/WN Lines, tubes and drains: peripheral HEENT: normocephalic, atraumatic Neck: non-tender, normal alignment Respiratory/Chest: chest wall non-tender, lungs clear Cardiovascular/Chest: normal peripheral pulses, regularly irregular Abdomen: normal bowel sounds Genitourinary/Rectal: normal genital exam Extremities: normal range of motion Vital Signs Noted TECHNIQUE: Frontal view of the chest. COMPARISON: 02/22/2018 FINDINGS: Lungs: Mildly increased patchy, subtle airspace attenuation right midlung could be incidental, or could represent developing infection or pulmonary edema in the proper clinical context. Pleural space: Similar-appearing small left base pneumothorax without tension component. Similar small left pleural fluid collection. Unchanged left lung lateral pleural thickening. Heart: Unremarkable. No cardiomegaly. Mediastinum: Unremarkable. Bones/joints: Unremarkable. IMPRESSION: 1. Mildly increased patchy, subtle airspace attenuation right midlung could be incidental, or could represent developing infection or pulmonary edema in the proper clinical context. 2. Similar-appearing small left base pneumothorax without tension component. 3. Similar small left pleural fluid collection. 4. Unchanged left lung lateral pleural thickening. Laboratory Tests Test 02/18/18 14:55 02/18/18 15:16 02/18/18 16:15 02/19/18 04:00 White Blood Count 16.2 K/UL (4.8-10.8) H 11.7 K/UL (4.8-10.8) H Red Blood Count 4.54 M/UL (4.70-6.10) L 4.03 M/UL (4.70-6.10) L Hemoglobin 13.2 G/DL (14.2-18.0) L 11.6 G/DL (14.2-18.0) L Hematocrit 41.1 % (42.0-52.0) L 36.3 % (42.0-52.0) L Mean Corpuscular Volume 91 FL (80-99) 90 FL (80-99) Mean Corpuscular Hemoglobin 29.1 PG (27.0-31.0) 28.8 PG (27.0-31.0) Mean Corpuscular Hemoglobin Concent 32.2 G/DL (32.0-36.0) 32.0 G/DL (32.0-36.0) Red Cell Distribution Width 12.5 % (11.6-14.8) 12.3 % (11.6-14.8) Platelet Count 121 K/UL (150-450) L 106 K/UL (150-450) L Mean Platelet Volume 7.7 FL (6.5-10.1) 8.0 FL (6.5-10.1) Neutrophils (%) (Auto) 86.5 % (45.0-75.0) H 79.9 % (45.0-75.0) H Lymphocytes (%) (Auto) 5.8 % (20.0-45.0) L 7.4 % (20.0-45.0) L Monocytes (%) (Auto) 5.1 % (1.0-10.0) 6.3 % (1.0-10.0) Eosinophils (%) (Auto) 1.7 % (0.0-3.0) 5.4 % (0.0-3.0) H Basophils (%) (Auto) 1.0 % (0.0-2.0) 1.0 % (0.0-2.0) Prothrombin Time 12.6 SEC (9.30-11.50) H Prothromb Time International Ratio 1.2 (0.9-1.1) H Activated Partial Thromboplast Time 29 SEC (23-33) Sodium Level 144 MMOL/L (136-145) 144 MMOL/L (136-145) Potassium Level 5.0 MMOL/L (3.5-5.1) 4.7 MMOL/L (3.5-5.1) Chloride Level 106 MMOL/L (98-107) 110 MMOL/L (98-107) H Carbon Dioxide Level 30 MMOL/L (21-32) 27 MMOL/L (21-32) Anion Gap 8 mmol/L (5-15) 7 mmol/L (5-15) Blood Urea Nitrogen 36 mg/dL (7-18) H 33 mg/dL (7-18) H Creatinine 1.4 MG/DL (0.55-1.30) H 1.1 MG/DL (0.55-1.30) Estimat Glomerular Filtration Rate mL/min (>60) mL/min (>60) Glucose Level 112 MG/DL (74-106) H 85 MG/DL (74-106) Lactic Acid Level 2.00 mmol/L (0.4-2.0) 0.90 mmol/L (0.66-2.22) Calcium Level 8.7 MG/DL (8.5-10.1) 8.2 MG/DL (8.5-10.1) L Total Bilirubin 0.5 MG/DL (0.2-1.0) Aspartate Amino Transf (AST/SGOT) 54 U/L (15-37) H Alanine Aminotransferase (ALT/SGPT) 22 U/L (12-78) Alkaline Phosphatase 99 U/L (46-116) Total Creatine Kinase 179 U/L (26-308) Creatine Kinase MB 12.6 NG/ML (0.0-3.6) H Creatine Kinase MB Relative Index 7.0 Troponin I 6.867 ng/mL (0.000-0.056) 6.731 ng/mL (0.000-0.056) 7.171 ng/mL (0.000-0.056) Pro-B-Type Natriuretic Peptide 3815 pg/mL (0-125) H Total Protein 8.3 G/DL (6.4-8.2) H Albumin 3.1 G/DL (3.4-5.0) L 2.5 G/DL (3.4-5.0) L Globulin 5.2 g/dL Albumin/Globulin Ratio 0.6 (1.0-2.7) L Lipase 356 U/L (73-393) Urine Color Pale yellow Urine Appearance Turbid Urine pH 5 (4.5-8.0) Urine Specific [place] 1.015 (1.005-1.035) Urine Protein 4+ (NEGATIVE) H Urine Glucose (UA) Negative (NEGATIVE) Urine Ketones Negative (NEGATIVE) Urine Blood 5+ (NEGATIVE) H Urine Nitrite Negative (NEGATIVE) Urine Bilirubin Negative (NEGATIVE) Urine Urobilinogen Normal MG/DL (0.0-1.0) Urine Leukocyte Esterase 3+ (NEGATIVE) H Urine RBC 0-2 /HPF (0 - 0) H Urine WBC Tntc /HPF (0 - 0) H Urine Squamous Epithelial Cells Occasional /LPF Urine Bacteria Many /HPF (NONE) H Phosphorus Level 3.9 MG/DL (2.5-4.9) Triglycerides Level 95 MG/DL (30-150) Cholesterol Level 187 MG/DL (< 200) LDL Cholesterol 130 mg/dL (<100) H HDL Cholesterol 47 MG/DL (40-60) Cholesterol/HDL Ratio 4.0 (3.3-4.4) Thyroid Stimulating Hormone (TSH) 3.498 uiU/mL (0.358-3.740) Digoxin Level 2.1 NG/ML (0.5-2.0) H Microbiology Date/Time Source Procedure Growth Status 02/18/18 16:50 Nasal Nares Influenza Types A,B Antigen (RUBEN) - Final Complete 02/18/18 15:16 Urine,Clean Catch Urine Culture - Preliminary Gram Negative Wild Resulted Height (Feet): 5 Height (Inches): 10.00 Weight (Pounds): 170 Medications Current Medications Medications (Trade) Dose Ordered Sig/Delvin Route PRN Reason Start Time Stop Time Status Last Admin Dose Admin Acetaminophen (Tylenol) 650 mg Q4H PRN ORAL fever 02/18/18 16:45 03/20/18 16:44 Al Hydroxide/Mg Hydroxide (Mylanta II) 30 ml Q6H PRN ORAL dyspepsia 02/18/18 16:46 03/20/18 16:45 Albuterol/ Ipratropium (Albuterol/ Ipratropium) 3 ml Q4H PRN HHN Shortness of Breath 02/18/18 16:46 02/23/18 16:45 Cefepime HCl 1 gm/ Dextrose 55 ml @ 110 mls/hr Q24H IV 02/18/18 18:00 02/25/18 17:59 02/18/18 18:45 Heparin Sodium (Porcine) (Heparin 5000 units/ml) 5,000 units EVERY 12 HOURS SUBQ 02/18/18 21:00 03/20/18 20:59 02/18/18 21:14 Nitroglycerin (Ntg) 0.4 mg Q5M PRN SL Prn Chest Pain 02/18/18 16:46 03/20/18 16:45 Ondansetron HCl (Zofran) 4 mg Q6H PRN IVP Nausea & Vomiting 02/18/18 16:46 03/20/18 16:45 Polyethylene Glycol (Miralax) 17 gm DAILYPRN PRN ORAL Constipation 02/18/18 16:45 03/20/18 16:44 Promethazine HCl/ Codeine (Phenergan with Codeine) 5 ml Q4H PRN ORAL For Cough 02/18/18 16:46 03/20/18 16:45 Temazepam (Restoril) 15 mg HSPRN PRN ORAL Insomnia 02/18/18 21:00 02/25/18 20:59 Vancomycin HCl (Vanco rx to dose) 1 ea DAILY PRN MISC Per rx protocol 02/18/18 16:30 03/20/18 16:29 Vancomycin HCl 500 mg/Dextrose 110 ml @ 110 mls/hr Q12HR IVPB 02/19/18 09:00 02/24/18 08:59 02/19/18 08:10 Vancomycin HCl 1500 mg/Sodium Chloride 275 ml @ 137.5 mls/ hr ONCE IVPB 02/18/18 16:45 02/23/18 16:44 02/18/18 17:03 Assessment/Plan Problem List: (1) Severe sepsis ICD Codes: A41.9 - Sepsis, unspecified organism; R65.20 - Severe sepsis without septic shock SNOMED: 73566115 (2) Altered level of consciousness ICD Codes: R40.4 - Transient alteration of awareness SNOMED: 4844281 (3) Myocardial injury ICD Codes: S26.90XA - Unspecified injury of heart, unspecified with or without hemopericardium, initial encounter SNOMED: 64965903 (4) Paroxysmal atrial fibrillation ICD Codes: I48.0 - Paroxysmal atrial fibrillation SNOMED: 413354076 (5) COPD (chronic obstructive pulmonary disease) ICD Codes: J44.9 - Chronic obstructive pulmonary disease, unspecified SNOMED: 00812806 (6) Lung cancer ICD Codes: C34.90 - Malignant neoplasm of unspecified part of unspecified bronchus or lung SNOMED: 071766714 Assessment/Plan RODERICK monitoring cardiology consult appreciated broad spectrum abx suero cultures f/u on WBC echo cardiogram check electrolytes social media marketing specialist to find DPOA dvt prophylaxis Antibiotics per ID O2 PRN, BiPAP PRN Subjective ROS Limited/Unobtainable: No Allergies: Coded Allergies: No Known Allergies (Unverified , 02/18/18) Objective Last 24 Hour Vital Signs Date Time Temp Pulse Resp B/P (MAP) Pulse Ox O2 Delivery O2 Flow Rate FiO2 02/26/18 16:00 Venturi Mask 02/26/18 16:00 63 02/26/18 16:00 97.9 64 18 126/58 (80) 98 02/26/18 12:00 97.8 69 27 142/60 (87) 91 02/26/18 12:00 Venturi Mask 02/26/18 12:00 61 02/26/18 08:55 80 144/71 02/26/18 08:02 97.7 80 24 144/71 (95) 94 02/26/18 08:00 72 02/26/18 08:00 Venturi Mask 02/26/18 07:41 Venturi Mask 8.0 40 02/26/18 07:41 92 Venturi Mask 8.0 40 02/26/18 07:41 82 30 Venturi Mask 8.0 40 02/26/18 04:00 82 02/26/18 04:00 Venturi Mask 02/26/18 04:00 97.9 82 29 133/71 (91) 100 02/26/18 00:00 76 02/26/18 00:00 Venturi Mask 02/26/18 00:00 98.2 84 27 146/78 (100) 98 02/25/18 21:50 Venturi Mask 8.0 40 02/25/18 21:50 61 25 Venturi Mask 8.0 40 02/25/18 21:50 99 Venturi Mask 8.0 40 02/25/18 20:35 77 157/82 02/25/18 20:00 Venturi Mask 02/25/18 20:00 97.9 77 26 157/82 (107) 95 02/25/18 20:00 75 Intake and Output 02/25/18 02/26/18 19:00 07:00 Intake Total 355 ml 280 ml Output Total 100 ml 300 ml Balance 255 ml -20 ml IV Total 355 ml 280 ml Output Urine Total 100 ml 300 ml # Voids 1 Microbiology Date/Time Source Procedure Growth Status 02/25/18 15:50 Sputum Induced Gram Stain - Final Resulted 02/25/18 15:50 Sputum Induced Sputum Culture Pending Resulted 02/25/18 05:49 Sputum AFB Specimen Processing Tissue - Final Resulted 02/25/18 05:49 Sputum Acid Fast Bacilli Smear - Final Resulted 02/25/18 05:49 Sputum Acid Fast Bacilli Culture Pending Resulted 02/24/18 15:50 Sputum AFB Specimen Processing Tissue - Final Resulted 02/24/18 15:50 Sputum Acid Fast Bacilli Smear - Final Resulted 02/24/18 15:50 Sputum Acid Fast Bacilli Culture Pending Resulted Laboratory Tests 02/26/18 03:50: White Blood Count 22.5*H, Red Blood Count 3.72L, Hemoglobin 11.2L, Hematocrit 33.1L, Mean Corpuscular Volume 89, Mean Corpuscular Hemoglobin 30.1, Mean Corpuscular Hemoglobin Concent 33.8, Red Cell Distribution Width 13.4, Platelet Count 44L, Mean Platelet Volume 9.8, Neutrophils (%) (Auto) , Lymphocytes (%) ( Auto) , Monocytes (%) (Auto) , Eosinophils (%) (Auto) , Basophils (%) (Auto) , Differential Total Cells Counted 100, Neutrophils % (Manual) 94H, Lymphocytes % (Manual) 3L, Monocytes % (Manual) 3, Eosinophils % (Manual) 0, Basophils % ( Manual) 0, Band Neutrophils 0, Platelet Estimate DecreasedL, Platelet Morphology Normal, Hypochromasia 1+, Sodium Level 137, Potassium Level 4.9, Chloride Level 106, Carbon Dioxide Level 23, Anion Gap 8, Blood Urea Nitrogen 43H, Creatinine 1.4H, Estimat Glomerular Filtration Rate , Glucose Level 134H, Calcium Level 7.6L, Phosphorus Level 3.6, Magnesium Level 2.1 Current Medications Medications (Trade) Dose Ordered Sig/Delvin Route PRN Reason Start Time Stop Time Status Last Admin Dose Admin Acetaminophen (Tylenol) 650 mg Q4H PRN ORAL fever 02/18/18 16:45 03/20/18 16:44 Al Hydroxide/Mg Hydroxide (Mylanta II) 30 ml Q6H PRN ORAL dyspepsia 02/18/18 16:46 03/20/18 16:45 Atorvastatin Calcium (Lipitor) 10 mg BEDTIME ORAL 02/22/18 21:00 03/24/18 20:59 02/25/18 20:35 Dextrose/Sodium Chloride 1,000 ml @ 40 mls/hr Q24H IV 02/26/18 00:00 03/28/18 00:00 02/25/18 23:30 Docusate Sodium (Colace) 100 mg TWICE A DAY ORAL 02/23/18 18:00 03/25/18 17:59 02/25/18 09:30 Heparin Sodium (Porcine) (Heparin 5000 units/ml) 5,000 units EVERY 12 HOURS SUBQ 02/18/18 21:00 03/20/18 20:59 02/20/18 08:13 Lactulose (Cephulac) 10 gm EVERY 6 HOURS ORAL 02/24/18 00:00 03/26/18 00:00 02/26/18 06:30 Meropenem 1 gm/ Sodium Chloride 55 ml @ 110 mls/hr Q12H IVPB 12/27/18 17:00 03/03/18 16:59 Methylprednisolone Sodium Succinate (Solu-MEDROL) 40 mg DAILY IVP 02/27/18 09:00 03/22/18 17:59 Metoprolol Tartrate (Lopressor) 25 mg Q12HR ORAL 02/24/18 21:00 03/26/18 20:59 02/26/18 08:55 Nitroglycerin (Ntg) 0.4 mg Q5M PRN SL Prn Chest Pain 02/18/18 16:46 03/20/18 16:45 Olanzapine (ZyPREXA) 2.5 mg Q6H PRN ORAL agitation 02/19/18 12:15 03/21/18 12:14 Ondansetron HCl (Zofran) 4 mg Q6H PRN IVP Nausea & Vomiting 02/18/18 16:46 03/20/18 16:45 Pantoprazole (Protonix) 40 mg DAILY IVP 02/25/18 15:15 03/27/18 15:14 02/26/18 08:55 Polyethylene Glycol (Miralax) 17 gm DAILYPRN PRN ORAL Constipation 02/18/18 16:45 03/20/18 16:44 Promethazine HCl/ Codeine (Phenergan with Codeine) 5 ml Q4H PRN ORAL For Cough 02/18/18 16:46 03/20/18 16:45 Vancomycin HCl (Vanco rx to dose) 1 ea DAILY PRN MISC Per rx protocol 02/25/18 13:00 03/27/18 12:59 Vancomycin/Sodium Chloride 250 ml @ 166.667 mls/hr Q24H IVPB 02/26/18 15:30 03/03/18 15:29 02/26/18 16:35 Chris Samuel MD Feb 26, 2018 17:01
[2018-02-26] MEDS: Meropenem 1 GM in NS 55 ML IVPB SCH (17:50)
--- NOTE | 2018-02-26 19:17 | NUR ---
HAND-OFF: Report given to ELO CHICAS.
--- NOTE | 2018-02-26 19:17 | Cardiology Progress Note ---
Assessment/Plan Assessment/Plan 1. Alteration of mental status. Questionable toxic metabolic encephalopathy. 2. Acute myocardial infarction non ST-elevation. 3. Right bundle-branch block conduction defect, chronicity unknown. 4. Reported history of lung cancer. 5. Reported history of paroxysmal atrial fibrillation. 6. Reported history of coagulopathy secondary to anticoagulation. 7. History of coronary artery disease. 8. History of chronic obstructive pulmonary disease. 9. History of chronic kidney disease. 10. History of hypertension. 11. wide compelx tachy likely atrial tachy with abbarency 12. thormbocytopenia trop trednign down will repaet echo the prior echo normal lv fucntion tele reviewed sinus need asa and statin but sicne plt are low i will dc ecotrin for now remains at this time a poor candidate for any invasive cardiac treatment poor resoponsive but nto communicative bb increased ekg unchanged Subjective ROS Limited/Unobtainable: Yes Subjective in isolation room for tb Objective Last 24 Hour Vital Signs Date Time Temp Pulse Resp B/P (MAP) Pulse Ox O2 Delivery O2 Flow Rate FiO2 02/26/18 16:00 Venturi Mask 02/26/18 16:00 63 02/26/18 16:00 97.9 64 18 126/58 (80) 98 02/26/18 12:00 97.8 69 27 142/60 (87) 91 02/26/18 12:00 Venturi Mask 02/26/18 12:00 61 02/26/18 08:55 80 144/71 02/26/18 08:02 97.7 80 24 144/71 (95) 94 02/26/18 08:00 72 02/26/18 08:00 Venturi Mask 02/26/18 07:41 Venturi Mask 8.0 40 02/26/18 07:41 92 Venturi Mask 8.0 40 02/26/18 07:41 82 30 Venturi Mask 8.0 40 02/26/18 04:00 82 02/26/18 04:00 Venturi Mask 02/26/18 04:00 97.9 82 29 133/71 (91) 100 02/26/18 00:00 76 02/26/18 00:00 Venturi Mask 02/26/18 00:00 98.2 84 27 146/78 (100) 98 02/25/18 21:50 Venturi Mask 8.0 40 02/25/18 21:50 61 25 Venturi Mask 8.0 40 02/25/18 21:50 99 Venturi Mask 8.0 40 02/25/18 20:35 77 157/82 02/25/18 20:00 Venturi Mask 02/25/18 20:00 97.9 77 26 157/82 (107) 95 02/25/18 20:00 75 General Appearance: no apparent distress Neck: supple Cardiovascular: regular rhythm Respiratory/Chest: lungs clear Abdomen: normal bowel sounds, non tender, soft Extremities: no swelling Intake and Output 02/25/18 02/26/18 19:00 07:00 Intake Total 355 ml 280 ml Output Total 100 ml 300 ml Balance 255 ml -20 ml IV Total 355 ml 280 ml Output Urine Total 100 ml 300 ml # Voids 1 Laboratory Tests Test 02/26/18 03:50 White Blood Count 22.5 K/UL (4.8-10.8) *H Red Blood Count 3.72 M/UL (4.70-6.10) L Hemoglobin 11.2 G/DL (14.2-18.0) L Hematocrit 33.1 % (42.0-52.0) L Mean Corpuscular Volume 89 FL (80-99) Mean Corpuscular Hemoglobin 30.1 PG (27.0-31.0) Mean Corpuscular Hemoglobin Concent 33.8 G/DL (32.0-36.0) Red Cell Distribution Width 13.4 % (11.6-14.8) Platelet Count 44 K/UL (150-450) L Mean Platelet Volume 9.8 FL (6.5-10.1) Neutrophils (%) (Auto) % (45.0-75.0) Lymphocytes (%) (Auto) % (20.0-45.0) Monocytes (%) (Auto) % (1.0-10.0) Eosinophils (%) (Auto) % (0.0-3.0) Basophils (%) (Auto) % (0.0-2.0) Differential Total Cells Counted 100 Neutrophils % (Manual) 94 % (45-75) H Lymphocytes % (Manual) 3 % (20-45) L Monocytes % (Manual) 3 % (1-10) Eosinophils % (Manual) 0 % (0-3) Basophils % (Manual) 0 % (0-2) Band Neutrophils 0 % (0-8) Platelet Estimate Decreased L Platelet Morphology Normal Hypochromasia 1+ Sodium Level 137 MMOL/L (136-145) Potassium Level 4.9 MMOL/L (3.5-5.1) Chloride Level 106 MMOL/L (98-107) Carbon Dioxide Level 23 MMOL/L (21-32) Anion Gap 8 mmol/L (5-15) Blood Urea Nitrogen 43 mg/dL (7-18) H Creatinine 1.4 MG/DL (0.55-1.30) H Estimat Glomerular Filtration Rate mL/min (>60) Glucose Level 134 MG/DL (74-106) H Calcium Level 7.6 MG/DL (8.5-10.1) L Phosphorus Level 3.6 MG/DL (2.5-4.9) Magnesium Level 2.1 MG/DL (1.8-2.4) Microbiology Date/Time Source Procedure Growth Status 02/25/18 15:50 Sputum Induced Gram Stain - Final Resulted 02/25/18 15:50 Sputum Induced Sputum Culture Pending Resulted 02/25/18 05:49 Sputum AFB Specimen Processing Tissue - Final Resulted 02/25/18 05:49 Sputum Acid Fast Bacilli Smear - Final Resulted 02/25/18 05:49 Sputum Acid Fast Bacilli Culture Pending Resulted 02/24/18 15:50 Sputum AFB Specimen Processing Tissue - Final Resulted 02/24/18 15:50 Sputum Acid Fast Bacilli Smear - Final Resulted 02/24/18 15:50 Sputum Acid Fast Bacilli Culture Pending Resulted Geovanny Sherwood MD Feb 26, 2018 19:17
--- NOTE | 2018-02-26 19:20 | NUR ---
NURSE NOTES: Report received from JUAN FRANCISCO Brannon. Pt opens eyes spontaneously, non-verbal. monitoring manager shows SR. Pt RA. Shows no signs of cardiac or respiratory distress. Pt currently NPO, on TB precautions. Pt has a condom catheter in place and draining well. Skin intact, SPR mattress in place. Pt has a left hand 22 gauge, with D51/2 NS running @ 40 ml/hr. AFB's are pending. Possible NGT to be placed by Mario tomorrow. Bed in lowest position, bed alarms placed. Will continue to monitor and with patients plan of care.
[2018-02-26 20:00] VITALS: BP 158/90
[2018-02-27 00:41] VITALS: BP 132/65
[2018-02-27] MEDS: D5 1/2NS 1,000 ML IV SCH (00:46)
[2018-02-27] MEDS: Lactulose 10gm/15ml UDC ORAL SCH ×4 (00:48→17:19)
[2018-02-27 04:00] VITALS: BP 121/65
[2018-02-27 05:10] LABS: HEMATOCRIT 33.1 % (42.0-52.0); HEMOGLOBIN 11.1 G/DL (14.2-18.0); MEAN CORPUSCULAR VOLUME 90 FL (80-99); PLATELET COUNT 39 K/UL (150-450); RED BLOOD COUNT 3.66 M/UL (4.70-6.10); RED CELL DISTRIBUTION WIDTH 13.8 % (11.6-14.8)
[2018-02-27 05:17] LABS: WHITE BLOOD COUNT 24.3 K/UL (4.8-10.8)
[2018-02-27] MEDS: Meropenem 1 GM in NS 55 ML IVPB SCH ×2 (05:27→16:38)
[2018-02-27 06:05] LABS: % IRON SATURATION 24 % (15-50); IRON 56 ug/dL (50-175); TOTAL IRON BINDING CAPACITY 236 ug/dL (250-450)
[2018-02-27 06:13] LABS: ANION GAP 10 mmol/L (5-15); BLOOD UREA NITROGEN 45 mg/dL (7-18); CALCIUM 7.8 MG/DL (8.5-10.1); CARBON DIOXIDE 22 MMOL/L (21-32); CHLORIDE 108 MMOL/L (98-107); CREATININE 1.5 MG/DL (0.55-1.30); FERRITIN 666 NG/ML (8-388); PHOSPHORUS 3.1 MG/DL (2.5-4.9); POTASSIUM 4.7 MMOL/L (3.5-5.1); SODIUM 140 MMOL/L (136-145)
--- NOTE | 2018-02-27 07:30 | NUR ---
NURSE NOTES: Received patient from JUAN FRANCISCO Nixon. Patient in bed, nonverbal, but able to open her eyes. On venturi mask, no SOB. security monitor in placed. Currently in NPO. TB (airborne) precautions followed. Condom cath is in placed and draining well. IV site is asymptomatic. Bed in lowest position with side rails up. Will continue to follow plan of care.
[2018-02-27 08:00] VITALS: BP 108/64
--- NOTE | 2018-02-27 08:10 | Infectious Diseases Prog Note ---
Assessment/Plan Assessment/Plan Hemoptysis ( after nasal suctioning< noted pt was placed in A.Isolation per Pul) -AFB smear neg x2, MTB PCR p -02/25 sp cx - NF -02/25 CXR: Slight increased patchy right-sided airspace opacities concerning for pneumonia or\alveolar edema. Clinical correlation/follow-up recommended. Pleural-based calcifications of the left with volume loss in pleural thickening at the left costophrenic sulcus. Subtle lucency at the periphery of the left midlung may represent loculated pneumothorax or artifact. Sepsis, SP- 2ry to UTI -u.a wbc tntc, nit -, leuk +3; u cx >100k ESBL E.coli; 02/22 u/a wbc 5-10, nit neg, luek +1; ucx p -CXR: Left midlung and calcified parenchymal scarring. Numerous calcified hilar nodes suggest old granulomatous disease. Left apical lucency could reflect compensatory hyperinflation or COPD changes. No definite acute process Afebrile Leukocytosis, increased (on high dose steroids)- -02/23 CT abd/p: Wall thickening of the distal esophagus and gastric cardia. Esophageal findings are suspicious for esophagitis. Findings in the stomach could be an artifact of redundant mucosa secondary to incomplete distention, but raise concern for neoplasm or gastritis. Colonic diverticulosis. No evidence of acute diverticulitis. Evidence old granulomatous disease, with multiple calcifications in the liver and spleen. Distended bladder. Edema of the lumbar region subcutaneous fat and of the bilateral lower flanks, buttock and hip regions. Bilateral pleural effusions and basilar pulmonary atelectatic changes -02/22 Bcx NTD CXR: Mild sub-segmental atelectasis in the medial lung bases. No significant change in the scarring versus linear atelectasis at the periphery of the left midlung, with possible underlying pleural calcifications. Scattered calcified hilar lymph nodes, unchanged. Acute encephalopathy -CT head: no acute findings Dementia dysphagia HTN lung CA CAD CKD COPD Afib [place] resident Plan: -Continue Meropenem #2 for ESBL UTI and in the setting fo PNA -Continue empiric IV Vancomycin #3 for PNA pending cultures - 02/26 SP Ertapenem #5 - 02/22 SP Bactrim #3 - 02/20 SP Cefepime # 3 - 02/19 SP IV Vancomycin #2 - 02/18 SP Unasyn x1 -f/u cx -Monitor CBC/CMP, temperatures -aspiration precautions -AFBx 1, MTB PCR P Subjective Allergies: Coded Allergies: No Known Allergies (Unverified , 02/18/18) Subjective Patient afebrile Still on ventimask 50% O2 Stable increased WBCs Objective Vital Signs Last 24 Hour Vital Signs Date Time Temp Pulse Resp B/P (MAP) Pulse Ox O2 Delivery O2 Flow Rate FiO2 02/27/18 06:30 97 Venturi Mask 12.0 50 02/27/18 06:30 Venturi Mask 12.0 50 02/27/18 06:30 80 30 Venturi Mask 12.0 50 02/27/18 04:00 77 02/27/18 04:00 Venturi Mask 02/27/18 04:00 97.9 72 29 121/65 (83) 93 02/27/18 00:41 Venturi Mask 02/27/18 00:41 98.1 68 30 132/65 (87) 92 02/26/18 21:52 80 25 Venturi Mask 8.0 40 02/26/18 21:52 Venturi Mask 8.0 40 02/26/18 21:52 97 Venturi Mask 8.0 40 02/26/18 20:19 85 158/90 02/26/18 20:00 98.0 83 27 158/90 (112) 96 02/26/18 20:00 Venturi Mask 02/26/18 20:00 80 02/26/18 16:00 Venturi Mask 02/26/18 16:00 63 02/26/18 16:00 97.9 64 18 126/58 (80) 98 02/26/18 12:00 97.8 69 27 142/60 (87) 91 02/26/18 12:00 Venturi Mask 02/26/18 12:00 61 02/26/18 08:55 80 144/71 Height (Feet): 5 Height (Inches): 10.00 Weight (Pounds): 141 Objective GENERAL: Not following LUNGS: CTAB, Some Wheezing CARDIAC: Regular rate and rhythm. S1, S2 ABDOMEN: Soft and nontender. Positive bowel sounds. EXTREMITIES: There is no edema. No clubbing or cyanosis. NEUROLOGICAL: A/O x0 Microbiology Date/Time Source Procedure Growth Status 02/25/18 15:50 Sputum Induced Gram Stain - Final Complete 02/25/18 15:50 Sputum Culture - Final Janeth Albicans Usual Upper Respiratory Saloni Complete 02/25/18 05:49 Sputum AFB Specimen Processing Tissue - Final Resulted 02/25/18 05:49 Sputum Acid Fast Bacilli Smear - Final Resulted 02/25/18 05:49 Sputum Acid Fast Bacilli Culture Pending Resulted 02/24/18 15:50 Sputum AFB Specimen Processing Tissue - Final Resulted 02/24/18 15:50 Sputum Acid Fast Bacilli Smear - Final Resulted 02/24/18 15:50 Sputum Acid Fast Bacilli Culture Pending Resulted Laboratory Tests Test 02/27/18 03:25 White Blood Count 24.3 K/UL (4.8-10.8) *H Red Blood Count 3.66 M/UL (4.70-6.10) L Hemoglobin 11.1 G/DL (14.2-18.0) L Hematocrit 33.1 % (42.0-52.0) L Mean Corpuscular Volume 90 FL (80-99) Mean Corpuscular Hemoglobin 30.2 PG (27.0-31.0) Mean Corpuscular Hemoglobin Concent 33.4 G/DL (32.0-36.0) Red Cell Distribution Width 13.8 % (11.6-14.8) Platelet Count 39 K/UL (150-450) L Mean Platelet Volume 12.0 FL (6.5-10.1) H Neutrophils (%) (Auto) % (45.0-75.0) Lymphocytes (%) (Auto) % (20.0-45.0) Monocytes (%) (Auto) % (1.0-10.0) Eosinophils (%) (Auto) % (0.0-3.0) Basophils (%) (Auto) % (0.0-2.0) Neutrophils % (Manual) Pending Lymphocytes % (Manual) Pending Platelet Estimate Pending Platelet Morphology Pending Sodium Level 140 MMOL/L (136-145) Potassium Level 4.7 MMOL/L (3.5-5.1) Chloride Level 108 MMOL/L (98-107) H Carbon Dioxide Level 22 MMOL/L (21-32) Anion Gap 10 mmol/L (5-15) Blood Urea Nitrogen 45 mg/dL (7-18) H Creatinine 1.5 MG/DL (0.55-1.30) H Estimat Glomerular Filtration Rate mL/min (>60) Glucose Level 104 MG/DL (74-106) Calcium Level 7.8 MG/DL (8.5-10.1) L Phosphorus Level 3.1 MG/DL (2.5-4.9) Magnesium Level 2.2 MG/DL (1.8-2.4) Iron Level 56 ug/dL (50-175) Total Iron Binding Capacity 236 ug/dL (250-450) L Percent Iron Saturation 24 % (15-50) Unsaturated Iron Binding 180 ug/dL (112-346) Ferritin 666 NG/ML (8-388) H Current Medications Medications (Trade) Dose Ordered Sig/Delvin Route PRN Reason Start Time Stop Time Status Last Admin Dose Admin Acetaminophen (Tylenol) 650 mg Q4H PRN ORAL fever 02/18/18 16:45 03/20/18 16:44 Al Hydroxide/Mg Hydroxide (Mylanta II) 30 ml Q6H PRN ORAL dyspepsia 02/18/18 16:46 03/20/18 16:45 Atorvastatin Calcium (Lipitor) 10 mg BEDTIME ORAL 02/22/18 21:00 03/24/18 20:59 02/26/18 20:17 Dextrose/Sodium Chloride 1,000 ml @ 40 mls/hr Q24H IV 02/26/18 00:00 03/28/18 00:00 02/27/18 00:46 Docusate Sodium (Colace) 100 mg TWICE A DAY ORAL 02/23/18 18:00 03/25/18 17:59 02/25/18 09:30 Heparin Sodium (Porcine) (Heparin 5000 units/ml) 5,000 units EVERY 12 HOURS SUBQ 02/18/18 21:00 03/20/18 20:59 02/20/18 08:13 Lactulose (Cephulac) 10 gm EVERY 6 HOURS ORAL 02/24/18 00:00 03/26/18 00:00 02/27/18 00:48 Meropenem 1 gm/ Sodium Chloride 55 ml @ 110 mls/hr Q12H IVPB 02/26/18 17:00 03/03/18 16:59 02/27/18 05:27 Methylprednisolone Sodium Succinate (Solu-MEDROL) 40 mg DAILY IVP 02/27/18 09:00 03/22/18 17:59 Metoprolol Tartrate (Lopressor) 25 mg Q12HR ORAL 02/24/18 21:00 03/26/18 20:59 02/26/18 20:19 Nitroglycerin (Ntg) 0.4 mg Q5M PRN SL Prn Chest Pain 02/18/18 16:46 03/20/18 16:45 Olanzapine (ZyPREXA) 2.5 mg Q6H PRN ORAL agitation 02/19/18 12:15 03/21/18 12:14 Ondansetron HCl (Zofran) 4 mg Q6H PRN IVP Nausea & Vomiting 02/18/18 16:46 03/20/18 16:45 Pantoprazole (Protonix) 40 mg DAILY IVP 02/25/18 15:15 03/27/18 15:14 02/26/18 08:55 Polyethylene Glycol (Miralax) 17 gm DAILYPRN PRN ORAL Constipation 02/18/18 16:45 03/20/18 16:44 Promethazine HCl/ Codeine (Phenergan with Codeine) 5 ml Q4H PRN ORAL For Cough 02/18/18 16:46 03/20/18 16:45 Vancomycin HCl (Vanco rx to dose) 1 ea DAILY PRN MISC Per rx protocol 02/25/18 13:00 03/27/18 12:59 Vancomycin/Sodium Chloride 250 ml @ 166.667 mls/hr Q24H IVPB 02/26/18 15:30 03/03/18 15:29 02/26/18 16:35 Chris Boles MD Feb 27, 2018 08:10
[2018-02-27] MEDS: Metoprolol 25mg tab ORAL SCH ×2 (09:00→21:39)
[2018-02-27] MEDS: Heparin 5000 units/ml inj SUBQ SCH (09:00)
[2018-02-27] MEDS: Pantoprazole Inj IVP SCH (09:25)
[2018-02-27] MEDS: Solu-MEDROL 40mg Inj IVP SCH (09:26)
[2018-02-27] MEDS: Docusate 100mg cap ORAL SCH ×2 (09:34→17:19)
--- NOTE | 2018-02-27 10:34 | Pulmonology Progress Note ---
Assessment/Plan Assessment/Plan Pulmonary Progress Note HPI Patient is an 82-year-old male with hx of lung cancer, CAD, atrial fibrillation on Digoxin, longterm resident, unknown baseline mental status was brought to [facility] by paramedics with CC of JIMMY. Pt had low grade temperature and altered mental status for approximately one hour. The EMS the patient was normally somewhat confused. This is his first admission to [facility] and we don't have any information about him or about his DPOA. He had leucocytosis and increased troponin level, without any hx of chest pain. Pt is awake, looks comfortable but doesn't answer to any simple question. CXR worsening right sided infiltrates, IVF reduced, awaiting considefration for possible G tube Antibiotics per ID O2 PRN, BiPAP PRN Sudden increase in Troponin today - Cardiology aware Allergies: Coded Allergies: No Known Allergies (Unverified , 02/18/18) Medication History Scheduled Bisacodyl (Bisacodyl), 10 MG RC PRN, (Reported) Digoxin* (Digoxin*), 0.25 MG ORAL DAILY, (Reported) Docusate Sodium* (Docusate Sodium*), 100 MG ORAL TWICE A DAY, (Reported) Donepezil Hcl* (Aricept*), 10 MG ORAL DAILY, (Reported) Levothyroxine Sodium (Synthroid), 50 MCG ORAL DAILY, (Reported) Scheduled PRN Acetaminophen* (Acetaminophen 325MG Tablet*), 325 MG ORAL Q6H PRN for For Pain, (Reported) Miscellaneous Medications Lactobacillus Rhamnosus Gg (Culturelle), 1 EACH PO, (Reported) Patient History Healthcare decision maker N Resuscitation status Full Code Advanced Directive on File Past Medical/Surgical History Past Medical/Surgical History: (1) Lung cancer (2) COPD (chronic obstructive pulmonary disease) (3) Paroxysmal atrial fibrillation Review of Systems All Other Systems: negative except mentioned in HPI Physical Exam General Appearance: WD/WN Lines, tubes and drains: peripheral HEENT: normocephalic, atraumatic Neck: non-tender, normal alignment Respiratory/Chest: chest wall non-tender, lungs clear Cardiovascular/Chest: normal peripheral pulses, regularly irregular Abdomen: normal bowel sounds Genitourinary/Rectal: normal genital exam Extremities: normal range of motion Vital Signs Noted TECHNIQUE: Frontal view of the chest. COMPARISON: 02/22/2018 FINDINGS: Lungs: Mildly increased patchy, subtle airspace attenuation right midlung could be incidental, or could represent developing infection or pulmonary edema in the proper clinical context. Pleural space: Similar-appearing small left base pneumothorax without tension component. Similar small left pleural fluid collection. Unchanged left lung lateral pleural thickening. Heart: Unremarkable. No cardiomegaly. Mediastinum: Unremarkable. Bones/joints: Unremarkable. IMPRESSION: 1. Mildly increased patchy, subtle airspace attenuation right midlung could be incidental, or could represent developing infection or pulmonary edema in the proper clinical context. 2. Similar-appearing small left base pneumothorax without tension component. 3. Similar small left pleural fluid collection. 4. Unchanged left lung lateral pleural thickening. Laboratory Tests Test 02/18/18 14:55 02/18/18 15:16 02/18/18 16:15 02/19/18 04:00 White Blood Count 16.2 K/UL (4.8-10.8) H 11.7 K/UL (4.8-10.8) H Red Blood Count 4.54 M/UL (4.70-6.10) L 4.03 M/UL (4.70-6.10) L Hemoglobin 13.2 G/DL (14.2-18.0) L 11.6 G/DL (14.2-18.0) L Hematocrit 41.1 % (42.0-52.0) L 36.3 % (42.0-52.0) L Mean Corpuscular Volume 91 FL (80-99) 90 FL (80-99) Mean Corpuscular Hemoglobin 29.1 PG (27.0-31.0) 28.8 PG (27.0-31.0) Mean Corpuscular Hemoglobin Concent 32.2 G/DL (32.0-36.0) 32.0 G/DL (32.0-36.0) Red Cell Distribution Width 12.5 % (11.6-14.8) 12.3 % (11.6-14.8) Platelet Count 121 K/UL (150-450) L 106 K/UL (150-450) L Mean Platelet Volume 7.7 FL (6.5-10.1) 8.0 FL (6.5-10.1) Neutrophils (%) (Auto) 86.5 % (45.0-75.0) H 79.9 % (45.0-75.0) H Lymphocytes (%) (Auto) 5.8 % (20.0-45.0) L 7.4 % (20.0-45.0) L Monocytes (%) (Auto) 5.1 % (1.0-10.0) 6.3 % (1.0-10.0) Eosinophils (%) (Auto) 1.7 % (0.0-3.0) 5.4 % (0.0-3.0) H Basophils (%) (Auto) 1.0 % (0.0-2.0) 1.0 % (0.0-2.0) Prothrombin Time 12.6 SEC (9.30-11.50) H Prothromb Time International Ratio 1.2 (0.9-1.1) H Activated Partial Thromboplast Time 29 SEC (23-33) Sodium Level 144 MMOL/L (136-145) 144 MMOL/L (136-145) Potassium Level 5.0 MMOL/L (3.5-5.1) 4.7 MMOL/L (3.5-5.1) Chloride Level 106 MMOL/L (98-107) 110 MMOL/L (98-107) H Carbon Dioxide Level 30 MMOL/L (21-32) 27 MMOL/L (21-32) Anion Gap 8 mmol/L (5-15) 7 mmol/L (5-15) Blood Urea Nitrogen 36 mg/dL (7-18) H 33 mg/dL (7-18) H Creatinine 1.4 MG/DL (0.55-1.30) H 1.1 MG/DL (0.55-1.30) Estimat Glomerular Filtration Rate mL/min (>60) mL/min (>60) Glucose Level 112 MG/DL (74-106) H 85 MG/DL (74-106) Lactic Acid Level 2.00 mmol/L (0.4-2.0) 0.90 mmol/L (0.66-2.22) Calcium Level 8.7 MG/DL (8.5-10.1) 8.2 MG/DL (8.5-10.1) L Total Bilirubin 0.5 MG/DL (0.2-1.0) Aspartate Amino Transf (AST/SGOT) 54 U/L (15-37) H Alanine Aminotransferase (ALT/SGPT) 22 U/L (12-78) Alkaline Phosphatase 99 U/L (46-116) Total Creatine Kinase 179 U/L (26-308) Creatine Kinase MB 12.6 NG/ML (0.0-3.6) H Creatine Kinase MB Relative Index 7.0 Troponin I 6.867 ng/mL (0.000-0.056) 6.731 ng/mL (0.000-0.056) 7.171 ng/mL (0.000-0.056) Pro-B-Type Natriuretic Peptide 3815 pg/mL (0-125) H Total Protein 8.3 G/DL (6.4-8.2) H Albumin 3.1 G/DL (3.4-5.0) L 2.5 G/DL (3.4-5.0) L Globulin 5.2 g/dL Albumin/Globulin Ratio 0.6 (1.0-2.7) L Lipase 356 U/L (73-393) Urine Color Pale yellow Urine Appearance Turbid Urine pH 5 (4.5-8.0) Urine Specific [place] 1.015 (1.005-1.035) Urine Protein 4+ (NEGATIVE) H Urine Glucose (UA) Negative (NEGATIVE) Urine Ketones Negative (NEGATIVE) Urine Blood 5+ (NEGATIVE) H Urine Nitrite Negative (NEGATIVE) Urine Bilirubin Negative (NEGATIVE) Urine Urobilinogen Normal MG/DL (0.0-1.0) Urine Leukocyte Esterase 3+ (NEGATIVE) H Urine RBC 0-2 /HPF (0 - 0) H Urine WBC Tntc /HPF (0 - 0) H Urine Squamous Epithelial Cells Occasional /LPF Urine Bacteria Many /HPF (NONE) H Phosphorus Level 3.9 MG/DL (2.5-4.9) Triglycerides Level 95 MG/DL (30-150) Cholesterol Level 187 MG/DL (< 200) LDL Cholesterol 130 mg/dL (<100) H HDL Cholesterol 47 MG/DL (40-60) Cholesterol/HDL Ratio 4.0 (3.3-4.4) Thyroid Stimulating Hormone (TSH) 3.498 uiU/mL (0.358-3.740) Digoxin Level 2.1 NG/ML (0.5-2.0) H Microbiology Date/Time Source Procedure Growth Status 02/18/18 16:50 Nasal Nares Influenza Types A,B Antigen (RUBEN) - Final Complete 02/18/18 15:16 Urine,Clean Catch Urine Culture - Preliminary Gram Negative Wild Resulted Height (Feet): 5 Height (Inches): 10.00 Weight (Pounds): 170 Medications Current Medications Medications (Trade) Dose Ordered Sig/Delvin Route PRN Reason Start Time Stop Time Status Last Admin Dose Admin Acetaminophen (Tylenol) 650 mg Q4H PRN ORAL fever 02/18/18 16:45 03/20/18 16:44 Al Hydroxide/Mg Hydroxide (Mylanta II) 30 ml Q6H PRN ORAL dyspepsia 02/18/18 16:46 03/20/18 16:45 Albuterol/ Ipratropium (Albuterol/ Ipratropium) 3 ml Q4H PRN HHN Shortness of Breath 02/18/18 16:46 02/23/18 16:45 Cefepime HCl 1 gm/ Dextrose 55 ml @ 110 mls/hr Q24H IV 02/18/18 18:00 02/25/18 17:59 02/18/18 18:45 Heparin Sodium (Porcine) (Heparin 5000 units/ml) 5,000 units EVERY 12 HOURS SUBQ 02/18/18 21:00 03/20/18 20:59 02/18/18 21:14 Nitroglycerin (Ntg) 0.4 mg Q5M PRN SL Prn Chest Pain 02/18/18 16:46 03/20/18 16:45 Ondansetron HCl (Zofran) 4 mg Q6H PRN IVP Nausea & Vomiting 02/18/18 16:46 03/20/18 16:45 Polyethylene Glycol (Miralax) 17 gm DAILYPRN PRN ORAL Constipation 02/18/18 16:45 03/20/18 16:44 Promethazine HCl/ Codeine (Phenergan with Codeine) 5 ml Q4H PRN ORAL For Cough 02/18/18 16:46 03/20/18 16:45 Temazepam (Restoril) 15 mg HSPRN PRN ORAL Insomnia 02/18/18 21:00 02/25/18 20:59 Vancomycin HCl (Vanco rx to dose) 1 ea DAILY PRN MISC Per rx protocol 02/18/18 16:30 03/20/18 16:29 Vancomycin HCl 500 mg/Dextrose 110 ml @ 110 mls/hr Q12HR IVPB 02/19/18 09:00 02/24/18 08:59 02/19/18 08:10 Vancomycin HCl 1500 mg/Sodium Chloride 275 ml @ 137.5 mls/ hr ONCE IVPB 02/18/18 16:45 02/23/18 16:44 02/18/18 17:03 Assessment/Plan Problem List: (1) Severe sepsis ICD Codes: A41.9 - Sepsis, unspecified organism; R65.20 - Severe sepsis without septic shock SNOMED: 64951631 (2) Altered level of consciousness ICD Codes: R40.4 - Transient alteration of awareness SNOMED: 8775861 (3) Myocardial injury ICD Codes: S26.90XA - Unspecified injury of heart, unspecified with or without hemopericardium, initial encounter SNOMED: 25118136 (4) Paroxysmal atrial fibrillation ICD Codes: I48.0 - Paroxysmal atrial fibrillation SNOMED: 821457565 (5) COPD (chronic obstructive pulmonary disease) ICD Codes: J44.9 - Chronic obstructive pulmonary disease, unspecified SNOMED: 05347002 (6) Lung cancer ICD Codes: C34.90 - Malignant neoplasm of unspecified part of unspecified bronchus or lung SNOMED: 932003492 Assessment/Plan RODERICK monitoring cardiology consult appreciated broad spectrum abx suero cultures f/u on WBC echo cardiogram check electrolytes social services coordinator to find DPOA dvt prophylaxis Antibiotics per ID O2 PRN, BiPAP PRN Subjective ROS Limited/Unobtainable: No Allergies: Coded Allergies: No Known Allergies (Unverified , 02/18/18) Objective Last 24 Hour Vital Signs Date Time Temp Pulse Resp B/P (MAP) Pulse Ox O2 Delivery O2 Flow Rate FiO2 02/27/18 09:00 86 108/64 02/27/18 08:00 97.4 86 30 108/64 (79) 96 02/27/18 08:00 85 02/27/18 06:30 97 Venturi Mask 12.0 50 02/27/18 06:30 Venturi Mask 12.0 50 02/27/18 06:30 80 30 Venturi Mask 12.0 50 02/27/18 04:00 77 02/27/18 04:00 Venturi Mask 02/27/18 04:00 97.9 72 29 121/65 (83) 93 02/27/18 00:41 Venturi Mask 02/27/18 00:41 98.1 68 30 132/65 (87) 92 02/26/18 21:52 80 25 Venturi Mask 8.0 40 02/26/18 21:52 Venturi Mask 8.0 40 02/26/18 21:52 97 Venturi Mask 8.0 40 02/26/18 20:19 85 158/90 02/26/18 20:00 98.0 83 27 158/90 (112) 96 02/26/18 20:00 Venturi Mask 02/26/18 20:00 80 02/26/18 16:00 Venturi Mask 02/26/18 16:00 63 02/26/18 16:00 97.9 64 18 126/58 (80) 98 02/26/18 12:00 97.8 69 27 142/60 (87) 91 02/26/18 12:00 Venturi Mask 02/26/18 12:00 61 Intake and Output 02/26/18 02/27/18 19:00 07:00 Intake Total 685.000 ml 504.333 ml Output Total 350 ml 300 ml Balance 335.000 ml 204.333 ml IV Total 685.000 ml 504.333 ml Output Urine Total 350 ml 300 ml # Bowel Movements 1 2 Microbiology Date/Time Source Procedure Growth Status 02/25/18 15:50 Sputum Induced Gram Stain - Final Complete 02/25/18 15:50 Sputum Culture - Final Janeth Albicans Usual Upper Respiratory Saloni Complete 02/25/18 05:49 Sputum AFB Specimen Processing Tissue - Final Resulted 02/25/18 05:49 Sputum Acid Fast Bacilli Smear - Final Resulted 02/25/18 05:49 Sputum Acid Fast Bacilli Culture Pending Resulted 02/24/18 15:50 Sputum AFB Specimen Processing Tissue - Final Resulted 02/24/18 15:50 Sputum Acid Fast Bacilli Smear - Final Resulted 02/24/18 15:50 Sputum Acid Fast Bacilli Culture Pending Resulted Laboratory Tests 02/27/18 03:25: White Blood Count 24.3*H, Red Blood Count 3.66L, Hemoglobin 11.1L, Hematocrit 33.1L, Mean Corpuscular Volume 90, Mean Corpuscular Hemoglobin 30.2, Mean Corpuscular Hemoglobin Concent 33.4, Red Cell Distribution Width 13.8, Platelet Count 39L, Mean Platelet Volume 12.0H, Neutrophils (%) (Auto) , Lymphocytes (%) (Auto) , Monocytes (%) (Auto) , Eosinophils (%) (Auto) , Basophils (%) (Auto) , Neutrophils % (Manual) [Pending], Lymphocytes % (Manual) [Pending], Platelet Estimate [Pending], Platelet Morphology [Pending], Sodium Level 140, Potassium Level 4.7, Chloride Level 108H, Carbon Dioxide Level 22, Anion Gap 10, Blood Urea Nitrogen 45H, Creatinine 1.5H, Estimat Glomerular Filtration Rate , Glucose Level 104, Calcium Level 7.8L, Phosphorus Level 3.1, Magnesium Level 2.2 , Iron Level 56, Total Iron Binding Capacity 236L, Percent Iron Saturation 24, Unsaturated Iron Binding 180, Ferritin 666H Current Medications Medications (Trade) Dose Ordered Sig/Delvin Route PRN Reason Start Time Stop Time Status Last Admin Dose Admin Acetaminophen (Tylenol) 650 mg Q4H PRN ORAL fever 02/18/18 16:45 03/20/18 16:44 Al Hydroxide/Mg Hydroxide (Mylanta II) 30 ml Q6H PRN ORAL dyspepsia 02/18/18 16:46 03/20/18 16:45 Atorvastatin Calcium (Lipitor) 10 mg BEDTIME ORAL 02/22/18 21:00 03/24/18 20:59 02/26/18 20:17 Dextrose/Sodium Chloride 1,000 ml @ 40 mls/hr Q24H IV 02/26/18 00:00 03/28/18 00:00 02/27/18 00:46 Docusate Sodium (Colace) 100 mg TWICE A DAY ORAL 02/23/18 18:00 03/25/18 17:59 02/27/18 09:34 Heparin Sodium (Porcine) (Heparin 5000 units/ml) 5,000 units EVERY 12 HOURS SUBQ 02/18/18 21:00 03/20/18 20:59 02/20/18 08:13 Lactulose (Cephulac) 10 gm EVERY 6 HOURS ORAL 02/24/18 00:00 03/26/18 00:00 02/27/18 00:48 Meropenem 1 gm/ Sodium Chloride 55 ml @ 110 mls/hr Q12H IVPB 02/26/18 17:00 03/03/18 16:59 02/27/18 05:27 Methylprednisolone Sodium Succinate (Solu-MEDROL) 40 mg DAILY IVP 02/27/18 09:00 03/22/18 17:59 02/27/18 09:26 Metoprolol Tartrate (Lopressor) 25 mg Q12HR ORAL 02/24/18 21:00 03/26/18 20:59 02/26/18 20:19 Nitroglycerin (Ntg) 0.4 mg Q5M PRN SL Prn Chest Pain 02/18/18 16:46 03/20/18 16:45 Olanzapine (ZyPREXA) 2.5 mg Q6H PRN ORAL agitation 02/19/18 12:15 03/21/18 12:14 Ondansetron HCl (Zofran) 4 mg Q6H PRN IVP Nausea & Vomiting 02/18/18 16:46 03/20/18 16:45 Pantoprazole (Protonix) 40 mg DAILY IVP 02/25/18 15:15 03/27/18 15:14 02/27/18 09:25 Polyethylene Glycol (Miralax) 17 gm DAILYPRN PRN ORAL Constipation 02/18/18 16:45 03/20/18 16:44 Promethazine HCl/ Codeine (Phenergan with Codeine) 5 ml Q4H PRN ORAL For Cough 02/18/18 16:46 03/20/18 16:45 Vancomycin HCl (Vanco rx to dose) 1 ea DAILY PRN MISC Per rx protocol 02/25/18 13:00 03/27/18 12:59 Vancomycin/Sodium Chloride 250 ml @ 166.667 mls/hr Q24H IVPB 02/26/18 15:30 03/03/18 15:29 02/26/18 16:35 Chris Samuel MD Feb 27, 2018 10:34
--- NOTE | 2018-02-27 11:13 | Internal Med Progress Note ---
Subjective Physician Name HoseaMarquez Attending Physician Gila Sibley MD Current Medications Medications (Trade) Dose Ordered Sig/Delvin Route PRN Reason Start Time Stop Time Status Last Admin Dose Admin Acetaminophen (Tylenol) 650 mg Q4H PRN ORAL fever 02/18/18 16:45 03/20/18 16:44 Al Hydroxide/Mg Hydroxide (Mylanta II) 30 ml Q6H PRN ORAL dyspepsia 02/18/18 16:46 03/20/18 16:45 Atorvastatin Calcium (Lipitor) 10 mg BEDTIME ORAL 02/22/18 21:00 03/24/18 20:59 02/26/18 20:17 Dextrose/Sodium Chloride 1,000 ml @ 40 mls/hr Q24H IV 02/26/18 00:00 03/28/18 00:00 02/27/18 00:46 Docusate Sodium (Colace) 100 mg TWICE A DAY ORAL 02/23/18 18:00 03/25/18 17:59 02/27/18 09:34 Heparin Sodium (Porcine) (Heparin 5000 units/ml) 5,000 units EVERY 12 HOURS SUBQ 02/18/18 21:00 03/20/18 20:59 02/20/18 08:13 Lactulose (Cephulac) 10 gm EVERY 6 HOURS ORAL 02/24/18 00:00 03/26/18 00:00 02/27/18 00:48 Meropenem 1 gm/ Sodium Chloride 55 ml @ 110 mls/hr Q12H IVPB 02/26/18 17:00 03/03/18 16:59 02/27/18 05:27 Methylprednisolone Sodium Succinate (Solu-MEDROL) 40 mg DAILY IVP 02/27/18 09:00 03/22/18 17:59 02/27/18 09:26 Metoprolol Tartrate (Lopressor) 25 mg Q12HR ORAL 02/24/18 21:00 03/26/18 20:59 02/26/18 20:19 Nitroglycerin (Ntg) 0.4 mg Q5M PRN SL Prn Chest Pain 02/18/18 16:46 03/20/18 16:45 Olanzapine (ZyPREXA) 2.5 mg Q6H PRN ORAL agitation 02/19/18 12:15 03/21/18 12:14 Ondansetron HCl (Zofran) 4 mg Q6H PRN IVP Nausea & Vomiting 02/18/18 16:46 03/20/18 16:45 Pantoprazole (Protonix) 40 mg DAILY IVP 02/25/18 15:15 03/27/18 15:14 02/27/18 09:25 Polyethylene Glycol (Miralax) 17 gm DAILYPRN PRN ORAL Constipation 02/18/18 16:45 03/20/18 16:44 Promethazine HCl/ Codeine (Phenergan with Codeine) 5 ml Q4H PRN ORAL For Cough 02/18/18 16:46 03/20/18 16:45 Vancomycin HCl (Vanco rx to dose) 1 ea DAILY PRN MISC Per rx protocol 02/25/18 13:00 03/27/18 12:59 Vancomycin/Sodium Chloride 250 ml @ 166.667 mls/hr Q24H IVPB 02/26/18 15:30 03/03/18 15:29 02/26/18 16:35 Allergies: Coded Allergies: No Known Allergies (Unverified , 02/18/18) Subjective awake,responsive with open eyes with stimulation, not verbal, NAD, Objective Last Vital Signs Date Time Temp Pulse Resp B/P (MAP) Pulse Ox O2 Delivery O2 Flow Rate FiO2 02/27/18 09:00 86 108/64 02/27/18 08:00 97.4 30 96 02/27/18 08:00 Venturi Mask 02/27/18 06:30 12.0 50 Laboratory Tests Test 02/27/18 03:25 White Blood Count 24.3 K/UL (4.8-10.8) *H Red Blood Count 3.66 M/UL (4.70-6.10) L Hemoglobin 11.1 G/DL (14.2-18.0) L Hematocrit 33.1 % (42.0-52.0) L Mean Corpuscular Volume 90 FL (80-99) Mean Corpuscular Hemoglobin 30.2 PG (27.0-31.0) Mean Corpuscular Hemoglobin Concent 33.4 G/DL (32.0-36.0) Red Cell Distribution Width 13.8 % (11.6-14.8) Platelet Count 39 K/UL (150-450) L Mean Platelet Volume 12.0 FL (6.5-10.1) H Neutrophils (%) (Auto) % (45.0-75.0) Lymphocytes (%) (Auto) % (20.0-45.0) Monocytes (%) (Auto) % (1.0-10.0) Eosinophils (%) (Auto) % (0.0-3.0) Basophils (%) (Auto) % (0.0-2.0) Differential Total Cells Counted 100 Neutrophils % (Manual) 92 % (45-75) H Lymphocytes % (Manual) 2 % (20-45) L Monocytes % (Manual) 3 % (1-10) Eosinophils % (Manual) 0 % (0-3) Basophils % (Manual) 0 % (0-2) Myelocytes % 1 % (0-0) H Band Neutrophils 2 % (0-8) Platelet Estimate Decreased L Platelet Morphology Normal Red Blood Cell Morphology Normal Sodium Level 140 MMOL/L (136-145) Potassium Level 4.7 MMOL/L (3.5-5.1) Chloride Level 108 MMOL/L (98-107) H Carbon Dioxide Level 22 MMOL/L (21-32) Anion Gap 10 mmol/L (5-15) Blood Urea Nitrogen 45 mg/dL (7-18) H Creatinine 1.5 MG/DL (0.55-1.30) H Estimat Glomerular Filtration Rate mL/min (>60) Glucose Level 104 MG/DL (74-106) Calcium Level 7.8 MG/DL (8.5-10.1) L Phosphorus Level 3.1 MG/DL (2.5-4.9) Magnesium Level 2.2 MG/DL (1.8-2.4) Iron Level 56 ug/dL (50-175) Total Iron Binding Capacity 236 ug/dL (250-450) L Percent Iron Saturation 24 % (15-50) Unsaturated Iron Binding 180 ug/dL (112-346) Ferritin 666 NG/ML (8-388) H Microbiology Date/Time Source Procedure Growth Status 02/25/18 15:50 Sputum Induced Gram Stain - Final Complete 02/25/18 15:50 Sputum Culture - Final Janeth Albicans Usual Upper Respiratory Saloni Complete 02/25/18 05:49 Sputum AFB Specimen Processing Tissue - Final Resulted 02/25/18 05:49 Sputum Acid Fast Bacilli Smear - Final Resulted 02/25/18 05:49 Sputum Acid Fast Bacilli Culture Pending Resulted 02/24/18 15:50 Sputum AFB Specimen Processing Tissue - Final Resulted 02/24/18 15:50 Sputum Acid Fast Bacilli Smear - Final Resulted 02/24/18 15:50 Sputum Acid Fast Bacilli Culture Pending Resulted Intake and Output 02/26/18 02/27/18 19:00 07:00 Intake Total 685.000 ml 504.333 ml Output Total 350 ml 300 ml Balance 335.000 ml 204.333 ml IV Total 685.000 ml 504.333 ml Output Urine Total 350 ml 300 ml # Bowel Movements 1 2 Objective General: No acute distress, awake and Not verbal, HEENT: NCAT, sclera anicteric, PERRL, Neck: Supple, no significant jugular venous distention, Lungs: Fair inspiratory effort, Decrease air at bases, no Wheeze or Rales. Heart: Regular rate and rhythm, normal S1/S2, no murmurs. Abdomen: soft, nontender, nondistended. Normoactive bowel sounds. Extremities: No Cyanosis , clubbing or edema. Neuro: limited due to patient status, Unable to move extremities, Skin: warm, no rash Assessment/Plan Assessment/Plan Assessment/Plan (1) Pneumonia (2) Acute myocardial infarction non ST-elevation. (3) CHF (congestive heart failure) (4) HTN (hypertension) (5) Hypothyroidism (6) Anemia, iron deficiency (7) CAD (coronary artery disease) (8) PATO on CKD (9) COPD (chronic obstructive pulmonary disease) (10) Paroxysmal atrial fibrillation (11) Altered level of consciousness most likely due to Toxic Metabolic encephalopathy, (12) Lung cancer (13) E coli ESBL UTI Plan: in [facility], Heparin SQ Full code Abx: Meropenem, Vanco IV On Solumedral 40mg IV Daily. IVF @ 75 cc/hr F/U with Labs and cultures, GI consult for PEG placement Protonix IV NPO Marquez Jc MD Feb 27, 2018 11:13
[2018-02-27 12:00] VITALS: BP 125/56
--- NOTE | 2018-02-27 12:09 | GI Progress Note ---
Assessment/Plan Problems: (1) Encounter for PEG (percutaneous endoscopic gastrostomy) ICD Codes: Z43.1 - Encounter for attention to gastrostomy SNOMED: 956838809, 462556947 (2) Severe malnutrition ICD Codes: E43 - Unspecified severe protein-calorie malnutrition SNOMED: 59020672 (3) Dehydration ICD Codes: E86.0 - Dehydration SNOMED: 80702268 (4) Anemia, iron deficiency ICD Codes: D50.9 - Iron deficiency anemia, unspecified SNOMED: 10037460 Status: not improved, unchanged Status Narrative Discussed with Dr. Powell Assessment/Plan Airborne precautions to rule out TB Had episode of desaturation yesterday, now on Venturi mask 50% Patient not stable for PEG at this time given elevated troponin levels and leukocytosis, will require cardiac clearance. Maintain n.p.o. plus IV fluids at this time, Dobbhoff versus NGT when respiratory status stabilizes As needed transfusions PPI Bowel regimen patient services assistant to find the DPOA Antibiotics Follow-up labs The patient was seen and examined at bedside and all new and available data was reviewed in the patients chart. I agree with the above findings, impression and plan. (Patient seen earlier today. Signature stamp does not reflect patient encounter time.). - Reed Powell MD Subjective Subjective Limited Objective Last 24 Hour Vital Signs Date Time Temp Pulse Resp B/P (MAP) Pulse Ox O2 Delivery O2 Flow Rate FiO2 02/27/18 09:00 86 108/64 02/27/18 08:00 97.4 86 30 108/64 (79) 96 02/27/18 08:00 Venturi Mask 02/27/18 08:00 85 02/27/18 06:30 97 Venturi Mask 12.0 50 02/27/18 06:30 Venturi Mask 12.0 50 02/27/18 06:30 80 30 Venturi Mask 12.0 50 02/27/18 04:00 77 02/27/18 04:00 Venturi Mask 02/27/18 04:00 97.9 72 29 121/65 (83) 93 02/27/18 00:41 Venturi Mask 02/27/18 00:41 98.1 68 30 132/65 (87) 92 02/26/18 21:52 80 25 Venturi Mask 8.0 40 02/26/18 21:52 Venturi Mask 8.0 40 02/26/18 21:52 97 Venturi Mask 8.0 40 02/26/18 20:19 85 158/90 02/26/18 20:00 98.0 83 27 158/90 (112) 96 02/26/18 20:00 Venturi Mask 02/26/18 20:00 80 02/26/18 16:00 Venturi Mask 02/26/18 16:00 63 02/26/18 16:00 97.9 64 18 126/58 (80) 98 Intake and Output 02/26/18 02/27/18 19:00 07:00 Intake Total 685.000 ml 504.333 ml Output Total 350 ml 300 ml Balance 335.000 ml 204.333 ml IV Total 685.000 ml 504.333 ml Output Urine Total 350 ml 300 ml # Bowel Movements 1 2 Laboratory Tests Test 02/27/18 03:25 White Blood Count 24.3 K/UL (4.8-10.8) *H Red Blood Count 3.66 M/UL (4.70-6.10) L Hemoglobin 11.1 G/DL (14.2-18.0) L Hematocrit 33.1 % (42.0-52.0) L Mean Corpuscular Volume 90 FL (80-99) Mean Corpuscular Hemoglobin 30.2 PG (27.0-31.0) Mean Corpuscular Hemoglobin Concent 33.4 G/DL (32.0-36.0) Red Cell Distribution Width 13.8 % (11.6-14.8) Platelet Count 39 K/UL (150-450) L Mean Platelet Volume 12.0 FL (6.5-10.1) H Neutrophils (%) (Auto) % (45.0-75.0) Lymphocytes (%) (Auto) % (20.0-45.0) Monocytes (%) (Auto) % (1.0-10.0) Eosinophils (%) (Auto) % (0.0-3.0) Basophils (%) (Auto) % (0.0-2.0) Differential Total Cells Counted 100 Neutrophils % (Manual) 92 % (45-75) H Lymphocytes % (Manual) 2 % (20-45) L Monocytes % (Manual) 3 % (1-10) Eosinophils % (Manual) 0 % (0-3) Basophils % (Manual) 0 % (0-2) Myelocytes % 1 % (0-0) H Band Neutrophils 2 % (0-8) Platelet Estimate Decreased L Platelet Morphology Normal Red Blood Cell Morphology Normal Sodium Level 140 MMOL/L (136-145) Potassium Level 4.7 MMOL/L (3.5-5.1) Chloride Level 108 MMOL/L (98-107) H Carbon Dioxide Level 22 MMOL/L (21-32) Anion Gap 10 mmol/L (5-15) Blood Urea Nitrogen 45 mg/dL (7-18) H Creatinine 1.5 MG/DL (0.55-1.30) H Estimat Glomerular Filtration Rate mL/min (>60) Glucose Level 104 MG/DL (74-106) Calcium Level 7.8 MG/DL (8.5-10.1) L Phosphorus Level 3.1 MG/DL (2.5-4.9) Magnesium Level 2.2 MG/DL (1.8-2.4) Iron Level 56 ug/dL (50-175) Total Iron Binding Capacity 236 ug/dL (250-450) L Percent Iron Saturation 24 % (15-50) Unsaturated Iron Binding 180 ug/dL (112-346) Ferritin 666 NG/ML (8-388) H Height (Feet): 5 Height (Inches): 10.00 Weight (Pounds): 141 General Appearance: no apparent distress Cardiovascular: normal rate Respiratory/Chest: normal breath sounds, no respiratory distress, other - Venturi mask at 50% Abdominal Exam: normal bowel sounds, non tender, soft Extremities: non-tender Surinder Mendiola NP Feb 27, 2018 12:09
[2018-02-27] MEDS: Vancomycin 750mg/NS 250ml IVPB SCH (14:52)
[2018-02-27 16:00] VITALS: BP 129/62
--- NOTE | 2018-02-27 16:28 | NUR ---
CASE MANAGEMENT: REVIEW SI: LUNG CA . COPD . A-FIB . Tb R/O T 97.4 HR 77 RR 30 BP 125/56 SAT 97% VENTURI MASK 12.0 FIO2 50 WBC 24.3 H/H 11.1/33.1 BUN 45 CR 1.5 IS: LOPRESSOR PO Q12HR SOLU MEDROL IV Q12HR MEROPENEM IV Q12HR LACTULOSE PO Q6HR NS IVF @75ML/HR STEP DOWN UNIT STATUS DCP: PATIENT IS FROM [facility]
--- NOTE | 2018-02-27 19:00 | Cardiology Progress Note ---
Assessment/Plan Assessment/Plan 1. Alteration of mental status. Questionable toxic metabolic encephalopathy. 2. Acute myocardial infarction non ST-elevation. 3. Right bundle-branch block conduction defect, chronicity unknown. 4. Reported history of lung cancer. 5. Reported history of paroxysmal atrial fibrillation. 6. Reported history of coagulopathy secondary to anticoagulation. 7. History of coronary artery disease. 8. History of chronic obstructive pulmonary disease. 9. History of chronic kidney disease. 10. History of hypertension. 11. wide compelx tachy likely atrial tachy with abbarency 12. thormbocytopenia trop trednign down will repaet echo the prior echo normal lv fucntion tele reviewed sinus need asa and statin but sicne plt are low i have dc ecotrin for now remains at this time a poor candidate for any invasive cardiac treatment poor resoponsive but nto communicative bb increased will dc heparin until HIT is excluded d/w dr maxwell may need heme Subjective ROS Limited/Unobtainable: Yes Subjective in isolation room for tb Objective Last 24 Hour Vital Signs Date Time Temp Pulse Resp B/P (MAP) Pulse Ox O2 Delivery O2 Flow Rate FiO2 02/27/18 16:00 97.9 94 22 129/62 (84) 98 02/27/18 16:00 Venturi Mask 02/27/18 15:14 94 02/27/18 12:03 77 02/27/18 12:00 97.8 77 22 125/56 (79) 98 02/27/18 12:00 Venturi Mask 02/27/18 09:00 86 108/64 02/27/18 08:00 97.4 86 30 108/64 (79) 96 02/27/18 08:00 Venturi Mask 02/27/18 08:00 85 02/27/18 06:30 97 Venturi Mask 12.0 50 02/27/18 06:30 Venturi Mask 12.0 50 02/27/18 06:30 80 30 Venturi Mask 12.0 50 02/27/18 04:00 77 02/27/18 04:00 Venturi Mask 02/27/18 04:00 97.9 72 29 121/65 (83) 93 02/27/18 00:41 Venturi Mask 02/27/18 00:41 98.1 68 30 132/65 (87) 92 02/26/18 21:52 80 25 Venturi Mask 8.0 40 02/26/18 21:52 Venturi Mask 8.0 40 02/26/18 21:52 97 Venturi Mask 8.0 40 02/26/18 20:19 85 158/90 02/26/18 20:00 98.0 83 27 158/90 (112) 96 02/26/18 20:00 Venturi Mask 02/26/18 20:00 80 General Appearance: other - drwosey Neck: supple Cardiovascular: normal rate, regular rhythm Respiratory/Chest: lungs clear Abdomen: normal bowel sounds, non tender, soft Extremities: no swelling Intake and Output 02/26/18 02/27/18 19:00 07:00 Intake Total 685.000 ml 544.333 ml Output Total 350 ml 300 ml Balance 335.000 ml 244.333 ml IV Total 685.000 ml 544.333 ml Output Urine Total 350 ml 300 ml # Bowel Movements 1 2 Laboratory Tests Test 02/27/18 03:25 02/27/18 14:35 White Blood Count 24.3 K/UL (4.8-10.8) *H Red Blood Count 3.66 M/UL (4.70-6.10) L Hemoglobin 11.1 G/DL (14.2-18.0) L Hematocrit 33.1 % (42.0-52.0) L Mean Corpuscular Volume 90 FL (80-99) Mean Corpuscular Hemoglobin 30.2 PG (27.0-31.0) Mean Corpuscular Hemoglobin Concent 33.4 G/DL (32.0-36.0) Red Cell Distribution Width 13.8 % (11.6-14.8) Platelet Count 39 K/UL (150-450) L Mean Platelet Volume 12.0 FL (6.5-10.1) H Neutrophils (%) (Auto) % (45.0-75.0) Lymphocytes (%) (Auto) % (20.0-45.0) Monocytes (%) (Auto) % (1.0-10.0) Eosinophils (%) (Auto) % (0.0-3.0) Basophils (%) (Auto) % (0.0-2.0) Differential Total Cells Counted 100 Neutrophils % (Manual) 92 % (45-75) H Lymphocytes % (Manual) 2 % (20-45) L Monocytes % (Manual) 3 % (1-10) Eosinophils % (Manual) 0 % (0-3) Basophils % (Manual) 0 % (0-2) Myelocytes % 1 % (0-0) H Band Neutrophils 2 % (0-8) Platelet Estimate Decreased L Platelet Morphology Normal Red Blood Cell Morphology Normal Sodium Level 140 MMOL/L (136-145) Potassium Level 4.7 MMOL/L (3.5-5.1) Chloride Level 108 MMOL/L (98-107) H Carbon Dioxide Level 22 MMOL/L (21-32) Anion Gap 10 mmol/L (5-15) Blood Urea Nitrogen 45 mg/dL (7-18) H Creatinine 1.5 MG/DL (0.55-1.30) H Estimat Glomerular Filtration Rate mL/min (>60) Glucose Level 104 MG/DL (74-106) Calcium Level 7.8 MG/DL (8.5-10.1) L Phosphorus Level 3.1 MG/DL (2.5-4.9) Magnesium Level 2.2 MG/DL (1.8-2.4) Iron Level 56 ug/dL (50-175) Total Iron Binding Capacity 236 ug/dL (250-450) L Percent Iron Saturation 24 % (15-50) Unsaturated Iron Binding 180 ug/dL (112-346) Ferritin 666 NG/ML (8-388) H Vancomycin Level Trough 14.2 ug/mL (5.0-12.0) H Microbiology Date/Time Source Procedure Growth Status 02/25/18 15:50 Sputum Induced Gram Stain - Final Complete 02/25/18 15:50 Sputum Culture - Final Janeth Albicans Usual Upper Respiratory Saloni Complete 02/25/18 05:49 Sputum AFB Specimen Processing Tissue - Final Resulted 02/25/18 05:49 Sputum Acid Fast Bacilli Smear - Final Resulted 02/25/18 05:49 Sputum Acid Fast Bacilli Culture Pending Resulted Geovanny Sherwood MD Feb 27, 2018 19:00
--- NOTE | 2018-02-27 19:05 | NUR ---
HAND-OFF: Report given to JUAN FRANCISCO Talavera. Patient is stable and in no apparent distress.
--- NOTE | 2018-02-27 19:30 | NUR ---
NURSE NOTES: Report received form JUAN FRANCISCO Qureshi. Observed pt sleeping on the bed. No signs of acute distress noted. A/O x0. Arousable by voice. Pt on quality assurance monitor body, SR with BBB. Pt is on Ventri mask, 50%, saturating at 100%. Condom catheter intact and draining well. pt is on SPR mattress for protection. IV on L H 22 G running D5 1/2 at 40cc/hr. Bed in the lowest position. Will continue to monitor.
[2018-02-27 20:00] VITALS: BP 147/72
--- NOTE | 2018-02-27 22:26 | General Progress Note ---
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 (2) Dementia ICD Codes: F03.90 - Unspecified dementia without behavioral disturbance SNOMED: 09144255 Status: unchanged Assessment/Plan zyprexa prn the pt lacks capacity provided ro Subjective Neurologic/Psychiatric: Reports: anxiety, depressed, emotional problems Allergies: Coded Allergies: No Known Allergies (Unverified , 02/18/18) Subjective the pt has episodes of agitation and is confused. Objective Last 24 Hour Vital Signs Date Time Temp Pulse Resp B/P (MAP) Pulse Ox O2 Delivery O2 Flow Rate FiO2 02/27/18 21:39 84 147/72 02/27/18 20:00 Venturi Mask 10.0 45 02/27/18 20:00 88 28 Venturi Mask 10.0 45 02/27/18 20:00 95 Venturi Mask 10.0 45 02/27/18 16:00 97.9 94 22 129/62 (84) 98 02/27/18 16:00 Venturi Mask 02/27/18 15:14 94 02/27/18 12:03 77 02/27/18 12:00 97.8 77 22 125/56 (79) 98 02/27/18 12:00 Venturi Mask 02/27/18 09:00 86 108/64 02/27/18 08:00 97.4 86 30 108/64 (79) 96 02/27/18 08:00 Venturi Mask 02/27/18 08:00 85 02/27/18 06:30 97 Venturi Mask 12.0 50 02/27/18 06:30 Venturi Mask 12.0 50 02/27/18 06:30 80 30 Venturi Mask 12.0 50 02/27/18 04:00 77 02/27/18 04:00 Venturi Mask 02/27/18 04:00 97.9 72 29 121/65 (83) 93 02/27/18 00:41 Venturi Mask 02/27/18 00:41 98.1 68 30 132/65 (87) 92 Intake and Output 02/26/18 02/27/18 18:59 06:59 Intake Total 725.000 ml 504.333 ml Output Total 350 ml 300 ml Balance 375.000 ml 204.333 ml IV Total 725.000 ml 504.333 ml Output Urine Total 350 ml 300 ml # Bowel Movements 1 2 Laboratory Tests 02/27/18 03:25: White Blood Count 24.3*H, Red Blood Count 3.66L, Hemoglobin 11.1L, Hematocrit 33.1L, Mean Corpuscular Volume 90, Mean Corpuscular Hemoglobin 30.2, Mean Corpuscular Hemoglobin Concent 33.4, Red Cell Distribution Width 13.8, Platelet Count 39L, Mean Platelet Volume 12.0H, Neutrophils (%) (Auto) , Lymphocytes (%) (Auto) , Monocytes (%) (Auto) , Eosinophils (%) (Auto) , Basophils (%) (Auto) , Differential Total Cells Counted 100, Neutrophils % (Manual) 92H, Lymphocytes % (Manual) 2L, Monocytes % (Manual) 3, Eosinophils % (Manual) 0, Basophils % ( Manual) 0, Myelocytes % 1H, Band Neutrophils 2, Platelet Estimate DecreasedL, Platelet Morphology Normal, Red Blood Cell Morphology Normal, Reticulocyte Count 1.5, Sodium Level 140, Potassium Level 4.7, Chloride Level 108H, Carbon Dioxide Level 22, Anion Gap 10, Blood Urea Nitrogen 45H, Creatinine 1.5H, Estimat Glomerular Filtration Rate , Glucose Level 104, Calcium Level 7.8L, Phosphorus Level 3.1, Magnesium Level 2.2, Iron Level 56, Total Iron Binding Capacity 236L, Percent Iron Saturation 24, Unsaturated Iron Binding 180, Ferritin 666H, HIV (1&2) Antibody Rapid Negative 02/27/18 14:35: Haptoglobin [Pending], Vitamin B12 Level 607, Vancomycin Level Trough 14.2H, Hepatitis A IgM Antibody [Pending], Hepatitis B Surface Antigen [Pending], Hepatitis B Core IgM Antibody [Pending], Hepatitis C Antibody [Pending] 02/27/18 20:45: Fibrinogen [Pending] Height (Feet): 5 Height (Inches): 10.00 Weight (Pounds): 141 General Appearance: alert, confused, agitated Arsen Erwin MD Feb 27, 2018 22:26
--- NOTE | 2018-02-27 23:15 | NUR ---
NURSE NOTES: Got a call from Carrie rosales, regarding fibrinogen 108. Left a message to . Awaiting call back.
[2018-02-28] VITALS: BP 145/75
[2018-02-28] MEDS: Lactulose 10gm/15ml UDC ORAL SCH ×6 (00:24→23:52)
[2018-02-28] MEDS: D5 1/2NS 1,000 ML IV SCH ×2 (00:25→23:52)
[2018-02-28 04:00] VITALS: BP 148/87
[2018-02-28] MEDS: Meropenem 1 GM in NS 55 ML IVPB SCH ×2 (05:05→16:51)
[2018-02-28 06:26] LABS: HEMATOCRIT 29.7 % (42.0-52.0); HEMOGLOBIN 10.2 G/DL (14.2-18.0); MEAN CORPUSCULAR VOLUME 88 FL (80-99); PLATELET COUNT 28 K/UL (150-450); RED BLOOD COUNT 3.37 M/UL (4.70-6.10); RED CELL DISTRIBUTION WIDTH 13.7 % (11.6-14.8)
[2018-02-28 06:29] LABS: WHITE BLOOD COUNT 27.6 K/UL (4.8-10.8)
[2018-02-28 06:30] LABS: ANION GAP 11 mmol/L (5-15); BLOOD UREA NITROGEN 50 mg/dL (7-18); CALCIUM 7.7 MG/DL (8.5-10.1); CARBON DIOXIDE 22 MMOL/L (21-32); CHLORIDE 110 MMOL/L (98-107); CREATININE 1.8 MG/DL (0.55-1.30); PHOSPHORUS 3.2 MG/DL (2.5-4.9); POTASSIUM 4.6 MMOL/L (3.5-5.1); SODIUM 143 MMOL/L (136-145)
--- NOTE | 2018-02-28 06:49 | NUR ---
NURSE NOTES: Left a message to regarding WBC 27.6, T 98.5, RR 20-25, HR 100-110. and awaiting call back. Notified Dr. Samuel regarding plt 28 and no new order received. Will continue to monitor.
--- NOTE | 2018-02-28 07:30 | NUR ---
NURSE NOTES: Patient received from JUAN FRANCISCO Talavera. Patient in bed and asleep. On venturi mask 50%. No SOB. Respirations are even and unlaboured. cardiac monitor in placed. IV sites are asymptomatic. Bed in lowest position with side rails up. Will continue to follow plan of care.
--- NOTE | 2018-02-28 07:30 | NUR ---
HAND-OFF: Report given to JUAN FRANCISCO Qureshi. No acute distress noted at this time.
--- NOTE | 2018-02-28 07:53 | NUR ---
RD ASSESSMENT & RECOMMENDATIONS SEE CARE ACTIVITY FOR COMPLETE ASSESSMENT DAILY ESTIMATED NEEDS: Needs based on Mild wasting, pulmonary 63kg 27-32 kcals/kg 0292-6359 total kcals 1-1.5 g protein/kg 63-95 g total protein 25-30 mL/kg 5319-8649 total fluid mLs NUTRITION DIAGNOSIS: Swallowing difficulty r/t dysphagia as evidenced by s/p IP ATTORNEY eval, pt on liquify puree, souplike NTL diet, now NPO, Dobbhoff versus NGT when respiratory status stabilizes per GI. CURRENT DIET: NPO ENTERAL NUTRITION RECOMMENDATIONS: Osmolite 1.5 @ 50ml/hr x 24 hrs to provide 1200ml, 1800kcal, 75g prot, 914ml free water * As medically appropriate, obtain GI access * Initiate Osmolite 1.5 @ 10ml/hr x 6 hrs, advance 10ml q 4-6 hrs as tolerated to goal rate. * HOB over 30 degrees/ water flush per MD. ADDITIONAL RECOMMENDATIONS: 1) Monitor NPO status 2) CALIBRATED BED SCALE WT-> pt does not appear to be 170# per EMR 3) Monitor BG on solumedrol, need for SSI 4) Wound care: add ROSEANN BID (f/up w/ eval) 5) Lytes daily w/ TF, replete as needed
[2018-02-28 08:00] VITALS: BP 128/66
--- NOTE | 2018-02-28 08:12 | NUR ---
NURSE NOTES: Left a message to Dr. Carranza's office who is covering for Dr. Butler that WBC is trending up to 27.6 today. Awaiting for call back.
[2018-02-28] MEDS: Docusate 100mg cap ORAL SCH ×2 (08:21→17:31)
[2018-02-28] MEDS: Pantoprazole Inj IVP SCH (08:21)
[2018-02-28] MEDS: Solu-MEDROL 40mg Inj IVP SCH (08:21)
[2018-02-28] MEDS: Metoprolol 25mg tab ORAL SCH ×2 (08:22→20:55)
--- NOTE | 2018-02-28 08:30 | NUR ---
NURSE NOTES: Spoke to Dr. Carranza and was told that he will follow up with the patient's WBC.
[2018-02-28 12:00] VITALS: BP 127/70
--- NOTE | 2018-02-28 12:17 | Pulmonology Progress Note ---
Assessment/Plan Assessment/Plan Pulmonary Progress Note HPI Patient is an 82-year-old male with hx of lung cancer, CAD, atrial fibrillation on Digoxin, intermediate resident, unknown baseline mental status was brought to [facility] by paramedics with CC of JIMMY. Pt had low grade temperature and altered mental status for approximately one hour. The EMS the patient was normally somewhat confused. This is his first admission to [facility] and we don't have any information about him or about his DPOA. He had leucocytosis and increased troponin level, without any hx of chest pain. Pt is awake, looks comfortable but doesn't answer to any simple question. CXR worsening right sided infiltrates, IVF reduced, awaiting consideration for possible G tube Antibiotics per ID, persistent Thrombocytopenia O2 PRN, BiPAP PRN Sudden increase in Troponin today - Cardiology aware Allergies: Coded Allergies: No Known Allergies (Unverified , 02/18/18) Medication History Scheduled Bisacodyl (Bisacodyl), 10 MG RC PRN, (Reported) Digoxin* (Digoxin*), 0.25 MG ORAL DAILY, (Reported) Docusate Sodium* (Docusate Sodium*), 100 MG ORAL TWICE A DAY, (Reported) Donepezil Hcl* (Aricept*), 10 MG ORAL DAILY, (Reported) Levothyroxine Sodium (Synthroid), 50 MCG ORAL DAILY, (Reported) Scheduled PRN Acetaminophen* (Acetaminophen 325MG Tablet*), 325 MG ORAL Q6H PRN for For Pain, (Reported) Miscellaneous Medications Lactobacillus Rhamnosus Gg (Culturelle), 1 EACH PO, (Reported) Patient History Healthcare decision maker N Resuscitation status Full Code Advanced Directive on File Past Medical/Surgical History Past Medical/Surgical History: (1) Lung cancer (2) COPD (chronic obstructive pulmonary disease) (3) Paroxysmal atrial fibrillation Review of Systems All Other Systems: negative except mentioned in HPI Physical Exam General Appearance: WD/WN Lines, tubes and drains: peripheral HEENT: normocephalic, atraumatic Neck: non-tender, normal alignment Respiratory/Chest: chest wall non-tender, lungs clear Cardiovascular/Chest: normal peripheral pulses, regularly irregular Abdomen: normal bowel sounds Genitourinary/Rectal: normal genital exam Extremities: normal range of motion Vital Signs Noted TECHNIQUE: Frontal view of the chest. COMPARISON: 02/22/2018 FINDINGS: Lungs: Mildly increased patchy, subtle airspace attenuation right midlung could be incidental, or could represent developing infection or pulmonary edema in the proper clinical context. Pleural space: Similar-appearing small left base pneumothorax without tension component. Similar small left pleural fluid collection. Unchanged left lung lateral pleural thickening. Heart: Unremarkable. No cardiomegaly. Mediastinum: Unremarkable. Bones/joints: Unremarkable. IMPRESSION: 1. Mildly increased patchy, subtle airspace attenuation right midlung could be incidental, or could represent developing infection or pulmonary edema in the proper clinical context. 2. Similar-appearing small left base pneumothorax without tension component. 3. Similar small left pleural fluid collection. 4. Unchanged left lung lateral pleural thickening. Laboratory Tests/imaging noted Height (Feet): 5 Height (Inches): 10.00 Weight (Pounds): 170 Medications Assessment/Plan Problem List: (1) Severe sepsis ICD Codes: A41.9 - Sepsis, unspecified organism; R65.20 - Severe sepsis without septic shock SNOMED: 87399699 (2) Altered level of consciousness ICD Codes: R40.4 - Transient alteration of awareness SNOMED: 1405841 (3) Myocardial injury ICD Codes: S26.90XA - Unspecified injury of heart, unspecified with or without hemopericardium, initial encounter SNOMED: 54482296 (4) Paroxysmal atrial fibrillation ICD Codes: I48.0 - Paroxysmal atrial fibrillation SNOMED: 555393569 (5) COPD (chronic obstructive pulmonary disease) ICD Codes: J44.9 - Chronic obstructive pulmonary disease, unspecified SNOMED: 85515173 (6) Lung cancer ICD Codes: C34.90 - Malignant neoplasm of unspecified part of unspecified bronchus or lung SNOMED: 422768829 Assessment/Plan RODERICK monitoring cardiology consult appreciated broad spectrum abx suero cultures f/u on WBC echo cardiogram check electrolytes aids social worker to find DPOA dvt prophylaxis Antibiotics per ID O2 PRN, BiPAP PRN Subjective ROS Limited/Unobtainable: No Allergies: Coded Allergies: No Known Allergies (Unverified , 02/18/18) Objective Last 24 Hour Vital Signs Date Time Temp Pulse Resp B/P (MAP) Pulse Ox O2 Delivery O2 Flow Rate FiO2 02/28/18 12:00 Venturi Mask 02/28/18 08:22 128 66/107 02/28/18 08:00 Venturi Mask 02/28/18 08:00 97.9 98 35 128/66 (86) 97 02/28/18 08:00 107 02/28/18 06:40 81 24 Venturi Mask 10.0 45 02/28/18 06:40 Venturi Mask 10.0 45 02/28/18 06:40 96 Venturi Mask 10.0 45 02/28/18 04:52 120 02/28/18 04:00 97.9 97 27 148/87 (107) 99 02/28/18 04:00 Venturi Mask 02/28/18 03:46 90 02/28/18 00:00 68 02/28/18 00:00 Venturi Mask 02/28/18 00:00 97.8 71 24 145/75 (98) 100 02/27/18 21:39 84 147/72 02/27/18 20:00 Venturi Mask 10.0 45 02/27/18 20:00 88 28 Venturi Mask 10.0 45 02/27/18 20:00 76 02/27/18 20:00 Venturi Mask 02/27/18 20:00 95 Venturi Mask 10.0 45 02/27/18 20:00 97.8 84 22 147/72 (97) 100 02/27/18 16:00 97.9 94 22 129/62 (84) 98 02/27/18 16:00 Venturi Mask 02/27/18 15:14 94 Intake and Output 02/27/18 02/28/18 19:00 07:00 Intake Total 480 ml 595 ml Output Total 180 ml 300 ml Balance 300 ml 295 ml Intake Oral 60 ml IV Total 480 ml 535 ml Output Urine Total 180 ml 300 ml Microbiology Date/Time Source Procedure Growth Status 02/26/18 17:06 Blood Blood Culture - Preliminary NO GROWTH AFTER 24 HOURS Resulted 02/26/18 17:00 Blood Blood Culture - Preliminary NO GROWTH AFTER 24 HOURS Resulted 02/25/18 15:50 Sputum Induced Gram Stain - Final Complete 02/25/18 15:50 Sputum Culture - Final Janeth Albicans Usual Upper Respiratory Saloni Complete Laboratory Tests 02/27/18 14:35: Haptoglobin [Pending], Vitamin B12 Level 607, Vancomycin Level Trough 14.2H, Hepatitis A IgM Antibody [Pending], Hepatitis B Surface Antigen [Pending], Hepatitis B Core IgM Antibody [Pending], Hepatitis C Antibody [Pending] 02/27/18 20:45: Fibrinogen 108*L 02/28/18 05:30: Sodium Level 143, Potassium Level 4.6, Chloride Level 110H, Carbon Dioxide Level 22, Anion Gap 11, Blood Urea Nitrogen 50H, Creatinine 1.8H, Estimat Glomerular Filtration Rate , Glucose Level 121H, Calcium Level 7.7L, Phosphorus Level 3.2, Magnesium Level 2.0 02/28/18 06:05: White Blood Count 27.6*H, Red Blood Count 3.37L, Hemoglobin 10.2L, Hematocrit 29.7L, Mean Corpuscular Volume 88, Mean Corpuscular Hemoglobin 30.2, Mean Corpuscular Hemoglobin Concent 34.3, Red Cell Distribution Width 13.7, Platelet Count 28L, Mean Platelet Volume 10.2H, Neutrophils (%) (Auto) , Lymphocytes (%) (Auto) , Monocytes (%) (Auto) , Eosinophils (%) (Auto) , Basophils (%) (Auto) , Differential Total Cells Counted 100, Neutrophils % (Manual) 92H, Lymphocytes % (Manual) 3L, Monocytes % (Manual) 3, Eosinophils % (Manual) 0, Basophils % ( Manual) 0, Band Neutrophils 2, Platelet Estimate DecreasedL, Platelet Morphology Normal, Red Blood Cell Morphology Normal Current Medications Medications (Trade) Dose Ordered Sig/Delvin Route PRN Reason Start Time Stop Time Status Last Admin Dose Admin Acetaminophen (Tylenol) 650 mg Q4H PRN ORAL fever 02/18/18 16:45 03/20/18 16:44 02/28/18 05:06 Al Hydroxide/Mg Hydroxide (Mylanta II) 30 ml Q6H PRN ORAL dyspepsia 02/18/18 16:46 03/20/18 16:45 Atorvastatin Calcium (Lipitor) 10 mg BEDTIME ORAL 02/22/18 21:00 03/24/18 20:59 02/27/18 21:39 Dextrose/Sodium Chloride 1,000 ml @ 40 mls/hr Q24H IV 02/26/18 00:00 03/28/18 00:00 02/28/18 00:25 Docusate Sodium (Colace) 100 mg TWICE A DAY ORAL 02/23/18 18:00 03/25/18 17:59 02/28/18 08:21 Lactulose (Cephulac) 10 gm EVERY 6 HOURS ORAL 02/24/18 00:00 03/26/18 00:00 02/28/18 11:29 Meropenem 1 gm/ Sodium Chloride 55 ml @ 110 mls/hr Q12H IVPB 02/26/18 17:00 03/03/18 16:59 02/28/18 05:05 Methylprednisolone Sodium Succinate (Solu-MEDROL) 40 mg DAILY IVP 02/27/18 09:00 03/22/18 17:59 02/28/18 08:21 Metoprolol Tartrate (Lopressor) 25 mg Q12HR ORAL 02/24/18 21:00 03/26/18 20:59 02/28/18 08:22 Nitroglycerin (Ntg) 0.4 mg Q5M PRN SL Prn Chest Pain 02/18/18 16:46 03/20/18 16:45 Olanzapine (ZyPREXA) 2.5 mg Q6H PRN ORAL agitation 02/19/18 12:15 03/21/18 12:14 Ondansetron HCl (Zofran) 4 mg Q6H PRN IVP Nausea & Vomiting 02/18/18 16:46 03/20/18 16:45 Pantoprazole (Protonix) 40 mg DAILY IVP 02/25/18 15:15 03/27/18 15:14 02/28/18 08:21 Polyethylene Glycol (Miralax) 17 gm DAILYPRN PRN ORAL Constipation 02/18/18 16:45 03/20/18 16:44 Promethazine HCl/ Codeine (Phenergan with Codeine) 5 ml Q4H PRN ORAL For Cough 02/18/18 16:46 03/20/18 16:45 Vancomycin HCl (Vanco rx to dose) 1 ea DAILY PRN MISC Per rx protocol 02/25/18 13:00 03/27/18 12:59 Vancomycin HCl 1 gm/Dextrose 275 ml @ 183.708 mls/hr Q24H IVPB 02/28/18 16:00 03/05/18 15:59 Chris Samuel MD Feb 28, 2018 12:17
--- NOTE | 2018-02-28 13:29 | Infectious Diseases Prog Note ---
Assessment/Plan Assessment/Plan Assessment/Plan Hemoptysis ( after nasal suctioning< noted pt was placed in A.Isolation per Pul) -AFB smear neg x2, MTB PCR p -02/25 sp cx - NF -02/25 CXR: Slight increased patchy right-sided airspace opacities concerning for pneumonia or\alveolar edema. Clinical correlation/follow-up recommended. Pleural-based calcifications of the left with volume loss in pleural thickening at the left costophrenic sulcus. Subtle lucency at the periphery of the left midlung may represent loculated pneumothorax or artifact. Sepsis, SP- 2ry to UTI -u.a wbc tntc, nit -, leuk +3; u cx >100k ESBL E.coli; 02/22 u/a wbc 5-10, nit neg, luek +1; ucx p -CXR: Left midlung and calcified parenchymal scarring. Numerous calcified hilar nodes suggest old granulomatous disease. Left apical lucency could reflect compensatory hyperinflation or COPD changes. No definite acute process Afebrile Leukocytosis, increased (on high dose steroids)- -02/23 CT abd/p: Wall thickening of the distal esophagus and gastric cardia. Esophageal findings are suspicious for esophagitis. Findings in the stomach could be an artifact of redundant mucosa secondary to incomplete distention, but raise concern for neoplasm or gastritis. Colonic diverticulosis. No evidence of acute diverticulitis. Evidence old granulomatous disease, with multiple calcifications in the liver and spleen. Distended bladder. Edema of the lumbar region subcutaneous fat and of the bilateral lower flanks, buttock and hip regions. Bilateral pleural effusions and basilar pulmonary atelectatic changes -02/22 Bcx NTD CXR: Mild sub-segmental atelectasis in the medial lung bases. No significant change in the scarring versus linear atelectasis at the periphery of the left midlung, with possible underlying pleural calcifications. Scattered calcified hilar lymph nodes, unchanged. Acute encephalopathy -CT head: no acute findings Dementia dysphagia HTN lung CA CAD CKD COPD Afib NH resident Plan: -Continue Meropenem # 3/ for ESBL UTI and in the setting fo PNA - DC IV Vancomycin # 4 - 02/26 SP Ertapenem #5 - 02/22 SP Bactrim #3 - 02/20 SP Cefepime # 3 - 02/19 SP IV Vancomycin #2 - 02/18 SP Unasyn x1 -f/u cx -Monitor CBC/CMP, temperatures -aspiration precautions -AFBx 1, MTB PCR P Subjective Allergies: Coded Allergies: No Known Allergies (Unverified , 02/18/18) Subjective WBC increased today Objective Vital Signs Last 24 Hour Vital Signs Date Time Temp Pulse Resp B/P (MAP) Pulse Ox O2 Delivery O2 Flow Rate FiO2 02/28/18 12:00 Venturi Mask 02/28/18 12:00 98.4 92 24 127/70 (89) 99 02/28/18 08:22 128 66/107 02/28/18 08:00 Venturi Mask 02/28/18 08:00 97.9 98 35 128/66 (86) 97 02/28/18 08:00 107 02/28/18 06:40 81 24 Venturi Mask 10.0 45 02/28/18 06:40 Venturi Mask 10.0 45 02/28/18 06:40 96 Venturi Mask 10.0 45 02/28/18 04:52 120 02/28/18 04:00 97.9 97 27 148/87 (107) 99 02/28/18 04:00 Venturi Mask 02/28/18 03:46 90 02/28/18 00:00 68 02/28/18 00:00 Venturi Mask 02/28/18 00:00 97.8 71 24 145/75 (98) 100 02/27/18 21:39 84 147/72 02/27/18 20:00 Venturi Mask 10.0 45 02/27/18 20:00 88 28 Venturi Mask 10.0 45 02/27/18 20:00 76 02/27/18 20:00 Venturi Mask 02/27/18 20:00 95 Venturi Mask 10.0 45 02/27/18 20:00 97.8 84 22 147/72 (97) 100 02/27/18 16:00 97.9 94 22 129/62 (84) 98 02/27/18 16:00 Venturi Mask 02/27/18 15:14 94 Height (Feet): 5 Height (Inches): 10.00 Weight (Pounds): 141 HEENT: atraumatic Respiratory/Chest: normal breath sounds Cardiovascular: regularly irregular Microbiology Date/Time Source Procedure Growth Status 02/26/18 17:06 Blood Blood Culture - Preliminary NO GROWTH AFTER 24 HOURS Resulted 02/26/18 17:00 Blood Blood Culture - Preliminary NO GROWTH AFTER 24 HOURS Resulted 02/25/18 15:50 Sputum Induced Gram Stain - Final Complete 02/25/18 15:50 Sputum Culture - Final Janeth Albicans Usual Upper Respiratory Saloni Complete Laboratory Tests Test 02/27/18 14:35 02/27/18 20:45 02/28/18 05:30 02/28/18 06:05 Haptoglobin Pending Vitamin B12 Level 607 PG/ML (193-986) Vancomycin Level Trough 14.2 ug/mL (5.0-12.0) H Hepatitis A IgM Antibody Pending Hepatitis B Surface Antigen Pending Hepatitis B Core IgM Antibody Pending Hepatitis C Antibody Pending Fibrinogen 108 mg/dL (200-400) *L Sodium Level 143 MMOL/L (136-145) Potassium Level 4.6 MMOL/L (3.5-5.1) Chloride Level 110 MMOL/L (98-107) H Carbon Dioxide Level 22 MMOL/L (21-32) Anion Gap 11 mmol/L (5-15) Blood Urea Nitrogen 50 mg/dL (7-18) H Creatinine 1.8 MG/DL (0.55-1.30) H Estimat Glomerular Filtration Rate mL/min (>60) Glucose Level 121 MG/DL (74-106) H Calcium Level 7.7 MG/DL (8.5-10.1) L Phosphorus Level 3.2 MG/DL (2.5-4.9) Magnesium Level 2.0 MG/DL (1.8-2.4) White Blood Count 27.6 K/UL (4.8-10.8) *H Red Blood Count 3.37 M/UL (4.70-6.10) L Hemoglobin 10.2 G/DL (14.2-18.0) L Hematocrit 29.7 % (42.0-52.0) L Mean Corpuscular Volume 88 FL (80-99) Mean Corpuscular Hemoglobin 30.2 PG (27.0-31.0) Mean Corpuscular Hemoglobin Concent 34.3 G/DL (32.0-36.0) Red Cell Distribution Width 13.7 % (11.6-14.8) Platelet Count 28 K/UL (150-450) L Mean Platelet Volume 10.2 FL (6.5-10.1) H Neutrophils (%) (Auto) % (45.0-75.0) Lymphocytes (%) (Auto) % (20.0-45.0) Monocytes (%) (Auto) % (1.0-10.0) Eosinophils (%) (Auto) % (0.0-3.0) Basophils (%) (Auto) % (0.0-2.0) Differential Total Cells Counted 100 Neutrophils % (Manual) 92 % (45-75) H Lymphocytes % (Manual) 3 % (20-45) L Monocytes % (Manual) 3 % (1-10) Eosinophils % (Manual) 0 % (0-3) Basophils % (Manual) 0 % (0-2) Band Neutrophils 2 % (0-8) Platelet Estimate Decreased L Platelet Morphology Normal Red Blood Cell Morphology Normal Current Medications Medications (Trade) Dose Ordered Sig/Delvin Route PRN Reason Start Time Stop Time Status Last Admin Dose Admin Acetaminophen (Tylenol) 650 mg Q4H PRN ORAL fever 02/18/18 16:45 03/20/18 16:44 02/28/18 05:06 Al Hydroxide/Mg Hydroxide (Mylanta II) 30 ml Q6H PRN ORAL dyspepsia 02/18/18 16:46 03/20/18 16:45 Atorvastatin Calcium (Lipitor) 10 mg BEDTIME ORAL 02/22/18 21:00 03/24/18 20:59 02/27/18 21:39 Dextrose/Sodium Chloride 1,000 ml @ 40 mls/hr Q24H IV 02/26/18 00:00 03/28/18 00:00 02/28/18 00:25 Docusate Sodium (Colace) 100 mg TWICE A DAY ORAL 02/23/18 18:00 03/25/18 17:59 02/28/18 08:21 Lactulose (Cephulac) 10 gm EVERY 6 HOURS ORAL 02/24/18 00:00 03/26/18 00:00 02/28/18 00:24 Meropenem 1 gm/ Sodium Chloride 55 ml @ 110 mls/hr Q12H IVPB 02/26/18 17:00 03/03/18 16:59 02/28/18 05:05 Methylprednisolone Sodium Succinate (Solu-MEDROL) 40 mg DAILY IVP 02/27/18 09:00 03/22/18 17:59 02/28/18 08:21 Metoprolol Tartrate (Lopressor) 25 mg Q12HR ORAL 02/24/18 21:00 03/26/18 20:59 02/28/18 08:22 Nitroglycerin (Ntg) 0.4 mg Q5M PRN SL Prn Chest Pain 02/18/18 16:46 03/20/18 16:45 Olanzapine (ZyPREXA) 2.5 mg Q6H PRN ORAL agitation 02/19/18 12:15 03/21/18 12:14 Ondansetron HCl (Zofran) 4 mg Q6H PRN IVP Nausea & Vomiting 02/18/18 16:46 03/20/18 16:45 Pantoprazole (Protonix) 40 mg DAILY IVP 02/25/18 15:15 03/27/18 15:14 02/28/18 08:21 Polyethylene Glycol (Miralax) 17 gm DAILYPRN PRN ORAL Constipation 02/18/18 16:45 03/20/18 16:44 Promethazine HCl/ Codeine (Phenergan with Codeine) 5 ml Q4H PRN ORAL For Cough 02/18/18 16:46 03/20/18 16:45 Vancomycin HCl (Vanco rx to dose) 1 ea DAILY PRN MISC Per rx protocol 02/25/18 13:00 03/27/18 12:59 Vancomycin HCl 1 gm/Dextrose 275 ml @ 183.708 mls/hr Q24H IVPB 02/28/18 16:00 03/05/18 15:59 Matthew Carranza MD Feb 28, 2018 13:29
--- NOTE | 2018-02-28 15:03 | Consultation ---
Consult Note Consult Note HEMATOLOGY-ONCOLOGY CONSULTATION REFERRING PHYSICIAN: Gila Sibley REASON FOR CONSULT: Leukocytosis, anemia, thrombocytopenia. DATE OF CONSULT: 02/28/2018 HISTORY OF PRESENT ILLNESS: The patient is a resident of a [facility]. The patient became acutely altered and EMS was called. The patient was transferred to [facility] for evaluation. An initial chest x- ray showed left upper lobe pneumonia. The patient was admitted for left upper lobe pneumonia and altered mental status.Hematology service consulted for the evaluation of anemia, leukocytosis, and thrombocytopenia. Labs and imaging have been reviewed. PAST MEDICAL HISTORY: Chronic obstructive pulmonary disease, Hypertension, Hypothyroidism, Iron deficiency anemia, History of lung cancer, Coronary artery disease, Alzheimer's dementia, Atrial fibrillation, Chronic renal failure. PAST SURGICAL HISTORY: Unknown. ALLERGIES: No known drug allergies. SOCIAL HISTORY: The patient is single and lives at a [facility]. The patient denies tobacco or alcohol use. REVIEW OF SYSTEMS: Unable to assess secondary to the patient's mental status. PHYSICAL EXAMINATION: VITAL SIGNS: Have been reviewed. GENERAL: The patient is a thin-appearing white male, in no apparent distress. HEENT: Eyes, pupils are equal and responsive to light and accommodation. Extraocular movements are intact. NECK: Supple without lymphadenopathy. CHEST: Lungs with decreased breath sounds bilateral bases with wheezes, otherwise without crackles. CARDIOVASCULAR: Regular rhythm and rate. S1, S2 normal without murmurs, rubs, or gallops. ABDOMEN: Soft, nontender, and nondistended. Positive bowel sounds. No evidence of hepatosplenomegaly. Currently, no rebound or guarding noted. EXTREMITIES: Negative for clubbing, cyanosis, or edema. RECTAL/GENITAL: Refused. NEUROLOGIC: Cranial nerves II through XII are grossly intact without focal deficits. Motor strength is 5/5 bilaterally. Deep tendon reflexes are 2+ plantar. MEDICATIONS: Current meds have been reviewed LABORATORY STUDIES: wbc 27.6 hgb 10.2 plt 28 IMAGING: CT scan of the brain was reported as no acute infarct or hemorrhage. A chest x-ray revealed left upper lung opacity. ASSESSMENT AND RECOMMENDATIONS # Anemia of chronic disease due to underlying chronic medical issues, multifactorial --> Anemia w/u has been reviewed. Ferritin at 666. --> No evidence of hemolysis is noted, peripheral smear has been reviewed. --> Hgb goal >7. Transfuse prn. --> Epogen or iron at this time is not particularly indicated --> bone marrow biopsy is not indicated given the other more likely causes # Leukocytosis. Secondary to pna. --> Peripheral has been ordered, results are pending --> Medications have been reviewed --> Imaging has been reviewed. CXR shows pna. --> Blood cultures and urine cultures prn --> has been started on abx, empiric treatment # Thrombocytopenia - potential causes multifactorial, evaluate liver and viral etiologies to begin, also could be related to underlying medications patient has received. --> Hep panel and HIV ordered --> US abd to evaluate for cirrhosis and hsm ordered --> Peripheral smear ordered to evaluate for blasts /schistocytes --> abx and other meds have been reviewed --> ok for ppx if plt >50k w/ either heparin or lovenox --> Transfuse if Plt < 20k and fever, or if Plt < 10k without fever # Altered mental status. # Left upper lobe pneumonia. ID is following, appreciate recs. --> On abx. GREATLY APPRECIATE CONSULTATION. Time and date of note entry does not reflect time and date of encounter. William Kaplan MD Feb 28, 2018 15:03
[2018-02-28 16:00] VITALS: BP 132/73
[2018-02-28] MEDS ORDERED: Vancomycin 1gm/D5W 275ml IVPB SCH ×2 (16:00)
--- NOTE | 2018-02-28 16:11 | General Progress Note ---
Assessment/Plan Assessment/Plan Assessment (1) Encounter for PEG (percutaneous endoscopic gastrostomy) ICD Codes: Z43.1 - Encounter for attention to gastrostomy SNOMED: 917770819, 813666805 (2) Severe malnutrition ICD Codes: E43 - Unspecified severe protein-calorie malnutrition SNOMED: 46864843 (3) Dehydration ICD Codes: E86.0 - Dehydration SNOMED: 50142388 (4) Anemia and thrombocytopenia ICD Codes: D50.9 - Iron deficiency anemia, unspecified SNOMED: 28375100 Status: not improved, unchanged Assessment/Plan Airborne precautions to rule out TB Patient not stable for PEG at this time given elevated troponin levels and leukocytosis, will require cardiac clearance. Maintain n.p.o. plus IV fluids at this time, Dobbhoff versus NGT when respiratory status stabilizes - also concerned about low platelet counts with respect to nosebleed risk may need temp TPN As needed transfusions PPI Bowel regimen manager field services to find the DPOA Antibiotics Follow-up labs Subjective Allergies: Coded Allergies: No Known Allergies (Unverified , 02/18/18) Subjective Above noted minimally interactive in resp isolation Objective Last 24 Hour Vital Signs Date Time Temp Pulse Resp B/P (MAP) Pulse Ox O2 Delivery O2 Flow Rate FiO2 02/28/18 12:00 Venturi Mask 02/28/18 12:00 98.4 92 24 127/70 (89) 99 02/28/18 12:00 91 02/28/18 08:22 128 66/107 02/28/18 08:00 Venturi Mask 02/28/18 08:00 97.9 98 35 128/66 (86) 97 02/28/18 08:00 107 02/28/18 06:40 81 24 Venturi Mask 10.0 45 02/28/18 06:40 Venturi Mask 10.0 45 02/28/18 06:40 96 Venturi Mask 10.0 45 02/28/18 04:52 120 02/28/18 04:00 97.9 97 27 148/87 (107) 99 02/28/18 04:00 Venturi Mask 02/28/18 03:46 90 02/28/18 00:00 68 02/28/18 00:00 Venturi Mask 02/28/18 00:00 97.8 71 24 145/75 (98) 100 02/27/18 21:39 84 147/72 02/27/18 20:00 Venturi Mask 10.0 45 02/27/18 20:00 88 28 Venturi Mask 10.0 45 02/27/18 20:00 76 02/27/18 20:00 Venturi Mask 02/27/18 20:00 95 Venturi Mask 10.0 45 02/27/18 20:00 97.8 84 22 147/72 (97) 100 Intake and Output 02/27/18 02/28/18 19:00 07:00 Intake Total 480 ml 595 ml Output Total 180 ml 300 ml Balance 300 ml 295 ml Intake Oral 60 ml IV Total 480 ml 535 ml Output Urine Total 180 ml 300 ml Laboratory Tests 02/27/18 20:45: Fibrinogen 108*L 02/28/18 05:30: Sodium Level 143, Potassium Level 4.6, Chloride Level 110H, Carbon Dioxide Level 22, Anion Gap 11, Blood Urea Nitrogen 50H, Creatinine 1.8H, Estimat Glomerular Filtration Rate , Glucose Level 121H, Calcium Level 7.7L, Phosphorus Level 3.2, Magnesium Level 2.0 02/28/18 06:05: White Blood Count 27.6*H, Red Blood Count 3.37L, Hemoglobin 10.2L, Hematocrit 29.7L, Mean Corpuscular Volume 88, Mean Corpuscular Hemoglobin 30.2, Mean Corpuscular Hemoglobin Concent 34.3, Red Cell Distribution Width 13.7, Platelet Count 28L, Mean Platelet Volume 10.2H, Neutrophils (%) (Auto) , Lymphocytes (%) (Auto) , Monocytes (%) (Auto) , Eosinophils (%) (Auto) , Basophils (%) (Auto) , Differential Total Cells Counted 100, Neutrophils % (Manual) 92H, Lymphocytes % (Manual) 3L, Monocytes % (Manual) 3, Eosinophils % (Manual) 0, Basophils % ( Manual) 0, Band Neutrophils 2, Platelet Estimate DecreasedL, Platelet Morphology Normal, Red Blood Cell Morphology Normal Height (Feet): 5 Height (Inches): 10.00 Weight (Pounds): 141 Objective Elderly WM NCAT, (+) FM O2 supple Coarse BS RR abd soft ND NT non edema Stefany Kraus MD Feb 28, 2018 16:11
--- NOTE | 2018-02-28 16:51 | Internal Med Progress Note ---
Subjective Date of Service: Feb 28, 2018 Physician Name Ricky Baker Attending Physician Gila Sibley MD Current Medications Medications (Trade) Dose Ordered Sig/Delvin Route PRN Reason Start Time Stop Time Status Last Admin Dose Admin Acetaminophen (Tylenol) 650 mg Q4H PRN ORAL fever 02/18/18 16:45 03/20/18 16:44 02/28/18 05:06 Al Hydroxide/Mg Hydroxide (Mylanta II) 30 ml Q6H PRN ORAL dyspepsia 02/18/18 16:46 03/20/18 16:45 Atorvastatin Calcium (Lipitor) 10 mg BEDTIME ORAL 02/22/18 21:00 03/24/18 20:59 02/27/18 21:39 Dextrose/Sodium Chloride 1,000 ml @ 40 mls/hr Q24H IV 02/26/18 00:00 03/28/18 00:00 02/28/18 00:25 Docusate Sodium (Colace) 100 mg TWICE A DAY ORAL 02/23/18 18:00 03/25/18 17:59 02/28/18 08:21 Lactulose (Cephulac) 10 gm EVERY 6 HOURS ORAL 02/24/18 00:00 03/26/18 00:00 02/28/18 00:24 Meropenem 1 gm/ Sodium Chloride 55 ml @ 110 mls/hr Q12H IVPB 02/26/18 17:00 03/03/18 16:59 02/28/18 05:05 Methylprednisolone Sodium Succinate (Solu-MEDROL) 40 mg DAILY IVP 02/27/18 09:00 03/22/18 17:59 02/28/18 08:21 Metoprolol Tartrate (Lopressor) 25 mg Q12HR ORAL 02/24/18 21:00 03/26/18 20:59 02/28/18 08:22 Nitroglycerin (Ntg) 0.4 mg Q5M PRN SL Prn Chest Pain 02/18/18 16:46 03/20/18 16:45 Olanzapine (ZyPREXA) 2.5 mg Q6H PRN ORAL agitation 02/19/18 12:15 03/21/18 12:14 Ondansetron HCl (Zofran) 4 mg Q6H PRN IVP Nausea & Vomiting 02/18/18 16:46 03/20/18 16:45 Pantoprazole (Protonix) 40 mg DAILY IVP 02/25/18 15:15 03/27/18 15:14 02/28/18 08:21 Polyethylene Glycol (Miralax) 17 gm DAILYPRN PRN ORAL Constipation 02/18/18 16:45 03/20/18 16:44 Promethazine HCl/ Codeine (Phenergan with Codeine) 5 ml Q4H PRN ORAL For Cough 02/18/18 16:46 03/20/18 16:45 Allergies: Coded Allergies: No Known Allergies (Unverified , 02/18/18) Subjective 82 YO M admitted with altered mental status. Now pneumonia and NSTEMI. Cover for Int Med-Dr Jc. RODERICK. Tolerating venturi mask Objective Last Vital Signs Date Time Temp Pulse Resp B/P (MAP) Pulse Ox O2 Delivery O2 Flow Rate FiO2 02/28/18 12:00 Venturi Mask 02/28/18 12:00 98.4 92 24 127/70 (89) 99 02/28/18 06:40 10.0 45 Laboratory Tests Test 02/27/18 20:45 02/28/18 05:30 02/28/18 06:05 Fibrinogen 108 mg/dL (200-400) *L Sodium Level 143 MMOL/L (136-145) Potassium Level 4.6 MMOL/L (3.5-5.1) Chloride Level 110 MMOL/L (98-107) H Carbon Dioxide Level 22 MMOL/L (21-32) Anion Gap 11 mmol/L (5-15) Blood Urea Nitrogen 50 mg/dL (7-18) H Creatinine 1.8 MG/DL (0.55-1.30) H Estimat Glomerular Filtration Rate mL/min (>60) Glucose Level 121 MG/DL (74-106) H Calcium Level 7.7 MG/DL (8.5-10.1) L Phosphorus Level 3.2 MG/DL (2.5-4.9) Magnesium Level 2.0 MG/DL (1.8-2.4) White Blood Count 27.6 K/UL (4.8-10.8) *H Red Blood Count 3.37 M/UL (4.70-6.10) L Hemoglobin 10.2 G/DL (14.2-18.0) L Hematocrit 29.7 % (42.0-52.0) L Mean Corpuscular Volume 88 FL (80-99) Mean Corpuscular Hemoglobin 30.2 PG (27.0-31.0) Mean Corpuscular Hemoglobin Concent 34.3 G/DL (32.0-36.0) Red Cell Distribution Width 13.7 % (11.6-14.8) Platelet Count 28 K/UL (150-450) L Mean Platelet Volume 10.2 FL (6.5-10.1) H Neutrophils (%) (Auto) % (45.0-75.0) Lymphocytes (%) (Auto) % (20.0-45.0) Monocytes (%) (Auto) % (1.0-10.0) Eosinophils (%) (Auto) % (0.0-3.0) Basophils (%) (Auto) % (0.0-2.0) Differential Total Cells Counted 100 Neutrophils % (Manual) 92 % (45-75) H Lymphocytes % (Manual) 3 % (20-45) L Monocytes % (Manual) 3 % (1-10) Eosinophils % (Manual) 0 % (0-3) Basophils % (Manual) 0 % (0-2) Band Neutrophils 2 % (0-8) Platelet Estimate Decreased L Platelet Morphology Normal Red Blood Cell Morphology Normal Microbiology Date/Time Source Procedure Growth Status 02/26/18 17:06 Blood Blood Culture - Preliminary NO GROWTH AFTER 24 HOURS Resulted 02/26/18 17:00 Blood Blood Culture - Preliminary NO GROWTH AFTER 24 HOURS Resulted Intake and Output 02/27/18 02/28/18 19:00 07:00 Intake Total 480 ml 595 ml Output Total 180 ml 300 ml Balance 300 ml 295 ml Intake Oral 60 ml IV Total 480 ml 535 ml Output Urine Total 180 ml 300 ml Objective General Appearance: WD/WN, no apparent distress, alert, thin EENT: PERRL/EOMI, normal ENT inspection Neck: non-tender, normal alignment, supple, normal inspection Cardiovascular: normal peripheral pulses, normal rate, regular rhythm, no gallop/murmur, no JVD Respiratory/Chest: respiratory distress, decreased breath sounds, crackles/ rales, rhonchi - bilaterally, expiratory wheezing Abdomen: normal bowel sounds, non tender, soft, no organomegaly, no mass Extremities: normal range of motion, non-tender 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 (2) Pneumonia Assessment & Plan: Continue vanco and meropenem. See pulmonary note. Continue IV solumedrol-H/O COPD. continue Duoneb (3) Elevated troponin Assessment & Plan: Trending down. See cardiology note. (4) CHF (congestive heart failure) (5) HTN (hypertension) (6) Hypothyroidism (7) Anemia, iron deficiency (8) CAD (coronary artery disease) (9) Renal failure, chronic (10) COPD (chronic obstructive pulmonary disease) Assessment & Plan: Add IV solumedrol and scheduled nebs. See pulmonary note. (11) Paroxysmal atrial fibrillation (12) Altered level of consciousness Assessment & Plan: CT brain negt. See Neurology note (13) Lung cancer (14) UTI (urinary tract infection) Assessment & Plan: E. Coli MDR. Continue meropenem and vanco per ID (15) E coli infection Ricky Baker MD Feb 28, 2018 16:51
--- NOTE | 2018-02-28 19:05 | NUR ---
HAND-OFF: Report given to JUAN FRANCISCO Talavera.
--- NOTE | 2018-02-28 19:09 | NUR ---
NURSE NOTES: Report received from JUAN FRANCISCO Qureshi. Observed pt sleeping on the bed, arousable by voice and shaking. No change of condition noted at this time. Telemonitoring: SR. pt is on ventri mask, 50%, pt RR 30s' noted, saturating at 98%. Condom catheter intact and draining well. Pt is on SPR mattress. IV on L H 22 G, running D5 1/2NS at 40cc/hr. Bed in the lowest position. Side rails up x3. Call light within reach. Will continue to monitor.
[2018-02-28 20:00] VITALS: BP 148/72
[2018-03-01] VITALS: BP 156/87
[2018-03-01 04:00] VITALS: BP 130/80
[2018-03-01] MEDS: Meropenem 1 GM in NS 55 ML IVPB SCH ×2 (05:27→17:11)
[2018-03-01 05:57] LABS: HEMATOCRIT 30.4 % (42.0-52.0); MEAN CORPUSCULAR VOLUME 90 FL (80-99); PLATELET COUNT 38 K/UL (150-450); RED BLOOD COUNT 3.36 M/UL (4.70-6.10); RED CELL DISTRIBUTION WIDTH 14.5 % (11.6-14.8)
[2018-03-01 06:02] LABS: INR 1.4 (0.9-1.1)
[2018-03-01] MEDS: Lactulose 10gm/15ml UDC ORAL SCH ×3 (06:07→17:19)
[2018-03-01 06:23] LABS: ANION GAP 6 mmol/L (5-15); BLOOD UREA NITROGEN 53 mg/dL (7-18); CALCIUM 8.2 MG/DL (8.5-10.1); CARBON DIOXIDE 24 MMOL/L (21-32); CHLORIDE 112 MMOL/L (98-107); CREATININE 1.7 MG/DL (0.55-1.30); POTASSIUM 4.7 MMOL/L (3.5-5.1); SODIUM 142 MMOL/L (136-145)
[2018-03-01 06:26] LABS: WHITE BLOOD COUNT 30.3 K/UL (4.8-10.8)
--- NOTE | 2018-03-01 07:25 | NUR ---
HAND-OFF: Report given to JUAN FRANCISCO Qureshi. No acute distress noted.
--- NOTE | 2018-03-01 07:26 | NUR ---
NURSE NOTES: Received patient from JUAN FRANCISCO Aguilera. Patient in bed and asleep. equipment monitor phototypesetting in placed. On venturi mask 50%. Condom catheter is patent and draining well. IV site is asymptomatic. Will continue to follow plan of care.
[2018-03-01 08:00] VITALS: BP 127/73
--- NOTE | 2018-03-01 08:00 | NUR ---
NURSE NOTES: Dr. Kaplan at bedside and informed him that PLT is 38.
[2018-03-01] MEDS: Pantoprazole Inj IVP SCH (09:46)
[2018-03-01] MEDS: Solu-MEDROL 40mg Inj IVP SCH (09:46)
[2018-03-01] MEDS: Docusate 100mg cap ORAL SCH ×2 (09:47→17:19)
[2018-03-01] MEDS: Metoprolol 25mg tab ORAL SCH ×2 (09:47→21:03)
[2018-03-01 12:00] VITALS: BP 122/67
--- NOTE | 2018-03-01 13:24 | Pulmonology Progress Note ---
Assessment/Plan Assessment/Plan Pulmonary Progress Note HPI Patient is an 82-year-old male with hx of lung cancer, CAD, atrial fibrillation on Digoxin, long-term resident, unknown baseline mental status was brought to [facility] by paramedics with CC of JIMYM. Pt had low grade temperature and altered mental status for approximately one hour. The EMS the patient was normally somewhat confused. This is his first admission to [facility] and we don't have any information about him or about his DPOA. He had leucocytosis and increased troponin level, without any hx of chest pain. Pt is awake, looks comfortable but doesn't answer to any simple question. CXR worsening right sided infiltrates, IVF reduced, awaiting consideration for possible G tube Antibiotics per ID (Meropenem/Vanc), persistent Thrombocytopenia Recent NSTEMI O2 PRN, BiPAP PRN Allergies: Coded Allergies: No Known Allergies (Unverified , 02/18/18) Medication History Scheduled Bisacodyl (Bisacodyl), 10 MG RC PRN, (Reported) Digoxin* (Digoxin*), 0.25 MG ORAL DAILY, (Reported) Docusate Sodium* (Docusate Sodium*), 100 MG ORAL TWICE A DAY, (Reported) Donepezil Hcl* (Aricept*), 10 MG ORAL DAILY, (Reported) Levothyroxine Sodium (Synthroid), 50 MCG ORAL DAILY, (Reported) Scheduled PRN Acetaminophen* (Acetaminophen 325MG Tablet*), 325 MG ORAL Q6H PRN for For Pain, (Reported) Miscellaneous Medications Lactobacillus Rhamnosus Gg (Culturelle), 1 EACH PO, (Reported) Patient History Healthcare decision maker N Resuscitation status Full Code Advanced Directive on File Past Medical/Surgical History Past Medical/Surgical History: (1) Lung cancer (2) COPD (chronic obstructive pulmonary disease) (3) Paroxysmal atrial fibrillation Review of Systems All Other Systems: negative except mentioned in HPI Physical Exam General Appearance: WD/WN On BiPAP Lines, tubes and drains: peripheral HEENT: normocephalic, atraumatic Neck: non-tender, normal alignment Respiratory/Chest: chest wall non-tender, lungs clear Cardiovascular/Chest: normal peripheral pulses, regularly irregular Abdomen: normal bowel sounds Genitourinary/Rectal: normal genital exam Extremities: normal range of motion Vital Signs Noted TECHNIQUE: Frontal view of the chest. COMPARISON: 02/22/2018 FINDINGS: Lungs: Mildly increased patchy, subtle airspace attenuation right midlung could be incidental, or could represent developing infection or pulmonary edema in the proper clinical context. Pleural space: Similar-appearing small left base pneumothorax without tension component. Similar small left pleural fluid collection. Unchanged left lung lateral pleural thickening. Heart: Unremarkable. No cardiomegaly. Mediastinum: Unremarkable. Bones/joints: Unremarkable. IMPRESSION: 1. Mildly increased patchy, subtle airspace attenuation right midlung could be incidental, or could represent developing infection or pulmonary edema in the proper clinical context. 2. Similar-appearing small left base pneumothorax without tension component. 3. Similar small left pleural fluid collection. 4. Unchanged left lung lateral pleural thickening. Laboratory Tests/imaging noted Height (Feet): 5 Height (Inches): 10.00 Weight (Pounds): 170 Medications Assessment/Plan Problem List: (1) Severe sepsis/Pneumonia ICD Codes: A41.9 - Sepsis, unspecified organism; R65.20 - Severe sepsis without septic shock SNOMED: 58515490 (2) Altered level of consciousness ICD Codes: R40.4 - Transient alteration of awareness SNOMED: 2568368 (3) Myocardial injury/Recent NSTEMI ICD Codes: S26.90XA - Unspecified injury of heart, unspecified with or without hemopericardium, initial encounter SNOMED: 54098816 (4) Paroxysmal atrial fibrillation ICD Codes: I48.0 - Paroxysmal atrial fibrillation SNOMED: 412919389 (5) COPD (chronic obstructive pulmonary disease) ICD Codes: J44.9 - Chronic obstructive pulmonary disease, unspecified SNOMED: 74558224 (6) Lung cancer ICD Codes: C34.90 - Malignant neoplasm of unspecified part of unspecified bronchus or lung SNOMED: 402549491 (7) Respiratory Failure On BiPAP PRN Assessment/Plan RODERICK monitoring cardiology and ID following broad spectrum abx suero cultures f/u on WBC echo cardiogram check electrolytes social research assistant to find DPOA dvt prophylaxis Antibiotics per ID O2 PRN, BiPAP PRN Subjective ROS Limited/Unobtainable: Yes Allergies: Coded Allergies: No Known Allergies (Unverified , 02/18/18) Objective Last 24 Hour Vital Signs Date Time Temp Pulse Resp B/P (MAP) Pulse Ox O2 Delivery O2 Flow Rate FiO2 03/01/18 09:47 99 127/33 03/01/18 08:00 97.0 99 15 127/73 (91) 92 03/01/18 08:00 Venturi Mask 03/01/18 07:42 94 03/01/18 04:00 Venturi Mask 03/01/18 04:00 81 03/01/18 04:00 98.1 88 26 130/80 (97) 92 03/01/18 00:00 Venturi Mask 03/01/18 00:00 97.7 90 26 156/87 (110) 100 03/01/18 00:00 93 02/28/18 20:55 85 148/72 02/28/18 20:00 Venturi Mask 02/28/18 20:00 83 02/28/18 20:00 98.5 85 29 148/72 (97) 99 02/28/18 16:00 97.7 81 20 132/73 (92) 99 02/28/18 16:00 Venturi Mask 02/28/18 15:24 69 Intake and Output 02/28/18 03/01/18 19:00 07:00 Intake Total 535 ml 565 ml Output Total 80 ml 200 ml Balance 455 ml 365 ml Intake Oral 30 ml IV Total 535 ml 535 ml Output Urine Total 80 ml 200 ml Microbiology Date/Time Source Procedure Growth Status 02/26/18 17:06 Blood Blood Culture - Preliminary NO GROWTH AFTER 48 HOURS Resulted 02/26/18 17:00 Blood Blood Culture - Preliminary NO GROWTH AFTER 48 HOURS Resulted Laboratory Tests 03/01/18 03:35: White Blood Count 30.3*H, Red Blood Count 3.36L, Hemoglobin 10.0L, Hematocrit 30.4L, Mean Corpuscular Volume 90, Mean Corpuscular Hemoglobin 29.6, Mean Corpuscular Hemoglobin Concent 32.8, Red Cell Distribution Width 14.5, Platelet Count 38L, Mean Platelet Volume 16.4H, Neutrophils (%) (Auto) , Lymphocytes (%) (Auto) , Monocytes (%) (Auto) , Eosinophils (%) (Auto) , Basophils (%) (Auto) , Differential Total Cells Counted 100, Neutrophils % (Manual) 95H, Lymphocytes % (Manual) 2L, Monocytes % (Manual) 3, Eosinophils % (Manual) 0, Basophils % ( Manual) 0, Band Neutrophils 0, Platelet Estimate DecreasedL, Platelet Morphology Normal, Hypochromasia 1+, Anisocytosis 1+, Prothrombin Time 14.6H, Prothromb Time International Ratio 1.4H, Sodium Level 142, Potassium Level 4.7, Chloride Level 112H, Carbon Dioxide Level 24, Anion Gap 6, Blood Urea Nitrogen 53H, Creatinine 1.7H, Estimat Glomerular Filtration Rate , Glucose Level 116H, Calcium Level 8.2L Current Medications Medications (Trade) Dose Ordered Sig/Delvin Route PRN Reason Start Time Stop Time Status Last Admin Dose Admin Acetaminophen (Tylenol) 650 mg Q4H PRN ORAL fever 02/18/18 16:45 03/20/18 16:44 02/28/18 05:06 Al Hydroxide/Mg Hydroxide (Mylanta II) 30 ml Q6H PRN ORAL dyspepsia 02/18/18 16:46 03/20/18 16:45 Atorvastatin Calcium (Lipitor) 10 mg BEDTIME ORAL 02/22/18 21:00 03/24/18 20:59 02/28/18 20:54 Dextrose/Sodium Chloride 1,000 ml @ 40 mls/hr Q24H IV 02/26/18 00:00 03/28/18 00:00 02/28/18 23:52 Docusate Sodium (Colace) 100 mg TWICE A DAY ORAL 02/23/18 18:00 03/25/18 17:59 03/01/18 09:47 Lactulose (Cephulac) 10 gm EVERY 6 HOURS ORAL 02/24/18 00:00 03/26/18 00:00 03/01/18 12:16 Meropenem 1 gm/ Sodium Chloride 55 ml @ 110 mls/hr Q12H IVPB 02/26/18 17:00 03/03/18 16:59 03/01/18 05:27 Methylprednisolone Sodium Succinate (Solu-MEDROL) 40 mg DAILY IVP 02/27/18 09:00 03/22/18 17:59 03/01/18 09:46 Metoprolol Tartrate (Lopressor) 25 mg Q12HR ORAL 02/24/18 21:00 03/26/18 20:59 03/01/18 09:47 Nitroglycerin (Ntg) 0.4 mg Q5M PRN SL Prn Chest Pain 02/18/18 16:46 03/20/18 16:45 Olanzapine (ZyPREXA) 2.5 mg Q6H PRN ORAL agitation 02/19/18 12:15 03/21/18 12:14 Ondansetron HCl (Zofran) 4 mg Q6H PRN IVP Nausea & Vomiting 02/18/18 16:46 03/20/18 16:45 Pantoprazole (Protonix) 40 mg DAILY IVP 02/25/18 15:15 03/27/18 15:14 03/01/18 09:46 Polyethylene Glycol (Miralax) 17 gm DAILYPRN PRN ORAL Constipation 02/18/18 16:45 03/20/18 16:44 Promethazine HCl/ Codeine (Phenergan with Codeine) 5 ml Q4H PRN ORAL For Cough 02/18/18 16:46 03/20/18 16:45 Chris Samuel MD Mar 01, 2018 13:24
--- NOTE | 2018-03-01 13:32 | General Progress Note ---
Assessment/Plan Assessment/Plan # Anemia of chronic disease due to underlying chronic medical issues, multifactorial --> Anemia w/u has been reviewed. Ferritin at 666. --> No evidence of hemolysis is noted, peripheral smear has been reviewed. --> Hgb goal >7. Transfuse prn. --> Epogen or iron at this time is not particularly indicated --> bone marrow biopsy is not indicated given the other more likely causes # Leukocytosis. Secondary to pna. --> Peripheral has been ordered, no blasts noted, reviewed --> Medications have been reviewed --> Imaging has been reviewed. CXR shows pna. --> Blood cultures and urine cultures prn --> has been started on abx, empiric treatment # Thrombocytopenia with coagulopathy - potential causes multifactorial, evaluate liver and viral etiologies to begin, also could be related to underlying medications patient has received. Fibringoen 108, INR 1.4 --> Hep panel and HIV are neg --> US abd to evaluate for cirrhosis and hsm ordered --> Peripheral smear ordered to evaluate for blasts /schistocytes --> abx and other meds have been reviewed --> ok for ppx if plt >50k w/ either heparin or lovenox --> Transfuse if Plt < 20k and fever, or if Plt < 10k without fever # Altered mental status. --> per neuro management # Left upper lobe pneumonia. ID is following, appreciate recs. --> On abx. GREATLY APPRECIATE CONSULTATION. Time and date of note entry does not reflect time and date of encounter. Subjective Constitutional: Denies: no symptoms, chills, diaphoresis, fever, malaise, weakness, other HEENT: Denies: no symptoms, eye pain, blurred vision, tearing, double vision, ear pain, ear discharge, nose pain, nose congestion, throat pain, throat swelling, mouth pain, mouth swelling, other Cardiovascular: Denies: no symptoms, chest pain, edema, irregular heart rate, lightheadedness, palpitations, syncope, other Respiratory: Denies: no symptoms, cough, orthopnea, shortness of breath, SOB with excertion, SOB at rest, sputum, stridor, wheezing, other Gastrointestinal/Abdominal: Denies: no symptoms, abdomen distended, abdominal pain, black stools, tarry stools, blood in stool, constipated, diarrhea, difficulty swallowing, nausea, poor appetite, poor fluid intake, rectal bleeding , vomiting, other Genitourinary: Denies: no symptoms, burning, discharge, frequency, flank pain, hematuria, incontinence, pain, urgency, other Neurologic/Psychiatric: Denies: no symptoms, anxiety, depressed, emotional problems, headache, numbness, paresthesia, pre-existing deficit, seizure, tingling, tremors, weakness, other Endocrine: Denies: no symptoms, excessive sweating, flushing, intolerance to cold, intolerance to heat, increased hunger, increased thirst, increased urine, unexplained weight gain, unexplained weight loss, other Hematologic/Lymphatic: Denies: no symptoms, anemia, easy bleeding, easy bruising, other Allergies: Coded Allergies: No Known Allergies (Unverified , 02/18/18) Subjective 03/01: no events, no f/c, no events, peg on hold given other comorbidities, labs reviewed Objective Last 24 Hour Vital Signs Date Time Temp Pulse Resp B/P (MAP) Pulse Ox O2 Delivery O2 Flow Rate FiO2 03/01/18 09:47 99 127/33 03/01/18 08:00 97.0 99 15 127/73 (91) 92 03/01/18 08:00 Venturi Mask 03/01/18 07:42 94 03/01/18 04:00 Venturi Mask 03/01/18 04:00 81 03/01/18 04:00 98.1 88 26 130/80 (97) 92 03/01/18 00:00 Venturi Mask 03/01/18 00:00 97.7 90 26 156/87 (110) 100 03/01/18 00:00 93 02/28/18 20:55 85 148/72 02/28/18 20:00 Venturi Mask 02/28/18 20:00 83 02/28/18 20:00 98.5 85 29 148/72 (97) 99 02/28/18 16:00 97.7 81 20 132/73 (92) 99 02/28/18 16:00 Venturi Mask 02/28/18 15:24 69 Intake and Output 02/28/18 03/01/18 19:00 07:00 Intake Total 535 ml 565 ml Output Total 80 ml 200 ml Balance 455 ml 365 ml Intake Oral 30 ml IV Total 535 ml 535 ml Output Urine Total 80 ml 200 ml Laboratory Tests 03/01/18 03:35: White Blood Count 30.3*H, Red Blood Count 3.36L, Hemoglobin 10.0L, Hematocrit 30.4L, Mean Corpuscular Volume 90, Mean Corpuscular Hemoglobin 29.6, Mean Corpuscular Hemoglobin Concent 32.8, Red Cell Distribution Width 14.5, Platelet Count 38L, Mean Platelet Volume 16.4H, Neutrophils (%) (Auto) , Lymphocytes (%) (Auto) , Monocytes (%) (Auto) , Eosinophils (%) (Auto) , Basophils (%) (Auto) , Differential Total Cells Counted 100, Neutrophils % (Manual) 95H, Lymphocytes % (Manual) 2L, Monocytes % (Manual) 3, Eosinophils % (Manual) 0, Basophils % ( Manual) 0, Band Neutrophils 0, Platelet Estimate DecreasedL, Platelet Morphology Normal, Hypochromasia 1+, Anisocytosis 1+, Prothrombin Time 14.6H, Prothromb Time International Ratio 1.4H, Sodium Level 142, Potassium Level 4.7, Chloride Level 112H, Carbon Dioxide Level 24, Anion Gap 6, Blood Urea Nitrogen 53H, Creatinine 1.7H, Estimat Glomerular Filtration Rate , Glucose Level 116H, Calcium Level 8.2L Height (Feet): 5 Height (Inches): 10.00 Weight (Pounds): 141 General Appearance: lethargic EENT: TMs normal Cardiovascular: normal rate Respiratory/Chest: lungs clear Abdomen: no mass Extremities: non-tender Edema: 1+ Leg (L), 1+ Leg (R) Edema: mild edema Neurologic: alert Skin: warm/dry William Kaplan MD Mar 01, 2018 13:32
--- NOTE | 2018-03-01 14:00 | NUR ---
NURSE NOTES: Walked in the patient's room with Dr. Fitzgerald. Venturi mask was disconnected and 02 sat was 82%. Connected the patient to the venturi mask with 50%Fi02 right away and 02 sat increased to 99%.
--- NOTE | 2018-03-01 14:28 | Cardiology Progress Note ---
Assessment/Plan Problem List: (1) Lung cancer (2) COPD (chronic obstructive pulmonary disease) (3) Paroxysmal atrial fibrillation (4) CAD (coronary artery disease) (5) encephalopathy due to metabolic factor (6) NSTEMI (non-ST elevated myocardial infarction) Status: not improved, unchanged Status Narrative Pt w/ resp failure/ pulm infiltrates - now being evaluated for ? TB ? hx of lung CA recent NSTEMI PAF Assessment/Plan Continue medical therapy for CAD w/ recent SC- statin, metoprolol. ? asa Not a candidate for invasive cardiac intervention Pulm, ID followup for pneumonia, resp failure Overall prognosis appears poor. Subjective ROS Limited/Unobtainable: Yes Subjective Cardiology for Dr. Sherwood Pt not responsive. o2 sats 80s - FM o2 had been inadvertently disconnected Objective Last 24 Hour Vital Signs Date Time Temp Pulse Resp B/P (MAP) Pulse Ox O2 Delivery O2 Flow Rate FiO2 03/01/18 12:00 Venturi Mask 03/01/18 12:00 96.1 93 20 122/67 (85) 100 03/01/18 12:00 83 03/01/18 09:47 99 127/33 03/01/18 08:00 97.0 99 15 127/73 (91) 92 03/01/18 08:00 Venturi Mask 03/01/18 07:42 94 03/01/18 04:00 Venturi Mask 03/01/18 04:00 81 03/01/18 04:00 98.1 88 26 130/80 (97) 92 03/01/18 00:00 Venturi Mask 03/01/18 00:00 97.7 90 26 156/87 (110) 100 03/01/18 00:00 93 02/28/18 20:55 85 148/72 02/28/18 20:00 Venturi Mask 02/28/18 20:00 83 02/28/18 20:00 98.5 85 29 148/72 (97) 99 02/28/18 16:00 97.7 81 20 132/73 (92) 99 02/28/18 16:00 Venturi Mask 02/28/18 15:24 69 General Appearance: lethargic EENT: PERRL/EOMI Neck: supple, no JVD Rhythm: NSR Cardiovascular: normal rate, no gallop/murmur Respiratory/Chest: other - bilat rhonchi, fair air movement Abdomen: non tender, soft Extremities: no swelling Intake and Output 02/28/18 03/01/18 19:00 07:00 Intake Total 535 ml 565 ml Output Total 80 ml 200 ml Balance 455 ml 365 ml Intake Oral 30 ml IV Total 535 ml 535 ml Output Urine Total 80 ml 200 ml Laboratory Tests Test 03/01/18 03:35 White Blood Count 30.3 K/UL (4.8-10.8) *H Red Blood Count 3.36 M/UL (4.70-6.10) L Hemoglobin 10.0 G/DL (14.2-18.0) L Hematocrit 30.4 % (42.0-52.0) L Mean Corpuscular Volume 90 FL (80-99) Mean Corpuscular Hemoglobin 29.6 PG (27.0-31.0) Mean Corpuscular Hemoglobin Concent 32.8 G/DL (32.0-36.0) Red Cell Distribution Width 14.5 % (11.6-14.8) Platelet Count 38 K/UL (150-450) L Mean Platelet Volume 16.4 FL (6.5-10.1) H Neutrophils (%) (Auto) % (45.0-75.0) Lymphocytes (%) (Auto) % (20.0-45.0) Monocytes (%) (Auto) % (1.0-10.0) Eosinophils (%) (Auto) % (0.0-3.0) Basophils (%) (Auto) % (0.0-2.0) Differential Total Cells Counted 100 Neutrophils % (Manual) 95 % (45-75) H Lymphocytes % (Manual) 2 % (20-45) L Monocytes % (Manual) 3 % (1-10) Eosinophils % (Manual) 0 % (0-3) Basophils % (Manual) 0 % (0-2) Band Neutrophils 0 % (0-8) Platelet Estimate Decreased L Platelet Morphology Normal Hypochromasia 1+ Anisocytosis 1+ Prothrombin Time 14.6 SEC (9.30-11.50) H Prothromb Time International Ratio 1.4 (0.9-1.1) H Sodium Level 142 MMOL/L (136-145) Potassium Level 4.7 MMOL/L (3.5-5.1) Chloride Level 112 MMOL/L (98-107) H Carbon Dioxide Level 24 MMOL/L (21-32) Anion Gap 6 mmol/L (5-15) Blood Urea Nitrogen 53 mg/dL (7-18) H Creatinine 1.7 MG/DL (0.55-1.30) H Estimat Glomerular Filtration Rate mL/min (>60) Glucose Level 116 MG/DL (74-106) H Calcium Level 8.2 MG/DL (8.5-10.1) L Microbiology Date/Time Source Procedure Growth Status 02/26/18 17:06 Blood Blood Culture - Preliminary NO GROWTH AFTER 48 HOURS Resulted 02/26/18 17:00 Blood Blood Culture - Preliminary NO GROWTH AFTER 48 HOURS Resulted Li Umana MD Mar 01, 2018 14:28
--- NOTE | 2018-03-01 15:37 | Internal Med Progress Note ---
Subjective Date of Service: Mar 01, 2018 Physician Name Ricky Baker Attending Physician Gila Sibley MD Current Medications Medications (Trade) Dose Ordered Sig/Delvin Route PRN Reason Start Time Stop Time Status Last Admin Dose Admin Acetaminophen (Tylenol) 650 mg Q4H PRN ORAL fever 02/18/18 16:45 03/20/18 16:44 02/28/18 05:06 Al Hydroxide/Mg Hydroxide (Mylanta II) 30 ml Q6H PRN ORAL dyspepsia 02/18/18 16:46 03/20/18 16:45 Atorvastatin Calcium (Lipitor) 10 mg BEDTIME ORAL 02/22/18 21:00 03/24/18 20:59 02/28/18 20:54 Dextrose/Sodium Chloride 1,000 ml @ 40 mls/hr Q24H IV 02/26/18 00:00 03/28/18 00:00 02/28/18 23:52 Docusate Sodium (Colace) 100 mg TWICE A DAY ORAL 02/23/18 18:00 03/25/18 17:59 03/01/18 09:47 Lactulose (Cephulac) 10 gm EVERY 6 HOURS ORAL 02/24/18 00:00 03/26/18 00:00 03/01/18 12:16 Meropenem 1 gm/ Sodium Chloride 55 ml @ 110 mls/hr Q12H IVPB 02/26/18 17:00 03/03/18 16:59 03/01/18 05:27 Methylprednisolone Sodium Succinate (Solu-MEDROL) 40 mg DAILY IVP 02/27/18 09:00 03/22/18 17:59 03/01/18 09:46 Metoprolol Tartrate (Lopressor) 25 mg Q12HR ORAL 02/24/18 21:00 03/26/18 20:59 03/01/18 09:47 Nitroglycerin (Ntg) 0.4 mg Q5M PRN SL Prn Chest Pain 02/18/18 16:46 03/20/18 16:45 Olanzapine (ZyPREXA) 2.5 mg Q6H PRN ORAL agitation 02/19/18 12:15 03/21/18 12:14 Ondansetron HCl (Zofran) 4 mg Q6H PRN IVP Nausea & Vomiting 02/18/18 16:46 03/20/18 16:45 Pantoprazole (Protonix) 40 mg DAILY IVP 02/25/18 15:15 03/27/18 15:14 03/01/18 09:46 Polyethylene Glycol (Miralax) 17 gm DAILYPRN PRN ORAL Constipation 02/18/18 16:45 03/20/18 16:44 Promethazine HCl/ Codeine (Phenergan with Codeine) 5 ml Q4H PRN ORAL For Cough 02/18/18 16:46 03/20/18 16:45 Allergies: Coded Allergies: No Known Allergies (Unverified , 02/18/18) ROS Limited/Unobtainable: Yes Subjective 82 YO M admitted with altered mental status. Now pneumonia and NSTEMI. Cover for Int Med-Dr Jc. RODERICK. Tolerating venturi mask Objective Last Vital Signs Date Time Temp Pulse Resp B/P (MAP) Pulse Ox O2 Delivery O2 Flow Rate FiO2 03/01/18 12:00 Venturi Mask 03/01/18 12:00 96.1 93 20 122/67 (85) 100 02/28/18 06:40 10.0 45 Laboratory Tests Test 03/01/18 03:35 White Blood Count 30.3 K/UL (4.8-10.8) *H Red Blood Count 3.36 M/UL (4.70-6.10) L Hemoglobin 10.0 G/DL (14.2-18.0) L Hematocrit 30.4 % (42.0-52.0) L Mean Corpuscular Volume 90 FL (80-99) Mean Corpuscular Hemoglobin 29.6 PG (27.0-31.0) Mean Corpuscular Hemoglobin Concent 32.8 G/DL (32.0-36.0) Red Cell Distribution Width 14.5 % (11.6-14.8) Platelet Count 38 K/UL (150-450) L Mean Platelet Volume 16.4 FL (6.5-10.1) H Neutrophils (%) (Auto) % (45.0-75.0) Lymphocytes (%) (Auto) % (20.0-45.0) Monocytes (%) (Auto) % (1.0-10.0) Eosinophils (%) (Auto) % (0.0-3.0) Basophils (%) (Auto) % (0.0-2.0) Differential Total Cells Counted 100 Neutrophils % (Manual) 95 % (45-75) H Lymphocytes % (Manual) 2 % (20-45) L Monocytes % (Manual) 3 % (1-10) Eosinophils % (Manual) 0 % (0-3) Basophils % (Manual) 0 % (0-2) Band Neutrophils 0 % (0-8) Platelet Estimate Decreased L Platelet Morphology Normal Hypochromasia 1+ Anisocytosis 1+ Prothrombin Time 14.6 SEC (9.30-11.50) H Prothromb Time International Ratio 1.4 (0.9-1.1) H Sodium Level 142 MMOL/L (136-145) Potassium Level 4.7 MMOL/L (3.5-5.1) Chloride Level 112 MMOL/L (98-107) H Carbon Dioxide Level 24 MMOL/L (21-32) Anion Gap 6 mmol/L (5-15) Blood Urea Nitrogen 53 mg/dL (7-18) H Creatinine 1.7 MG/DL (0.55-1.30) H Estimat Glomerular Filtration Rate mL/min (>60) Glucose Level 116 MG/DL (74-106) H Calcium Level 8.2 MG/DL (8.5-10.1) L Microbiology Date/Time Source Procedure Growth Status 02/26/18 17:06 Blood Blood Culture - Preliminary NO GROWTH AFTER 48 HOURS Resulted 02/26/18 17:00 Blood Blood Culture - Preliminary NO GROWTH AFTER 48 HOURS Resulted Intake and Output 02/28/18 03/01/18 19:00 07:00 Intake Total 535 ml 565 ml Output Total 80 ml 200 ml Balance 455 ml 365 ml Intake Oral 30 ml IV Total 535 ml 535 ml Output Urine Total 80 ml 200 ml Objective General Appearance: WD/WN, no apparent distress, alert, thin EENT: PERRL/EOMI, normal ENT inspection Neck: non-tender, normal alignment, supple, normal inspection Cardiovascular: normal peripheral pulses, normal rate, regular rhythm, no gallop/murmur, no JVD Respiratory/Chest: Venturi Mask; respiratory distress, decreased breath sounds , crackles/rales, rhonchi - bilaterally, expiratory wheezing Abdomen: normal bowel sounds, non tender, soft, no organomegaly, no mass Extremities: normal range of motion, non-tender 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 (2) Pneumonia Assessment & Plan: Continue vanco and meropenem. See pulmonary note. Continue IV solumedrol-H/O COPD. continue Duoneb (3) Elevated troponin Assessment & Plan: Trending down. See cardiology note. (4) CHF (congestive heart failure) (5) HTN (hypertension) (6) Hypothyroidism (7) Anemia, iron deficiency (8) CAD (coronary artery disease) (9) Renal failure, chronic (10) COPD (chronic obstructive pulmonary disease) Assessment & Plan: Add IV solumedrol and scheduled nebs. See pulmonary note. (11) Paroxysmal atrial fibrillation (12) Altered level of consciousness Assessment & Plan: CT brain negt. See Neurology note (13) Lung cancer (14) UTI (urinary tract infection) Assessment & Plan: E. Coli MDR. Continue meropenem and vanco per ID (15) E coli infection Status: not improved Ricky Baker MD Mar 01, 2018 15:37
[2018-03-01 16:00] VITALS: BP 141/68
[2018-03-01] MEDS ORDERED: D5 1/2NS 1000ml IV ONE (16:15)
--- NOTE | 2018-03-01 17:54 | General Progress Note ---
Assessment/Plan Assessment/Plan Assessment (1) Encounter for PEG (percutaneous endoscopic gastrostomy) ICD Codes: Z43.1 - Encounter for attention to gastrostomy SNOMED: 114154522, 029552100 (2) Severe malnutrition ICD Codes: E43 - Unspecified severe protein-calorie malnutrition SNOMED: 67712485 (3) Dehydration ICD Codes: E86.0 - Dehydration SNOMED: 18040713 (4) Anemia and thrombocytopenia ICD Codes: D50.9 - Iron deficiency anemia, unspecified SNOMED: 58607016 Status: not improved, unchanged Assessment/Plan Airborne precautions to rule out TB Patient not stable for PEG at this time given elevated troponin levels and leukocytosis, will require cardiac clearance. Maintain n.p.o. plus IV fluids at this time, Dobbhoff versus NGT when respiratory status stabilizes - also concerned about low platelet counts with respect to nosebleed risk may need temporary TPN As needed transfusions PPI Bowel regimen on site services specialist to find the DPOA Antibiotics Follow-up labs Subjective Allergies: Coded Allergies: No Known Allergies (Unverified , 02/18/18) Subjective Above noted minimally interactive in resp isolation breathing better today, although still tachypnic Objective Last 24 Hour Vital Signs Date Time Temp Pulse Resp B/P (MAP) Pulse Ox O2 Delivery O2 Flow Rate FiO2 03/01/18 16:00 Venturi Mask 03/01/18 12:00 Venturi Mask 03/01/18 12:00 96.1 93 20 122/67 (85) 100 03/01/18 12:00 83 03/01/18 09:47 99 127/33 03/01/18 08:00 97.0 99 15 127/73 (91) 92 03/01/18 08:00 Venturi Mask 03/01/18 07:42 94 03/01/18 04:00 Venturi Mask 03/01/18 04:00 81 03/01/18 04:00 98.1 88 26 130/80 (97) 92 03/01/18 00:00 Venturi Mask 03/01/18 00:00 97.7 90 26 156/87 (110) 100 03/01/18 00:00 93 02/28/18 20:55 85 148/72 02/28/18 20:00 Venturi Mask 02/28/18 20:00 83 02/28/18 20:00 98.5 85 29 148/72 (97) 99 Intake and Output 02/28/18 03/01/18 19:00 07:00 Intake Total 535 ml 565 ml Output Total 80 ml 200 ml Balance 455 ml 365 ml Intake Oral 30 ml IV Total 535 ml 535 ml Output Urine Total 80 ml 200 ml Laboratory Tests 03/01/18 03:35: White Blood Count 30.3*H, Red Blood Count 3.36L, Hemoglobin 10.0L, Hematocrit 30.4L, Mean Corpuscular Volume 90, Mean Corpuscular Hemoglobin 29.6, Mean Corpuscular Hemoglobin Concent 32.8, Red Cell Distribution Width 14.5, Platelet Count 38L, Mean Platelet Volume 16.4H, Neutrophils (%) (Auto) , Lymphocytes (%) (Auto) , Monocytes (%) (Auto) , Eosinophils (%) (Auto) , Basophils (%) (Auto) , Differential Total Cells Counted 100, Neutrophils % (Manual) 95H, Lymphocytes % (Manual) 2L, Monocytes % (Manual) 3, Eosinophils % (Manual) 0, Basophils % ( Manual) 0, Band Neutrophils 0, Platelet Estimate DecreasedL, Platelet Morphology Normal, Hypochromasia 1+, Anisocytosis 1+, Prothrombin Time 14.6H, Prothromb Time International Ratio 1.4H, Sodium Level 142, Potassium Level 4.7, Chloride Level 112H, Carbon Dioxide Level 24, Anion Gap 6, Blood Urea Nitrogen 53H, Creatinine 1.7H, Estimat Glomerular Filtration Rate , Glucose Level 116H, Calcium Level 8.2L 03/01/18 15:10: Heparin-PF4 Antibody Screen [Pending] Height (Feet): 5 Height (Inches): 10.00 Weight (Pounds): 141 Objective Elderly WM NCAT, (+) FM O2 supple Coarse BS RR abd soft ND NT non edema Stefany Kraus MD Mar 01, 2018 17:54
--- NOTE | 2018-03-01 18:16 | General Progress Note ---
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 (2) Dementia ICD Codes: F03.90 - Unspecified dementia without behavioral disturbance SNOMED: 57442138 Assessment/Plan zyprexa prn the pt lacks capacity provided ro Subjective Date patient seen: Feb 28, 2018 Neurologic/Psychiatric: Reports: anxiety Allergies: Coded Allergies: No Known Allergies (Unverified , 02/18/18) Subjective the pt has episodes of agitation and is confused. Objective Last 24 Hour Vital Signs Date Time Temp Pulse Resp B/P (MAP) Pulse Ox O2 Delivery O2 Flow Rate FiO2 03/01/18 16:00 Venturi Mask 03/01/18 16:00 97.5 85 26 141/68 (92) 98 03/01/18 15:34 96 03/01/18 12:00 Venturi Mask 03/01/18 12:00 96.1 93 20 122/67 (85) 100 03/01/18 12:00 83 03/01/18 09:47 99 127/33 03/01/18 08:00 97.0 99 15 127/73 (91) 92 03/01/18 08:00 Venturi Mask 03/01/18 07:42 94 03/01/18 04:00 Venturi Mask 03/01/18 04:00 81 03/01/18 04:00 98.1 88 26 130/80 (97) 92 03/01/18 00:00 Venturi Mask 03/01/18 00:00 97.7 90 26 156/87 (110) 100 03/01/18 00:00 93 02/28/18 20:55 85 148/72 02/28/18 20:00 Venturi Mask 02/28/18 20:00 83 02/28/18 20:00 98.5 85 29 148/72 (97) 99 Intake and Output 02/28/18 03/01/18 19:00 07:00 Intake Total 535 ml 565 ml Output Total 80 ml 200 ml Balance 455 ml 365 ml Intake Oral 30 ml IV Total 535 ml 535 ml Output Urine Total 80 ml 200 ml Laboratory Tests 03/01/18 03:35: White Blood Count 30.3*H, Red Blood Count 3.36L, Hemoglobin 10.0L, Hematocrit 30.4L, Mean Corpuscular Volume 90, Mean Corpuscular Hemoglobin 29.6, Mean Corpuscular Hemoglobin Concent 32.8, Red Cell Distribution Width 14.5, Platelet Count 38L, Mean Platelet Volume 16.4H, Neutrophils (%) (Auto) , Lymphocytes (%) (Auto) , Monocytes (%) (Auto) , Eosinophils (%) (Auto) , Basophils (%) (Auto) , Differential Total Cells Counted 100, Neutrophils % (Manual) 95H, Lymphocytes % (Manual) 2L, Monocytes % (Manual) 3, Eosinophils % (Manual) 0, Basophils % ( Manual) 0, Band Neutrophils 0, Platelet Estimate DecreasedL, Platelet Morphology Normal, Hypochromasia 1+, Anisocytosis 1+, Prothrombin Time 14.6H, Prothromb Time International Ratio 1.4H, Sodium Level 142, Potassium Level 4.7, Chloride Level 112H, Carbon Dioxide Level 24, Anion Gap 6, Blood Urea Nitrogen 53H, Creatinine 1.7H, Estimat Glomerular Filtration Rate , Glucose Level 116H, Calcium Level 8.2L 03/01/18 15:10: Heparin-PF4 Antibody Screen [Pending] Height (Feet): 5 Height (Inches): 10.00 Weight (Pounds): 141 General Appearance: alert, confused, agitated Arsen Erwin MD Mar 01, 2018 18:16
--- NOTE | 2018-03-01 18:19 | NUR ---
CASE MANAGEMENT: REVIEW 02/28/2018 SI: LUNG CA . COPD . A-FIB . 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 COPD . A-FIB . Tb R/O T 98.1 HR 88 RR 26 B/P 130/80 SATS 92% ON VENTURI MASK WBC 30.3 PLT 38 CL 112 BUN 53 CR 1.7 GLU 116 CA 8.2 IS: LOPRESSOR PO Q12HR SOLU MEDROL IV Q12HR MEROPENEM IV Q12HR LACTULOSE PO Q6HR NS IVF @75ML/HR STEP DOWN UNIT STATUS DCP: PATIENT IS FROM [facility]
--- NOTE | 2018-03-01 19:15 | NUR ---
HAND-OFF: Report given to JUAN FRANCISCO Mccloud. Patient stable and in no distress.
--- NOTE | 2018-03-01 19:16 | NUR ---
NURSE NOTES: Bedside report received from JUAN FRANCISCO Qureshi at bedside. Unable to determine orientation, pt is nonverbal, lethargic, does not follow commands. front desk monitor showing NSR. Venturi mask; sating well. Pt is NPO except meds. Condom cath patent draining. Skin is clean and dry. RFA 22g running D5 1/2NS @ 40; asymptomatic. Per AM RN labs OK, no order for WBC, platelets, calcium. Bed locked in lowest position, side rails x3, bed alarm on, call brown within. Will follow plan of care and continue to monitor.
[2018-03-01 20:00] VITALS: BP 130/70
[2018-03-02] VITALS: BP 129/70
[2018-03-02] MEDS: D5 1/2NS 1,000 ML IV SCH ×2 (00:27→23:54)
[2018-03-02 04:00] VITALS: BP 130/65
[2018-03-02 04:51] LABS: HEMATOCRIT 27.3 % (42.0-52.0); HEMOGLOBIN 9.3 G/DL (14.2-18.0); MEAN CORPUSCULAR VOLUME 90 FL (80-99); PLATELET COUNT 23 K/UL (150-450); RED BLOOD COUNT 3.02 M/UL (4.70-6.10); RED CELL DISTRIBUTION WIDTH 14.9 % (11.6-14.8)
[2018-03-02 05:05] LABS: WHITE BLOOD COUNT 28.8 K/UL (4.8-10.8)
[2018-03-02 05:22] LABS: ANION GAP 10 mmol/L (5-15); BLOOD UREA NITROGEN 59 mg/dL (7-18); CALCIUM 7.7 MG/DL (8.5-10.1); CARBON DIOXIDE 21 MMOL/L (21-32); CHLORIDE 113 MMOL/L (98-107); CREATININE 1.8 MG/DL (0.55-1.30); POTASSIUM 5.2 MMOL/L (3.5-5.1); SODIUM 144 MMOL/L (136-145)
[2018-03-02] MEDS: Meropenem 1 GM in NS 55 ML IVPB SCH ×2 (05:53→17:33)
[2018-03-02] MEDS: Lactulose 10gm/15ml UDC ORAL SCH ×2 (05:54)
--- NOTE | 2018-03-02 07:00 | NUR ---
NURSE NOTES: Called Dr. Samuel for AM labs; no orders at this time, only to monitor. Pt only responding to pain, unable to take PO meds. DC'd all PO meds; order for IV hydralazine 10 mg PRN for sys >180. STAT ABG ordered for change in LOC. Ordered and carried out.
--- NOTE | 2018-03-02 07:45 | Infectious Diseases Prog Note ---
Assessment/Plan Assessment/Plan Hemoptysis ( after nasal suctioning< noted pt was placed in A.Isolation per Pul) -AFB smear neg x2, MTB PCR (-) -02/25 sp cx - NF -02/25 CXR: Slight increased patchy right-sided airspace opacities concerning for pneumonia or\alveolar edema. Clinical correlation/follow-up recommended. Pleural-based calcifications of the left with volume loss in pleural thickening at the left costophrenic sulcus. Subtle lucency at the periphery of the left midlung may represent loculated pneumothorax or artifact. Sepsis, SP- 2ry to UTI -u.a wbc tntc, nit -, leuk +3; u cx >100k ESBL E.coli; 02/22 u/a wbc 5-10, nit neg, luek +1; ucx p -CXR: Left midlung and calcified parenchymal scarring. Numerous calcified hilar nodes suggest old granulomatous disease. Left apical lucency could reflect compensatory hyperinflation or COPD changes. No definite acute process Afebrile Leukocytosis, increased (on high dose steroids)- -02/23 CT abd/p: Wall thickening of the distal esophagus and gastric cardia. Esophageal findings are suspicious for esophagitis. Findings in the stomach could be an artifact of redundant mucosa secondary to incomplete distention, but raise concern for neoplasm or gastritis. Colonic diverticulosis. No evidence of acute diverticulitis. Evidence old granulomatous disease, with multiple calcifications in the liver and spleen. Distended bladder. Edema of the lumbar region subcutaneous fat and of the bilateral lower flanks, buttock and hip regions. Bilateral pleural effusions and basilar pulmonary atelectatic changes -02/22 Bcx NTD CXR: Mild sub-segmental atelectasis in the medial lung bases. No significant change in the scarring versus linear atelectasis at the periphery of the left midlung, with possible underlying pleural calcifications. Scattered calcified hilar lymph nodes, unchanged. Acute encephalopathy -CT head: no acute findings Dementia dysphagia HTN lung CA CAD CKD COPD Afib [place] resident Plan: -Continue Meropenem # / for ESBL UTI and in the setting fo PNA - 02/28/18 SP IV Vancomycin # 4 - 02/26 SP Ertapenem #5 - 02/22 SP Bactrim #3 - 02/20 SP Cefepime # 3 - 02/19 SP IV Vancomycin #2 - 02/18 SP Unasyn x1 -f/u cx -Monitor CBC/CMP, temperatures -aspiration precautions -f/u AFBx 1 Subjective Allergies: Coded Allergies: No Known Allergies (Unverified , 02/18/18) Subjective Patient afebrile Still on ventimask 45% O2 Stable WBCs Objective Vital Signs Last 24 Hour Vital Signs Date Time Temp Pulse Resp B/P (MAP) Pulse Ox O2 Delivery O2 Flow Rate FiO2 03/02/18 04:00 98.2 85 27 130/65 (86) 100 03/02/18 04:00 Venturi Mask 03/02/18 04:00 82 03/02/18 00:00 Venturi Mask 03/02/18 00:00 75 03/02/18 00:00 98.5 95 26 129/70 (89) 100 03/01/18 21:03 95 134/76 03/01/18 20:00 98.6 88 30 130/70 (90) 98 03/01/18 20:00 Venturi Mask 03/01/18 20:00 87 03/01/18 16:00 Venturi Mask 03/01/18 16:00 97.5 85 26 141/68 (92) 98 03/01/18 15:34 96 03/01/18 12:00 Venturi Mask 03/01/18 12:00 96.1 93 20 122/67 (85) 100 03/01/18 12:00 83 03/01/18 09:47 99 127/33 03/01/18 08:00 97.0 99 15 127/73 (91) 92 03/01/18 08:00 Venturi Mask 03/01/18 07:42 94 Height (Feet): 5 Height (Inches): 10.00 Weight (Pounds): 141 Objective GENERAL: Not following LUNGS: CTAB, Mild Wheezing CARDIAC: Regular rate and rhythm. S1, S2 ABDOMEN: Soft and nontender. Positive bowel sounds. EXTREMITIES: There is no edema. No clubbing or cyanosis. NEUROLOGICAL: A/O x0 Laboratory Tests Test 03/01/18 15:10 03/02/18 03:46 Heparin-PF4 Antibody Screen Pending White Blood Count 28.8 K/UL (4.8-10.8) *H Red Blood Count 3.02 M/UL (4.70-6.10) L Hemoglobin 9.3 G/DL (14.2-18.0) L Hematocrit 27.3 % (42.0-52.0) L Mean Corpuscular Volume 90 FL (80-99) Mean Corpuscular Hemoglobin 30.7 PG (27.0-31.0) Mean Corpuscular Hemoglobin Concent 34.0 G/DL (32.0-36.0) Red Cell Distribution Width 14.9 % (11.6-14.8) H Platelet Count 23 K/UL (150-450) L Mean Platelet Volume 14.5 FL (6.5-10.1) H Neutrophils (%) (Auto) % (45.0-75.0) Lymphocytes (%) (Auto) % (20.0-45.0) Monocytes (%) (Auto) % (1.0-10.0) Eosinophils (%) (Auto) % (0.0-3.0) Basophils (%) (Auto) % (0.0-2.0) Neutrophils % (Manual) Pending Lymphocytes % (Manual) Pending Platelet Estimate Pending Platelet Morphology Pending Sodium Level 144 MMOL/L (136-145) Potassium Level 5.2 MMOL/L (3.5-5.1) H Chloride Level 113 MMOL/L (98-107) H Carbon Dioxide Level 21 MMOL/L (21-32) Anion Gap 10 mmol/L (5-15) Blood Urea Nitrogen 59 mg/dL (7-18) H Creatinine 1.8 MG/DL (0.55-1.30) H Estimat Glomerular Filtration Rate mL/min (>60) Glucose Level 130 MG/DL (74-106) H Calcium Level 7.7 MG/DL (8.5-10.1) L Current Medications Medications (Trade) Dose Ordered Sig/Delvin Route PRN Reason Start Time Stop Time Status Last Admin Dose Admin Dextrose/Sodium Chloride 1,000 ml @ 40 mls/hr Q24H IV 02/26/18 00:00 03/28/18 00:00 03/02/18 00:27 Hydralazine HCl (Apresoline) 10 mg Q6H PRN IV For High Blood Pressure 03/02/18 07:30 04/01/18 07:29 Meropenem 1 gm/ Sodium Chloride 55 ml @ 110 mls/hr Q12H IVPB 02/26/18 17:00 03/04/18 16:59 03/02/18 05:53 Methylprednisolone Sodium Succinate (Solu-MEDROL) 40 mg DAILY IVP 02/27/18 09:00 03/22/18 17:59 03/01/18 09:46 Nitroglycerin (Ntg) 0.4 mg Q5M PRN SL Prn Chest Pain 02/18/18 16:46 03/20/18 16:45 Ondansetron HCl (Zofran) 4 mg Q6H PRN IVP Nausea & Vomiting 02/18/18 16:46 03/20/18 16:45 Pantoprazole (Protonix) 40 mg DAILY IVP 02/25/18 15:15 03/27/18 15:14 03/01/18 09:46 Chris Boles MD Mar 02, 2018 07:45
--- NOTE | 2018-03-02 07:45 | NUR ---
NURSE NOTES: Received report from JUAN FRANCISCO Mccloud. Patient is resting in bed, in stable condition. No s/sx of SOB, breathing is even and unlabored. Observed no presence of pain or discomfort at this time. Bed is in lowest position, brakes engaged. Call light is kept within easy reach. Will continue to monitor patient.
--- NOTE | 2018-03-02 07:58 | NUR ---
HAND-OFF: Report given to JUAN FRANCISCO Ramirez.
[2018-03-02 08:00] VITALS: BP 136/69
[2018-03-02] MEDS: Pantoprazole Inj IVP SCH (09:09)
[2018-03-02] MEDS: Solu-MEDROL 40mg Inj IVP SCH (09:09)
--- NOTE | 2018-03-02 10:00 | NUR ---
NURSE NOTES: Dr. Boles at nurse station, made MD aware that patient has a "no NT suction" order per Dr. Samuel due to high risk of bleeding. Unable to acquire AFB sputum with sputum induction. Dr. Boles acknowledged and ordered to reschedule AFB sputum lab for tomorrow AM. Order entered, noted, and carried out. Will continue to monitor patient.
--- NOTE | 2018-03-02 11:00 | NUR ---
NURSE NOTES: Reported ABG results to Dr. Samuel. acknowledged and ordered, repeat ABG. Patient has no s/sx of SOB, breathing is even and unlabored. SpO2 99% on venturi mask. Will continue to monitor patient.
[2018-03-02 12:00] VITALS: BP 120/80
--- NOTE | 2018-03-02 14:25 | Internal Med Progress Note ---
Subjective Date of Service: Mar 02, 2018 Physician Name Ricky Baker Attending Physician Gila Sibley MD Current Medications Medications (Trade) Dose Ordered Sig/Delvin Route PRN Reason Start Time Stop Time Status Last Admin Dose Admin Dextrose/Sodium Chloride 1,000 ml @ 40 mls/hr Q24H IV 02/26/18 00:00 03/28/18 00:00 03/02/18 00:27 Hydralazine HCl (Apresoline) 10 mg Q6H PRN IV For High Blood Pressure 03/02/18 07:30 04/01/18 07:29 Meropenem 1 gm/ Sodium Chloride 55 ml @ 110 mls/hr Q12H IVPB 02/26/18 17:00 03/04/18 16:59 03/02/18 05:53 Methylprednisolone Sodium Succinate (Solu-MEDROL) 40 mg DAILY IVP 02/27/18 09:00 03/22/18 17:59 03/02/18 09:09 Nitroglycerin (Ntg) 0.4 mg Q5M PRN SL Prn Chest Pain 02/18/18 16:46 03/20/18 16:45 Ondansetron HCl (Zofran) 4 mg Q6H PRN IVP Nausea & Vomiting 02/18/18 16:46 03/20/18 16:45 Pantoprazole (Protonix) 40 mg DAILY IVP 02/25/18 15:15 03/27/18 15:14 03/02/18 09:09 Allergies: Coded Allergies: No Known Allergies (Unverified , 02/18/18) ROS Limited/Unobtainable: Yes Subjective 82 YO M admitted with altered mental status. Now pneumonia and NSTEMI. Cover for Int Med-Dr Jc. RODERICK. Tolerating venturi mask Objective Last Vital Signs Date Time Temp Pulse Resp B/P (MAP) Pulse Ox O2 Delivery O2 Flow Rate FiO2 03/02/18 12:00 Venturi Mask 03/02/18 12:00 97.4 82 20 120/80 (93) 100 02/28/18 06:40 10.0 45 Laboratory Tests Test 03/01/18 15:10 03/02/18 03:46 03/02/18 10:20 Heparin-PF4 Antibody Screen Pending White Blood Count 28.8 K/UL (4.8-10.8) *H Red Blood Count 3.02 M/UL (4.70-6.10) L Hemoglobin 9.3 G/DL (14.2-18.0) L Hematocrit 27.3 % (42.0-52.0) L Mean Corpuscular Volume 90 FL (80-99) Mean Corpuscular Hemoglobin 30.7 PG (27.0-31.0) Mean Corpuscular Hemoglobin Concent 34.0 G/DL (32.0-36.0) Red Cell Distribution Width 14.9 % (11.6-14.8) H Platelet Count 23 K/UL (150-450) L Mean Platelet Volume 14.5 FL (6.5-10.1) H Neutrophils (%) (Auto) % (45.0-75.0) Lymphocytes (%) (Auto) % (20.0-45.0) Monocytes (%) (Auto) % (1.0-10.0) Eosinophils (%) (Auto) % (0.0-3.0) Basophils (%) (Auto) % (0.0-2.0) Differential Total Cells Counted 100 Neutrophils % (Manual) 86 % (45-75) H Lymphocytes % (Manual) 4 % (20-45) L Monocytes % (Manual) 8 % (1-10) Eosinophils % (Manual) 0 % (0-3) Basophils % (Manual) 0 % (0-2) Band Neutrophils 2 % (0-8) Platelet Estimate Decreased L Platelet Morphology Normal Hypochromasia 1+ Anisocytosis 1+ Sodium Level 144 MMOL/L (136-145) Potassium Level 5.2 MMOL/L (3.5-5.1) H Chloride Level 113 MMOL/L (98-107) H Carbon Dioxide Level 21 MMOL/L (21-32) Anion Gap 10 mmol/L (5-15) Blood Urea Nitrogen 59 mg/dL (7-18) H Creatinine 1.8 MG/DL (0.55-1.30) H Estimat Glomerular Filtration Rate mL/min (>60) Glucose Level 130 MG/DL (74-106) H Calcium Level 7.7 MG/DL (8.5-10.1) L Arterial Blood pH 7.370 (7.350-7.450) Arterial Blood Partial Pressure CO2 40.1 mmHg (35.0-45.0) Arterial Blood Partial Pressure O2 38.8 mmHg (75.0-100.0) Arterial Blood HCO3 22.7 mmol/L (22.0-26.0) Arterial Blood Oxygen Saturation 69.7 % (95-100) *L Arterial Blood Base Excess -2.4 (-2-2) L Tha Test Positive Intake and Output 03/01/18 03/02/18 19:00 07:00 Intake Total 555 ml 30 ml Output Total 400 ml Balance 555 ml -370 ml Intake Oral 20 ml 30 ml IV Total 535 ml Output Urine Total 400 ml # Voids 1 # Bowel Movements 2 Objective General Appearance: WD/WN, no apparent distress, alert, thin EENT: PERRL/EOMI, normal ENT inspection Neck: non-tender, normal alignment, supple, normal inspection Cardiovascular: normal peripheral pulses, normal rate, regular rhythm, no gallop/murmur, no JVD Respiratory/Chest: Venturi Mask; respiratory distress, decreased breath sounds , crackles/rales, rhonchi - bilaterally, expiratory wheezing Abdomen: normal bowel sounds, non tender, soft, no organomegaly, no mass Extremities: normal range of motion, non-tender 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 (2) Pneumonia Assessment & Plan: Continue vanco and meropenem. See pulmonary note. Continue IV solumedrol-H/O COPD. continue Duoneb (3) Elevated troponin Assessment & Plan: Trending down. See cardiology note. (4) CHF (congestive heart failure) (5) HTN (hypertension) (6) Hypothyroidism (7) Anemia, iron deficiency (8) CAD (coronary artery disease) (9) Renal failure, chronic (10) COPD (chronic obstructive pulmonary disease) Assessment & Plan: Add IV solumedrol and scheduled nebs. See pulmonary note. (11) Paroxysmal atrial fibrillation (12) Altered level of consciousness Assessment & Plan: CT brain negt. See Neurology note (13) Lung cancer (14) UTI (urinary tract infection) Assessment & Plan: E. Coli MDR. Continue meropenem and vanco per ID (15) E coli infection Ricky Baker MD Mar 02, 2018 14:25
[2018-03-02 16:00] VITALS: BP 152/65
--- NOTE | 2018-03-02 18:00 | NUR ---
NURSE NOTES: Dr. Kraus called nurse station and ordered PICC placement for TPN therapy. Order entered, noted, and carried out. Will continue to monitor patient.
--- NOTE | 2018-03-02 18:42 | Cardiology Progress Note ---
Assessment/Plan Problem List: (1) Lung cancer (2) COPD (chronic obstructive pulmonary disease) (3) Paroxysmal atrial fibrillation (4) CAD (coronary artery disease) (5) encephalopathy due to metabolic factor (6) NSTEMI (non-ST elevated myocardial infarction) Status: not improved, unchanged Status Narrative Pt w/ resp failure/ pulm infiltrates - ? hx of lung CA NSTEMI on adm, w/ troponins 7-8. ECHO w/ preserved LV systolic fxn, per report , however. Sinus tach - due to metabolic factors hx of PAF Assessment/Plan Continue current meds for CAD, NSTEMI. Overall, appears w/o improvement in respiratory status. Continue treatment for pneumonia per primary team. Subjective ROS Limited/Unobtainable: Yes Subjective Cardiology for Dr. Sherwood Pt is obtunded. Objective Last 24 Hour Vital Signs Date Time Temp Pulse Resp B/P (MAP) Pulse Ox O2 Delivery O2 Flow Rate FiO2 03/02/18 16:00 97.8 110 20 152/65 (94) 100 03/02/18 16:00 Venturi Mask 03/02/18 16:00 106 03/02/18 12:00 96 03/02/18 12:00 Venturi Mask 03/02/18 12:00 97.4 82 20 120/80 (93) 100 03/02/18 08:00 97.5 84 27 136/69 (91) 100 03/02/18 08:00 77 03/02/18 08:00 Venturi Mask 03/02/18 04:00 98.2 85 27 130/65 (86) 100 03/02/18 04:00 Venturi Mask 03/02/18 04:00 82 03/02/18 00:00 Venturi Mask 03/02/18 00:00 75 03/02/18 00:00 98.5 95 26 129/70 (89) 100 03/01/18 21:03 95 134/76 03/01/18 20:00 98.6 88 30 130/70 (90) 98 03/01/18 20:00 Venturi Mask 03/01/18 20:00 87 General Appearance: cachetic, lethargic EENT: PERRL/EOMI Neck: no JVD Rhythm: ST Cardiovascular: regular rhythm, tachycardia Respiratory/Chest: other - tachypneic, shallow respirations. scattered rhonchi Abdomen: non tender, soft Extremities: no swelling Intake and Output 03/01/18 03/02/18 19:00 07:00 Intake Total 555 ml 30 ml Output Total 400 ml Balance 555 ml -370 ml Intake Oral 20 ml 30 ml IV Total 535 ml Output Urine Total 400 ml # Voids 1 # Bowel Movements 2 Laboratory Tests Test 03/02/18 03:46 03/02/18 10:20 03/02/18 16:26 White Blood Count 28.8 K/UL (4.8-10.8) *H Red Blood Count 3.02 M/UL (4.70-6.10) L Hemoglobin 9.3 G/DL (14.2-18.0) L Hematocrit 27.3 % (42.0-52.0) L Mean Corpuscular Volume 90 FL (80-99) Mean Corpuscular Hemoglobin 30.7 PG (27.0-31.0) Mean Corpuscular Hemoglobin Concent 34.0 G/DL (32.0-36.0) Red Cell Distribution Width 14.9 % (11.6-14.8) H Platelet Count 23 K/UL (150-450) L Mean Platelet Volume 14.5 FL (6.5-10.1) H Neutrophils (%) (Auto) % (45.0-75.0) Lymphocytes (%) (Auto) % (20.0-45.0) Monocytes (%) (Auto) % (1.0-10.0) Eosinophils (%) (Auto) % (0.0-3.0) Basophils (%) (Auto) % (0.0-2.0) Differential Total Cells Counted 100 Neutrophils % (Manual) 86 % (45-75) H Lymphocytes % (Manual) 4 % (20-45) L Monocytes % (Manual) 8 % (1-10) Eosinophils % (Manual) 0 % (0-3) Basophils % (Manual) 0 % (0-2) Band Neutrophils 2 % (0-8) Platelet Estimate Decreased L Platelet Morphology Normal Hypochromasia 1+ Anisocytosis 1+ Sodium Level 144 MMOL/L (136-145) Potassium Level 5.2 MMOL/L (3.5-5.1) H Chloride Level 113 MMOL/L (98-107) H Carbon Dioxide Level 21 MMOL/L (21-32) Anion Gap 10 mmol/L (5-15) Blood Urea Nitrogen 59 mg/dL (7-18) H Creatinine 1.8 MG/DL (0.55-1.30) H Estimat Glomerular Filtration Rate mL/min (>60) Glucose Level 130 MG/DL (74-106) H Calcium Level 7.7 MG/DL (8.5-10.1) L Arterial Blood pH 7.370 (7.350-7.450) 7.437 (7.350-7.450) Arterial Blood Partial Pressure CO2 40.1 mmHg (35.0-45.0) 28.1 mmHg (35.0-45.0) L Arterial Blood Partial Pressure O2 38.8 mmHg (75.0-100.0) 100.1 mmHg (75.0-100.0) H Arterial Blood HCO3 22.7 mmol/L (22.0-26.0) 18.5 mmol/L (22.0-26.0) L Arterial Blood Oxygen Saturation 69.7 % (95-100) *L 96.5 % (95-100) Arterial Blood Base Excess -2.4 (-2-2) L -4.7 (-2-2) L Tha Test Positive Positive Li Umana MD Mar 02, 2018 18:42
--- NOTE | 2018-03-02 18:55 | General Progress Note ---
Assessment/Plan Assessment/Plan Assessment (1) Encounter for PEG (percutaneous endoscopic gastrostomy) ICD Codes: Z43.1 - Encounter for attention to gastrostomy SNOMED: 604985338, 605664325 (2) Severe malnutrition ICD Codes: E43 - Unspecified severe protein-calorie malnutrition SNOMED: 84544577 (3) Dehydration ICD Codes: E86.0 - Dehydration SNOMED: 27362370 (4) Anemia and thrombocytopenia ICD Codes: D50.9 - Iron deficiency anemia, unspecified SNOMED: 74712474 Status: not improved, unchanged Assessment/Plan Airborne precautions to rule out TB Patient not stable for PEG at this time given resp status and low platelets. Maintain n.p.o. plus IV fluids at this time, Dobbhoff versus NGT when respiratory status stabilizes - also concerned about low platelet counts with respect to nosebleed risk may need temporary TPN --> will order PICC line As needed transfusions PPI Bowel regimen social services designee to find the DPOA Antibiotics Follow-up labs Subjective Allergies: Coded Allergies: No Known Allergies (Unverified , 02/18/18) Subjective Above noted minimally interactive in resp isolation Objective Last 24 Hour Vital Signs Date Time Temp Pulse Resp B/P (MAP) Pulse Ox O2 Delivery O2 Flow Rate FiO2 03/02/18 16:00 97.8 110 20 152/65 (94) 100 03/02/18 16:00 Venturi Mask 03/02/18 16:00 106 03/02/18 12:00 96 03/02/18 12:00 Venturi Mask 03/02/18 12:00 97.4 82 20 120/80 (93) 100 03/02/18 08:00 97.5 84 27 136/69 (91) 100 03/02/18 08:00 77 03/02/18 08:00 Venturi Mask 03/02/18 04:00 98.2 85 27 130/65 (86) 100 03/02/18 04:00 Venturi Mask 03/02/18 04:00 82 03/02/18 00:00 Venturi Mask 03/02/18 00:00 75 03/02/18 00:00 98.5 95 26 129/70 (89) 100 03/01/18 21:03 95 134/76 03/01/18 20:00 98.6 88 30 130/70 (90) 98 03/01/18 20:00 Venturi Mask 03/01/18 20:00 87 Intake and Output 03/01/18 03/02/18 19:00 07:00 Intake Total 555 ml 30 ml Output Total 400 ml Balance 555 ml -370 ml Intake Oral 20 ml 30 ml IV Total 535 ml Output Urine Total 400 ml # Voids 1 # Bowel Movements 2 Laboratory Tests 03/02/18 03:46: White Blood Count 28.8*H, Red Blood Count 3.02L, Hemoglobin 9.3L, Hematocrit 27.3L, Mean Corpuscular Volume 90, Mean Corpuscular Hemoglobin 30.7, Mean Corpuscular Hemoglobin Concent 34.0, Red Cell Distribution Width 14.9H, Platelet Count 23L, Mean Platelet Volume 14.5H, Neutrophils (%) (Auto) , Lymphocytes (%) (Auto) , Monocytes (%) (Auto) , Eosinophils (%) (Auto) , Basophils (%) (Auto) , Differential Total Cells Counted 100, Neutrophils % ( Manual) 86H, Lymphocytes % (Manual) 4L, Monocytes % (Manual) 8, Eosinophils % ( Manual) 0, Basophils % (Manual) 0, Band Neutrophils 2, Platelet Estimate DecreasedL, Platelet Morphology Normal, Hypochromasia 1+, Anisocytosis 1+, Sodium Level 144, Potassium Level 5.2H, Chloride Level 113H, Carbon Dioxide Level 21, Anion Gap 10, Blood Urea Nitrogen 59H, Creatinine 1.8H, Estimat Glomerular Filtration Rate , Glucose Level 130H, Calcium Level 7.7L 03/02/18 10:20: Arterial Blood pH 7.370, Arterial Blood Partial Pressure CO2 40.1, Arterial Blood Partial Pressure O2 38.8*L, Arterial Blood HCO3 22.7, Arterial Blood Oxygen Saturation 69.7*L, Arterial Blood Base Excess -2.4L, Tha Test Positive 03/02/18 16:26: Arterial Blood pH 7.437, Arterial Blood Partial Pressure CO2 28.1L, Arterial Blood Partial Pressure O2 100.1H, Arterial Blood HCO3 18.5L, Arterial Blood Oxygen Saturation 96.5, Arterial Blood Base Excess -4.7L, Tha Test Positive Height (Feet): 5 Height (Inches): 10.00 Weight (Pounds): 141 Objective Elderly WM NCAT, (+) FM O2 supple Coarse BS RR abd soft ND NT non edema Stefany Kraus MD Mar 02, 2018 18:55
[2018-03-02] MEDS ORDERED: Lidocaine 1% Plain 30 ml INJ PRN (19:30)
[2018-03-02] MEDS ORDERED: Heparin 2000 units/Ns 1000ml INJ PRN (19:30)
--- NOTE | 2018-03-02 19:30 | NUR ---
HAND-OFF: Report given to JUAN FRANCISCO Cheatham.
--- NOTE | 2018-03-02 19:30 | NUR ---
NURSE NOTES: Received Pt is resting on the bed and awake and confused. On O2 15L via Venturi mask and SaO2 97-98% noted. No sign of pain by FLACC scale. IV site intact and no sign of infiltration. On running with D5W2/1NS @40cc/hr. On condom cath and yellowish urine urinated. On NPO. Placed fall precaution. Changed position. On proper contact and airborne precaution. Will continue to care plan.
[2018-03-02 20:00] VITALS: BP 128/71
[2018-03-02] MEDS: Dyna-Hex 2% Top Sol 2oz TOPIC SCH (20:00)
[2018-03-03] VITALS: BP 134/79
--- NOTE | 2018-03-03 01:46 | General Progress Note ---
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 (2) Dementia ICD Codes: F03.90 - Unspecified dementia without behavioral disturbance SNOMED: 01710634 Assessment/Plan zyprexa prn the pt lacks capacity provided ro Subjective Neurologic/Psychiatric: Reports: anxiety Allergies: Coded Allergies: No Known Allergies (Unverified , 02/18/18) Subjective the pt has episodes of agitation and is confused. Objective Last 24 Hour Vital Signs Date Time Temp Pulse Resp B/P (MAP) Pulse Ox O2 Delivery O2 Flow Rate FiO2 03/03/18 00:00 98.6 103 24 134/79 (97) 98 03/03/18 00:00 Venturi Mask 03/03/18 00:00 101 03/02/18 20:00 Venturi Mask 03/02/18 20:00 98.8 99 20 128/71 (90) 98 03/02/18 20:00 97 03/02/18 16:00 97.8 110 20 152/65 (94) 100 03/02/18 16:00 Venturi Mask 03/02/18 16:00 106 03/02/18 12:00 96 03/02/18 12:00 Venturi Mask 03/02/18 12:00 97.4 82 20 120/80 (93) 100 03/02/18 08:00 97.5 84 27 136/69 (91) 100 03/02/18 08:00 77 03/02/18 08:00 Venturi Mask 03/02/18 04:00 98.2 85 27 130/65 (86) 100 03/02/18 04:00 Venturi Mask 03/02/18 04:00 82 Intake and Output 03/02/18 03/03/18 19:00 07:00 Output Total 300 ml Balance -300 ml Output Urine Total 300 ml # Bowel Movements 4 Laboratory Tests 03/02/18 03:46: White Blood Count 28.8*H, Red Blood Count 3.02L, Hemoglobin 9.3L, Hematocrit 27.3L, Mean Corpuscular Volume 90, Mean Corpuscular Hemoglobin 30.7, Mean Corpuscular Hemoglobin Concent 34.0, Red Cell Distribution Width 14.9H, Platelet Count 23L, Mean Platelet Volume 14.5H, Neutrophils (%) (Auto) , Lymphocytes (%) (Auto) , Monocytes (%) (Auto) , Eosinophils (%) (Auto) , Basophils (%) (Auto) , Differential Total Cells Counted 100, Neutrophils % ( Manual) 86H, Lymphocytes % (Manual) 4L, Monocytes % (Manual) 8, Eosinophils % ( Manual) 0, Basophils % (Manual) 0, Band Neutrophils 2, Platelet Estimate DecreasedL, Platelet Morphology Normal, Hypochromasia 1+, Anisocytosis 1+, Sodium Level 144, Potassium Level 5.2H, Chloride Level 113H, Carbon Dioxide Level 21, Anion Gap 10, Blood Urea Nitrogen 59H, Creatinine 1.8H, Estimat Glomerular Filtration Rate , Glucose Level 130H, Calcium Level 7.7L 03/02/18 10:20: Arterial Blood pH 7.370, Arterial Blood Partial Pressure CO2 40.1, Arterial Blood Partial Pressure O2 38.8*L, Arterial Blood HCO3 22.7, Arterial Blood Oxygen Saturation 69.7*L, Arterial Blood Base Excess -2.4L, Tha Test Positive 03/02/18 16:26: Arterial Blood pH 7.437, Arterial Blood Partial Pressure CO2 28.1L, Arterial Blood Partial Pressure O2 100.1H, Arterial Blood HCO3 18.5L, Arterial Blood Oxygen Saturation 96.5, Arterial Blood Base Excess -4.7L, Tha Test Positive 03/02/18 18:30: Stool Occult Blood [Pending] Height (Feet): 5 Height (Inches): 10.00 Weight (Pounds): 141 General Appearance: alert, confused, agitated Arsen Erwin MD Mar 03, 2018 01:46
[2018-03-03 04:00] VITALS: BP 129/73
[2018-03-03] MEDS: Meropenem 1 GM in NS 55 ML IVPB SCH ×2 (04:41→16:30)
[2018-03-03 05:35] LABS: ANION GAP 10 mmol/L (5-15); BLOOD UREA NITROGEN 68 mg/dL (7-18); CALCIUM 7.8 MG/DL (8.5-10.1); CARBON DIOXIDE 23 MMOL/L (21-32); CHLORIDE 112 MMOL/L (98-107); CREATININE 1.9 MG/DL (0.55-1.30); POTASSIUM 5.3 MMOL/L (3.5-5.1); SODIUM 145 MMOL/L (136-145)
[2018-03-03 05:43] LABS: HEMATOCRIT 26.9 % (42.0-52.0); HEMOGLOBIN 8.8 G/DL (14.2-18.0); MEAN CORPUSCULAR VOLUME 89 FL (80-99); PLATELET COUNT 16 K/UL (150-450); RED BLOOD COUNT 3.02 M/UL (4.70-6.10); RED CELL DISTRIBUTION WIDTH 15.4 % (11.6-14.8)
[2018-03-03 05:56] LABS: WHITE BLOOD COUNT 33.4 K/UL (4.8-10.8)
--- NOTE | 2018-03-03 07:00 | NUR ---
NURSE NOTES: Noted WBC is 33.4 today. Left message to Dr. Boles and awaiting call back. Will continue to monitor any change of condition.
--- NOTE | 2018-03-03 07:40 | NUR ---
HAND-OFF: Report given to JUAN FRANCISCO Alva. Pt is resting on the bed and on O2 15L via Venturi mask.
--- NOTE | 2018-03-03 07:58 | NUR ---
NURSE NOTES: Report received from JUAN FRANCISCO Johnson. Observed patient in bed. Open eyes but non-verbal and unable to follow command. No s/s of pain at this time. Receiving 15L of oxygen via venturi mask with no distress noted. IVF running at prescribed rate. Bed in lowest position. Call light within reach. Will continue to monitor.
[2018-03-03 08:00] VITALS: BP 123/70
--- NOTE | 2018-03-03 08:15 | Infectious Diseases Prog Note ---
Assessment/Plan Assessment/Plan Hemoptysis ( after nasal suctioning< noted pt was placed in A.Isolation per Pul) -AFB smear neg x2, MTB PCR (-) -02/25 sp cx - NF -02/25 CXR: Slight increased patchy right-sided airspace opacities concerning for pneumonia or\alveolar edema. Clinical correlation/follow-up recommended. Pleural-based calcifications of the left with volume loss in pleural thickening at the left costophrenic sulcus. Subtle lucency at the periphery of the left midlung may represent loculated pneumothorax or artifact. Sepsis, SP- 2ry to UTI -u.a wbc tntc, nit -, leuk +3; u cx >100k ESBL E.coli; 02/22 u/a wbc 5-10, nit neg, luek +1; ucx p -CXR: Left midlung and calcified parenchymal scarring. Numerous calcified hilar nodes suggest old granulomatous disease. Left apical lucency could reflect compensatory hyperinflation or COPD changes. No definite acute process Afebrile Leukocytosis, increased (on high dose steroids)- -02/23 CT abd/p: Wall thickening of the distal esophagus and gastric cardia. Esophageal findings are suspicious for esophagitis. Findings in the stomach could be an artifact of redundant mucosa secondary to incomplete distention, but raise concern for neoplasm or gastritis. Colonic diverticulosis. No evidence of acute diverticulitis. Evidence old granulomatous disease, with multiple calcifications in the liver and spleen. Distended bladder. Edema of the lumbar region subcutaneous fat and of the bilateral lower flanks, buttock and hip regions. Bilateral pleural effusions and basilar pulmonary atelectatic changes -02/22 Bcx NTD CXR: Mild sub-segmental atelectasis in the medial lung bases. No significant change in the scarring versus linear atelectasis at the periphery of the left midlung, with possible underlying pleural calcifications. Scattered calcified hilar lymph nodes, unchanged. Acute encephalopathy -CT head: no acute findings Dementia dysphagia HTN lung CA CAD CKD COPD Afib [place] resident Plan: -Continue Meropenem # 6/7 for ESBL UTI and in the setting fo PNA - 02/28/18 SP IV Vancomycin # 4 - 02/26 SP Ertapenem #5 - 02/22 SP Bactrim #3 - 02/20 SP Cefepime # 3 - 02/19 SP IV Vancomycin #2 - 02/18 SP Unasyn x1 -f/u cx - Repeat CXR -Monitor CBC/CMP, temperatures -aspiration precautions -f/u AFBx 1 - Having trouble getting as he bleeds with suction Subjective Allergies: Coded Allergies: No Known Allergies (Unverified , 02/18/18) Subjective Patient afebrile Still on ventimask 45% O2 Increasing leukocytosis likely secondary to steroids Objective Vital Signs Last 24 Hour Vital Signs Date Time Temp Pulse Resp B/P (MAP) Pulse Ox O2 Delivery O2 Flow Rate FiO2 03/03/18 08:00 Venturi Mask 03/03/18 04:00 98.4 105 24 129/73 (91) 98 03/03/18 04:00 Venturi Mask 03/03/18 04:00 110 03/03/18 00:00 98.6 103 24 134/79 (97) 98 03/03/18 00:00 Venturi Mask 03/03/18 00:00 101 03/02/18 20:00 Venturi Mask 03/02/18 20:00 98.8 99 20 128/71 (90) 98 03/02/18 20:00 97 03/02/18 16:00 97.8 110 20 152/65 (94) 100 03/02/18 16:00 Venturi Mask 03/02/18 16:00 106 03/02/18 12:00 96 03/02/18 12:00 Venturi Mask 03/02/18 12:00 97.4 82 20 120/80 (93) 100 Height (Feet): 5 Height (Inches): 10.00 Weight (Pounds): 141 Objective GENERAL: Not following, NAD LUNGS: CTAB, Mild Wheezing CARDIAC: Regular rate and rhythm. S1, S2 ABDOMEN: Soft and nontender. Positive bowel sounds. EXTREMITIES: There is no edema. No clubbing or cyanosis. NEUROLOGICAL: A/O x0 Laboratory Tests Test 03/02/18 10:20 03/02/18 16:26 03/02/18 18:30 03/03/18 03:20 Arterial Blood pH 7.370 (7.350-7.450) 7.437 (7.350-7.450) Arterial Blood Partial Pressure CO2 40.1 mmHg (35.0-45.0) 28.1 mmHg (35.0-45.0) L Arterial Blood Partial Pressure O2 38.8 mmHg (75.0-100.0) 100.1 mmHg (75.0-100.0) H Arterial Blood HCO3 22.7 mmol/L (22.0-26.0) 18.5 mmol/L (22.0-26.0) L Arterial Blood Oxygen Saturation 69.7 % (95-100) *L 96.5 % (95-100) Arterial Blood Base Excess -2.4 (-2-2) L -4.7 (-2-2) L Tha Test Positive Positive Stool Occult Blood Pending White Blood Count 33.4 K/UL (4.8-10.8) *H Red Blood Count 3.02 M/UL (4.70-6.10) L Hemoglobin 8.8 G/DL (14.2-18.0) L Hematocrit 26.9 % (42.0-52.0) L Mean Corpuscular Volume 89 FL (80-99) Mean Corpuscular Hemoglobin 29.0 PG (27.0-31.0) Mean Corpuscular Hemoglobin Concent 32.7 G/DL (32.0-36.0) Red Cell Distribution Width 15.4 % (11.6-14.8) H Platelet Count 16 K/UL (150-450) L Mean Platelet Volume FL (6.5-10.1) Neutrophils (%) (Auto) % (45.0-75.0) Lymphocytes (%) (Auto) % (20.0-45.0) Monocytes (%) (Auto) % (1.0-10.0) Eosinophils (%) (Auto) % (0.0-3.0) Basophils (%) (Auto) % (0.0-2.0) Neutrophils % (Manual) Pending Lymphocytes % (Manual) Pending Platelet Estimate Pending Platelet Morphology Pending Sodium Level 145 MMOL/L (136-145) Potassium Level 5.3 MMOL/L (3.5-5.1) H Chloride Level 112 MMOL/L (98-107) H Carbon Dioxide Level 23 MMOL/L (21-32) Anion Gap 10 mmol/L (5-15) Blood Urea Nitrogen 68 mg/dL (7-18) H Creatinine 1.9 MG/DL (0.55-1.30) H Estimat Glomerular Filtration Rate mL/min (>60) Glucose Level 127 MG/DL (74-106) H Calcium Level 7.8 MG/DL (8.5-10.1) L Current Medications Medications (Trade) Dose Ordered Sig/Delvin Route PRN Reason Start Time Stop Time Status Last Admin Dose Admin Chlorhexidine Gluconate (Vira-Hex 2%) 1 applic DAILY@2000 TOPIC 03/02/18 20:00 04/01/18 19:59 Dextrose/Sodium Chloride 1,000 ml @ 40 mls/hr Q24H IV 02/26/18 00:00 03/28/18 00:00 03/02/18 23:54 Heparin Sodium/ Sodium Chloride (Heparin 2000 units/Ns 1000ml premix) 2,000 unit ONCE PRN INJ picc line placement 03/02/18 19:30 03/04/18 19:29 Hydralazine HCl (Apresoline) 10 mg Q6H PRN IV For High Blood Pressure 03/02/18 07:30 04/01/18 07:29 Lidocaine HCl (Xylocaine 1% 30ml) 30 ml ONCE PRN INJ picc line placement 03/02/18 19:30 03/04/18 19:29 Meropenem 1 gm/ Sodium Chloride 55 ml @ 110 mls/hr Q12H IVPB 02/26/18 17:00 03/04/18 16:59 03/03/18 04:41 Methylprednisolone Sodium Succinate (Solu-MEDROL) 40 mg DAILY IVP 02/27/18 09:00 03/22/18 17:59 03/02/18 09:09 Nitroglycerin (Ntg) 0.4 mg Q5M PRN SL Prn Chest Pain 02/18/18 16:46 03/20/18 16:45 Ondansetron HCl (Zofran) 4 mg Q6H PRN IVP Nausea & Vomiting 02/18/18 16:46 03/20/18 16:45 Pantoprazole (Protonix) 40 mg DAILY IVP 02/25/18 15:15 03/27/18 15:14 03/02/18 09:09 Chris Boles MD Mar 03, 2018 08:15
--- NOTE | 2018-03-03 08:18 | NUR ---
NURSE NOTES: Called and left message to Dr. Kaplan about Hgb level of 8.8. Awaiting for call back.
[2018-03-03] MEDS: Pantoprazole Inj IVP SCH (08:27)
[2018-03-03] MEDS: Solu-MEDROL 40mg Inj IVP SCH (08:27)
--- NOTE | 2018-03-03 10:50 | NUR ---
NURSE NOTES: Called back from Dr. Kaplan regarding low hgb level with no new order at this time.
--- NOTE | 2018-03-03 10:55 | Pulmonology Progress Note ---
Assessment/Plan Assessment/Plan Pulmonary Progress Note Visit date 03/02/2018 : 17:20 HPI Patient is an 82-year-old male with hx of lung cancer, CAD, atrial fibrillation on Digoxin, halfway resident, unknown baseline mental status was brought to [facility] by paramedics with CC of JIMMY. Pt had low grade temperature and altered mental status for approximately one hour. The EMS the patient was normally somewhat confused. This is his first admission to [facility] and we don't have any information about him or about his DPOA. He had leucocytosis and increased troponin level, without any hx of chest pain. Pt is awake, looks comfortable but doesn't answer to any simple question. CXR worsening right sided infiltrates, IVF reduced, awaiting consideration for possible G tube Antibiotics per ID (Meropenem/Vanc), persistent Thrombocytopenia Recent NSTEMI O2 PRN, BiPAP PRN Allergies: Coded Allergies: No Known Allergies (Unverified , 02/18/18) Medication History Scheduled Bisacodyl (Bisacodyl), 10 MG RC PRN, (Reported) Digoxin* (Digoxin*), 0.25 MG ORAL DAILY, (Reported) Docusate Sodium* (Docusate Sodium*), 100 MG ORAL TWICE A DAY, (Reported) Donepezil Hcl* (Aricept*), 10 MG ORAL DAILY, (Reported) Levothyroxine Sodium (Synthroid), 50 MCG ORAL DAILY, (Reported) Scheduled PRN Acetaminophen* (Acetaminophen 325MG Tablet*), 325 MG ORAL Q6H PRN for For Pain, (Reported) Miscellaneous Medications Lactobacillus Rhamnosus Gg (Culturelle), 1 EACH PO, (Reported) Patient History Healthcare decision maker N Resuscitation status Full Code Advanced Directive on File Past Medical/Surgical History Past Medical/Surgical History: (1) Lung cancer (2) COPD (chronic obstructive pulmonary disease) (3) Paroxysmal atrial fibrillation Review of Systems All Other Systems: negative except mentioned in HPI Physical Exam General Appearance: WD/WN On BiPAP Lines, tubes and drains: peripheral HEENT: normocephalic, atraumatic Neck: non-tender, normal alignment Respiratory/Chest: chest wall non-tender, lungs clear Cardiovascular/Chest: normal peripheral pulses, regularly irregular Abdomen: normal bowel sounds Genitourinary/Rectal: normal genital exam Extremities: normal range of motion Vital Signs Noted TECHNIQUE: Frontal view of the chest. COMPARISON: 02/22/2018 FINDINGS: Lungs: Mildly increased patchy, subtle airspace attenuation right midlung could be incidental, or could represent developing infection or pulmonary edema in the proper clinical context. Pleural space: Similar-appearing small left base pneumothorax without tension component. Similar small left pleural fluid collection. Unchanged left lung lateral pleural thickening. Heart: Unremarkable. No cardiomegaly. Mediastinum: Unremarkable. Bones/joints: Unremarkable. IMPRESSION: 1. Mildly increased patchy, subtle airspace attenuation right midlung could be incidental, or could represent developing infection or pulmonary edema in the proper clinical context. 2. Similar-appearing small left base pneumothorax without tension component. 3. Similar small left pleural fluid collection. 4. Unchanged left lung lateral pleural thickening. Laboratory Tests/imaging noted Height (Feet): 5 Height (Inches): 10.00 Weight (Pounds): 170 Medications Assessment/Plan Problem List: (1) Severe sepsis/Pneumonia ICD Codes: A41.9 - Sepsis, unspecified organism; R65.20 - Severe sepsis without septic shock SNOMED: 27239997 (2) Altered level of consciousness ICD Codes: R40.4 - Transient alteration of awareness SNOMED: 1149437 (3) Myocardial injury/Recent NSTEMI ICD Codes: S26.90XA - Unspecified injury of heart, unspecified with or without hemopericardium, initial encounter SNOMED: 79616296 (4) Paroxysmal atrial fibrillation ICD Codes: I48.0 - Paroxysmal atrial fibrillation SNOMED: 113017717 (5) COPD (chronic obstructive pulmonary disease) ICD Codes: J44.9 - Chronic obstructive pulmonary disease, unspecified SNOMED: 32210536 (6) Lung cancer ICD Codes: C34.90 - Malignant neoplasm of unspecified part of unspecified bronchus or lung SNOMED: 181306955 (7) Respiratory Failure On BiPAP PRN Assessment/Plan RODERICK monitoring cardiology and ID following broad spectrum abx suero cultures f/u on WBC echo cardiogram check electrolytes protective services social worker to find DPOA dvt prophylaxis Antibiotics per ID O2 PRN, BiPAP PRN Subjective ROS Limited/Unobtainable: No Allergies: Coded Allergies: No Known Allergies (Unverified , 02/18/18) Objective Last 24 Hour Vital Signs Date Time Temp Pulse Resp B/P (MAP) Pulse Ox O2 Delivery O2 Flow Rate FiO2 03/03/18 08:20 104 1/1/19 08:00 97.7 98 28 123/70 (87) 100 03/03/18 08:00 Venturi Mask 03/03/18 04:00 98.4 105 24 129/73 (91) 98 03/03/18 04:00 Venturi Mask 03/03/18 04:00 110 03/03/18 00:00 98.6 103 24 134/79 (97) 98 03/03/18 00:00 Venturi Mask 03/03/18 00:00 101 03/02/18 20:00 Venturi Mask 03/02/18 20:00 98.8 99 20 128/71 (90) 98 03/02/18 20:00 97 03/02/18 16:00 97.8 110 20 152/65 (94) 100 03/02/18 16:00 Venturi Mask 03/02/18 16:00 106 03/02/18 12:00 96 03/02/18 12:00 Venturi Mask 03/02/18 12:00 97.4 82 20 120/80 (93) 100 Intake and Output 03/02/18 03/03/18 18:59 06:59 Intake Total 440 ml Output Total 300 ml 400 ml Balance -300 ml 40 ml IV Total 440 ml Output Urine Total 300 ml 400 ml # Bowel Movements 4 Laboratory Tests 03/02/18 16:26: Arterial Blood pH 7.437, Arterial Blood Partial Pressure CO2 28.1L, Arterial Blood Partial Pressure O2 100.1H, Arterial Blood HCO3 18.5L, Arterial Blood Oxygen Saturation 96.5, Arterial Blood Base Excess -4.7L, Tha Test Positive 03/02/18 18:30: Stool Occult Blood Positive 03/03/18 03:20: White Blood Count 33.4*H, Red Blood Count 3.02L, Hemoglobin 8.8L, Hematocrit 26.9L, Mean Corpuscular Volume 89, Mean Corpuscular Hemoglobin 29.0, Mean Corpuscular Hemoglobin Concent 32.7, Red Cell Distribution Width 15.4H, Platelet Count 16L, Mean Platelet Volume , Neutrophils (%) (Auto) , Lymphocytes (%) (Auto) , Monocytes (%) (Auto) , Eosinophils (%) (Auto) , Basophils (%) (Auto ) , Differential Total Cells Counted 100, Neutrophils % (Manual) 92H, Lymphocytes % (Manual) 3L, Monocytes % (Manual) 3, Eosinophils % (Manual) 0, Basophils % (Manual) 0, Band Neutrophils 2, Platelet Estimate DecreasedL, Platelet Morphology Normal, Hypochromasia 1+, Anisocytosis 1+, Sodium Level 145 , Potassium Level 5.3H, Chloride Level 112H, Carbon Dioxide Level 23, Anion Gap 10, Blood Urea Nitrogen 68H, Creatinine 1.9H, Estimat Glomerular Filtration Rate , Glucose Level 127H, Calcium Level 7.8L Current Medications Medications (Trade) Dose Ordered Sig/Delvin Route PRN Reason Start Time Stop Time Status Last Admin Dose Admin Chlorhexidine Gluconate (Vira-Hex 2%) 1 applic DAILY@2000 TOPIC 03/02/18 20:00 04/01/18 19:59 Dextrose/Sodium Chloride 1,000 ml @ 40 mls/hr Q24H IV 02/26/18 00:00 03/28/18 00:00 03/02/18 23:54 Heparin Sodium/ Sodium Chloride (Heparin 2000 units/Ns 1000ml premix) 2,000 unit ONCE PRN INJ picc line placement 03/02/18 19:30 03/04/18 19:29 Hydralazine HCl (Apresoline) 10 mg Q6H PRN IV For High Blood Pressure 03/02/18 07:30 04/01/18 07:29 Lidocaine HCl (Xylocaine 1% 30ml) 30 ml ONCE PRN INJ picc line placement 03/02/18 19:30 03/04/18 19:29 Meropenem 1 gm/ Sodium Chloride 55 ml @ 110 mls/hr Q12H IVPB 02/26/18 17:00 03/04/18 16:59 03/03/18 04:41 Methylprednisolone Sodium Succinate (Solu-MEDROL) 40 mg DAILY IVP 02/27/18 09:00 03/22/18 17:59 03/03/18 08:27 Nitroglycerin (Ntg) 0.4 mg Q5M PRN SL Prn Chest Pain 02/18/18 16:46 03/20/18 16:45 Ondansetron HCl (Zofran) 4 mg Q6H PRN IVP Nausea & Vomiting 02/18/18 16:46 03/20/18 16:45 Pantoprazole (Protonix) 40 mg DAILY IVP 02/25/18 15:15 03/27/18 15:14 03/03/18 08:27 Chris Samuel MD Mar 03, 2018 10:55
[2018-03-03 12:00] VITALS: BP 142/81
--- NOTE | 2018-03-03 13:04 | Internal Med Progress Note ---
Subjective Date of Service: Mar 03, 2018 Physician Name Ricky Baker Attending Physician Gila Sibley MD Current Medications Medications (Trade) Dose Ordered Sig/Delvin Route PRN Reason Start Time Stop Time Status Last Admin Dose Admin Chlorhexidine Gluconate (Vira-Hex 2%) 1 applic DAILY@2000 TOPIC 03/02/18 20:00 04/01/18 19:59 Dextrose/Sodium Chloride 1,000 ml @ 40 mls/hr Q24H IV 02/26/18 00:00 03/28/18 00:00 03/02/18 23:54 Heparin Sodium/ Sodium Chloride (Heparin 2000 units/Ns 1000ml premix) 2,000 unit ONCE PRN INJ picc line placement 03/02/18 19:30 03/04/18 19:29 Hydralazine HCl (Apresoline) 10 mg Q6H PRN IV For High Blood Pressure 03/02/18 07:30 04/01/18 07:29 Lidocaine HCl (Xylocaine 1% 30ml) 30 ml ONCE PRN INJ picc line placement 03/02/18 19:30 03/04/18 19:29 Meropenem 1 gm/ Sodium Chloride 55 ml @ 110 mls/hr Q12H IVPB 02/26/18 17:00 03/04/18 16:59 03/03/18 04:41 Methylprednisolone Sodium Succinate (Solu-MEDROL) 40 mg DAILY IVP 02/27/18 09:00 03/22/18 17:59 03/03/18 08:27 Nitroglycerin (Ntg) 0.4 mg Q5M PRN SL Prn Chest Pain 02/18/18 16:46 03/20/18 16:45 Ondansetron HCl (Zofran) 4 mg Q6H PRN IVP Nausea & Vomiting 02/18/18 16:46 03/20/18 16:45 Pantoprazole (Protonix) 40 mg DAILY IVP 02/25/18 15:15 03/27/18 15:14 03/03/18 08:27 Allergies: Coded Allergies: No Known Allergies (Unverified , 02/18/18) ROS Limited/Unobtainable: Yes Subjective 82 YO M admitted with altered mental status. Now pneumonia and NSTEMI. Cover for Int Med-Dr Jc. RODERICK. Tolerating venturi mask Objective Last Vital Signs Date Time Temp Pulse Resp B/P (MAP) Pulse Ox O2 Delivery O2 Flow Rate FiO2 03/03/18 12:00 Venturi Mask 03/03/18 08:20 104 03/03/18 08:00 97.7 28 123/70 (87) 100 02/28/18 06:40 10.0 45 Laboratory Tests Test 03/02/18 16:26 03/02/18 18:30 03/03/18 03:20 Arterial Blood pH 7.437 (7.350-7.450) Arterial Blood Partial Pressure CO2 28.1 mmHg (35.0-45.0) L Arterial Blood Partial Pressure O2 100.1 mmHg (75.0-100.0) H Arterial Blood HCO3 18.5 mmol/L (22.0-26.0) L Arterial Blood Oxygen Saturation 96.5 % (95-100) Arterial Blood Base Excess -4.7 (-2-2) L Tha Test Positive Stool Occult Blood Positive (NEGATIVE) White Blood Count 33.4 K/UL (4.8-10.8) *H Red Blood Count 3.02 M/UL (4.70-6.10) L Hemoglobin 8.8 G/DL (14.2-18.0) L Hematocrit 26.9 % (42.0-52.0) L Mean Corpuscular Volume 89 FL (80-99) Mean Corpuscular Hemoglobin 29.0 PG (27.0-31.0) Mean Corpuscular Hemoglobin Concent 32.7 G/DL (32.0-36.0) Red Cell Distribution Width 15.4 % (11.6-14.8) H Platelet Count 16 K/UL (150-450) L Mean Platelet Volume FL (6.5-10.1) Neutrophils (%) (Auto) % (45.0-75.0) Lymphocytes (%) (Auto) % (20.0-45.0) Monocytes (%) (Auto) % (1.0-10.0) Eosinophils (%) (Auto) % (0.0-3.0) Basophils (%) (Auto) % (0.0-2.0) Differential Total Cells Counted 100 Neutrophils % (Manual) 92 % (45-75) H Lymphocytes % (Manual) 3 % (20-45) L Monocytes % (Manual) 3 % (1-10) Eosinophils % (Manual) 0 % (0-3) Basophils % (Manual) 0 % (0-2) Band Neutrophils 2 % (0-8) Platelet Estimate Decreased L Platelet Morphology Normal Hypochromasia 1+ Anisocytosis 1+ Sodium Level 145 MMOL/L (136-145) Potassium Level 5.3 MMOL/L (3.5-5.1) H Chloride Level 112 MMOL/L (98-107) H Carbon Dioxide Level 23 MMOL/L (21-32) Anion Gap 10 mmol/L (5-15) Blood Urea Nitrogen 68 mg/dL (7-18) H Creatinine 1.9 MG/DL (0.55-1.30) H Estimat Glomerular Filtration Rate mL/min (>60) Glucose Level 127 MG/DL (74-106) H Calcium Level 7.8 MG/DL (8.5-10.1) L Intake and Output 03/02/18 03/03/18 18:59 06:59 Intake Total 440 ml Output Total 300 ml 400 ml Balance -300 ml 40 ml IV Total 440 ml Output Urine Total 300 ml 400 ml # Bowel Movements 4 Objective General Appearance: WD/WN, no apparent distress, alert, thin EENT: PERRL/EOMI, normal ENT inspection Neck: non-tender, normal alignment, supple, normal inspection Cardiovascular: normal peripheral pulses, normal rate, regular rhythm, no gallop/murmur, no JVD Respiratory/Chest: Venturi Mask; respiratory distress, decreased breath sounds , crackles/rales, rhonchi - bilaterally, expiratory wheezing Abdomen: normal bowel sounds, non tender, soft, no organomegaly, no mass Extremities: normal range of motion, non-tender Neurologic: lumber straightener II-XII grossly normal, no motor/sensory deficits Skin: normal pigmentation, warm/dry Assessment/Plan Problem List: (1) NSTEMI (non-ST elevated myocardial infarction) Assessment & Plan: See cardiology note. (2) Pneumonia Assessment & Plan: Continue vanco and meropenem. See pulmonary note. Continue IV solumedrol-H/O COPD. continue Duoneb (3) Elevated troponin Assessment & Plan: Trending down. See cardiology note. (4) CHF (congestive heart failure) (5) HTN (hypertension) (6) Hypothyroidism (7) Anemia, iron deficiency (8) CAD (coronary artery disease) (9) Renal failure, chronic (10) COPD (chronic obstructive pulmonary disease) Assessment & Plan: Add IV solumedrol and scheduled nebs. See pulmonary note. (11) Paroxysmal atrial fibrillation (12) Altered level of consciousness Assessment & Plan: CT brain negt. See Neurology note (13) Lung cancer (14) UTI (urinary tract infection) Assessment & Plan: E. Coli MDR. Continue meropenem and vanco per ID (15) E coli infection Ricky Baker MD Mar 03, 2018 13:04
--- NOTE | 2018-03-03 15:39 | Cardiology Progress Note ---
Assessment/Plan Problem List: (1) Lung cancer (2) COPD (chronic obstructive pulmonary disease) (3) Paroxysmal atrial fibrillation (4) CAD (coronary artery disease) (5) encephalopathy due to metabolic factor (6) NSTEMI (non-ST elevated myocardial infarction) Status: not improved, unchanged Status Narrative Pt w/ resp failure/ worsening R sided pulm infiltrates - ? hx of lung CA NSTEMI on adm, w/ troponins 7-8. ECHO w/ preserved LV systolic fxn, per report , however. Sinus tach - due to metabolic factors hx of PAF - maintaining SR on telemetry Assessment/Plan Limited med options for CAD/ recent [place]. Metoprolol stopped - ? due to wheezing. Not on asa, hx of bleeding w/ nasotrach suctioning noted. Continue management of pneumonia per ID, pulmonary Pt being considered for g tube. Overall prognosis limited. Subjective ROS Limited/Unobtainable: Yes Subjective Cardiology for Dr. Sherwood Pt opens eyes to voice, but does not track or follow simple commands. Nonverbal Objective Last 24 Hour Vital Signs Date Time Temp Pulse Resp B/P (MAP) Pulse Ox O2 Delivery O2 Flow Rate FiO2 03/03/18 12:00 98.0 107 28 142/81 (101) 99 03/03/18 12:00 Venturi Mask 03/03/18 11:33 100 03/03/18 08:20 104 03/03/18 08:00 97.7 98 28 123/70 (87) 100 03/03/18 08:00 Venturi Mask 03/03/18 04:00 98.4 105 24 129/73 (91) 98 03/03/18 04:00 Venturi Mask 03/03/18 04:00 110 03/03/18 00:00 98.6 103 24 134/79 (97) 98 03/03/18 00:00 Venturi Mask 03/03/18 00:00 101 03/02/18 20:00 Venturi Mask 03/02/18 20:00 98.8 99 20 128/71 (90) 98 03/02/18 20:00 97 03/02/18 16:00 97.8 110 20 152/65 (94) 100 03/02/18 16:00 Venturi Mask 03/02/18 16:00 106 General Appearance: cachetic, lethargic EENT: PERRL/EOMI Neck: supple, no JVD Rhythm: NSR Cardiovascular: normal rate, regular rhythm, no gallop/murmur Respiratory/Chest: rhonchi - bilaterally, other - bilat rhonchi, shallow respirations Abdomen: non tender, soft Extremities: no swelling Intake and Output 03/02/18 03/03/18 18:59 06:59 Intake Total 440 ml Output Total 300 ml 400 ml Balance -300 ml 40 ml IV Total 440 ml Output Urine Total 300 ml 400 ml # Bowel Movements 4 Laboratory Tests Test 03/02/18 16:26 03/02/18 18:30 03/03/18 03:20 Arterial Blood pH 7.437 (7.350-7.450) Arterial Blood Partial Pressure CO2 28.1 mmHg (35.0-45.0) L Arterial Blood Partial Pressure O2 100.1 mmHg (75.0-100.0) H Arterial Blood HCO3 18.5 mmol/L (22.0-26.0) L Arterial Blood Oxygen Saturation 96.5 % (95-100) Arterial Blood Base Excess -4.7 (-2-2) L Tha Test Positive Stool Occult Blood Positive (NEGATIVE) White Blood Count 33.4 K/UL (4.8-10.8) *H Red Blood Count 3.02 M/UL (4.70-6.10) L Hemoglobin 8.8 G/DL (14.2-18.0) L Hematocrit 26.9 % (42.0-52.0) L Mean Corpuscular Volume 89 FL (80-99) Mean Corpuscular Hemoglobin 29.0 PG (27.0-31.0) Mean Corpuscular Hemoglobin Concent 32.7 G/DL (32.0-36.0) Red Cell Distribution Width 15.4 % (11.6-14.8) H Platelet Count 16 K/UL (150-450) L Mean Platelet Volume FL (6.5-10.1) Neutrophils (%) (Auto) % (45.0-75.0) Lymphocytes (%) (Auto) % (20.0-45.0) Monocytes (%) (Auto) % (1.0-10.0) Eosinophils (%) (Auto) % (0.0-3.0) Basophils (%) (Auto) % (0.0-2.0) Differential Total Cells Counted 100 Neutrophils % (Manual) 92 % (45-75) H Lymphocytes % (Manual) 3 % (20-45) L Monocytes % (Manual) 3 % (1-10) Eosinophils % (Manual) 0 % (0-3) Basophils % (Manual) 0 % (0-2) Band Neutrophils 2 % (0-8) Platelet Estimate Decreased L Platelet Morphology Normal Hypochromasia 1+ Anisocytosis 1+ Sodium Level 145 MMOL/L (136-145) Potassium Level 5.3 MMOL/L (3.5-5.1) H Chloride Level 112 MMOL/L (98-107) H Carbon Dioxide Level 23 MMOL/L (21-32) Anion Gap 10 mmol/L (5-15) Blood Urea Nitrogen 68 mg/dL (7-18) H Creatinine 1.9 MG/DL (0.55-1.30) H Estimat Glomerular Filtration Rate mL/min (>60) Glucose Level 127 MG/DL (74-106) H Calcium Level 7.8 MG/DL (8.5-10.1) Li Abreu MD Mar 03, 2018 15:39
[2018-03-03 16:00] VITALS: BP 140/74
--- NOTE | 2018-03-03 17:04 | Pulmonology Progress Note ---
Assessment/Plan Assessment/Plan Pulmonary Progress Note HPI Patient is an 82-year-old male with hx of lung cancer, CAD, atrial fibrillation on Digoxin, [facility], unknown baseline mental status was brought to [facility] [place] by paramedics with CC of JIMMY. Pt had low grade temperature and altered mental status for approximately one hour. The EMS the patient was normally somewhat confused. This is his first admission to [facility] and we don't have any information about him or about his DPOA. He had leucocytosis and increased troponin level, without any hx of chest pain. Pt is awake, looks comfortable but doesn't answer to any simple question. CXR worsening right sided infiltrates, IVF reduced, awaiting consideration for possible G tube Antibiotics per ID (Meropenem/Vanc), persistent Thrombocytopenia Recent NSTEMI O2 PRN, BiPAP PRN Allergies: Coded Allergies: No Known Allergies (Unverified , 02/18/18) Medication History Scheduled Bisacodyl (Bisacodyl), 10 MG RC PRN, (Reported) Digoxin* (Digoxin*), 0.25 MG ORAL DAILY, (Reported) Docusate Sodium* (Docusate Sodium*), 100 MG ORAL TWICE A DAY, (Reported) Donepezil Hcl* (Aricept*), 10 MG ORAL DAILY, (Reported) Levothyroxine Sodium (Synthroid), 50 MCG ORAL DAILY, (Reported) Scheduled PRN Acetaminophen* (Acetaminophen 325MG Tablet*), 325 MG ORAL Q6H PRN for For Pain, (Reported) Miscellaneous Medications Lactobacillus Rhamnosus Gg (Culturelle), 1 EACH PO, (Reported) Patient History Healthcare decision maker N Resuscitation status Full Code Advanced Directive on File Past Medical/Surgical History Past Medical/Surgical History: (1) Lung cancer (2) COPD (chronic obstructive pulmonary disease) (3) Paroxysmal atrial fibrillation Review of Systems All Other Systems: negative except mentioned in HPI Physical Exam General Appearance: WD/WN On BiPAP Lines, tubes and drains: peripheral HEENT: normocephalic, atraumatic Neck: non-tender, normal alignment Respiratory/Chest: chest wall non-tender, lungs clear Cardiovascular/Chest: normal peripheral pulses, regularly irregular Abdomen: normal bowel sounds Genitourinary/Rectal: normal genital exam Extremities: normal range of motion Vital Signs Noted TECHNIQUE: Frontal view of the chest. COMPARISON: 02/22/2018 FINDINGS: Lungs: Mildly increased patchy, subtle airspace attenuation right midlung could be incidental, or could represent developing infection or pulmonary edema in the proper clinical context. Pleural space: Similar-appearing small left base pneumothorax without tension component. Similar small left pleural fluid collection. Unchanged left lung lateral pleural thickening. Heart: Unremarkable. No cardiomegaly. Mediastinum: Unremarkable. Bones/joints: Unremarkable. IMPRESSION: 1. Mildly increased patchy, subtle airspace attenuation right midlung could be incidental, or could represent developing infection or pulmonary edema in the proper clinical context. 2. Similar-appearing small left base pneumothorax without tension component. 3. Similar small left pleural fluid collection. 4. Unchanged left lung lateral pleural thickening. Laboratory Tests/imaging noted Height (Feet): 5 Height (Inches): 10.00 Weight (Pounds): 170 Medications Assessment/Plan Problem List: (1) Severe sepsis/Pneumonia ICD Codes: A41.9 - Sepsis, unspecified organism; R65.20 - Severe sepsis without septic shock SNOMED: 42893707 (2) Altered level of consciousness ICD Codes: R40.4 - Transient alteration of awareness SNOMED: 1272448 (3) Myocardial injury/Recent NSTEMI ICD Codes: S26.90XA - Unspecified injury of heart, unspecified with or without hemopericardium, initial encounter SNOMED: 23536422 (4) Paroxysmal atrial fibrillation ICD Codes: I48.0 - Paroxysmal atrial fibrillation SNOMED: 519471265 (5) COPD (chronic obstructive pulmonary disease) ICD Codes: J44.9 - Chronic obstructive pulmonary disease, unspecified SNOMED: 23550966 (6) Lung cancer ICD Codes: C34.90 - Malignant neoplasm of unspecified part of unspecified bronchus or lung SNOMED: 929822256 (7) Respiratory Failure On BiPAP PRN (8) Severe Thrombocutopenia Hematology following - multifactorial Assessment/Plan RODERICK monitoring cardiology and ID following broad spectrum abx suero cultures f/u on WBC echo cardiogram check electrolytes 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 dvt prophylaxis Antibiotics per ID O2 PRN, BiPAP PRN Subjective ROS Limited/Unobtainable: No Allergies: Coded Allergies: No Known Allergies (Unverified , 02/18/18) Objective Last 24 Hour Vital Signs Date Time Temp Pulse Resp B/P (MAP) Pulse Ox O2 Delivery O2 Flow Rate FiO2 03/03/18 16:00 109 03/03/18 16:00 98.8 106 28 140/74 (96) 100 03/03/18 16:00 Venturi Mask 03/03/18 12:00 98.0 107 28 142/81 (101) 99 03/03/18 12:00 Venturi Mask 03/03/18 11:33 100 03/03/18 08:20 104 03/03/18 08:00 97.7 98 28 123/70 (87) 100 03/03/18 08:00 Venturi Mask 03/03/18 04:00 98.4 105 24 129/73 (91) 98 03/03/18 04:00 Venturi Mask 03/03/18 04:00 110 03/03/18 00:00 98.6 103 24 134/79 (97) 98 03/03/18 00:00 Venturi Mask 03/03/18 00:00 101 03/02/18 20:00 Venturi Mask 03/02/18 20:00 98.8 99 20 128/71 (90) 98 03/02/18 20:00 97 Intake and Output 03/02/18 03/03/18 19:00 07:00 Intake Total 40 ml 440 ml Output Total 300 ml 400 ml Balance -260 ml 40 ml IV Total 40 ml 440 ml Output Urine Total 300 ml 400 ml # Bowel Movements 4 Laboratory Tests 03/02/18 18:30: Stool Occult Blood Positive 03/03/18 03:20: White Blood Count 33.4*H, Red Blood Count 3.02L, Hemoglobin 8.8L, Hematocrit 26.9L, Mean Corpuscular Volume 89, Mean Corpuscular Hemoglobin 29.0, Mean Corpuscular Hemoglobin Concent 32.7, Red Cell Distribution Width 15.4H, Platelet Count 16L, Mean Platelet Volume , Neutrophils (%) (Auto) , Lymphocytes (%) (Auto) , Monocytes (%) (Auto) , Eosinophils (%) (Auto) , Basophils (%) (Auto ) , Differential Total Cells Counted 100, Neutrophils % (Manual) 92H, Lymphocytes % (Manual) 3L, Monocytes % (Manual) 3, Eosinophils % (Manual) 0, Basophils % (Manual) 0, Band Neutrophils 2, Platelet Estimate DecreasedL, Platelet Morphology Normal, Hypochromasia 1+, Anisocytosis 1+, Sodium Level 145 , Potassium Level 5.3H, Chloride Level 112H, Carbon Dioxide Level 23, Anion Gap 10, Blood Urea Nitrogen 68H, Creatinine 1.9H, Estimat Glomerular Filtration Rate , Glucose Level 127H, Calcium Level 7.8L Current Medications Medications (Trade) Dose Ordered Sig/Delvin Route PRN Reason Start Time Stop Time Status Last Admin Dose Admin Chlorhexidine Gluconate (Vira-Hex 2%) 1 applic DAILY@2000 TOPIC 03/02/18 20:00 04/01/18 19:59 Dextrose/Sodium Chloride 1,000 ml @ 40 mls/hr Q24H IV 02/26/18 00:00 03/28/18 00:00 03/02/18 23:54 Heparin Sodium/ Sodium Chloride (Heparin 2000 units/Ns 1000ml premix) 2,000 unit ONCE PRN INJ picc line placement 03/02/18 19:30 03/04/18 19:29 Hydralazine HCl (Apresoline) 10 mg Q6H PRN IV For High Blood Pressure 03/02/18 07:30 04/01/18 07:29 Lidocaine HCl (Xylocaine 1% 30ml) 30 ml ONCE PRN INJ picc line placement 03/02/18 19:30 03/04/18 19:29 Meropenem 1 gm/ Sodium Chloride 55 ml @ 110 mls/hr Q12H IVPB 02/26/18 17:00 03/04/18 16:59 03/03/18 16:30 Methylprednisolone Sodium Succinate (Solu-MEDROL) 40 mg DAILY IVP 02/27/18 09:00 03/22/18 17:59 03/03/18 08:27 Nitroglycerin (Ntg) 0.4 mg Q5M PRN SL Prn Chest Pain 02/18/18 16:46 03/20/18 16:45 Ondansetron HCl (Zofran) 4 mg Q6H PRN IVP Nausea & Vomiting 02/18/18 16:46 03/20/18 16:45 Pantoprazole (Protonix) 40 mg DAILY IVP 02/25/18 15:15 03/27/18 15:14 03/03/18 08:27 Chris Samuel MD Mar 03, 2018 17:04
[2018-03-03] MEDS ORDERED: D5 1/2NS 1000ml IV ONE (17:32)
[2018-03-03] MEDS ORDERED: Tubing IV Secondary IV ONE (17:32)
--- NOTE | 2018-03-03 18:33 | General Progress Note ---
Assessment/Plan Assessment/Plan Assessment (1) Encounter for PEG (percutaneous endoscopic gastrostomy) ICD Codes: Z43.1 - Encounter for attention to gastrostomy SNOMED: 295389976, 642205716 (2) Severe malnutrition ICD Codes: E43 - Unspecified severe protein-calorie malnutrition SNOMED: 54468772 (3) Dehydration ICD Codes: E86.0 - Dehydration SNOMED: 17405993 (4) Anemia and severe thrombocytopenia ICD Codes: D50.9 - Iron deficiency anemia, unspecified SNOMED: 54990176 Status: not improved, unchanged Assessment/Plan Airborne precautions to rule out TB Patient not stable for PEG at this time given resp status and low platelets. Maintain n.p.o. plus IV fluids at this time, Dobbhoff versus NGT when respiratory status stabilizes - also concerned about low platelet counts with respect to nosebleed risk may need temporary TPN -->PICC line to be placed in am --> will begin TPN until overall status stabilized As needed transfusions PPI Bowel regimen technical services rep to find the DPOA Antibiotics Follow-up labs Subjective Allergies: Coded Allergies: No Known Allergies (Unverified , 02/18/18) Subjective Above noted minimally interactive in resp isolation PICC line to be placed in am Objective Last 24 Hour Vital Signs Date Time Temp Pulse Resp B/P (MAP) Pulse Ox O2 Delivery O2 Flow Rate FiO2 03/03/18 16:00 109 03/03/18 16:00 98.8 106 28 140/74 (96) 100 03/03/18 16:00 Venturi Mask 03/03/18 12:00 98.0 107 28 142/81 (101) 99 03/03/18 12:00 Venturi Mask 03/03/18 11:33 100 03/03/18 08:20 104 03/03/18 08:00 97.7 98 28 123/70 (87) 100 03/03/18 08:00 Venturi Mask 03/03/18 04:00 98.4 105 24 129/73 (91) 98 03/03/18 04:00 Venturi Mask 03/03/18 04:00 110 03/03/18 00:00 98.6 103 24 134/79 (97) 98 03/03/18 00:00 Venturi Mask 03/03/18 00:00 101 03/02/18 20:00 Venturi Mask 03/02/18 20:00 98.8 99 20 128/71 (90) 98 03/02/18 20:00 97 Intake and Output 03/02/18 03/03/18 19:00 07:00 Intake Total 40 ml 440 ml Output Total 300 ml 400 ml Balance -260 ml 40 ml IV Total 40 ml 440 ml Output Urine Total 300 ml 400 ml # Bowel Movements 4 Laboratory Tests 03/02/18 18:30: Stool Occult Blood Positive 03/03/18 03:20: White Blood Count 33.4*H, Red Blood Count 3.02L, Hemoglobin 8.8L, Hematocrit 26.9L, Mean Corpuscular Volume 89, Mean Corpuscular Hemoglobin 29.0, Mean Corpuscular Hemoglobin Concent 32.7, Red Cell Distribution Width 15.4H, Platelet Count 16L, Mean Platelet Volume , Neutrophils (%) (Auto) , Lymphocytes (%) (Auto) , Monocytes (%) (Auto) , Eosinophils (%) (Auto) , Basophils (%) (Auto ) , Differential Total Cells Counted 100, Neutrophils % (Manual) 92H, Lymphocytes % (Manual) 3L, Monocytes % (Manual) 3, Eosinophils % (Manual) 0, Basophils % (Manual) 0, Band Neutrophils 2, Platelet Estimate DecreasedL, Platelet Morphology Normal, Hypochromasia 1+, Anisocytosis 1+, Sodium Level 145 , Potassium Level 5.3H, Chloride Level 112H, Carbon Dioxide Level 23, Anion Gap 10, Blood Urea Nitrogen 68H, Creatinine 1.9H, Estimat Glomerular Filtration Rate , Glucose Level 127H, Calcium Level 7.8L Height (Feet): 5 Height (Inches): 10.00 Weight (Pounds): 141 Objective Elderly WM NCAT, (+) FM O2 supple Coarse BS RR abd soft ND NT non edema Stefany Kraus MD Mar 03, 2018 18:33
--- NOTE | 2018-03-03 18:59 | NUR ---
HAND-OFF: Report given to JUAN FRANCISCO Johnson. Stable condition.
--- NOTE | 2018-03-03 19:20 | NUR ---
NURSE NOTES: Received Pt is resting on the bed and awake and confused. On O2 15L via Venturi mask and SaO2 97-98% noted. No sign of pain by FLACC scale. IV site intact and no sign of infiltration. On running with D5W2/1NS @40cc/hr. On condom cath and yellowish urine urinated. On NPO. Still noted multiple bruised on body. Placed fall precaution. Changed position. On proper contact and airborne precaution. Will continue to care plan.
[2018-03-03 20:00] VITALS: BP 144/77
[2018-03-03] MEDS: Dyna-Hex 2% Top Sol 2oz TOPIC SCH (20:00)
--- NOTE | 2018-03-03 21:07 | General Progress Note ---
Assessment/Plan Assessment/Plan # Anemia of chronic disease due to underlying chronic medical issues, multifactorial --> Anemia w/u has been reviewed. Ferritin at 666. --> No evidence of hemolysis is noted, peripheral smear has been reviewed. --> Hgb goal >7. Transfuse prn. --> Epogen or iron at this time is not particularly indicated # Leukocytosis. Secondary to pna. --> Peripheral has been ordered, no blasts noted, reviewed --> Medications have been reviewed --> Imaging has been reviewed. CXR shows pna. --> Blood cultures and urine cultures prn --> has been started on abx, empiric treatment --> appreciate id recs # Thrombocytopenia with coagulopathy - potential causes multifactorial, evaluate liver and viral etiologies to begin, also could be related to underlying medications patient has received. Fibringoen 108, INR 1.4 --> Hep panel and HIV are neg --> US abd to evaluate for cirrhosis and hsm ordered --> Peripheral smear ordered to evaluate for blasts /schistocytes --> abx and other meds have been reviewed --> ok for ppx if plt >50k w/ either heparin or lovenox --> Transfuse if Plt < 20k and fever, or if Plt < 10k without fever # Altered mental status. --> per neuro management # Left upper lobe pneumonia. ID is following, appreciate recs. --> On abx. GREATLY APPRECIATE CONSULTATION. Time and date of note entry does not reflect time and date of encounter. Subjective Constitutional: Denies: no symptoms, chills, diaphoresis, fever, malaise, weakness, other HEENT: Denies: no symptoms, eye pain, blurred vision, tearing, double vision, ear pain, ear discharge, nose pain, nose congestion, throat pain, throat swelling, mouth pain, mouth swelling, other Cardiovascular: Denies: no symptoms, chest pain, edema, irregular heart rate, lightheadedness, palpitations, syncope, other Respiratory: Denies: no symptoms, cough, orthopnea, shortness of breath, SOB with excertion, SOB at rest, sputum, stridor, wheezing, other Gastrointestinal/Abdominal: Denies: no symptoms, abdomen distended, abdominal pain, black stools, tarry stools, blood in stool, constipated, diarrhea, difficulty swallowing, nausea, poor appetite, poor fluid intake, rectal bleeding , vomiting, other Genitourinary: Denies: no symptoms, burning, discharge, frequency, flank pain, hematuria, incontinence, pain, urgency, other Endocrine: Denies: no symptoms, excessive sweating, flushing, intolerance to cold, intolerance to heat, increased hunger, increased thirst, increased urine, unexplained weight gain, unexplained weight loss, other Hematologic/Lymphatic: Denies: no symptoms, anemia, easy bleeding, easy bruising, other Allergies: Coded Allergies: No Known Allergies (Unverified , 02/18/18) Subjective 03/01: no events, no f/c, no events, peg on hold given other comorbidities, labs reviewed 03/03: on 15L venturi mask, no events otherwise, no f/c Objective Last 24 Hour Vital Signs Date Time Temp Pulse Resp B/P (MAP) Pulse Ox O2 Delivery O2 Flow Rate FiO2 03/03/18 19:48 95 Venturi Mask 14.0 55 03/03/18 19:48 Venturi Mask 14.0 55 03/03/18 19:47 102 25 Venturi Mask 14.0 55 03/03/18 16:00 109 03/03/18 16:00 98.8 106 28 140/74 (96) 100 03/03/18 16:00 Venturi Mask 03/03/18 12:00 98.0 107 28 142/81 (101) 99 03/03/18 12:00 Venturi Mask 03/03/18 11:33 100 03/03/18 08:20 104 03/03/18 08:00 97.7 98 28 123/70 (87) 100 03/03/18 08:00 Venturi Mask 03/03/18 04:00 98.4 105 24 129/73 (91) 98 03/03/18 04:00 Venturi Mask 03/03/18 04:00 110 03/03/18 00:00 98.6 103 24 134/79 (97) 98 03/03/18 00:00 Venturi Mask 03/03/18 00:00 101 Intake and Output 03/02/18 03/03/18 19:00 07:00 Intake Total 40 ml 440 ml Output Total 300 ml 400 ml Balance -260 ml 40 ml IV Total 40 ml 440 ml Output Urine Total 300 ml 400 ml # Bowel Movements 4 Laboratory Tests 03/03/18 03:20: White Blood Count 33.4*H, Red Blood Count 3.02L, Hemoglobin 8.8L, Hematocrit 26.9L, Mean Corpuscular Volume 89, Mean Corpuscular Hemoglobin 29.0, Mean Corpuscular Hemoglobin Concent 32.7, Red Cell Distribution Width 15.4H, Platelet Count 16L, Mean Platelet Volume , Neutrophils (%) (Auto) , Lymphocytes (%) (Auto) , Monocytes (%) (Auto) , Eosinophils (%) (Auto) , Basophils (%) (Auto ) , Differential Total Cells Counted 100, Neutrophils % (Manual) 92H, Lymphocytes % (Manual) 3L, Monocytes % (Manual) 3, Eosinophils % (Manual) 0, Basophils % (Manual) 0, Band Neutrophils 2, Platelet Estimate DecreasedL, Platelet Morphology Normal, Hypochromasia 1+, Anisocytosis 1+, Sodium Level 145 , Potassium Level 5.3H, Chloride Level 112H, Carbon Dioxide Level 23, Anion Gap 10, Blood Urea Nitrogen 68H, Creatinine 1.9H, Estimat Glomerular Filtration Rate , Glucose Level 127H, Calcium Level 7.8L Height (Feet): 5 Height (Inches): 10.00 Weight (Pounds): 141 Abdomen: no mass Extremities: non-tender Edema: mild edema Neurologic: oriented x 3 Objective Elderly WM NCAT, (+) FM O2 supple Coarse BS RR abd soft ND NT non edema William Kaplan MD Mar 03, 2018 21:07
[2018-03-03] MEDS: D5 1/2NS 1,000 ML IV SCH (23:58)
[2018-03-04] VITALS (23 sets, daily range): BP systolic 34–134; BP diastolic 17–80
[2018-03-04] MEDS: Meropenem 1 GM in NS 55 ML IVPB SCH ×2 (04:37→17:16)
[2018-03-04 04:57] LABS: HEMATOCRIT 23.4 % (42.0-52.0); HEMOGLOBIN 7.6 G/DL (14.2-18.0); MEAN CORPUSCULAR VOLUME 89 FL (80-99); PLATELET COUNT 14 K/UL (150-450); RED BLOOD COUNT 2.64 M/UL (4.70-6.10); RED CELL DISTRIBUTION WIDTH 16.3 % (11.6-14.8)
[2018-03-04 05:11] LABS: INR 2.2 (0.9-1.1)
[2018-03-04 05:12] LABS: WHITE BLOOD COUNT 31.1 K/UL (4.8-10.8)
[2018-03-04 05:13] LABS: ANION GAP 9 mmol/L (5-15); BLOOD UREA NITROGEN 80 mg/dL (7-18); CALCIUM 7.6 MG/DL (8.5-10.1); CARBON DIOXIDE 23 MMOL/L (21-32); CHLORIDE 114 MMOL/L (98-107); CREATININE 2.1 MG/DL (0.55-1.30); POTASSIUM 5.5 MMOL/L (3.5-5.1); SODIUM 146 MMOL/L (136-145)
--- NOTE | 2018-03-04 06:20 | NUR ---
NURSE NOTES: Noted H & H; 7.6, 23.4, Plt:14 and fibrinogen 50. Left message to Dr. Kaplan and awaiting call back.
--- NOTE | 2018-03-04 06:53 | NUR ---
NURSE NOTES: Get call back from Dr. Kaplan and new order received.
--- NOTE | 2018-03-04 07:48 | NUR ---
HAND-OFF: Report given to JUAN FRANCISCO O[place]iedo. Pt is resting on the bed and On O2 15L via Venturi mask and SaO2 99% noted.
--- NOTE | 2018-03-04 08:29 | NUR ---
ST NOTE: D/C SUMMARY: PT DID NOT MEET SWALLOW TX GOALS. NURSING STAFF MET ASPIRATION PRECAUTIONS GOALS. PT IS CURRENTLY NOT MEDICALLY STABLE. D/C FROM SKILLED ST SERVICE.
[2018-03-04] MEDS: Solu-MEDROL 40mg Inj IVP SCH (08:39)
[2018-03-04] MEDS: Pantoprazole Inj IVP SCH (08:39)
--- NOTE | 2018-03-04 09:06 | Infectious Diseases Prog Note ---
Assessment/Plan Assessment/Plan Hemoptysis ( after nasal suctioning< noted pt was placed in A.Isolation per Pul) -AFB smear neg x2, MTB PCR (-) -02/25 sp cx - NF -02/25 CXR: Slight increased patchy right-sided airspace opacities concerning for pneumonia or\alveolar edema. Clinical correlation/follow-up recommended. Pleural-based calcifications of the left with volume loss in pleural thickening at the left costophrenic sulcus. Subtle lucency at the periphery of the left midlung may represent loculated pneumothorax or artifact. Sepsis, SP- 2ry to UTI -u.a wbc tntc, nit -, leuk +3; u cx >100k ESBL E.coli; 02/22 u/a wbc 5-10, nit neg, luek +1; ucx p -CXR: Left midlung and calcified parenchymal scarring. Numerous calcified hilar nodes suggest old granulomatous disease. Left apical lucency could reflect compensatory hyperinflation or COPD changes. No definite acute process Afebrile Leukocytosis, increased (on high dose steroids)- -02/23 CT abd/p: Wall thickening of the distal esophagus and gastric cardia. Esophageal findings are suspicious for esophagitis. Findings in the stomach could be an artifact of redundant mucosa secondary to incomplete distention, but raise concern for neoplasm or gastritis. Colonic diverticulosis. No evidence of acute diverticulitis. Evidence old granulomatous disease, with multiple calcifications in the liver and spleen. Distended bladder. Edema of the lumbar region subcutaneous fat and of the bilateral lower flanks, buttock and hip regions. Bilateral pleural effusions and basilar pulmonary atelectatic changes -02/22 Bcx NTD CXR: Mild sub-segmental atelectasis in the medial lung bases. No significant change in the scarring versus linear atelectasis at the periphery of the left midlung, with possible underlying pleural calcifications. Scattered calcified hilar lymph nodes, unchanged. Acute encephalopathy -CT head: no acute findings Dementia dysphagia HTN lung CA CAD CKD COPD Afib [facility] resident Plan: -Continue Meropenem # 7 for ESBL UTI and in the setting fo PNA - 02/28/18 SP IV Vancomycin # 4 - 02/26 SP Ertapenem #5 - 02/22 SP Bactrim #3 - 02/20 SP Cefepime # 3 - 02/19 SP IV Vancomycin #2 - 02/18 SP Unasyn x1 -f/u cx - f/u CT Chest -Monitor CBC/CMP, temperatures -aspiration precautions -f/u AFBx 1 - Having trouble getting as he bleeds with suction Subjective Allergies: Coded Allergies: No Known Allergies (Unverified , 02/18/18) Subjective Patient afebrile Still on ventimask 55% O2 Increasing leukocytosis likely secondary to steroids Objective Vital Signs Last 24 Hour Vital Signs Date Time Temp Pulse Resp B/P (MAP) Pulse Ox O2 Delivery O2 Flow Rate FiO2 03/04/18 08:00 Venturi Mask 15.0 03/04/18 08:00 99.4 101 22 124/78 (93) 100 03/04/18 07:52 98 24 Venturi Mask 14.0 55 03/04/18 07:52 96 Venturi Mask 14.0 55 03/04/18 07:52 Venturi Mask 14.0 55 03/04/18 04:00 97 03/04/18 04:00 98.5 99 26 128/65 (86) 99 03/04/18 04:00 Venturi Mask 15.0 03/04/18 00:00 Venturi Mask 15.0 03/04/18 00:00 97.8 87 26 125/55 (78) 98 03/03/18 20:00 Venturi Mask 15.0 03/03/18 20:00 97.6 100 26 144/77 (99) 98 03/03/18 20:00 103 03/03/18 19:48 95 Venturi Mask 14.0 55 03/03/18 19:48 Venturi Mask 14.0 55 03/03/18 19:47 102 25 Venturi Mask 14.0 55 03/03/18 16:00 109 03/03/18 16:00 98.8 106 28 140/74 (96) 100 03/03/18 16:00 Venturi Mask 03/03/18 12:00 98.0 107 28 142/81 (101) 99 03/03/18 12:00 Venturi Mask 03/03/18 11:33 100 Height (Feet): 5 Height (Inches): 10.00 Weight (Pounds): 141 Objective GENERAL: Not following LUNGS: CTAB, Mild Wheezing CARDIAC: Regular rate and rhythm. S1, S2 ABDOMEN: Soft and nontender. Positive bowel sounds. EXTREMITIES: There is no edema. No clubbing or cyanosis. NEUROLOGICAL: A/O x0 Laboratory Tests Test 03/04/18 02:50 White Blood Count 31.1 K/UL (4.8-10.8) *H Red Blood Count 2.64 M/UL (4.70-6.10) L Hemoglobin 7.6 G/DL (14.2-18.0) L Hematocrit 23.4 % (42.0-52.0) L Mean Corpuscular Volume 89 FL (80-99) Mean Corpuscular Hemoglobin 28.8 PG (27.0-31.0) Mean Corpuscular Hemoglobin Concent 32.5 G/DL (32.0-36.0) Red Cell Distribution Width 16.3 % (11.6-14.8) H Platelet Count 14 K/UL (150-450) L Mean Platelet Volume FL (6.5-10.1) Neutrophils (%) (Auto) % (45.0-75.0) Lymphocytes (%) (Auto) % (20.0-45.0) Monocytes (%) (Auto) % (1.0-10.0) Eosinophils (%) (Auto) % (0.0-3.0) Basophils (%) (Auto) % (0.0-2.0) Differential Total Cells Counted 100 Neutrophils % (Manual) 94 % (45-75) H Lymphocytes % (Manual) 2 % (20-45) L Monocytes % (Manual) 2 % (1-10) Eosinophils % (Manual) 0 % (0-3) Basophils % (Manual) 0 % (0-2) Band Neutrophils 2 % (0-8) Nucleated Red Blood Cells 2 /100 WBC Platelet Estimate Decreased L Platelet Morphology Normal Hypochromasia 3+ Anisocytosis 1+ Spherocytes 2+ Prothrombin Time 22.1 SEC (9.30-11.50) H Prothromb Time International Ratio 2.2 (0.9-1.1) H Fibrinogen 50 mg/dL (200-400) *L Sodium Level 146 MMOL/L (136-145) H Potassium Level 5.5 MMOL/L (3.5-5.1) H Chloride Level 114 MMOL/L (98-107) H Carbon Dioxide Level 23 MMOL/L (21-32) Anion Gap 9 mmol/L (5-15) Blood Urea Nitrogen 80 mg/dL (7-18) H Creatinine 2.1 MG/DL (0.55-1.30) H Estimat Glomerular Filtration Rate mL/min (>60) Glucose Level 126 MG/DL (74-106) H Calcium Level 7.6 MG/DL (8.5-10.1) L Current Medications Medications (Trade) Dose Ordered Sig/Delvin Route PRN Reason Start Time Stop Time Status Last Admin Dose Admin Chlorhexidine Gluconate (Vira-Hex 2%) 1 applic DAILY@2000 TOPIC 03/02/18 20:00 04/01/18 19:59 Dextrose/Sodium Chloride 1,000 ml @ 40 mls/hr Q24H IV 02/26/18 00:00 03/28/18 00:00 03/03/18 23:58 Heparin Sodium/ Sodium Chloride (Heparin 2000 units/Ns 1000ml premix) 2,000 unit ONCE PRN INJ picc line placement 03/02/18 19:30 03/04/18 19:29 Hydralazine HCl (Apresoline) 10 mg Q6H PRN IV For High Blood Pressure 03/02/18 07:30 04/01/18 07:29 Lidocaine HCl (Xylocaine 1% 30ml) 30 ml ONCE PRN INJ picc line placement 03/02/18 19:30 03/04/18 19:29 Meropenem 1 gm/ Sodium Chloride 55 ml @ 110 mls/hr Q12H IVPB 02/26/18 17:00 03/04/18 16:59 03/04/18 04:37 Methylprednisolone Sodium Succinate (Solu-MEDROL) 40 mg DAILY IVP 02/27/18 09:00 03/22/18 17:59 03/04/18 08:39 Nitroglycerin (Ntg) 0.4 mg Q5M PRN SL Prn Chest Pain 02/18/18 16:46 03/20/18 16:45 Ondansetron HCl (Zofran) 4 mg Q6H PRN IVP Nausea & Vomiting 02/18/18 16:46 03/20/18 16:45 Pantoprazole (Protonix) 40 mg DAILY IVP 02/25/18 15:15 03/27/18 15:14 03/04/18 08:39 Chris Boles MD Mar 04, 2018 09:06
--- NOTE | 2018-03-04 09:28 | Diagnostic Imaging Report ---
Indication: Tachypnea Comparison: 02/25/2018 A single view chest radiograph was obtained. Findings: Dense opacification of the left hemithorax developed since the last study. Findings likely indicative of a increasing pleural effusion and/or atelectasis. Interstitial edema and other scattered patchy densities including pleural/parenchymal calcifications noted bilaterally. Bones are osteopenic. IMPRESSION: Interval opacification of the left hemithorax likely consistent with atelectasis of the left lung. Superimposed pleural effusion may be present.
[2018-03-04] MEDS ORDERED: Phytonadione 10 MG in D5W 55 ML IVPB ONE (10:30)
--- NOTE | 2018-03-04 10:46 | NUR ---
NURSE NOTES: Reported to Dr. Boles that patient is retaining urine. 1.2 L seen from ultrasound. Patient has condom catheter right now. Dr. Boles ordered to insert painting cath and to send urine specimen to lab. Charge nurse made aware.
--- NOTE | 2018-03-04 11:28 | Internal Med Progress Note ---
Subjective Date of Service: Mar 04, 2018 Physician Name Ricky Baker Attending Physician Gila Sibley MD Current Medications Medications (Trade) Dose Ordered Sig/Delvin Route PRN Reason Start Time Stop Time Status Last Admin Dose Admin Chlorhexidine Gluconate (Vira-Hex 2%) 1 applic DAILY@2000 TOPIC 03/02/18 20:00 04/01/18 19:59 Dextrose/Sodium Chloride 1,000 ml @ 40 mls/hr Q24H IV 02/26/18 00:00 03/28/18 00:00 03/03/18 23:58 Heparin Sodium/ Sodium Chloride (Heparin 2000 units/Ns 1000ml premix) 2,000 unit ONCE PRN INJ picc line placement 03/02/18 19:30 03/04/18 19:29 Hydralazine HCl (Apresoline) 10 mg Q6H PRN IV For High Blood Pressure 03/02/18 07:30 04/01/18 07:29 Lidocaine HCl (Xylocaine 1% 30ml) 30 ml ONCE PRN INJ picc line placement 03/02/18 19:30 03/04/18 19:29 Meropenem 1 gm/ Sodium Chloride 55 ml @ 110 mls/hr Q12H IVPB 02/26/18 17:00 03/09/18 16:59 03/04/18 04:37 Methylprednisolone Sodium Succinate (Solu-MEDROL) 40 mg DAILY IVP 02/27/18 09:00 03/22/18 17:59 03/04/18 08:39 Nitroglycerin (Ntg) 0.4 mg Q5M PRN SL Prn Chest Pain 02/18/18 16:46 03/20/18 16:45 Ondansetron HCl (Zofran) 4 mg Q6H PRN IVP Nausea & Vomiting 02/18/18 16:46 03/20/18 16:45 Pantoprazole (Protonix) 40 mg DAILY IVP 02/25/18 15:15 03/27/18 15:14 03/04/18 08:39 Allergies: Coded Allergies: No Known Allergies (Unverified , 02/18/18) ROS Limited/Unobtainable: Yes Subjective 82 YO M admitted with altered mental status. Now pneumonia and NSTEMI. Cover for Int Med-Dr Jc. RODERICK. Tolerating venturi mask. Needs PICC line for IV access Objective Last Vital Signs Date Time Temp Pulse Resp B/P (MAP) Pulse Ox O2 Delivery O2 Flow Rate FiO2 03/04/18 08:00 Venturi Mask 15.0 03/04/18 08:00 99.4 101 22 124/78 (93) 100 03/04/18 07:52 55 Laboratory Tests Test 03/04/18 02:50 White Blood Count 31.1 K/UL (4.8-10.8) *H Red Blood Count 2.64 M/UL (4.70-6.10) L Hemoglobin 7.6 G/DL (14.2-18.0) L Hematocrit 23.4 % (42.0-52.0) L Mean Corpuscular Volume 89 FL (80-99) Mean Corpuscular Hemoglobin 28.8 PG (27.0-31.0) Mean Corpuscular Hemoglobin Concent 32.5 G/DL (32.0-36.0) Red Cell Distribution Width 16.3 % (11.6-14.8) H Platelet Count 14 K/UL (150-450) L Mean Platelet Volume FL (6.5-10.1) Neutrophils (%) (Auto) % (45.0-75.0) Lymphocytes (%) (Auto) % (20.0-45.0) Monocytes (%) (Auto) % (1.0-10.0) Eosinophils (%) (Auto) % (0.0-3.0) Basophils (%) (Auto) % (0.0-2.0) Differential Total Cells Counted 100 Neutrophils % (Manual) 94 % (45-75) H Lymphocytes % (Manual) 2 % (20-45) L Monocytes % (Manual) 2 % (1-10) Eosinophils % (Manual) 0 % (0-3) Basophils % (Manual) 0 % (0-2) Band Neutrophils 2 % (0-8) Nucleated Red Blood Cells 2 /100 WBC Platelet Estimate Decreased L Platelet Morphology Normal Hypochromasia 3+ Anisocytosis 1+ Spherocytes 2+ Prothrombin Time 22.1 SEC (9.30-11.50) H Prothromb Time International Ratio 2.2 (0.9-1.1) H Fibrinogen 50 mg/dL (200-400) *L Sodium Level 146 MMOL/L (136-145) H Potassium Level 5.5 MMOL/L (3.5-5.1) H Chloride Level 114 MMOL/L (98-107) H Carbon Dioxide Level 23 MMOL/L (21-32) Anion Gap 9 mmol/L (5-15) Blood Urea Nitrogen 80 mg/dL (7-18) H Creatinine 2.1 MG/DL (0.55-1.30) H Estimat Glomerular Filtration Rate mL/min (>60) Glucose Level 126 MG/DL (74-106) H Calcium Level 7.6 MG/DL (8.5-10.1) L Intake and Output 03/03/18 03/04/18 19:00 07:00 Intake Total 535 ml 495 ml Output Total 230 ml 400 ml Balance 305 ml 95 ml IV Total 535 ml 495 ml Output Urine Total 230 ml 400 ml # Voids 2 Objective General Appearance: WD/WN, no apparent distress, alert, thin EENT: PERRL/EOMI, normal ENT inspection Neck: non-tender, normal alignment, supple, normal inspection Cardiovascular: normal peripheral pulses, normal rate, regular rhythm, no gallop/murmur, no JVD Respiratory/Chest: Venturi Mask; respiratory distress, decreased breath sounds , crackles/rales, rhonchi - bilaterally, expiratory wheezing Abdomen: normal bowel sounds, non tender, soft, no organomegaly, no mass Extremities: normal range of motion, non-tender Neurologic: physical therapy aid II-XII grossly normal, no motor/sensory deficits Skin: normal pigmentation, warm/dry Assessment/Plan Problem List: (1) NSTEMI (non-ST elevated myocardial infarction) Assessment & Plan: See cardiology note. (2) Pneumonia Assessment & Plan: Worsening CXR=opacification left hemithorax. Continue vanco and meropenem. See pulmonary note. Continue IV solumedrol-H/O COPD. continue Duoneb (3) Elevated troponin Assessment & Plan: Trending down. See cardiology note. (4) CHF (congestive heart failure) (5) HTN (hypertension) (6) Hypothyroidism (7) Anemia, iron deficiency (8) CAD (coronary artery disease) (9) Renal failure, chronic Assessment & Plan: Worsening creatinine-nephrology consult-Dr Vargas (10) COPD (chronic obstructive pulmonary disease) Assessment & Plan: Add IV solumedrol and scheduled nebs. See pulmonary note. (11) Paroxysmal atrial fibrillation (12) Altered level of consciousness Assessment & Plan: CT brain negt. See Neurology note (13) Lung cancer (14) UTI (urinary tract infection) Assessment & Plan: E. Coli MDR. Continue meropenem and vanco per ID (15) E coli infection Assessment/Plan Needs PICC line for IV access; no family to give consent Ricky Baker MD Mar 04, 2018 11:28
[2018-03-04 12:08] LABS: APPEARANCE,URINE CLEAR; BILIRUBIN, URINE NEGATIVE (NEGATIVE); GLUCOSE, URINE (UA) NEGATIVE (NEGATIVE); KETONES,URINE 1+ (NEGATIVE); LEUKOCYTE ESTERASE ,URINE 1+ (NEGATIVE); NITRITE,URINE NEGATIVE (NEGATIVE); PH,URINE 5 (4.5-8.0); PROTEIN,URINE 3+ (NEGATIVE); UROBILINOGEN,URINE 1 MG/DL (0.0-1.0)
--- NOTE | 2018-03-04 12:21 | General Progress Note ---
Assessment/Plan Assessment/Plan # Thrombocytopenia with coagulopathy - potential causes multifactorial, evaluate liver and viral etiologies to begin, also could be related to underlying medications patient has received. Fibringoen 108, INR 1.4 --> Hep panel and HIV are neg --> US abd to evaluate for cirrhosis and hsm ordered --> Peripheral smear ordered to evaluate for blasts /schistocytes --> abx and other meds have been reviewed --> ok for ppx if plt >50k w/ either heparin or lovenox --> Transfuse if Plt < 20k and fever, or if Plt < 10k without fever --> patient with nucleated red cells, will need to discuss with pathologist if any evidence of malignancy --> cr is uptrending, and will d/w pathologist if any schistocytes are seen, to r/o TTP/HUS # Anemia of chronic disease due to underlying chronic medical issues, multifactorial --> Anemia w/u has been reviewed. Ferritin at 666. --> No evidence of hemolysis is noted, peripheral smear has been reviewed. --> Hgb goal >7. Transfuse prn. --> Epogen or iron at this time is not particularly indicated --> needs a picc line emergently, d/w rn, requires blood transfusion, no family avilable # Leukocytosis. Secondary to pna. --> Peripheral has been ordered, no blasts noted, reviewed --> Medications have been reviewed --> Imaging has been reviewed. CXR shows pna. --> Blood cultures and urine cultures prn --> has been started on abx, empiric treatment --> appreciate id recs # Altered mental status. --> per neuro management # Left upper lobe pneumonia. ID is following, appreciate recs. --> On abx. GREATLY APPRECIATE CONSULTATION. Time and date of note entry does not reflect time and date of encounter. Subjective Constitutional: Denies: no symptoms, chills, diaphoresis, fever, malaise, weakness, other HEENT: Denies: no symptoms, eye pain, blurred vision, tearing, double vision, ear pain, ear discharge, nose pain, nose congestion, throat pain, throat swelling, mouth pain, mouth swelling, other Cardiovascular: Denies: no symptoms, chest pain, edema, irregular heart rate, lightheadedness, palpitations, syncope, other Respiratory: Denies: no symptoms, cough, orthopnea, shortness of breath, SOB with excertion, SOB at rest, sputum, stridor, wheezing, other Gastrointestinal/Abdominal: Denies: no symptoms, abdomen distended, abdominal pain, black stools, tarry stools, blood in stool, constipated, diarrhea, difficulty swallowing, nausea, poor appetite, poor fluid intake, rectal bleeding , vomiting, other Genitourinary: Denies: no symptoms, burning, discharge, frequency, flank pain, hematuria, incontinence, pain, urgency, other Neurologic/Psychiatric: Denies: no symptoms, anxiety, depressed, emotional problems, headache, numbness, paresthesia, pre-existing deficit, seizure, tingling, tremors, weakness, other Endocrine: Denies: no symptoms, excessive sweating, flushing, intolerance to cold, intolerance to heat, increased hunger, increased thirst, increased urine, unexplained weight gain, unexplained weight loss, other Allergies: Coded Allergies: No Known Allergies (Unverified , 02/18/18) Subjective 03/01: no events, no f/c, no events, peg on hold given other comorbidities, labs reviewed 03/03: on 15L venturi mask, no events otherwise, no f/c 03/04: platelet count downtrending, on abx, appears septic, needs a picc line, ID aware, pcp aware, d/w rn Objective Last 24 Hour Vital Signs Date Time Temp Pulse Resp B/P (MAP) Pulse Ox O2 Delivery O2 Flow Rate FiO2 03/04/18 11:30 Venturi Mask 15.0 03/04/18 08:00 Venturi Mask 15.0 03/04/18 08:00 99.4 101 22 124/78 (93) 100 03/04/18 07:52 98 24 Venturi Mask 14.0 55 03/04/18 07:52 96 Venturi Mask 14.0 55 03/04/18 07:52 Venturi Mask 14.0 55 03/04/18 07:16 104 03/04/18 04:00 97 03/04/18 04:00 98.5 99 26 128/65 (86) 99 03/04/18 04:00 Venturi Mask 15.0 03/04/18 00:00 Venturi Mask 15.0 03/04/18 00:00 97.8 87 26 125/55 (78) 98 03/03/18 20:00 Venturi Mask 15.0 03/03/18 20:00 97.6 100 26 144/77 (99) 98 03/03/18 20:00 103 03/03/18 19:48 95 Venturi Mask 14.0 55 03/03/18 19:48 Venturi Mask 14.0 55 03/03/18 19:47 102 25 Venturi Mask 14.0 55 03/03/18 16:00 109 03/03/18 16:00 98.8 106 28 140/74 (96) 100 03/03/18 16:00 Venturi Mask Intake and Output 03/03/18 03/04/18 19:00 07:00 Intake Total 535 ml 495 ml Output Total 230 ml 400 ml Balance 305 ml 95 ml IV Total 535 ml 495 ml Output Urine Total 230 ml 400 ml # Voids 2 Laboratory Tests 03/04/18 02:50: White Blood Count 31.1*H, Red Blood Count 2.64L, Hemoglobin 7.6L, Hematocrit 23.4L, Mean Corpuscular Volume 89, Mean Corpuscular Hemoglobin 28.8, Mean Corpuscular Hemoglobin Concent 32.5, Red Cell Distribution Width 16.3H, Platelet Count 14L, Mean Platelet Volume , Neutrophils (%) (Auto) , Lymphocytes (%) (Auto) , Monocytes (%) (Auto) , Eosinophils (%) (Auto) , Basophils (%) (Auto ) , Differential Total Cells Counted 100, Neutrophils % (Manual) 94H, Lymphocytes % (Manual) 2L, Monocytes % (Manual) 2, Eosinophils % (Manual) 0, Basophils % (Manual) 0, Band Neutrophils 2, Nucleated Red Blood Cells 2, Platelet Estimate DecreasedL, Platelet Morphology Normal, Hypochromasia 3+, Anisocytosis 1+, Spherocytes 2+, Prothrombin Time 22.1H, Prothromb Time International Ratio 2.2H, Fibrinogen 50*L, Sodium Level 146H, Potassium Level 5.5H, Chloride Level 114H, Carbon Dioxide Level 23, Anion Gap 9, Blood Urea Nitrogen 80H, Creatinine 2.1H, Estimat Glomerular Filtration Rate , Glucose Level 126H, Calcium Level 7.6L 03/04/18 11:30: Urine Color [Pending], Urine Appearance [Pending], Urine pH [Pending], Urine Specific [place] [Pending], Urine Protein [Pending], Urine Glucose (UA) [Pending ], Urine Ketones [Pending], Urine Blood [Pending], Urine Nitrite [Pending], Urine Bilirubin [Pending], Urine Urobilinogen [Pending], Urine Leukocyte Esterase [Pending] 03/04/18 11:50: Arterial Blood pH 7.403, Arterial Blood Partial Pressure CO2 34.7L, Arterial Blood Partial Pressure O2 74.6L, Arterial Blood HCO3 21.2L, Arterial Blood Oxygen Saturation 93.3L, Arterial Blood Base Excess -3.1L, Tha Test Positive, Lactic Acid Level [Pending] Height (Feet): 5 Height (Inches): 10.00 Weight (Pounds): 141 Objective Gen: Elderly WM HEENT: NCAT, VM NECK: supple Pulm: Coarse BS CV: RR Abd: abd soft ND NT Ext: non edema William Kaplan MD Mar 04, 2018 12:21
--- NOTE | 2018-03-04 12:40 | General Progress Note ---
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 (2) Dementia ICD Codes: F03.90 - Unspecified dementia without behavioral disturbance SNOMED: 31683585 Status: stable, progressing Assessment/Plan zyprexa prn the pt lacks capacity provided ro Subjective Allergies: Coded Allergies: No Known Allergies (Unverified , 02/18/18) Subjective no changes. the pt has episodes of agitation and is confused. Objective Last 24 Hour Vital Signs Date Time Temp Pulse Resp B/P (MAP) Pulse Ox O2 Delivery O2 Flow Rate FiO2 03/04/18 11:30 Venturi Mask 15.0 03/04/18 08:00 Venturi Mask 15.0 03/04/18 08:00 99.4 101 22 124/78 (93) 100 03/04/18 07:52 98 24 Venturi Mask 14.0 55 03/04/18 07:52 96 Venturi Mask 14.0 55 03/04/18 07:52 Venturi Mask 14.0 55 03/04/18 07:16 104 03/04/18 04:00 97 03/04/18 04:00 98.5 99 26 128/65 (86) 99 03/04/18 04:00 Venturi Mask 15.0 03/04/18 00:00 Venturi Mask 15.0 03/04/18 00:00 97.8 87 26 125/55 (78) 98 03/03/18 20:00 Venturi Mask 15.0 03/03/18 20:00 97.6 100 26 144/77 (99) 98 03/03/18 20:00 103 03/03/18 19:48 95 Venturi Mask 14.0 55 03/03/18 19:48 Venturi Mask 14.0 55 03/03/18 19:47 102 25 Venturi Mask 14.0 55 03/03/18 16:00 109 03/03/18 16:00 98.8 106 28 140/74 (96) 100 03/03/18 16:00 Venturi Mask Intake and Output 03/03/18 03/04/18 18:59 06:59 Intake Total 535 ml 495 ml Output Total 230 ml 400 ml Balance 305 ml 95 ml IV Total 535 ml 495 ml Output Urine Total 230 ml 400 ml # Voids 2 Laboratory Tests 03/04/18 02:50: White Blood Count 31.1*H, Red Blood Count 2.64L, Hemoglobin 7.6L, Hematocrit 23.4L, Mean Corpuscular Volume 89, Mean Corpuscular Hemoglobin 28.8, Mean Corpuscular Hemoglobin Concent 32.5, Red Cell Distribution Width 16.3H, Platelet Count 14L, Mean Platelet Volume , Neutrophils (%) (Auto) , Lymphocytes (%) (Auto) , Monocytes (%) (Auto) , Eosinophils (%) (Auto) , Basophils (%) (Auto ) , Differential Total Cells Counted 100, Neutrophils % (Manual) 94H, Lymphocytes % (Manual) 2L, Monocytes % (Manual) 2, Eosinophils % (Manual) 0, Basophils % (Manual) 0, Band Neutrophils 2, Nucleated Red Blood Cells 2, Platelet Estimate DecreasedL, Platelet Morphology Normal, Hypochromasia 3+, Anisocytosis 1+, Spherocytes 2+, Prothrombin Time 22.1H, Prothromb Time International Ratio 2.2H, Fibrinogen 50*L, Sodium Level 146H, Potassium Level 5.5H, Chloride Level 114H, Carbon Dioxide Level 23, Anion Gap 9, Blood Urea Nitrogen 80H, Creatinine 2.1H, Estimat Glomerular Filtration Rate , Glucose Level 126H, Calcium Level 7.6L 03/04/18 11:30: Urine Color [Pending], Urine Appearance [Pending], Urine pH [Pending], Urine Specific [place] [Pending], Urine Protein [Pending], Urine Glucose (UA) [Pending ], Urine Ketones [Pending], Urine Blood [Pending], Urine Nitrite [Pending], Urine Bilirubin [Pending], Urine Urobilinogen [Pending], Urine Leukocyte Esterase [Pending] 03/04/18 11:50: Arterial Blood pH 7.403, Arterial Blood Partial Pressure CO2 34.7L, Arterial Blood Partial Pressure O2 74.6L, Arterial Blood HCO3 21.2L, Arterial Blood Oxygen Saturation 93.3L, Arterial Blood Base Excess -3.1L, Tha Test Positive, Lactic Acid Level 1.50 Height (Feet): 5 Height (Inches): 10.00 Weight (Pounds): 141 General Appearance: alert, confused, agitated Arsen Erwin MD Mar 04, 2018 12:40
--- NOTE | 2018-03-04 12:48 | Pulmonolgy Critical Care Note ---
Critical Care - Asmt/Plan Problems: (1) COPD (chronic obstructive pulmonary disease) (2) Paroxysmal atrial fibrillation (3) Lung cancer (4) Pneumonia (5) Dementia Respiratory: adjust tidal volume, monitor respiratory rate Cardiac: continue pressors, continue to monitor HR/BP Renal: F/U I&O Infectious Disease: check cultures Gastrointestinal: continue feedings/current rate, hold feedings Endocrine: check TSH Hematologic: monitor H/H, transfuse if hgb<8.5 Neurologic: PRN Ativan, keep patient comfortable Affect: PRN ativan Time Spent (Minutes): 40 Notes Reviewed: project production engineer, cardio, renal Discussed with: nurses, consultants, case hardener, family member Critical Care - Objective Last 24 Hour Vital Signs Date Time Temp Pulse Resp B/P (MAP) Pulse Ox O2 Delivery O2 Flow Rate FiO2 03/04/18 11:30 Venturi Mask 15.0 03/04/18 08:00 Venturi Mask 15.0 03/04/18 08:00 99.4 101 22 124/78 (93) 100 03/04/18 07:52 98 24 Venturi Mask 14.0 55 03/04/18 07:52 96 Venturi Mask 14.0 55 03/04/18 07:52 Venturi Mask 14.0 55 03/04/18 07:16 104 03/04/18 04:00 97 03/04/18 04:00 98.5 99 26 128/65 (86) 99 03/04/18 04:00 Venturi Mask 15.0 03/04/18 00:00 Venturi Mask 15.0 03/04/18 00:00 97.8 87 26 125/55 (78) 98 03/03/18 20:00 Venturi Mask 15.0 03/03/18 20:00 97.6 100 26 144/77 (99) 98 03/03/18 20:00 103 03/03/18 19:48 95 Venturi Mask 14.0 55 03/03/18 19:48 Venturi Mask 14.0 55 03/03/18 19:47 102 25 Venturi Mask 14.0 55 03/03/18 16:00 109 03/03/18 16:00 98.8 106 28 140/74 (96) 100 03/03/18 16:00 Venturi Mask Status: somnolent Condition: critical HEENT: atraumatic Neck: full ROM Heart: HR/BP stable, regular Abdomen: non-tender Extremities: no C/C/E, edema Critical Care - Subjective ROS Limited/Unobtainable: Yes Condition: critical EKG Rhythm: Sinus Rhythm FI02: 55 Sputum Amount: None I&O: Intake and Output 03/03/18 03/04/18 19:00 07:00 Intake Total 535 ml 495 ml Output Total 230 ml 400 ml Balance 305 ml 95 ml IV Total 535 ml 495 ml Output Urine Total 230 ml 400 ml # Voids 2 CXR: total left lung collapse Labs: Laboratory Tests Test 03/04/18 02:50 03/04/18 11:30 03/04/18 11:50 White Blood Count 31.1 K/UL (4.8-10.8) *H Red Blood Count 2.64 M/UL (4.70-6.10) L Hemoglobin 7.6 G/DL (14.2-18.0) L Hematocrit 23.4 % (42.0-52.0) L Mean Corpuscular Volume 89 FL (80-99) Mean Corpuscular Hemoglobin 28.8 PG (27.0-31.0) Mean Corpuscular Hemoglobin Concent 32.5 G/DL (32.0-36.0) Red Cell Distribution Width 16.3 % (11.6-14.8) H Platelet Count 14 K/UL (150-450) L Mean Platelet Volume FL (6.5-10.1) Neutrophils (%) (Auto) % (45.0-75.0) Lymphocytes (%) (Auto) % (20.0-45.0) Monocytes (%) (Auto) % (1.0-10.0) Eosinophils (%) (Auto) % (0.0-3.0) Basophils (%) (Auto) % (0.0-2.0) Differential Total Cells Counted 100 Neutrophils % (Manual) 94 % (45-75) H Lymphocytes % (Manual) 2 % (20-45) L Monocytes % (Manual) 2 % (1-10) Eosinophils % (Manual) 0 % (0-3) Basophils % (Manual) 0 % (0-2) Band Neutrophils 2 % (0-8) Nucleated Red Blood Cells 2 /100 WBC Platelet Estimate Decreased L Platelet Morphology Normal Hypochromasia 3+ Anisocytosis 1+ Spherocytes 2+ Prothrombin Time 22.1 SEC (9.30-11.50) H Prothromb Time International Ratio 2.2 (0.9-1.1) H Fibrinogen 50 mg/dL (200-400) *L Sodium Level 146 MMOL/L (136-145) H Potassium Level 5.5 MMOL/L (3.5-5.1) H Chloride Level 114 MMOL/L (98-107) H Carbon Dioxide Level 23 MMOL/L (21-32) Anion Gap 9 mmol/L (5-15) Blood Urea Nitrogen 80 mg/dL (7-18) H Creatinine 2.1 MG/DL (0.55-1.30) H Estimat Glomerular Filtration Rate mL/min (>60) Glucose Level 126 MG/DL (74-106) H Calcium Level 7.6 MG/DL (8.5-10.1) L Urine Color Pending Urine Appearance Pending Urine pH Pending Urine Specific [place] Pending Urine Protein Pending Urine Glucose (UA) Pending Urine Ketones Pending Urine Blood Pending Urine Nitrite Pending Urine Bilirubin Pending Urine Urobilinogen Pending Urine Leukocyte Esterase Pending Arterial Blood pH 7.403 (7.350-7.450) Arterial Blood Partial Pressure CO2 34.7 mmHg (35.0-45.0) L Arterial Blood Partial Pressure O2 74.6 mmHg (75.0-100.0) L Arterial Blood HCO3 21.2 mmol/L (22.0-26.0) L Arterial Blood Oxygen Saturation 93.3 % (95-100) L Arterial Blood Base Excess -3.1 (-2-2) L Tha Test Positive Lactic Acid Level 1.50 mmol/L (0.4-2.0) Gila Sibley MD Mar 04, 2018 12:48
[2018-03-04 12:50] LABS: COLOR,URINE YELLOW
--- NOTE | 2018-03-04 12:50 | NUR ---
TRANSFER TO FLOOR: Patient transferred to ICU bed A, per Dr. Sibley. Report given to JUAN FRANCISCO Song. Belongings and medications given to JUAN FRANCISCO Song. No Family to inform transfer. Patient remains on veturi mask FiO2 of 55%. Patient is currently receiving blood transfusion of 1 PRBC. No signs and symptoms of blood transfusion reaction noted.
--- NOTE | 2018-03-04 13:00 | NUR ---
NURSE NOTES: Received patient from JUAN FRANCISCO [place]. Pt is brought to ICU due to left lung collapse and need to be intubated. Pt ABG normal except p02. Dr. Sibley contacted ER to come intubate.
--- NOTE | 2018-03-04 13:17 | Diagnostic Imaging Report ---
Indication: Dyspnea Comparison: 03/03/2018 A single view chest radiograph was obtained. Findings: Complete opacification of the left hemithorax again demonstrated. IMPRESSION: No change from the previous day
--- NOTE | 2018-03-04 13:45 | NUR ---
NURSE NOTES: Pt intubated ETT 7.5, 23 cm lip line. tolerated procedure well. PICC line is getting prepared to be placed.
--- NOTE | 2018-03-04 13:55 | Diagnostic Imaging Report ---
Indication:Abdominal pain Technique: Grayscale and duplex Doppler imaging of the abdomen performed. Comparison: None Findings: Urinary bladder is markedly distended having a volume of the 1152 cc. There are multiple cysts within the right kidney with one of the cysts appearing exophytic and quite large measuring about 7 cm. The study is limited by patient combativeness. No obvious abnormalities of the liver identified. Gallbladder is noted. Sonographic Duque's is negative per technologist. No biliary ductal dilatation or free fluid identified. The proximal aorta is unremarkable. Portions of aorta pancreas, the left kidney and spleen are not visualized on this study. IMPRESSION: Marked distention of the urinary bladder. Consider Ferreira placement. Multiple cysts within the right kidney. Suboptimal examination as described above
--- NOTE | 2018-03-04 14:43 | Consultation ---
Consult Note Consult Note Asked to eval for rising Cr patient been in hospital for 14 days Cr been creeping up patient to ICu for intubation due to acute respiratory failure and poor blood gas results just had a painting due to urinary retention current conditions (1) COPD (chronic obstructive pulmonary disease) (2) Paroxysmal atrial fibrillation (3) Lung cancer (4) Pneumonia (5) Dementia Assessment/Plan Acute renal failure- Urinary retention acute respiratory failure COPD PAF painting vent support IV Antibiotics per consultants avoid nephrotoxics monitor renal parameters Mitchell Vargas MD Mar 04, 2018 14:43
--- NOTE | 2018-03-04 14:54 | NUR ---
RD ASSESSMENT & RECOMMENDATIONS SEE CARE ACTIVITY FOR COMPLETE ASSESSMENT DAILY ESTIMATED NEEDS: Needs based on Critical care, renal dysfunction 63kg 22-28 kcals/kg 4296-9303 total kcals 1-2 g protein/kg 63-126 g total protein 25-30 mL/kg 4793-9947 total fluid mLs NUTRITION DIAGNOSIS: * Swallowing difficulty r/t dysphagia, respiratory status as evidenced by s/p prolonged NPO status, now s/p oral intubation, NPO. * Altered nutrition related lab values R/T clinical condition as evidenced by elev K (5.5), elev creat (2.1) trend up. CURRENT DIET:. NPO ENTERAL NUTRITION RECOMMENDATIONS: Nepro @ 35ml/hr x 24 hrs to provide 840ml, 1512kcal, 68g prot, 610ml free water * As medically appropriate, obtain GI access * Initiate Nepro @ 10ml/hr x 8 hrs, advance 10ml q 6-8 hrs as tolerated to goal rate. * HOB over 30 degrees/ water flush per MD. ADDITIONAL RECOMMENDATIONS: 1) Pt now s/p intubation, rec to initiate nonoral feeds in a timely manner -> NPO DAY 9 2) Monitor BG on solumedrol, need for SSI 3) Monitor renal fxn and lytes closely- worsening renal fxn, K elev 4) Pt at HIGH risk for refeeding syndrome - Initiate nutrition support SLOWLY, check lytes daily 5) CALIBRATED BEDSCALE WT
[2018-03-04] MEDS ORDERED: D5 1/2NS 1,000 ML IV SCH ×2 (15:00→17:58)
[2018-03-04] MEDS ORDERED: Etomidate 40mg/20ml Inj IV ONE (15:33)
[2018-03-04] MEDS ORDERED: Zemuron 50mg/5ml Inj IV ONE (15:33)
--- NOTE | 2018-03-04 15:48 | Emergency Room Report ---
History of Present Illness General Chief Complaint: Altered Level of Consciousness Source: Medical Record Present Illness Allergies: Coded Allergies: No Known Allergies (Unverified , 02/18/18) Nursing Documentation-[facility] Past Medical History: No History, Except For Hx Cardiac Problems: Yes - Atherosclerotic heart disease, AFIB Hx Hypertension: Yes Hx COPD: Yes Hx Cancer: Yes - MALIGNANT NEOPLASM OF BRONCHUS AND LUNG Hx Gastrointestinal Problems: Yes - DYSPHAGIA Hx Neurological Problems: Yes - ENCEPHALOPATHY Hx Dementia: Yes Physical Exam Vital Signs Date Time Temp Pulse Resp B/P (MAP) Pulse Ox O2 Delivery O2 Flow Rate FiO2 02/28/18 08:00 107 02/28/18 08:00 97.9 35 128/66 (86) 97 02/28/18 08:00 Venturi Mask 03/03/18 19:47 14.0 55 Procedures Critical Care Time Critical Care Time i. I feel this is a highly complex case requiring extensive working including EKG/Rhythm strip, Xray/CT/US, Blood/urine lab work, repeat exams while in ED, and administration of strong opiates/narcotics for pain control, admission to hospital or close patient follow up. Total time: 30 min bedside evaluation and treatment excludes procedures (EKG). Reason for critical care: respiratory distress, hypoxia Possible complications: hypotension, hypertension, NM, shock, arrhythmias, metabolic acidosis, end organ damage, respiratory failure. Interventions: intubation Course: evaluated patient in ICU. new lung mass with L lung opacity. respiratory distress with hypoxia.I evaluated the patient and made decision to intubate. Intubated using RSI meds. CXR confirms ET tube placement Consultations: nursing staff, EMS, family Performed by: Dr Mabry Tolerated well condition = critical j. because of unstable vital signs this patient had a condition that could potentially threaten life or limb. I feel this is a critical patient who required my full attention while patient was considered critical. Total Critical Care Time excluding procedures was greater than 35 minutes Intubation Intubation : Consent: Emergent Intubation Method: orotracheal Tube Size (cm): 7.5 Medications: Etomidate, Rocuronium Breath Sounds after Intubation: right greater than left - complete left lung collapse prior to intubation Intubation Complications: no complications Post Intubation Xray: Yes Attempts: One Patient Tolerated: Well Complications: None Medical Decision Making Diagnostic Impression: Primary Impression: Altered level of consciousness Additional Impressions: Myocardial injury Severe sepsis ER Course I was called to the ICU to evaluate this patient. Patient moved ICU because of increasing respiratory distress and hypoxia. Checks x-ray shows complete white out of the left lung. Upon arrival patient appears to be labored breathing. Hypoxic. I made decision to intubate patient. Patient intubated using RSI meds. Glidescope. Chest x-ray shows ET tube in position. Still white out of the left lung. Patient in critical condition. Admitting physician informed Last Vital Signs Date Time Temp Pulse Resp B/P (MAP) Pulse Ox O2 Delivery O2 Flow Rate FiO2 03/04/18 14:19 100 16 100 03/04/18 13:00 Venturi Mask 10.0 03/04/18 12:00 97.7 120/66 (84) 96 Status: improved Disposition: ADMITTED INPATIENT Condition: Critical Referrals: NON PHYSICIAN (PCP) Johan Mabry MD Mar 04, 2018 15:48
--- NOTE | 2018-03-04 15:55 | Diagnostic Imaging Report ---
Indication: ocean transportation intermediary venous access Findings: After the indications, procedure, risks, complications, and alternatives of the procedure were explained, written informed consent was obtained. The left upper extremity was prepped with alcohol. All elements of maximal sterile barrier technique were followed including usage of a cap, mask, sterile gown, sterile gloves, hand hygiene and a large sterile sheet. Sonographic evaluation of the upper extremity was performed demonstrating a patent and compressible basilic vein. Access was obtained under real-time ultrasound guidance (with utilization of sterile gel and sterile probe cover) and digital image was saved and archived. An .018 wire was introduced. Needle exchanged for a 5 Occitan peel-away sheath. Measurements were obtained. A 5 [place] dual-lumen Power PICC line catheter was cut to 35 cm and introduced over the wire. Peel-away sheath and wire were removed.Catheter was secured to the skin using 2-0 Prolene suture. Both ports aspirate and flush easily. Post procedure chest x-ray demonstrates good position of the PICC line catheter within the SVC. Impression: Successful placement of an upper extremity PICC line catheter
[2018-03-04 15:59] LABS: ALANINE AMINOTRANSFERASE 59 U/L (12-78); ALBUMIN 2.2 G/DL (3.4-5.0); ALKALINE PHOSPHATASE 73 U/L (46-116); ASPARTATE AMINO TRANSFERASE 136 U/L (15-37); BILIRUBIN,DIRECT 0.2 MG/DL (0.0-0.3); BILIRUBIN,TOTAL 1.2 MG/DL (0.2-1.0); PHOSPHORUS 3.9 MG/DL (2.5-4.9)
--- NOTE | 2018-03-04 16:00 | NUR ---
NURSE NOTES: Ongoing 1 unit PRBC's Pt VSS. will continue to monitor.
[2018-03-04] MEDS ORDERED: Tubing Blood Filter IV ONE (16:25)
[2018-03-04] MEDS ORDERED: D5 1/2NS 1000ml IV ONE (16:25)
[2018-03-04] MEDS ORDERED: NS 275ml ONE (16:25)
--- NOTE | 2018-03-04 17:26 | NUR ---
CASE MANAGEMENT: REVIEW SI: PNA . SEPSIS . LEFT LUNG COLLAPSE T 97.7 HR 114 RR 30 BP 120/66 SAT 96% VENTURI MASK FIO2 100 WBC 31.1 H/H 7.6/23.4 NA 146 K 5.5 BUN 80 CR 2.1 IS: D5 1/2 NS IVF @50ML/HR MEROPENEM IV Q12HR PROTONIX IV QD ICU STATUS DCP: PATIENT IS FROM [facility]
[2018-03-04] MEDS ORDERED: Nitroglycerin Subl 0.4mg tab SL PRN (17:59)
[2018-03-04] MEDS ORDERED: Heparin 2000 units/Ns 1000ml INJ PRN (17:59)
[2018-03-04] MEDS ORDERED: Lidocaine 1% Plain 30 ml INJ PRN (18:00)
--- NOTE | 2018-03-04 18:00 | NUR ---
NURSE NOTES: Started platelet transfusion. VSS. will continue to monitor.
--- NOTE | 2018-03-04 19:05 | NUR ---
HAND-OFF: Report given to JUAN FRANCISCO Kwok.
--- NOTE | 2018-03-04 19:10 | NUR ---
NURSE NOTES: Received pt and report from JUAN FRANCISCO Rodriguez. Pt's currently in contact isolation ESBL urine and airborne isolation/ TB precaution. Pt's in bed, non responsive, obtunded, responded to pain. BP 100/62, HR 88, R 22, SpO2 100% , SR with BBB on pvc monitor, intubated with ETT 7.5, 25 lipline, AC 16, TV400, FiO2 80%, peep 5. Currently NPO. Noted painting 16fr for urinary retention, draining bloody urine. Pt has right FA 22G noted leakage. Left UA PICC newly in serted this morning, patent and intact, running D5 1/2NS at 50ml/hr. HOB kept elevated, bed in low and locked position. Will continue to monitor
--- NOTE | 2018-03-04 19:54 | NUR ---
RESPIRATORY NOTE: Received patient on Vent settings of RR 16, VT 400, FIO2 80%, PEEP +5. ETT 7.5 at 25cm lip line. AMBU bag at bedside and vent is plugged in to red outlet. Patient found obtunded, and responsive to discomfort. Patient currently stable, and will continue to monitor.
[2018-03-04] MEDS ORDERED: Dyna-Hex 2% Top Sol 2oz TOPIC SCH ×2 (20:00)
--- NOTE | 2018-03-04 20:16 | Cardiology Progress Note ---
Assessment/Plan Assessment/Plan 1. Alteration of mental status. Questionable toxic metabolic encephalopathy. 2. Acute myocardial infarction non ST-elevation. 3. Right bundle-branch block conduction defect, chronicity unknown. 4. Reported history of lung cancer. 5. Reported history of paroxysmal atrial fibrillation. 6. Reported history of coagulopathy secondary to anticoagulation. 7. History of coronary artery disease. 8. History of chronic obstructive pulmonary disease. 9. History of chronic kidney disease. 10. History of hypertension. 11. wide compelx tachy likely atrial tachy with abbarency 12. thormbocytopenia 13. left lugn collapse trop to repeat tele reviewed sinus need asa and statin but sicne plt are low i have dc ecotrin for now remains at this time a poor candidate for any invasive cardiac treatment poor resoponsive but nto communicative on bb off heparin aand antiplt agent due to lwo plt heme input noted prognosis poor Subjective ROS Limited/Unobtainable: Yes Subjective in isolation room for tb, on ventilator Objective Last 24 Hour Vital Signs Date Time Temp Pulse Resp B/P (MAP) Pulse Ox O2 Delivery O2 Flow Rate FiO2 03/04/18 19:54 101 28 80 03/04/18 19:00 100 25 105/52 (69) 100 03/04/18 18:00 99 25 109/60 (76) 100 03/04/18 17:00 99 25 103/66 (78) 100 03/04/18 16:42 106 26 80 03/04/18 16:00 101 03/04/18 16:00 Venturi Mask 10.0 03/04/18 16:00 98.0 100 25 96/46 (63) 100 03/04/18 16:00 80 03/04/18 15:04 108 27 100 03/04/18 15:00 108 22 112/66 (81) 100 03/04/18 14:19 100 16 100 03/04/18 14:00 100 03/04/18 14:00 110 25 115/70 (85) 100 03/04/18 13:00 Venturi Mask 10.0 03/04/18 12:00 97.7 114 30 120/66 (84) 96 03/04/18 12:00 102 03/04/18 11:35 102 03/04/18 11:30 Venturi Mask 15.0 03/04/18 08:00 Venturi Mask 15.0 03/04/18 08:00 99.4 101 22 124/78 (93) 100 03/04/18 07:52 98 24 Venturi Mask 14.0 55 03/04/18 07:52 96 Venturi Mask 14.0 55 03/04/18 07:52 Venturi Mask 14.0 55 03/04/18 07:16 104 03/04/18 04:00 97 03/04/18 04:00 98.5 99 26 128/65 (86) 99 03/04/18 04:00 Venturi Mask 15.0 03/04/18 00:00 Venturi Mask 15.0 03/04/18 00:00 97.8 87 26 125/55 (78) 98 General Appearance: no apparent distress, alert, on vent, patient on isolation Cardiovascular: normal rate Respiratory/Chest: lungs clear - ant Abdomen: normal bowel sounds, non tender, soft Extremities: no swelling Intake and Output 03/03/18 03/04/18 19:00 07:00 Intake Total 535 ml 495 ml Output Total 230 ml 400 ml Balance 305 ml 95 ml IV Total 535 ml 495 ml Output Urine Total 230 ml 400 ml # Voids 2 Laboratory Tests Test 03/04/18 02:50 03/04/18 11:30 03/04/18 11:50 03/04/18 16:27 White Blood Count 31.1 K/UL (4.8-10.8) *H Red Blood Count 2.64 M/UL (4.70-6.10) L Hemoglobin 7.6 G/DL (14.2-18.0) L Hematocrit 23.4 % (42.0-52.0) L Mean Corpuscular Volume 89 FL (80-99) Mean Corpuscular Hemoglobin 28.8 PG (27.0-31.0) Mean Corpuscular Hemoglobin Concent 32.5 G/DL (32.0-36.0) Red Cell Distribution Width 16.3 % (11.6-14.8) H Platelet Count 14 K/UL (150-450) L Mean Platelet Volume FL (6.5-10.1) Neutrophils (%) (Auto) % (45.0-75.0) Lymphocytes (%) (Auto) % (20.0-45.0) Monocytes (%) (Auto) % (1.0-10.0) Eosinophils (%) (Auto) % (0.0-3.0) Basophils (%) (Auto) % (0.0-2.0) Differential Total Cells Counted 100 Neutrophils % (Manual) 94 % (45-75) H Lymphocytes % (Manual) 2 % (20-45) L Monocytes % (Manual) 2 % (1-10) Eosinophils % (Manual) 0 % (0-3) Basophils % (Manual) 0 % (0-2) Band Neutrophils 2 % (0-8) Nucleated Red Blood Cells 2 /100 WBC Platelet Estimate Decreased L Platelet Morphology Normal Hypochromasia 3+ Anisocytosis 1+ Spherocytes 2+ Prothrombin Time 22.1 SEC (9.30-11.50) H Prothromb Time International Ratio 2.2 (0.9-1.1) H Fibrinogen 50 mg/dL (200-400) *L Sodium Level 146 MMOL/L (136-145) H Potassium Level 5.5 MMOL/L (3.5-5.1) H Chloride Level 114 MMOL/L (98-107) H Carbon Dioxide Level 23 MMOL/L (21-32) Anion Gap 9 mmol/L (5-15) Blood Urea Nitrogen 80 mg/dL (7-18) H Creatinine 2.1 MG/DL (0.55-1.30) H Estimat Glomerular Filtration Rate mL/min (>60) Glucose Level 126 MG/DL (74-106) H Calcium Level 7.6 MG/DL (8.5-10.1) L Phosphorus Level 3.9 MG/DL (2.5-4.9) Magnesium Level 2.4 MG/DL (1.8-2.4) Total Bilirubin 1.2 MG/DL (0.2-1.0) H Direct Bilirubin 0.2 MG/DL (0.0-0.3) Aspartate Amino Transf (AST/SGOT) 136 U/L (15-37) H Alanine Aminotransferase (ALT/SGPT) 59 U/L (12-78) Alkaline Phosphatase 73 U/L (46-116) C-Reactive Protein, Quantitative 10.0 mg/dL (0.00-0.90) H Total Protein 5.1 G/DL (6.4-8.2) L Albumin 2.2 G/DL (3.4-5.0) L Urine Color Yellow Urine Appearance Clear Urine pH 5 (4.5-8.0) Urine Specific [place] 1.015 (1.005-1.035) Urine Protein 3+ (NEGATIVE) H Urine Glucose (UA) Negative (NEGATIVE) Urine Ketones 1+ (NEGATIVE) H Urine Blood 5+ (NEGATIVE) H Urine Nitrite Negative (NEGATIVE) Urine Bilirubin Negative (NEGATIVE) Urine Urobilinogen 1 MG/DL (0.0-1.0) H Urine Leukocyte Esterase 1+ (NEGATIVE) H Urine RBC 2-4 /HPF (0 - 0) H Urine WBC 2-4 /HPF (0 - 0) Urine Squamous Epithelial Cells Occasional /LPF Urine Bacteria Few /HPF (NONE) Arterial Blood pH 7.403 (7.350-7.450) 7.363 (7.350-7.450) Arterial Blood Partial Pressure CO2 34.7 mmHg (35.0-45.0) L 35.8 mmHg (35.0-45.0) Arterial Blood Partial Pressure O2 74.6 mmHg (75.0-100.0) L 118.6 mmHg (75.0-100.0) H Arterial Blood HCO3 21.2 mmol/L (22.0-26.0) L 19.9 mmol/L (22.0-26.0) L Arterial Blood Oxygen Saturation 93.3 % (95-100) L 97.4 % (95-100) Arterial Blood Base Excess -3.1 (-2-2) L -4.9 (-2-2) L Tha Test Positive Positive Lactic Acid Level 1.50 mmol/L (0.4-2.0) Geovanny Sherwood MD Mar 04, 2018 20:16
--- NOTE | 2018-03-04 21:00 | NUR ---
NURSE NOTES: Noted BP 86/65 with HR 106, called DR Sherwood, ordered to give 500ml NS Bolus and Levophed standby if not respond. Orders noted and carried out
--- NOTE | 2018-03-04 21:33 | General Progress Note ---
Assessment/Plan Assessment/Plan Assessment (1) Encounter for PEG (percutaneous endoscopic gastrostomy) ICD Codes: Z43.1 - Encounter for attention to gastrostomy SNOMED: 800660468, 451816427 (2) Severe malnutrition ICD Codes: E43 - Unspecified severe protein-calorie malnutrition SNOMED: 85330649 (3) Dehydration ICD Codes: E86.0 - Dehydration SNOMED: 14992001 (4) Anemia and severe thrombocytopenia ICD Codes: D50.9 - Iron deficiency anemia, unspecified SNOMED: 65761633 Status: not improved, unchanged Assessment/Plan Airborne precautions to rule out TB Patient not stable for PEG at this time given resp status and low platelets. Maintain n.p.o. plus IV fluids at this time, Dobbhoff versus NGT when respiratory status stabilizes - also concerned about low platelet counts with respect to nosebleed risk may need temporary TPN -->PICC line --> will begin TPN until overall status stabilized As needed transfusions PPI Bowel regimen environmental services specialist to find the DPOA Antibiotics Follow-up labs Subjective Allergies: Coded Allergies: No Known Allergies (Unverified , 02/18/18) Subjective Patient seen early am today Above noted minimally interactive in resp isolation Objective Last 24 Hour Vital Signs Date Time Temp Pulse Resp B/P (MAP) Pulse Ox O2 Delivery O2 Flow Rate FiO2 03/04/18 20:00 Venturi Mask 10.0 03/04/18 19:54 101 28 80 03/04/18 19:00 100 25 105/52 (69) 100 03/04/18 18:00 99 25 109/60 (76) 100 03/04/18 17:00 99 25 103/66 (78) 100 03/04/18 16:42 106 26 80 03/04/18 16:00 101 03/04/18 16:00 Venturi Mask 10.0 03/04/18 16:00 98.0 100 25 96/46 (63) 100 03/04/18 16:00 80 03/04/18 15:04 108 27 100 03/04/18 15:00 108 22 112/66 (81) 100 03/04/18 14:19 100 16 100 03/04/18 14:00 100 03/04/18 14:00 110 25 115/70 (85) 100 03/04/18 13:00 Venturi Mask 10.0 03/04/18 12:00 97.7 114 30 120/66 (84) 96 03/04/18 12:00 102 03/04/18 11:35 102 03/04/18 11:30 Venturi Mask 15.0 03/04/18 08:00 Venturi Mask 15.0 03/04/18 08:00 99.4 101 22 124/78 (93) 100 03/04/18 07:52 98 24 Venturi Mask 14.0 55 03/04/18 07:52 96 Venturi Mask 14.0 55 03/04/18 07:52 Venturi Mask 14.0 55 03/04/18 07:16 104 03/04/18 04:00 97 03/04/18 04:00 98.5 99 26 128/65 (86) 99 03/04/18 04:00 Venturi Mask 15.0 03/04/18 00:00 Venturi Mask 15.0 03/04/18 00:00 97.8 87 26 125/55 (78) 98 Intake and Output 03/03/18 03/04/18 19:00 07:00 Intake Total 535 ml 495 ml Output Total 230 ml 400 ml Balance 305 ml 95 ml IV Total 535 ml 495 ml Output Urine Total 230 ml 400 ml # Voids 2 Laboratory Tests 03/04/18 02:50: White Blood Count 31.1*H, Red Blood Count 2.64L, Hemoglobin 7.6L, Hematocrit 23.4L, Mean Corpuscular Volume 89, Mean Corpuscular Hemoglobin 28.8, Mean Corpuscular Hemoglobin Concent 32.5, Red Cell Distribution Width 16.3H, Platelet Count 14L, Mean Platelet Volume , Neutrophils (%) (Auto) , Lymphocytes (%) (Auto) , Monocytes (%) (Auto) , Eosinophils (%) (Auto) , Basophils (%) (Auto ) , Differential Total Cells Counted 100, Neutrophils % (Manual) 94H, Lymphocytes % (Manual) 2L, Monocytes % (Manual) 2, Eosinophils % (Manual) 0, Basophils % (Manual) 0, Band Neutrophils 2, Nucleated Red Blood Cells 2, Platelet Estimate DecreasedL, Platelet Morphology Normal, Hypochromasia 3+, Anisocytosis 1+, Spherocytes 2+, Prothrombin Time 22.1H, Prothromb Time International Ratio 2.2H, Fibrinogen 50*L, Sodium Level 146H, Potassium Level 5.5H, Chloride Level 114H, Carbon Dioxide Level 23, Anion Gap 9, Blood Urea Nitrogen 80H, Creatinine 2.1H, Estimat Glomerular Filtration Rate , Glucose Level 126H, Calcium Level 7.6L, Phosphorus Level 3.9, Magnesium Level 2.4, Total Bilirubin 1.2H, Direct Bilirubin 0.2, Aspartate Amino Transf (AST/SGOT) 136H, Alanine Aminotransferase (ALT/SGPT) 59, Alkaline Phosphatase 73, C- Reactive Protein, Quantitative 10.0H, Total Protein 5.1L, Albumin 2.2L 03/04/18 11:30: Urine Color Yellow, Urine Appearance Clear, Urine pH 5, Urine Specific [place] 1.015, Urine Protein 3+H, Urine Glucose (UA) Negative, Urine Ketones 1+H, Urine Blood 5+H, Urine Nitrite Negative, Urine Bilirubin Negative, Urine Urobilinogen 1H, Urine Leukocyte Esterase 1+H, Urine RBC 2-4H, Urine WBC 2-4, Urine Squamous Epithelial Cells Occasional, Urine Bacteria Few 03/04/18 11:50: Arterial Blood pH 7.403, Arterial Blood Partial Pressure CO2 34.7L, Arterial Blood Partial Pressure O2 74.6L, Arterial Blood HCO3 21.2L, Arterial Blood Oxygen Saturation 93.3L, Arterial Blood Base Excess -3.1L, Tha Test Positive, Lactic Acid Level 1.50 03/04/18 16:27: Arterial Blood pH 7.363, Arterial Blood Partial Pressure CO2 35.8, Arterial Blood Partial Pressure O2 118.6H, Arterial Blood HCO3 19.9L, Arterial Blood Oxygen Saturation 97.4, Arterial Blood Base Excess -4.9L, Tha Test Positive Height (Feet): 5 Height (Inches): 10.00 Weight (Pounds): 141 Objective Elderly WM NCAT, (+) FM O2 supple Coarse BS RR abd soft ND NT non edema Stefany Kraus MD Mar 04, 2018 21:33
--- NOTE | 2018-03-04 22:17 | NUR ---
NURSE NOTES: Pt's coded, code blue called.
[2018-03-04] MEDS ORDERED: Levophed 4mg/4mL Inj IV ONE (22:18)
--- NOTE | 2018-03-04 22:30 | NUR ---
NURSE NOTES: Pt survived the code, code blue ended at 22:28. Current BP 116/80,HR 125, R 31, SpO2 52%, intubated with AC 16, TV 400, fio2 100%, peep 5. Dr Sibley made aware and made new orders. Orders noted and carried out. Tried to call family member on the face sheet, unable to reach. Will continue to monitor.
--- NOTE | 2018-03-04 22:35 | NUR ---
RESPIRATORY NOTE: Patient code blue called at 2217 (see code sheet for details.) Patient successfully resuscitated and placed back on previous vent settings. Awaiting MD orders and will continue to monitor.
--- NOTE | 2018-03-04 22:37 | Emergency Room Report ---
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 Patient had been admitted for sepsis. Patient was given multiple rounds of epinephrine as well as an amp of bicarb with return of spontaneous circulation. Patient was noted to have spontaneous respirations after code. Primary care physician to be notified by staff.See code sheet Last Vital Signs Date Time Temp Pulse Resp B/P (MAP) Pulse Ox O2 Delivery O2 Flow Rate FiO2 03/04/18 21:33 120 30 80 03/04/18 20:00 Venturi Mask 10.0 03/04/18 19:00 105/52 (69) 100 03/04/18 16:00 98.0 Status: improved Disposition: ADMITTED INPATIENT Condition: Critical Referrals: NON PHYSICIAN (PCP) Garry Rob MD Mar 04, 2018 22:37
[2018-03-04] MEDS ORDERED: Sodium Polystyrene Sulfonate 15gm Powder ORAL ONE (23:00)
--- NOTE | 2018-03-04 23:54 | NUR ---
NURSE NOTES: Pt's coded, code blue called.
[2018-03-05] VITALS: BP 146/50
[2018-03-05 00:15] VITALS: BP 92/76
--- NOTE | 2018-03-05 00:21 | NUR ---
NURSE NOTES: Pt survived the code, code ended. Pt's currently on max of Levophed. BP106/74, HR 110, R16, still intubated with previous setting. OGT initiated earlier and confirmed by Xray. Kayexalate was given as ordered. Dr Sibley made aware. Will continue to monitor.
[2018-03-05 00:30] VITALS: BP 106/74
[2018-03-05] MEDS ORDERED: Levophed 4mg/4mL Inj IV ONE (00:35)
[2018-03-05 00:45] VITALS: BP 97/73
[2018-03-05 01:00] VITALS: BP 93/68
[2018-03-05 01:15] VITALS: BP 86/64
--- NOTE | 2018-03-05 01:28 | NUR ---
NURSE NOTES: Pt's coded, code blue called.
[2018-03-05] MEDS ORDERED: Calcium Chloride 10% 10ml carpuject IVP ONE (01:51)
[2018-03-05] MEDS ORDERED: Sodium Bicarbonate 50ml Carp ONE (01:51)
[2018-03-05] MEDS ORDERED: D5W 275ml ONE (01:51)
--- NOTE | 2018-03-05 01:53 | NUR ---
NURSE NOTES: Code ended, pt did not survive. Dr Sibley made aware, also unable to reach the family member stated on the face sheet. [employer] office called by charge nurse.
--- NOTE | 2018-03-05 02:01 | Emergency Room Report ---
History of Present Illness General Chief Complaint: Altered Level of Consciousness Source: Medical Record Present Illness Allergies: Coded Allergies: No Known Allergies (Unverified , 02/18/18) Nursing Documentation-[facility] Past Medical History: No History, Except For Hx Cardiac Problems: Yes - Atherosclerotic heart disease, AFIB Hx Hypertension: Yes Hx COPD: Yes Hx Cancer: Yes - MALIGNANT NEOPLASM OF BRONCHUS AND LUNG Hx Gastrointestinal Problems: Yes - DYSPHAGIA Hx Neurological Problems: Yes - ENCEPHALOPATHY Hx Dementia: Yes Physical Exam Vital Signs Date Time Temp Pulse Resp B/P (MAP) Pulse Ox O2 Delivery O2 Flow Rate FiO2 03/01/18 07:42 94 03/01/18 08:00 Venturi Mask 03/01/18 08:00 97.0 15 127/73 (91) 92 03/03/18 19:47 14.0 55 Medical Decision Making Diagnostic Impression: Primary Impression: Altered level of consciousness Additional Impressions: Myocardial injury Severe sepsis ER Course I was called to evaluate patient after a bradycardic arrest. Patient had recent cardiac arrest x2. Patient was noted to have prior history of sepsis as well as anemia. Patient was noted to have been given epinephrine prior to arrival. Patient had been undergoing CPR. See code sheets for full medications. Patient was noted to have brief episode of fine V. fib which did not resolve with defibrillation. Patient continued undergoing CPR and eventually degenerated to asystole. Patient was pronounced . Primary physician to be notified by nursing staff. Patient reportedly does not have any family. Last Vital Signs Date Time Temp Pulse Resp B/P (MAP) Pulse Ox O2 Delivery O2 Flow Rate FiO2 03/05/18 01:10 109 17 100 03/05/18 00:29 92/76 03/05/18 00:00 Endotracheal Tube 03/04/18 20:00 03/04/18 19:00 100 03/04/18 16:00 98.0 Disposition: ADMITTED INPATIENT Condition: Critical Referrals: NON PHYSICIAN (PCP) Garry Rob MD Mar 05, 2018 02:01
[2018-03-05] MEDS ORDERED: Meropenem 1 GM in NS 55 ML IVPB SCH (05:00)
[2018-03-05] MEDS ORDERED: Pantoprazole Inj IVP SCH (09:00)
--- NOTE | 2018-03-05 10:26 | Diagnostic Imaging Report ---
Indication: NG tube placement Comparison: None Single view of the abdomen obtained Findings: NG tube is projected over the left upper quadrant presumably within the stomach. IMPRESSION: NG tube in the stomach
--- NOTE | 2018-03-06 00:05 | General Progress Note ---
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 Assessment/Plan zyprexa prn the pt lacks capacity provided ro Subjective Allergies: Coded Allergies: No Known Allergies (Unverified , 02/18/18) Subjective no changes. the pt has episodes of agitation and is confused. Objective Last 24 Hour Vital Signs Date Time Temp Pulse Resp B/P (MAP) Pulse Ox O2 Delivery O2 Flow Rate FiO2 03/05/18 01:15 109 17 86/64 (71) 72 03/05/18 01:10 109 17 100 03/05/18 01:00 110 17 93/68 (76) 26 03/05/18 00:45 115 16 97/73 (81) 03/05/18 00:30 110 16 106/74 (85) 03/05/18 00:29 92/76 03/05/18 00:15 155 18 92/76 (81) 85 Height (Feet): 5 Height (Inches): 10.00 Weight (Pounds): 141 General Appearance: confused, agitated Arsen Erwin MD Mar 06, 2018 00:05
--- NOTE | 2018-03-06 13:52 | Discharge Summary ---
Discharge Summary Discharge Summary _ DATE OF ADMISSION: 02/18/2018 DATE OF DISCHARGE: 03/05/2018 BRIEF SUMMARY: Patient is an unfortunate 82-year-old male, who presented to ED for altered mental status. Patient is a resident of [facility]. Patient became acutely altered and EMS was called. He has medical history significant for COPD, hypertension, hypothyroidism, anemia, coronary artery disease, dementia, atrial fibrillation, chronic renal failure and history of lung CA. On evaluation at ED, he was found to be febrile with leukocytosis. Lactic acid 2.0 initial troponin was treated to 6. EKG was in normal sinus rhythm with bifascicular block and inverted T waves. He was given aspirin. Urinalysis showed evidence of infection. Chest x-ray showed left midlung calcified parenchymal scarring; left apical lucency could reflect hyperinflation or COPD changes. Head CT was negative for acute intracranial bleed or mass-effect. He was given IV hydration and was started empirically on vancomycin and Unasyn. He was then admitted for evaluation of encephalopathy, sepsis and myocardial injury. Cardiac evaluation was done. EKG was reviewed. There was no other ST or T wave abnormality except related to the right bundle branch conduction defect. There was no electrocardiographic changes seen. He was recommended to be treated medically with aspirin and statin. Patient is not a candidate for any invasive cardiac intervention. He was eventually given beta-blockers. Echocardiogram was done on 02/19/2018, and showed EF 60% with normal left ventricular size, function and wall motion. ID was consulted. He was continued on cefepime empirically pending culture results. Urine culture showed growth of ESBL UTI. There was increase in WBC and creatinine. Antibiotic was switched to ertapenem. He had episodes of bleeding in suctioning. Patient was placed on respiratory isolation for rule out TB. He was given Solu-Medrol IV. AFB. He was kept on n.p.o. status. Patient was poorly responsive unable to undergo swallow evaluation. GI was consulted for PEG placement. On 02/25/2018, he was noted to have labored breathing and was desaturating on nasal cannula. He was placed on Venturi mask. Patient had limited options for medical management for CAD. Metoprolol was discontinued due to wheezing. Patient not on any antiplatelet therapy due to noted decline in platelet count. Repeat echocardiogram was done on 02/24/2018. EF 55-60%. Patient had increased respiratory distress and hypoxia. Repeat chest x-ray done on 03/03/2018 showed interval opacification of the left hemithorax. There was total left lung collapse. ED physician was called and patient was orally intubated. He was also noted to have a rise in kidney function. Abdominal ultrasound multiple cysts within the right kidney, marked distention of the urinary bladder. He was noted to have a drop in hemoglobin. He required blood transfusion. INR was noted to be 1.4. Fibrinogen was 108. Hepatitis and HIV screens negative. Patient was seen with nucleated red cells. PICC line was inserted. Blood transfusion was given. On 03/04/2018, patient was noted to have bradycardic arrest . He had return of spontaneous circulation. 03/05/2018 he again later on went into bradycardic arrest. Resuscitative efforts failed and patient eventually . FINAL DIAGNOSES: Cardiopulmonary pulmonary arrest Sepsis Acute encephalopathy Acute myocardial infarction non-ST elevation Acute renal failure Acute respiratory failure Left lung collapse Hemoptysis on respiratory isolation Paroxysmal atrial fibrillation COPD Lung CA Hypertension Dementia Dehydration Severe protein calorie malnutrition Anemia of chronic disease Thrombocytopenia coagulopathy Urinary retention Dysphagia Coronary artery disease Drop in hemoglobin requiring blood transfusion DISPOSITION: Patient . I have been assigned to dictate discharge summary on this account, and I was not involved in the patient's management. Harini Fernando NP Mar 06, 2018 13:52
== END 2018-03-05 01:52 | disposition expired | DRG 871 ==
LOC: EDBD 14:34 → EMR 15:13 → 2W 15:55 → EDBEDREQ 16:07 → EDBEDREQSVC 16:07 → EDBEDREQ 16:42 → 2W 02-24 00:21 → ICU 03-04 12:55
PROC: 02HV33Z Insertion of Infusion Device into Superior Vena Cava, Percutaneous Approach (ICD-10-PCS; principal; 2018-03-04)
PROC: 5A12012 Performance of Cardiac Output, Single, Manual (ICD-10-PCS; 2018-03-04)
PROC: 5A1935Z Respiratory Ventilation, Less than 24 Consecutive Hours (ICD-10-PCS; 2018-03-04)
PROC: 30233R1 Transfusion of Nonautologous Platelets into Peripheral Vein, Percutaneous Approach (ICD-10-PCS; 2018-03-04)
PROC: 30233N1 Transfusion of Nonautologous Red Blood Cells into Peripheral Vein, Percutaneous Approach (ICD-10-PCS; 2018-03-04)
PROC: 0BH17EZ Insertion of Endotracheal Airway into Trachea, Via Natural or Artificial Opening (ICD-10-PCS; 2018-03-04)
DX: A41.9 Sepsis, unspecified organism (principal); I21.4 Non-ST elevation (NSTEMI) myocardial infarction; J96.00 Acute respiratory failure, unspecified whether with hypoxia or hypercapnia; J18.9 Pneumonia, unspecified organism; E43 Unspecified severe protein-calorie malnutrition; G93.41 Metabolic encephalopathy; N39.0 Urinary tract infection, site not specified; N17.9 Acute kidney failure, unspecified; J98.19 Other pulmonary collapse; I13.0 Hypertensive heart and chronic kidney disease with heart failure and stage 1 through stage 4 chronic kidney disease, or unspecified chronic kidney disease; D68.4 Acquired coagulation factor deficiency; R04.2 Hemoptysis; I47.1 Supraventricular tachycardia; R65.20 Severe sepsis without septic shock; I46.9 Cardiac arrest, cause unspecified; I49.8 Other specified cardiac arrhythmias; E03.9 Hypothyroidism, unspecified; Z85.118 Personal history of other malignant neoplasm of bronchus and lung; G30.9 Alzheimer's disease, unspecified; F02.80 Dementia in other diseases classified elsewhere, unspecified severity, without behavioral disturbance, psychotic disturbance, mood disturbance, and anxiety; I25.10 Atherosclerotic heart disease of native coronary artery without angina pectoris; N18.9 Chronic kidney disease, unspecified; I45.10 Unspecified right bundle-branch block; I50.9 Heart failure, unspecified; D69.6 Thrombocytopenia, unspecified; R13.10 Dysphagia, unspecified; R33.9 Retention of urine, unspecified; D63.8 Anemia in other chronic diseases classified elsewhere; I48.0 Paroxysmal atrial fibrillation; B96.20 Unspecified Escherichia coli [E. coli] as the cause of diseases classified elsewhere; Z16.12 Extended spectrum beta lactamase (ESBL) resistance; Z68.21 Body mass index [BMI] 21.0-21.9, adult
CPT/HCPCS: 36415; 36569; 36600; 70450; 71045; 74018; 74176; 74230; 76700; 76937; 80048; 80053; 80061; 80069; 80076; 80162; 80202; 81003; 82270; 82550; 82553; 82607; 82728; 82803; 82962; 83010; 83540; 83550; 83605; 83690; 83735; 83880; 84100; 84443; 84484; 85007; 85025; 85044; 85384; 85610; 85730; 86140; 86703; 86705; 86709; 86710; 86803; 86850; 86900; 86901; 86920; 87040; 87070; 87081; 87086; 87116; 87181; 87205; 87340; 87556; 92950; 93005; 93306; 93970; 94002; 94003; 94640; 94664; 94760; 96361; 96365; 96367; 99291; J0171; J7620